=== PATIENT | female | born 1950 | race Caucasian/White ===

== ENCOUNTER → 2018-01-10 07:45 | Outpatient (CLI) | payer MEDICARE, SELFPAY ==
--- NOTE | 2018-01-10 07:11 | HPBI_ITS ---
MAMMOGRAPHY - BILATERAL SCREENING REASON FOR EXAM: Female, 67 years old. Routine annual screening examination. PERTINENT HISTORY: Aunt with breast cancer. Remote bilateral excisional breast biopsies. TECHNIQUE: Digital bilateral breast armando (3D mammographic acquisition) in the CC and MLO projections. 2-D mediolateral oblique (MLO) and craniocaudad (CC) views of both breasts were obtained. CAD: Full Field Digital Mammography with Computer Added Detection was performed. COMPARISON: Comparison is made with prior study dated October 11, 2016. FINDINGS: Breast Composition: There are scattered areas of fibroglandular density. There are no dominant masses or suspicious calcifications. No other significant abnormalities are identified. There has been no significant change since the prior study. HPBI/SCREENING MAMM (CAD), BILAT IMPRESSION: Stable bilateral screening mammogram. Yearly follow-up mammogram recommended. (A) ASSESSMENT CATEGORY: BIRADS Category 1: Negative. A letter regarding these results will be sent to the patient by the facility within 30 days. Approximately 10% of breast cancers are not detected by mammography. A normal mammogram should not delay biopsy of a clinically suspicious abnormality. [id number] Electronically Signed: Jatin Song MD at 8:24 EDT Tel [phone], Service support ,
== END ==
DX: Z12.31 Encounter for screening mammogram for malignant neoplasm of breast (principal)
CPT/HCPCS: 77063; 77067

== ENCOUNTER → 2018-04-11 14:07 | Outpatient (CLI) | payer MEDICARE, SELFPAY | DX: E83.52 Hypercalcemia (principal) | CPT/HCPCS: 36415; 82330 ==

== ENCOUNTER → 2019-02-04 | Outpatient (CLI) | payer MEDICARE, SELFPAY ==
--- NOTE | 2019-02-04 09:54 | BI_ITS ---
MAMMOGRAPHY - BILATERAL SCREENING REASON FOR EXAM: Female, 68 years old. Routine annual screening examination. PERTINENT HISTORY: Aunt with breast cancer. Remote bilateral excisional breast biopsies. TECHNIQUE: Digital bilateral breast vinnie (3D mammographic acquisition) in the CC and MLO projections. 2-D mediolateral oblique (MLO) and craniocaudad (CC) views of both breasts were obtained. CAD: Full Field Digital Mammography with Computer Added Detection was performed. COMPARISON: Comparison is made with prior study dated October 11, 2016 and January 11, 2008. FINDINGS: Breast Composition: There are scattered areas of fibroglandular density. There are no dominant masses or suspicious calcifications. Stable small bilateral axillary lymph nodes. No other significant abnormalities are identified. There has been no significant change since the prior study. BI/SCREEN MAMM (CAD) W/VINNIE BILAT IMPRESSION: Stable bilateral screening mammogram. Yearly follow-up mammogram recommended. (A) ASSESSMENT CATEGORY: BIRADS Category 2: Benign. A letter regarding these results will be sent to the patient by the facility within 30 days. Approximately 10% of breast cancers are not detected by mammography. A normal mammogram should not delay biopsy of a clinically suspicious abnormality. [id number] Electronically Signed: Jatin Song, at 13:27 EDT , Service support ,
--- NOTE | 2019-02-04 10:14 | BD_ITS ---
STUDY: DUAL ENERGY X-RAY ABSORPTIOMETRY / DXA REASON FOR EXAM: Female, 68 years old. The patient is postmenopausal. Loss of height. TECHNIQUE: Bone Mineral Density (BMD) measurements of lumbar spine and bilateral hips were obtained. COMPARISON: Comparison is made with prior examination dated October 11, 2016. FINDINGS: Lumbar Spine (L1-L4): g/cm2 (1.250) / T-score (0.6) / Z-score (2.2) Findings are suggestive of normal bone density with a low fracture risk. Left Femur Total: g/cm2 (0.916) / T-score (-0.7) / Z-score (0.6) Left Femoral Neck: g/cm2 (0.843) / T-score (-1.4) / Z-score (0.2) Right Femur Total: g/cm2 (0.860) / T-score (-1.2) / Z-score (0.2) Right Femoral Neck: g/cm2 (0.798) / T-score (-1.7) / Z-score (-0.2) The T-Scores on the most recent prior examination were: Lumbar Spine (L1-L4): There has been worsening of bone density since the previous examination. Left Femur Total: which represents an improvement of 2%. Right Femur Total: which represents a worsening of 1.1%. BD/Dexa Bone Density Study IMPRESSION: The patient is considered osteopenic as outlined below according to World Osei Organization (WHO) criteria with a moderate fracture risk. There has been worsening of bone density since the previous examination. Reference Information: The T-score is the number of standard deviations above or below the standard which is normal for young adults at their peak bone mineral density. The World Health Organization (WHO) interprets the T-scores as follows: Above -1 Normal bone density Between -1 and -2.5 Osteopenia Equal to / or below -2.5 Osteoporosis As a practical clinical guideline, osteopenia may be graded as follows: Mild -1 through -1.5 Moderate -1.6 through -2.0 Severe -2.1 through -2.4 The Z-score is the number of standard deviations above or below age-matched controls. A Z-score of less than -1.5 would be considered abnormal. References: 1. NIH Osteoporosis and Related Bone Diseases http://www.osteo.org 2. International Society for Clinical Densitometry http://www.iscd.org 3. National Osteoporosis Foundation http://www.nof.org Electronically Signed: Jatin Song, at 11:42 EDT , Service support ,
== END | disposition home or self-care (01) ==
LOC: OPBD 09:47
DX: Z78.0 Asymptomatic menopausal state (principal); Z12.31 Encounter for screening mammogram for malignant neoplasm of breast; Z13.820 Encounter for screening for osteoporosis
CPT/HCPCS: 77063; 77067; 77080

== ENCOUNTER → 2019-07-09 | Outpatient (CLI) | payer MEDICARE, SELFPAY ==
[2019-07-08 08:13] VITALS: BMI 28.8
[2019-07-09 12:36] LABS: Absolute Lymphocyte Count 1.64 X10^3/uL (0.83-4.51); Absolute Neutrophil Count 3.1 X10^3/uL (2.0-7.7); Basophil# 0.05 X10^3/uL; Basophil% 0.9 % (0-1); Eosinophil# 0.23 X10^3/uL; Eosinophils% 4.1 % (0-5); Hematocrit 45.2 % (37-47); Hemoglobin 14.3 g/dL (12.0-15.0); Lymphocyte # 1.64 X10^3/ul (4.0); Lymphocyte % 29.2 % (19-41); Mean Corp Hgb Conc 31.6 g/dL (32-36); Mean Corpuscular Hgb 28.2 pg (27.0-32.0); Mean Corpuscular Volume 89.2 fL (81-99); Mean Platelet Vol. 10.6 fl (6.2-12.0); Monocyte# 0.59 X10^3/uL; Monocyte% 10.5 % (0-10); NRBC Flagged by Analyzer 0 % (0-5); Neutrophil % 55.3 % (47-70); Platelet Count 252 K/mm3 (150-450); RBC Distribution Width CV 14.7 % (11.6-14.6); RBC Distribution Width SD 47.9 fl (35.1-43.9); Red Blood Count 5.07 M/mm3 (4.2-5.4); White Blood Count 5.6 K/mm3 (4.4-11.0)
[2019-07-09 13:05] LABS: AST(SGOT) 19 U/L (15-37); Alanine Aminotransfer ALT/SGPT 27 U/L (13-56); Albumin, Serum 3.6 g/dL (3.2-5.0); Alkaline Phosphatase 109 U/L (45-117); Anion Gap 8 (5-15); BUN 12 mg/dL (7-18); BUN/Creat Ratio 10.4 RATIO (10-20); Calcium,Total 9.4 mg/dL (8.5-10.1); Chloride 107 mmol/L (98-107); Cholesterol 143 mg/dL (200); Creatinine, Serum 1.15 mg/dL (0.55-1.02); EST Glomerular Filtration Rate 50 mL/min (>60); Est Glom Filt Rate - Afr Amer 60 mL/min (>60); Globulin 3.6 g/dL (2.2-4.2); Glucose 83 mg/dL (74-106); High Density Lipoprotein 48 mg/dL; Potassium 3.9 mmol/L (3.5-5.1); Protein, Total 7.2 g/dL (6.4-8.2); Sodium Level 142 mmol/L (136-145); T4 Free Direct 0.86 ng/dL (0.76-1.46); Thyroid Stim Hormone (TSH) 2.16 uIU/mL (0.358-3.74); Triglycerides 94 mg/dL; Very Low Density Lipoprotein 19 mg/dL (5-40)
== END | disposition home or self-care (01) ==
LOC: BIMLAB 08:31
PROVIDERS: PCP Internal Medicine; Visit Provider Internal Medicine
DX: E78.5 Hyperlipidemia, unspecified (principal)
CPT/HCPCS: 36415; 80053; 80061; 84439; 84443; 85025

== ENCOUNTER → 2019-09-10 08:28 | Outpatient (CLI) | payer MEDICARE, SELFPAY ==
[2019-08-25 13:22] VITALS: BMI 28.8
[2019-09-10 12:48] LABS: Anion Gap 6 (5-15); BUN 14 mg/dL (7-18); BUN/Creat Ratio 13.3 RATIO (10-20); Calcium,Total 9.4 mg/dL (8.5-10.1); Chloride 105 mmol/L (98-107); Creatinine, Serum 1.05 mg/dL (0.55-1.02); EST Glomerular Filtration Rate 55 mL/min (>60); Est Glom Filt Rate - Afr Amer 67 mL/min (>60); Glucose 85 mg/dL (74-106); Potassium 3.7 mmol/L (3.5-5.1); Sodium Level 140 mmol/L (136-145)
== END ==
PROVIDERS: Family Provider Internal Medicine; PCP Internal Medicine; Visit Provider Internal Medicine
DX: I10 Essential (primary) hypertension (principal); G57.02 Lesion of sciatic nerve, left lower limb
CPT/HCPCS: 36415; 80048; 97110; 97530

== ENCOUNTER 2019-09-10 14:00 | Outpatient (RCR) | payer MEDICARE, SELFPAY ==
[2019-08-25 13:22] VITALS: BMI 28.8
--- NOTE | 2019-09-01 09:55 | HP.PTEVAL_ITS ---
Patient's Visit Information RICHELLE PATEL is a 69 year old F referred to Physical Therapy by Vazquez Scott MD with a diagnosis of L sciatica. Date of Evaluation: 09/01/19 Physical Therapist: Josafat Dang DPT, OCS, CSCS - Visit Plan Frequency: 3x /Week Duration: 4-6 Weeks Plan: 3x/week for 2-4 weeks for. 1. US nonthermal to L trochanteric area. 2. STM adn rollout quad, HS, piriformis adn ITB and stretch the same. 3. show hip stab exercies once pain is down adn return to gym ex(TM, row, yoga class) when painfree. - Subjective Findings: i HAVE TIGHT piriformis. Has L lateral hip pain described as hot and painful. Been there 6-7 months ago. Walked alot on trails at that time in [place] adn lots of steps. Rower made it hurt. Walking is now OK. Steps can hurt at times. Is on antiinflammatory whcih is helping. Pain is intermittent and comfortable at rest. Prior to meds it hurt every other week. Sleep is interrupted as it wakes her if on L side. [place] pose helps, piriformis stretch helps. Last pain was yesterday sitting. Activities: hesitant to do yoga class. May do TM at some times. Basic ADLs: sitting >60 mintues hurts to stand. Dresses self adn basics no problem. - Pain L hip pain. Pain Intensity (Out of 10): 0 Pain Intensity Range: 0, 6 - Objective L hip max tender over trochanter and min over piriformis area. R trochanter slightly tender. Walks I and normal, trasnfers nromal bed adn chair. Steps are reciprocal without pain or railing today. ITB max tight B, quad min tight B, HS min tight, priformis min tight. Hip AROM WFL adn without asymmetries or pain today. Knee adn ankle show symmetrical ROM. Strength ankles and knees 4+ without pain, hip felxion 4- B, abd 4 B with slight L lateral hip pain, add 5/5 B, ext 4- and no pain B. reflexes 2/3 patella and achilles B. SensationWNL to gross light touch B LE. - FATIMAH, - FADDIR, - hip scouring, LB AROM WFL and without pain, PA pressure L/S without pain and near full. - Goals Goal 1:: Patient feel 90% decreased L hip pain at 1/10 at worst Goal Time Frame: 4-6 Weeks Goal 2:: Pateint I in appropriate HEP to minimze future problems Goal Time Frame: 4-6 Weeks Goal 3:: LEFS less than 8% disability. Goal Time Frame: 4-6 Weeks Goal 4:: Only min tenderness trochanter L and knee to table in sidelying to show less ITB tightness. Goal Time Frame: 4-6 Weeks - Rehabilitation Potential Physical Therapy Diagnosis: Likely L trochanteric bursitis vs priformis. Rehabilitation Potential: Good - Anticipated Interventions Patient/Client Instruction: Educate patient on: Condition, Plan of Care For the Purpose of:: To decrease pain, To increase ROM, To improve nutrient delivery to tissue, To improve muscle performance and motor function, To increase tolerance to activity/condition/position, To improve ability of physical actions for home/community/work/leisure Therapeutic Exercise to Include: Strength training, Flexibilty training, Gait and locomotor training, Passive ROM, Active ROM For the Purpose of:: To decrease pain, To increase ROM, To improve muscle performance and motor function, To increase tolerance to activity/condition/position, To improve ability of physical actions for home/community/work/leisure Manual Therapy Techniques to Include: Passive ROM, Soft tissue mobilization For the Purpose of:: To decrease pain, To improve nutrient delivery to tissue, To improve ability of physical actions for home/community/work/leisure, To improve gait and locomotor functions Ultrasound (thermal/non thermal): Yes - nonthermal L trochanter area For the Purpose of:: To decrease pain, To decrease swelling/inflammation, To improve muscle performance and motor function, To increase tolerance to activity/condition/position Thank you for the opportunity to evaluate your patient. For Medicare and Medicare HMO plans, please review the plan of care and approve it. It will need to be FAXED BACK to us at [phone] for Medicare purposes. For Medicare only, by signing this I certify the plan of care. Please let me know if there are questions or concerns regarding this plan of care. Physician Signature: Date:_
--- NOTE | 2019-09-16 11:19 | HP.PTDCSUM ---
HP - PT D/C Summary It has been my pleasure to treat RICHELLE PATEL under orders from Vazquez Scott MD, for the diagnosis of L sciatica for a total of 6 visit(s). Discharge Date: 09/16/19 Please see the following information for a summary of their discharge status. - Subjective Subjective: I feel really good. Exerrcises really help. If I don't stretch I still can hurt. F/u with doctor for med check coming up. Pain to 2/10 after sitting. Manageable. Ready to be done with PT. - Pain L hip pain. Pain Intensity (Out of 10): 0 - Overall Improvement % Improvement: 90 - Objective Objective/Function: knee to table today without pain, Min tenderness greater trochanter. Walks normal and steps normal. OVERALL DOING VERY WELLA ND WILLING TO CONTINUE ON OWN AT HOME. - Goals Goal 1:: Patient feel 90% decreased L hip pain at 1/10 at worst Goal Progress: Goal Met Goal 2:: Pateint I in appropriate HEP to minimze future problems Goal Progress: Goal Met Goal 3:: LEFS less than 8% disability. Goal Progress: Goal Met Goal 4:: Only min tenderness trochanter L and knee to table in sidelying to show less ITB tightness. Goal Progress: Goal Met - Plan Plan: d/c to hep - D/C Information Discharge Comments: Pt doing wella dn willing to cotninue stretches via HEP. Will see doctor in a couple weeks. If there are questions or concerns regarding this patient's physical therapy, please feel free to call me at [phone]. Thank you for the referral of this patient. Sincerely, Josafat Dang, DPT, OCS, CSCS
== END 2019-09-10 19:00 | disposition home or self-care (01) ==
LOC: PT 14:00
PROVIDERS: Family Provider Internal Medicine; PCP Internal Medicine; Referring Provider Internal Medicine; Visit Provider Internal Medicine
DX: G57.02 Lesion of sciatic nerve, left lower limb (principal)
CPT/HCPCS: 97110; 97162

== ENCOUNTER → 2019-10-28 08:58 | Outpatient (CLI) | payer MEDICARE, SELFPAY ==
[2019-09-30 13:27] VITALS: BMI 29.2
[2019-10-28 13:05] LABS: Anion Gap 4 (5-15); BUN 17 mg/dL (7-18); BUN/Creat Ratio 15.3 RATIO (10-20); Calcium,Total 9.8 mg/dL (8.5-10.1); Chloride 103 mmol/L (98-107); Creatinine, Serum 1.11 mg/dL (0.55-1.02); EST Glomerular Filtration Rate 52 mL/min (>60); Est Glom Filt Rate - Afr Amer 63 mL/min (>60); Glucose 91 mg/dL (74-106); Potassium 3.7 mmol/L (3.5-5.1); Sodium Level 137 mmol/L (136-145)
== END ==
PROVIDERS: Family Provider Internal Medicine; PCP Internal Medicine; Visit Provider Internal Medicine
DX: I10 Essential (primary) hypertension (principal)
CPT/HCPCS: 36415; 80048

== ENCOUNTER → 2020-03-02 08:30 | Outpatient (CLI) | payer MEDICARE, SELFPAY ==
[2019-12-01 16:33] VITALS: BMI 29.2
[2020-03-01 10:01] VITALS: BMI 29.2
--- NOTE | 2020-03-02 08:32 | BI_ITS ---
MAMMOGRAPHY - BILATERAL SCREENING REASON FOR EXAM: Female, 69 years old. Routine annual screening examination. PERTINENT HISTORY: Aunt with breast cancer. TECHNIQUE: Digital bilateral breast vinnie (3D mammographic acquisition) in the CC and MLO projections. 2-D mediolateral oblique (MLO) and craniocaudad (CC) views of both breasts were obtained. CAD: Full Field Digital Mammography with Computer Added Detection was performed. COMPARISON: Comparison is made with prior study dated February 04, 2019 and January 10, 2018. FINDINGS: Breast Composition: There are scattered areas of fibroglandular density. There are no dominant masses or suspicious calcifications. Stable small benign-appearing bilateral axillary lymph nodes. No other significant abnormalities are identified. There has been no significant change since the prior study. BI/SCREEN MAMM (CAD) W/VINNIE BILAT IMPRESSION: Stable bilateral screening mammogram. Yearly follow-up mammogram recommended. (A) ASSESSMENT CATEGORY: BIRADS Category 2: Benign. A letter regarding these results will be sent to the patient by the facility within 30 days. Approximately 10% of breast cancers are not detected by mammography. A normal mammogram should not delay biopsy of a clinically suspicious abnormality. [id number] Electronically Signed: Jatin Song, at 10:01 EDT , Service support ,
== END ==
PROVIDERS: PCP Internal Medicine; Referring Provider Internal Medicine; Visit Provider Internal Medicine
DX: Z12.31 Encounter for screening mammogram for malignant neoplasm of breast (principal)
CPT/HCPCS: 77063; 77067

== ENCOUNTER → 2020-05-03 09:49 | Outpatient (CLI) | payer MEDICARE, SELFPAY ==
[2020-05-03 09:25] VITALS: BMI 29.2
[2020-05-03 12:45] LABS: Absolute Lymphocyte Count 1.61 X10^3/uL (0.83-4.51); Absolute Neutrophil Count 3.6 X10^3/uL (2.0-7.7); Basophil# 0.04 X10^3/uL; Basophil% 0.7 % (0-1); Eosinophil# 0.17 X10^3/uL; Eosinophils% 2.9 % (0-5); Hematocrit 43.1 % (37-47); Hemoglobin 13.8 g/dL (12.0-15.0); Lymphocyte # 1.61 X10^3/ul (4.0); Lymphocyte % 27.2 % (19-41); Mean Corpuscular Hgb 29.2 pg (27.0-32.0); Mean Corpuscular Volume 91.3 fL (81-99); Mean Platelet Vol. 10.6 fl (6.2-12.0); Monocyte# 0.52 X10^3/uL; Monocyte% 8.8 % (0-10); NRBC Flagged by Analyzer 0 % (0-5); Neutrophil # 3.57 X10^3/uL (2.7-7.7); Neutrophil % 60.1 % (47-70); Platelet Count 276 K/mm3 (150-450); RBC Distribution Width CV 13.7 % (11.6-14.6); RBC Distribution Width SD 45.8 fl (35.1-43.9); Red Blood Count 4.72 M/mm3 (4.2-5.4); White Blood Count 5.9 K/mm3 (4.4-11.0)
[2020-05-03 13:28] LABS: ALB/GLOB Ratio 1.1 RATIO (0.9-2.4); AST(SGOT) 21 U/L (15-37); Alanine Aminotransfer ALT/SGPT 29 U/L (13-56); Albumin, Serum 4.1 g/dL (3.2-5.0); Alkaline Phosphatase 101 U/L (45-117); Anion Gap 8 (5-15); BUN 10 mg/dL (7-18); BUN/Creat Ratio 10.3 RATIO (10-20); Calcium,Total 9.6 mg/dL (8.5-10.1); Chloride 99 mmol/L (98-107); Creatinine, Serum 0.97 mg/dL (0.55-1.02); EST Glomerular Filtration Rate 60 mL/min (>60); Est Glom Filt Rate - Afr Amer 73 mL/min (>60); Globulin 3.7 g/dL (2.2-4.2); Glucose 90 mg/dL (74-106); Potassium 3.4 mmol/L (3.5-5.1); Protein, Total 7.8 g/dL (6.4-8.2); Sodium Level 136 mmol/L (136-145)
== END ==
PROVIDERS: PCP Internal Medicine; Referring Provider Internal Medicine; Visit Provider Internal Medicine
DX: I10 Essential (primary) hypertension (principal); F41.9 Anxiety disorder, unspecified; F32.9 Major depressive disorder, single episode, unspecified
CPT/HCPCS: 36415; 80053; 85025

== ENCOUNTER → 2020-09-20 10:12 | Outpatient (CLI) | payer MEDICARE, SELFPAY ==
[2020-09-20 13:12] LABS: Anion Gap 6 (5-15); BUN 12 mg/dL (7-18); BUN/Creat Ratio 9.8 RATIO (10-20); Calcium,Total 9.6 mg/dL (8.5-10.1); Chloride 106 mmol/L (98-107); Creatinine, Serum 1.22 mg/dL (0.55-1.02); EST Glomerular Filtration Rate 46 mL/min (>60); Est Glom Filt Rate - Afr Amer 56 mL/min (>60); Glucose 120 mg/dL (74-106); Potassium 3.5 mmol/L (3.5-5.1); Sodium Level 138 mmol/L (136-145)
== END ==
PROVIDERS: PCP Internal Medicine; Visit Provider Internal Medicine
DX: I10 Essential (primary) hypertension (principal)
CPT/HCPCS: 36415; 80048

== ENCOUNTER → 2020-12-15 09:35 | Outpatient (CLI) | payer MEDICARE, SELFPAY ==
[2020-12-15 09:04] VITALS: BMI 31.1
[2020-12-15 13:04] LABS: ALB/GLOB Ratio 1.1 RATIO (0.9-2.4); AST(SGOT) 19 U/L (15-37); Alanine Aminotransfer ALT/SGPT 34 U/L (13-56); Albumin, Serum 3.9 g/dL (3.2-5.0); Alkaline Phosphatase 92 U/L (45-117); Anion Gap 7 (5-15); BUN 14 mg/dL (7-18); BUN/Creat Ratio 13.9 RATIO (10-20); Calcium,Total 9.7 mg/dL (8.5-10.1); Chloride 103 mmol/L (98-107); Cholesterol 151 mg/dL (200); Creatinine, Serum 1.01 mg/dL (0.55-1.02); EST Glomerular Filtration Rate 58 mL/min (>60); Est Glom Filt Rate - Afr Amer 70 mL/min (>60); Globulin 3.4 g/dL (2.2-4.2); Glucose 85 mg/dL (74-106); High Density Lipoprotein 58 mg/dL; Potassium 3.8 mmol/L (3.5-5.1); Protein, Total 7.3 g/dL (6.4-8.2); Sodium Level 138 mmol/L (136-145); Triglycerides 106 mg/dL; Very Low Density Lipoprotein 21 mg/dL (5-40)
== END ==
PROVIDERS: PCP Internal Medicine; Referring Provider Internal Medicine; Visit Provider Internal Medicine
DX: I10 Essential (primary) hypertension (principal)
CPT/HCPCS: 36415; 80053; 80061

== ENCOUNTER → 2021-06-06 13:30 | Outpatient (CLI) | payer MEDICARE, SELFPAY ==
[2020-12-15 09:04] VITALS: BMI 31.1
[2021-03-23 10:54] VITALS: BMI 31.1
--- NOTE | 2021-06-06 13:31 | BI_ITS ---
MAMMOGRAPHY - BILATERAL SCREENING REASON FOR EXAM: Female, 70 years old. Routine annual screening examination. PERTINENT HISTORY: Aunt with breast cancer. TECHNIQUE: Digital bilateral breast vinnie (3D mammographic acquisition) in the CC and MLO projections. 2-D mediolateral oblique (MLO) and craniocaudad (CC) views of both breasts were obtained. CAD: Full Field Digital Mammography with Computer Added Detection was performed. COMPARISON: Comparison is made with prior study of 03/02/2020 and 02/04/2019. FINDINGS: Breast Composition: There are scattered areas of fibroglandular density. There are no dominant masses or suspicious calcifications. Small benign-appearing bilateral axillary lymph nodes. No other significant abnormalities are identified. There has been no significant change since the prior study. BI/SCRN MAMM (CAD)W/VINNIE BILAT IMPRESSION: Stable bilateral screening mammogram. Yearly follow-up mammogram recommended. (A) ASSESSMENT CATEGORY: BIRADS Category 2: Benign. A letter regarding these results will be sent to the patient by the facility within 30 days. Approximately 10% of breast cancers are not detected by mammography. A normal mammogram should not delay biopsy of a clinically suspicious abnormality. [id number] Electronically Signed: Jatin Song MD at 14:19 EDT , Service support ,
== END ==
PROVIDERS: PCP Internal Medicine; Referring Provider Internal Medicine; Visit Provider Internal Medicine
DX: Z12.31 Encounter for screening mammogram for malignant neoplasm of breast (principal)
CPT/HCPCS: 77063; 77067

== ENCOUNTER → 2021-06-29 11:53 | Outpatient (CLI) | payer MEDICARE, SELFPAY ==
[2021-06-29 15:33] LABS: Absolute Lymphocyte Count 1.97 X10^3/uL (0.83-4.51); Absolute Neutrophil Count 3.5 X10^3/uL (2.0-7.7); Basophil# 0.05 X10^3/uL; Basophil% 0.8 % (0-1); Eosinophils% 3.1 % (0-5); Hematocrit 43.1 % (37-47); Hemoglobin 13.9 g/dL (12.0-15.0); Lymphocyte # 1.97 X10^3/ul (0.83-4.51); Lymphocyte % 30.9 % (19-41); Mean Corp Hgb Conc 32.3 g/dL (32-36); Mean Corpuscular Hgb 28.6 pg (27.0-32.0); Mean Corpuscular Volume 88.7 fL (81-99); Mean Platelet Vol. 10.5 fl (6.2-12.0); Monocyte# 0.65 X10^3/uL; Monocyte% 10.2 % (0-10); NRBC Flagged by Analyzer 0 % (0-5); Neutrophil % 54.8 % (47-70); Platelet Count 306 K/mm3 (150-450); RBC Distribution Width CV 14.2 % (11.6-14.6); RBC Distribution Width SD 45.4 fl (35.1-43.9); Red Blood Count 4.86 M/mm3 (4.2-5.4); White Blood Count 6.4 K/mm3 (4.4-11.0)
[2021-06-29 15:48] LABS: Anion Gap 6 (5-15); BUN 14 mg/dL (7-18); Calcium,Total 9.4 mg/dL (8.5-10.1); Chloride 102 mmol/L (98-107); Creatinine, Serum 0.93 mg/dL (0.55-1.02); EST Glomerular Filtration Rate 63 mL/min (>60); Est Glom Filt Rate - Afr Amer 76 mL/min (>60); Glucose 91 mg/dL (74-106); Potassium 3.6 mmol/L (3.5-5.1); Sodium Level 136 mmol/L (136-145)
== END ==
PROVIDERS: PCP Internal Medicine; Referring Provider Internal Medicine; Visit Provider Internal Medicine
DX: I10 Essential (primary) hypertension (principal)
CPT/HCPCS: 36415; 80048; 85025

== ENCOUNTER → 2021-07-20 10:16 | Outpatient (CLI) | payer MEDICARE, SELFPAY | PROVIDERS: Visit Provider Physician Assistant | DX: Z20.822 Contact with and (suspected) exposure to COVID-19 (principal) | CPT/HCPCS: 87635; U0005; U0003 ==

== ENCOUNTER → 2021-08-16 11:00 | Outpatient (CLI) | payer MEDICARE, SELFPAY | PROVIDERS: PCP Internal Medicine; Referring Provider Internal Medicine; Visit Provider Internal Medicine | DX: G47.33 Obstructive sleep apnea (adult) (pediatric) (principal) | CPT/HCPCS: 95806 ==

== ENCOUNTER → 2021-09-01 11:00 | Outpatient (CLI) | payer MEDICARE, SELFPAY | PROVIDERS: PCP Internal Medicine; Referring Provider Internal Medicine; Visit Provider Internal Medicine | DX: Z46.89 Encounter for fitting and adjustment of other specified devices (principal) ==

== ENCOUNTER → 2021-09-28 08:24 | Outpatient (CLI) | payer MEDICARE, SELFPAY ==
--- NOTE | 2021-09-28 08:31 | BD_ITS ---
STUDY: DUAL ENERGY X-RAY ABSORPTIOMETRY / DXA REASON FOR EXAM: Female, 71 years old. Screening for Osteoporosis TECHNIQUE: Bone Mineral Density (BMD) measurements of lumbar spine and bilateral hips were obtained. COMPARISON: Comparison is made with prior examination 02/04/2019. FINDINGS: Lumbar Spine (L1-L4): g/cm2 (1.018) / T-score (-0.3) / Z-score (1.9) Findings are suggestive of normal bone density with a low fracture risk. Left Femur Total: g/cm2 (0.814) / T-score (-1.0) / Z-score (0.5) Left Femoral Neck: g/cm2 (0.718) / T-score (-1.2) / Z-score (0.6) Right Femur Total: g/cm2 (0.819) / T-score (-1.0) / Z-score (0.5) Right Femoral Neck: g/cm2 (0.719) / T-score (-1.2) / Z-score (0.6) The T-Scores on the most recent prior examination were: Lumbar Spine (L1-L4): There has been worsening of bone density since the previous examination. Left Femur Total: which represents a worsening of 4.4%. Right Femur Total: which represents an improvement of 2.6%. BD/Dexa Bone Density Study IMPRESSION: The patient is considered osteopenic as outlined below according to World Osei Organization (WHO) criteria with a low fracture risk. There has been worsening of bone density since the previous examination. Reference Information: The T-score is the number of standard deviations above or below the standard which is normal for young adults at their peak bone mineral density. The World Health Organization (WHO) interprets the T-scores as follows: Above -1 Normal bone density Between -1 and -2.5 Osteopenia Equal to / or below -2.5 Osteoporosis As a practical clinical guideline, osteopenia may be graded as follows: Mild -1 through -1.5 Moderate -1.6 through -2.0 Severe -2.1 through -2.4 The Z-score is the number of standard deviations above or below age-matched controls. A Z-score of less than -1.5 would be considered abnormal. References: 1. NIH Osteoporosis and Related Bone Diseases www osteo.org 2. International Society for Clinical Densitometry www iscd.org 3. National Osteoporosis Foundation www nof.org Electronically Signed: Jatin Song MD at 15:32 EST , Service support ,
== END ==
PROVIDERS: PCP Internal Medicine; Referring Provider Internal Medicine; Visit Provider Internal Medicine
DX: Z78.0 Asymptomatic menopausal state (principal)
CPT/HCPCS: 77080

== ENCOUNTER 2022-01-26 08:05 | Outpatient (CLI) | payer MEDICARE, SELFPAY ==
[2022-01-26 13:05] LABS: ALB/GLOB Ratio 1.1 RATIO (0.9-2.4); AST(SGOT) 18 U/L (15-37); Alanine Aminotransfer ALT/SGPT 30 U/L (13-56); Albumin, Serum 3.6 g/dL (3.2-5.0); Alkaline Phosphatase 86 U/L (45-117); Anion Gap 4 (5-15); BUN 16 mg/dL (7-18); BUN/Creat Ratio 15.5 RATIO (10-20); Calcium,Total 9.1 mg/dL (8.5-10.1); Chloride 104 mmol/L (98-107); Cholesterol 143 mg/dL (200); Creatinine, Serum 1.03 mg/dL (0.55-1.02); EST Glomerular Filtration Rate 56 mL/min (>60); Est Glom Filt Rate - Afr Amer 68 mL/min (>60); Globulin 3.4 g/dL (2.2-4.2); Glucose 92 mg/dL (74-106); High Density Lipoprotein 50 mg/dL; Sodium Level 137 mmol/L (136-145); Triglycerides 118 mg/dL; Very Low Density Lipoprotein 24 mg/dL (5-40)
== END 2022-01-26 23:59 | disposition home or self-care (01) ==
LOC: BIMLAB 08:06
PROVIDERS: PCP Internal Medicine; Referring Provider Internal Medicine; Visit Provider Internal Medicine
DX: I10 Essential (primary) hypertension (principal); E78.5 Hyperlipidemia, unspecified
CPT/HCPCS: 36415; 80053; 80061

== ENCOUNTER 2022-02-23 15:00 | Outpatient (RCR) | payer MEDICARE, SELFPAY ==
--- NOTE | 2022-02-13 09:02 | HP.PTEVAL ---
Patient's Visit Information RICHELLE PATEL is a 71 year old F referred to Physical Therapy by SOURAV Childress with a diagnosis of Right Shoulder Pain. Date of Evaluation: 02/13/22 Physical Therapist: Luciana Sherman DPT - Visit Plan Frequency: 2x /Week Duration: 4 Weeks Plan: Focus on scapular strength/stabilization - Subjective Patient reports that she has had right shoulder pain for about a year- mostly at night- insidious onset. Went to see Hayder and he did an injection Sunday- and she has seen a huge improvement. She had a big flare on Sunday and then it settled out. Sunday night was the best she has felt in a long time and is now sleeping again. Pain is located in the deltoid which is now gone but she has discomfort in the scapular region. Describes the pain as dull and achy. Worst: Before infection: 810 since injection: 10/31 Agg: night time, lifting overhead with weights. Best: 0/10 Eases: ice, injection, Tylenol. Did have some mild bumper and painter strength with opening jars- but now she is not having any issues. No N/T. No neck pain, blurred vision, dizziness or LUBIN. Does have some burning in the upper trap. Right hand dominate. Very active- works out 2x a week with a group- mostly weights and some cardio in between- stretching and balance. X-rays- severe OA PMhx/Meds: no changes since saw ortho Sunday. - Objective Posture: FH, RS- can correct with verbal cues but is unable to maintain. Gait: no deviation noted- good arm swing and trunk rotation. Palpation: tender along medial border of the scapula, upper trap, cervical paraspinals on the right, AC joint, bicipital groove. ROM: WFL in all planes, Elbow/Wrist/Hand: WFL Cervical: WFL tightness with SB bilateral. Strength: scap: poor, Shoulder: 4/5 throughout, Elbow: 4+/5, Wrist: 4+/5, Quality Director: WFL Sensation: WNL - Special Tests R Shoulder Empty Can - SS: Positive R Shoulder Belly Press - SupScap: Positive R Shoulder Neer - Impingement: Positive R Shoulder Atkins Ben - Impingement: Positive - Balance/Special Test Scores Quick DASH Score: 18.1800 - Goals Goal 1:: Patient will be I with HEP and progression Goal Time Frame: 4-6 Weeks Goal 2:: Patient will maintain proper posture t/o tx session to demo increased scapular s/s Goal Time Frame: 4-6 Weeks Goal 3:: Patient will report 80% improvement Goal Time Frame: 4-6 Weeks - Rehabilitation Potential Physical Therapy Diagnosis: Patient presents with hypomobility- she has decreased Rehabilitation Potential: Fair - Anticipated Interventions Patient/Client Instruction: Educate patient on: Benefits of Fitness Program Therapeutic Exercise to Include: Strength training, Endurance training, Agility training, Body mechanics, Postural training, Flexibilty training, Neuromotor development, Dynamic Lumbar Stabilization, Scapular Strength/Stabilization For the Purpose of:: To improve muscle performance and motor function TENS: Yes Cryotherapy (ice pack, ice massage): Yes Thermo therapy (hot pack): Yes Ultrasound (thermal/non thermal): Yes Thank you for the opportunity to evaluate your patient. For Medicare and Medicare HMO plans, please review the plan of care and approve it. It will need to be FAXED BACK to us at [phone] for Medicare purposes. For Medicare only, by signing this I certify the plan of care. Please let me know if there are questions or concerns regarding this plan of care. Physician Signature: Date:
--- NOTE | 2022-04-06 14:25 | HP.PT.NRP ---
RICHELLE PATEL was seen in my office for initial evaluation on 02/13/22. The following Plan of Care was established for this patient: Initial Frequency: 2x /Week Initial Duration: 4 Weeks Patient/Client Instruction: Educate patient on: Benefits of Fitness Program Therapeutic Exercise to Include: Strength training, Endurance training, Agility training, Body mechanics, Postural training, Flexibilty training, Neuromotor development, Dynamic Lumbar Stabilization, Scapular Strength/Stabilization For the Purpose of:: To improve muscle performance and motor function TENS: Yes Cryotherapy (ice pack, ice massage): Yes Thermo therapy (hot pack): Yes Ultrasound (thermal/non thermal): Yes This patient was last seen in our office . Pertinent comments regarding their Physical therapy will appear below: Patient has not attended PT in over 30 days- appropriate to be d/c and return to MD for further evaluation as needed. At this point I will be discontinuing this patient from physical therapy. I would be happy to see this patient again in the future if found appropriate by the physician. Thank you! Luciana Sherman, KVNGT Balance/Gait/Functional tests - Balance/Special Test Scores Quick DASH Score: 18.1800
== END 2022-02-23 19:00 | disposition home or self-care (01) ==
LOC: PT 15:00
PROVIDERS: PCP Internal Medicine; Referring Provider Physician Assistant; Visit Provider Physician Assistant
DX: M25.811 Other specified joint disorders, right shoulder (principal); M19.011 Primary osteoarthritis, right shoulder
CPT/HCPCS: 97110; 97162

== ENCOUNTER → 2022-06-05 | Outpatient (CLI) | payer MEDICARE, SELFPAY ==
[2022-06-05 12:03] LABS: Absolute Lymphocyte Count 2.23 X10^3/uL (0.83-4.51); Absolute Neutrophil Count 3.7 X10^3/uL (2.0-7.7); Basophil# 0.04 X10^3/uL; Basophil% 0.6 % (0-1); Eosinophil# 0.22 X10^3/uL; Eosinophils% 3.2 % (0-5); Hematocrit 43.1 % (37-47); Lymphocyte # 2.23 X10^3/ul (0.83-4.51); Lymphocyte % 32.3 % (19-41); Mean Corp Hgb Conc 32.5 g/dL (32-36); Mean Corpuscular Hgb 29.7 pg (27.0-32.0); Mean Corpuscular Volume 91.3 fL (81-99); Mean Platelet Vol. 10.2 fl (6.2-12.0); Monocyte# 0.73 X10^3/uL; Monocyte% 10.6 % (0-10); NRBC Flagged by Analyzer 0 % (0-5); Neutrophil # 3.67 X10^3/uL (2.7-7.7); Platelet Count 282 K/mm3 (150-450); RBC Distribution Width CV 13.7 % (11.6-14.6); Red Blood Count 4.72 M/mm3 (4.2-5.4); White Blood Count 6.9 K/mm3 (4.4-11.0)
[2022-06-05 12:17] LABS: ALB/GLOB Ratio 1.1 RATIO (0.9-2.4); AST(SGOT) 21 U/L (15-37); Alanine Aminotransfer ALT/SGPT 34 U/L (13-56); Albumin, Serum 3.8 g/dL (3.2-5.0); Alkaline Phosphatase 92 U/L (45-117); Anion Gap 5 (5-15); BUN 12 mg/dL (7-18); Calcium,Total 9.6 mg/dL (8.5-10.1); Chloride 101 mmol/L (98-107); EST Glomerular Filtration Rate 58 mL/min (>60); Est Glom Filt Rate - Afr Amer 71 mL/min (>60); Globulin 3.5 g/dL (2.2-4.2); Glucose 91 mg/dL (74-106); Potassium 4.5 mmol/L (3.5-5.1); Protein, Total 7.3 g/dL (6.4-8.2); Sodium Level 137 mmol/L (136-145)
== END | disposition home or self-care (01) ==
LOC: BIMLAB 10:46
PROVIDERS: PCP Internal Medicine; Referring Provider Internal Medicine; Visit Provider Internal Medicine
DX: I10 Essential (primary) hypertension (principal)
CPT/HCPCS: 36415; 80053; 85025

== ENCOUNTER → 2022-06-22 | Outpatient (CLI) | payer MEDICARE, SELFPAY | END | disposition home or self-care (01) | LOC: SL 10:51 | PROVIDERS: PCP Internal Medicine; Visit Provider Internal Medicine | DX: G47.33 Obstructive sleep apnea (adult) (pediatric) (principal) | CPT/HCPCS: 95806 ==

== ENCOUNTER → 2023-01-10 | Outpatient (CLI) | payer MEDICARE, SELFPAY ==
[2023-01-10 15:29] LABS: Absolute Lymphocyte Count 1.96 X10^3/uL (0.83-4.51); Absolute Neutrophil Count 3.5 X10^3/uL (2.0-7.7); Basophil# 0.05 X10^3/uL; Basophil% 0.8 % (0-1); Eosinophil# 0.17 X10^3/uL; Eosinophils% 2.6 % (0-5); Hematocrit 46.4 % (37-47); Hemoglobin 15.1 g/dL (12.0-15.0); Lymphocyte # 1.96 X10^3/ul (0.83-4.51); Lymphocyte % 30.3 % (19-41); Mean Corp Hgb Conc 32.5 g/dL (32-36); Mean Corpuscular Hgb 29.3 pg (27.0-32.0); Mean Corpuscular Volume 90.1 fL (81-99); Mean Platelet Vol. 10.2 fl (6.2-12.0); Monocyte# 0.78 X10^3/uL; Monocyte% 12.1 % (0-10); NRBC Flagged by Analyzer 0 % (0-5); Platelet Count 292 K/mm3 (150-450); RBC Distribution Width CV 13.6 % (11.6-14.6); RBC Distribution Width SD 45.1 fl (35.1-43.9); Red Blood Count 5.15 M/mm3 (4.2-5.4); White Blood Count 6.5 K/mm3 (4.4-11.0)
[2023-01-10 16:22] LABS: ALB/GLOB Ratio 1.2 RATIO (0.9-2.4); AST(SGOT) 25 U/L (15-37); Alanine Aminotransfer ALT/SGPT 36 U/L (13-56); Alkaline Phosphatase 108 U/L (45-117); Anion Gap 8 (5-15); BUN 17 mg/dL (7-18); BUN/Creat Ratio 17.3 RATIO (10-20); Calcium,Total 10.2 mg/dL (8.5-10.1); Chloride 98 mmol/L (98-107); Cholesterol 158 mg/dL (200); Creatinine, Serum 0.98 mg/dL (0.55-1.02); EST Glomerular Filtration Rate 59 mL/min (>60); Est Glom Filt Rate - Afr Amer 71 mL/min (>60); Globulin 3.3 g/dL (2.2-4.2); Glucose 86 mg/dL (74-106); High Density Lipoprotein 52 mg/dL; Protein, Total 7.3 g/dL (6.4-8.2); Sodium Level 134 mmol/L (136-145); Triglycerides 151 mg/dL; Very Low Density Lipoprotein 30 mg/dL (5-40)
== END | disposition home or self-care (01) ==
LOC: BIMLAB 13:43
PROVIDERS: PCP Internal Medicine; Visit Provider Internal Medicine
DX: E78.5 Hyperlipidemia, unspecified (principal); I10 Essential (primary) hypertension
CPT/HCPCS: 36415; 80053; 80061; 85025

== ENCOUNTER 2023-04-09 18:47 | Emergency (ER) | payer MEDICARE, SELFPAY ==
[2023-04-09 18:48] VITALS: BP 154/96; PULSE 86; RESP 17; TEMP 36.6; O2SAT 99
--- NOTE | 2023-04-09 18:58 | RAD_ITS ---
EXAM: XR CHEST, 1 VIEW CLINICAL INDICATION: chest pain TECHNIQUE: Frontal view of the chest. COMPARISON: No relevant prior studies available. FINDINGS: LUNGS AND PLEURAL SPACES: Unremarkable. No consolidation or edema. No pneumothorax. No effusion. HEART: Unremarkable. Cardiac silhouette not enlarged. MEDIASTINUM: Central airways and mediastinal contour are unremarkable. BONES/JOINTS: Unremarkable. SOFT TISSUES: Unremarkable. RAD/Chest 1 View (Portable) IMPRESSION: No radiographic evidence of acute cardiopulmonary disease. Electronically Signed: Seth Cartagena MD at 19:23 EDT ,
[2023-04-09 19:48] VITALS: BP 154/92; PULSE 73; RESP 16; O2SAT 99
[2023-04-09 20:15] LABS: Absolute Lymphocyte Count 2.07 X10^3/uL (0.83-4.51); Absolute Neutrophil Count 2.7 X10^3/uL (2.0-7.7); Basophil# 0.06 X10^3/uL; Eosinophil# 0.21 X10^3/uL; Eosinophils% 3.6 % (0-5); Hematocrit 40.2 % (37-47); Hemoglobin 13.1 g/dL (12.0-15.0); Lymphocyte # 2.07 X10^3/ul (0.83-4.51); Mean Corp Hgb Conc 32.6 g/dL (32-36); Mean Corpuscular Hgb 28.7 pg (27.0-32.0); Monocyte# 0.81 X10^3/uL; Monocyte% 13.7 % (0-10); NRBC Flagged by Analyzer 0 % (0-5); Neutrophil # 2.74 X10^3/uL (2.7-7.7); Neutrophil % 46.4 % (47-70); Platelet Count 256 K/mm3 (150-450); RBC Distribution Width CV 13.8 % (11.6-14.6); RBC Distribution Width SD 44.2 fl (35.1-43.9); Red Blood Count 4.57 M/mm3 (4.2-5.4); White Blood Count 5.9 K/mm3 (4.4-11.0)
[2023-04-09 20:35] LABS: Anion Gap 5 (5-15); BUN 15 mg/dL (7-18); Calcium,Total 9.9 mg/dL (8.5-10.1); Chloride 101 mmol/L (98-107); Creatinine, Serum 1.07 mg/dL (0.55-1.02); EST Glomerular Filtration Rate 54 mL/min (>60); Est Glom Filt Rate - Afr Amer 65 mL/min (>60); Estimated Creatinine Clearance 48.65 ml/min; Glucose 82 mg/dL (74-106); Potassium 3.2 mmol/L (3.5-5.1); Sodium Level 137 mmol/L (136-145); Troponin-I HS (w/2H Reflex) 4 pg/mL (3.0-54.0)
[2023-04-09 20:38] VITALS: BP 142/86; PULSE 74; RESP 17; O2SAT 98
[2023-04-09] MEDS: Aspirin 81 MG TAB.CHEW 324 MG PO (20:53)
[2023-04-09 21:10] VITALS: BP 133/83; PULSE 67; RESP 12; O2SAT 99
[2023-04-09 21:21] LABS: D-Dimer Quantitative (DVT/PE) < 0.27 FEU/ug/m (0.27-0.49)
[2023-04-09 22:00] VITALS: BP 130/89; PULSE 71; RESP 18; O2SAT 98
[2023-04-09 22:09] LABS: Reflex Troponin-HS? (from REC) Y
[2023-04-09] MEDS: Potassium Chloride Oral Tablet 20 MEQ 40 MEQ PO (22:18)
--- NOTE | 2023-04-09 22:18 | EDS_ITS ---
HPI History of Present Illness Chief Complaint: Chest Pain Informant: patient Onset/Context/Timing Onset: Today Timing: Intermittent Narrative Narrative: Patient presents secondary to episodes of chest pain today. Initial episode occurred earlier today and describes it felt like her bra was just too tight. She took it off did not have significant proved. She had some intermittent shortness of breath. That particular episode lasted about 45 minutes. This evening she had a more mild similar episode that was brief. Patient denies any personal history of cardiac disease. No family history. She does report a history of blood clot several years ago and was treated with a short course of blood thinners. [facility] Medical History Anxiety Breast lump Cat scratch fever CKD (chronic kidney disease), stage III Diverticulitis Flu vaccine need Gastrointestinal problem Giardia Health care maintenance History of back problems History of blood clots History of bursitis History of pneumonia Hyperlipidemia Impacted cerumen, bilateral Obesity YOEL (obstructive sleep apnea) Osteopenia Unsteady gait when walking Uterine prolapse Home Medications oral sleep apnea appliance #1 ea 11/15/21 [Rx Last Taken Unknown] hydralazine 25 mg tablet 25 mg PO TID 3 months #270 tabs 07/31/22 [Rx Last Taken Unknown] hydrochlorothiazide 25 mg tablet 25 mg PO DAILY #90 tabs 01/08/23 [Rx Last Taken Unknown] buspirone 7.5 mg tablet 7.5 mg PO BID #180 tabs 01/11/23 [Rx Last Taken Unknown] atorvastatin 10 mg tablet 10 mg PO DAILY #90 tabs 02/12/23 [Rx Last Taken Unknown] bupropion HCl 300 mg 24 hr tablet, extended release 300 mg PO QAM #60 tabs 03/13/23 [Rx Last Taken Unknown] alprazolam 0.5 mg tablet 0.25 mg PO DAILY PRN anxiety #14 tabs 04/06/23 [Rx Last Taken Unknown] Allergy/AdvReac Type Severity Reaction Status Date / Time clindamycin [From Cleocin] Allergy Unknown Rash Verified 04/09/23 18:50 amoxicillin AdvReac Intermediate Vomiting Verified 04/09/23 18:50 clavulanic acid AdvReac Intermediate Vomiting Verified 04/09/23 18:50 [From Augmentin] Family History Aunt Breast cancer Cervical cancer Brother Diabetes Father Parkinson disease Grandmother Uterine cancer Mother Leukemia Surgical History History of lumpectomy of both breasts Social History Smoking Status: Never smoker alcohol intake: current alcohol intake frequency: a few times a week substance use type: does not use what type of physical activity do you participate in: walking frequency: 3-4 times per week ROS ROS ED Constitutional Constitutional ED: Denies chills or fever(s) Eyes Eyes: Denies change in vision or discharge from eye(s) ENT ENT ED: Denies discharge from eye(s), rhinorrhea or sore throat Cardiovascular Cardiovascular: Reports chest pain; Denies palpitations Respiratory/Chest Respiratory/Chest: Reports dyspnea; Denies cough Gastrointestinal Gastrointestinal: Denies abdominal pain, nausea or vomiting Genitourinary Genitourinary ED: Denies dysuria Musculoskeletal Musculoskeletal: Denies back pain or extremity pain Integumentary Denies Abrasions or rash Neurologic Neurologic: Denies headache(s) or weakness Psychiatric Psychiatric: Denies anxiety or depression Allergic/Immunologic Allergic/Immunologic ED: Denies lip swelling or urticaria EXAM Physical Exam Const Vital Signs: 04/09/23 18:48 04/09/23 20:09 04/09/23 20:10 Temperature 97.8 F Temperature Source Temporal Pulse Rate 86 Respiratory Rate 17 Respiratory Effort Normal Non-Labored Blood Pressure 154/96 H Blood Pressure Mean 115 Pulse Ox 99 Oxygen Delivery Method Room Air Room Air 04/09/23 19:48 04/09/23 20:38 04/09/23 21:10 Temperature Temperature Source Pulse Rate 73 74 67 Respiratory Rate 16 17 12 Respiratory Effort Blood Pressure 154/92 H 142/86 H 133/83 H Blood Pressure Mean 112 104 99 Pulse Ox 99 98 99 Oxygen Delivery Method Room Air Room Air Room Air 04/09/23 22:00 Temperature Temperature Source Pulse Rate 71 Respiratory Rate 18 Respiratory Effort Blood Pressure 130/89 H Blood Pressure Mean 102 Pulse Ox 98 Oxygen Delivery Method Room Air Positive well nourished and well developed General Appearance ED: well developed HEENT Reports normocephalic and head/scalp atraumatic Eyes PERRL and EOMs intact bilaterally Neck supple Chest Wall inspection of chest normal and palpation of chest normal Resp normal respiratory effort and clear to auscultation bilaterally Cardio regular rate and regular rhythm GI normal to inspection, nondistended, normoactive bowel sounds Palpation: soft Extremity normal to inspection Neuro oriented x3 and no sensory deficits noted Sensorium / Orientation: alert Motor Exam: strength 5/5 throughout Psych mental status grossly normal Skin no rashes or lesions noted Heart Score History: Moderately Suspicious ECG: Normal Age: >/= 65 years Risk Factors: 1 or 2 Risk Factors Troponin: </= Normal Limit Score: 4 MDM MDM MDM Narrative Medical decision making narrative: Patient placed on monitor worker. Patient given aspirin. Labwork obtained to evaluate for leukocytosis, anemia, and electrolyte derangement. EKG obtained to evaluate for cardiac arrhythmia/ischemia. Chest x-ray obtained to evaluate for acute lung pathology, cardiac size, or mediastinal abnormality. Lab Data Attestation: I reviewed the patient's lab results. Labs: Laboratory Results - last 24 hr 04/09/23 04/09/23 04/09/23 20:05 20:05 20:05 WBC 5.9 RBC 4.57 Hgb 13.1 Hct 40.2 MCV 88.0 MCH 28.7 MCHC 32.6 RDW Std Deviation 44.2 H RDW Coeff of [place] 13.8 Plt Count 256 MPV 10.0 Immature Gran % (Auto) 0.300 Neut % (Auto) 46.4 L Lymph % (Auto) 35.0 [place] % (Auto) 13.7 H Eos % (Auto) 3.6 Baso % (Auto) 1.0 Absolute Neuts (auto) 2.7 Absolute Lymphs (auto) 2.07 Nucleated RBC % 0 D-Dimer Quant (PE/DVT) < 0.27 L Sodium 137 Potassium 3.2 L Chloride 101 Carbon Dioxide 31.0 Anion Gap 5 BUN 15 Creatinine 1.07 H Estim Creat Clear Calc 48.65 Est GFR (MDRD) Af Amer 65 Est GFR (MDRD) Non-Af 54 L BUN/Creatinine Ratio 14.0 Glucose 82 Calcium 9.9 Troponin I High Sens 4 04/09/23 22:16 WBC RBC Hgb Hct MCV MCH MCHC RDW Std Deviation RDW Coeff of [place] Plt Count MPV Immature Gran % (Auto) Neut % (Auto) Lymph % (Auto) [place] % (Auto) Eos % (Auto) Baso % (Auto) Absolute Neuts (auto) Absolute Lymphs (auto) Nucleated RBC % D-Dimer Quant (PE/DVT) Sodium Potassium Chloride Carbon Dioxide Anion Gap BUN Creatinine Estim Creat Clear Calc Est GFR (MDRD) Af Amer Est GFR (MDRD) Non-Af BUN/Creatinine Ratio Glucose Calcium Troponin I High Sens 5 Radiography Chest X-Ray - ED: 1 View, Read by ED Physician, Normal, Heart, Lungs and Mediastinum Diagnostic Testing: Clinical Impression(s) from Imaging Studies Chest X-Ray 04/09/23 18:58 IMPRESSION: No radiographic evidence of acute cardiopulmonary disease. Electronically Signed: Seth Cartagena MD at 19:23 EDT , EKG Initial EKG: Attestation: I personally reviewed and interpreted this EKG as follows: Interpretation: Sinus Rhythm (Sinus at 78 with first-degree AV block. NC interval is 230. No acute ST change.) Differential Diagnosis Chest pain/SOB: pulmonary embolism Reason(s) PE less likely: Positive for D- Dimer negative, not tachycardic and not hypoxic and ACS ACS: Positive for no evidence of ACS based on cardiac biomarkers and EKG without ischemia Treatment and Re-Evaluation :: No arrhythmias noted on monitor worker throughout her ED stay. CBC is unremarkable. Chemistry studies significant only for slightly low potassium at 3.2. This is replaced orally. D-dimer is less than 0.27. Initial troponin is 4. 2-hour troponin is 5. On repeat evaluation patient is resting comfortably and has not had any recurrent symptoms while here. She be discharged to home with close follow-up instructions. Return instructions were also given. She is comfortable with this plan. Discharge Plan Triage Chief Complaint: Chest Pain ED Provider: Ngozi Carr Dx/Rx/DC Orders Clinical Impression: Chest pain Instructions: ED Chest Pain, Uncertain Cause Prescriptions: No Action (DME) oral sleep apnea appliance See Rx Instructions .Route .MEDSUPPLY Qty: 1 0RF Rx Instructions: As directed alprazolam 0.5 mg tablet 0.25 mg PO DAILY PRN (Reason: anxiety) Qty: 14 0RF hydralazine 25 mg tablet 25 mg PO TID 90 Days Qty: 270 3RF hydrochlorothiazide 25 mg tablet 25 mg PO DAILY Qty: 90 3RF buspirone 7.5 mg tablet 7.5 mg PO BID Qty: 180 3RF atorvastatin 10 mg tablet 10 mg PO DAILY Qty: 90 3RF bupropion HCl 300 mg tablet extended release 24 hr 300 mg PO QAM Qty: 60 1RF Primary Care Provider: Vazquez Scott Referrals: Vazquez Scott MD [Primary Care Provider] - 5-7 Days Disposition Disposition: Home, Self Care
[2023-04-09 22:43] LABS: Troponin-I HS 5 pg/mL (3.0-54.0)
[2023-04-09 23:41] VITALS: BP 125/87; PULSE 70; RESP 16; O2SAT 99
== END 2023-04-09 23:41 | disposition home or self-care (01) ==
PROVIDERS: Emergency Provider Emergency Medicine; PCP Internal Medicine; Visit Provider Emergency Medicine
DX: R07.9 Chest pain, unspecified (principal); N18.30 Chronic kidney disease, stage 3 unspecified; G47.33 Obstructive sleep apnea (adult) (pediatric)
CPT/HCPCS: 71045; 80048; 84484; 85025; 85379; 93005; 99284; A4216

== ENCOUNTER 2023-05-15 09:06 | Emergency (ER) | payer MEDICARE, SELFPAY ==
[2023-05-15 09:07] VITALS: BP 170/82; PULSE 87; RESP 14; TEMP 36.2; O2SAT 99; BMI 29.2
--- NOTE | 2023-05-15 09:12 | EDS_ITS ---
HPI History of Present Illness Chief Complaint: Lower Extremity Injury [facility] Medical History Anxiety Breast lump Cat scratch fever CKD (chronic kidney disease), stage III Diverticulitis Flu vaccine need Gastrointestinal problem Giardia Health care maintenance History of back problems History of blood clots History of bursitis History of pneumonia Hyperlipidemia Impacted cerumen, bilateral Obesity YOEL (obstructive sleep apnea) Osteopenia Unsteady gait when walking Uterine prolapse Home Medications oral sleep apnea appliance #1 ea 11/15/21 [Rx Last Taken Unknown] hydralazine 25 mg tablet 25 mg PO TID 3 months #270 tabs 07/31/22 [Rx Last Taken Unknown] hydrochlorothiazide 25 mg tablet 25 mg PO DAILY #90 tabs 01/08/23 [Rx Last Taken Unknown] buspirone 7.5 mg tablet 7.5 mg PO BID #180 tabs 01/11/23 [Rx Last Taken Unknown] atorvastatin 10 mg tablet 10 mg PO DAILY #90 tabs 02/12/23 [Rx Last Taken Unknown] bupropion HCl 300 mg 24 hr tablet, extended release 300 mg PO QAM #60 tabs 03/13/23 [Rx Last Taken Unknown] alprazolam 0.5 mg tablet 0.25 mg (1/2 x 0.5 mg) PO DAILY PRN anxiety #14 tabs 04/06/23 [Rx Last Taken Unknown] Allergy/AdvReac Type Severity Reaction Status Date / Time clindamycin [From Cleocin] Allergy Unknown Rash Verified 05/15/23 09:07 amoxicillin AdvReac Intermediate Vomiting Verified 05/15/23 09:07 clavulanic acid AdvReac Intermediate Vomiting Verified 05/15/23 09:07 [From Augmentin] Family History Aunt Breast cancer Cervical cancer Brother Diabetes Father Parkinson disease Grandmother Uterine cancer Mother Leukemia Surgical History History of lumpectomy of both breasts Social History Smoking Status: Never smoker alcohol intake: current alcohol intake frequency: a few times a week substance use type: does not use what type of physical activity do you participate in: walking frequency: 3-4 times per week EXAM Physical Exam Const Vital Signs: 05/15/23 09:07 Temperature 97.2 F L Temperature Source Temporal Pulse Rate 87 Respiratory Rate 14 Blood Pressure 170/82 H Blood Pressure Mean 111 Pulse Ox 99 Oxygen Delivery Method Room Air [facility] [place] Narrative Medical decision making narrative: HISTORY OF PRESENT ILLNESS: 72-year-old female here with leg pain. The patient states she is concerned that she may have a blood clot. States has a history of a blood clot and was on blood thinners for 6 months. Patient denies active cancer, being bedridden for greater than 3 days, denies unilateral leg swelling, denies any varicose veins, denies any calf tenderness, denies tenderness along deep venous system. Denies major surgery within 12 weeks, recent paralysis. REVIEW OF SYSTEMS: Pertinent positives: leg pain Pertinent negatives: Chest pain or shortness of PHYSICAL EXAM: Nursing triage notes reviewed, Vital signs reviewed Constitutional: please see mdm HENT: MMM Eyes: Pupils equal round and reactive to light, Extraocular muscles intact Neck: No stridor, no JVD, full neck ROM Lungs: Clear to auscultation, No wheezing or rales. No increased work of breathing, no conversational dyspnea, no accessory muscle use, no nasal flaring. No respiratory distress noted Heart: Regular rate and rhythm, No murmurs, No rubs and No gallops, 2+ distal pulses (radial, femoral, posterior tibial) in all extremities Abdomen: Soft, there is no tenderness, rigidity, rebound or guarding, no obvious peritoneal signs, no palpable pulsatile abdominal masses, no auscultated abdominal bruit : No CVAT Extremities: No edema, there is superficial varicose veins noted in the right leg that are tender to palpation no obvious overlying erythema. Neuro: No focal neurological deficits, cranial nerves II through XII intact, 5/5 strength in all extremities. Intact sensation to light touch in all extremities, 2+ reflexes bilateral patella tendons. Normal gait. No ataxia. Skin: No rash or lesions noted MEDICAL DECISION MAKING: Chief Complaint: Leg pain External records reviewed: No recent duplex ultrasounds Factors affecting care: Hypertension ALL IMAGES (IF OBTAINED) HAVE BEEN PERSONALLY REVIEWED AND INTERPRETED BY MYSELF. [facility] Narrative: Patient was hemodynamically stable, afebrile, nontoxic-appearing. Exam with superficial varicose veins and TTP over varicosity. No calf tenderness, no unilateral leg swelling, well-perfused warm nonedematous right lower extremity. I considered the following differential diagnosis: [Superficial thrombophlebitis, superficial vein thrombosis, DVT Patient's clinical exam was consistent with superficial venous abnormality such as thrombophlebitis or SVT. I told the patient her risk for DVT is exceedingly low given her low risk DVT Wells score however she insisted that she receive an ultrasound of the leg. Ultrasound was obtained and showed evidence of superficial vein thrombosis. 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 There is no indication for anticoagulation at this time. Risk and benefits of anticoagulation were discussed patient and I agreed not to go through with anticoagulation at this time. Encourage regular surveillance with her PCP, NSAIDs and return if symptoms worsen specifically discussed symptoms of PE. The patient and/or family, caregivers express understanding. The patient and/or family, caregivers agrees with the plan. Shared decision making: I will have a discussion with the patient and or visitors regarding risk/benefits of further testing or admission. They will be made aware of of the risk/benefits inherent in this decision they will be given the opportunity to voice understanding. Total critical care time today provided was at least 0 minutes. This excludes separately billable procedures. Critical care time (if documented) is secondary to the patient having high probability of clinically significant/life threatening deterioration in the patient's condition which required my urgent intervention. Discharge Plan Triage Chief Complaint: Lower Extremity Injury ED Provider: Dain Hussein Dx/Rx/DC Orders Clinical Impression: Superficial vein thrombosis Prescriptions: No Action (DME) oral sleep apnea appliance See Rx Instructions .Route .MEDSUPPLY Qty: 1 0RF Rx Instructions: As directed alprazolam 0.5 mg tablet 0.25 mg PO DAILY PRN (Reason: anxiety) Qty: 14 0RF hydralazine 25 mg tablet 25 mg PO TID 90 Days Qty: 270 3RF hydrochlorothiazide 25 mg tablet 25 mg PO DAILY Qty: 90 3RF buspirone 7.5 mg tablet 7.5 mg PO BID Qty: 180 3RF atorvastatin 10 mg tablet 10 mg PO DAILY Qty: 90 3RF bupropion HCl 300 mg tablet extended release 24 hr 300 mg PO QAM Qty: 60 1RF Primary Care Provider: Vazquez Scott Referrals: Vazquez Scott MD [Primary Care Provider] - Activity Restrictions/Additional Instructions: Thank you for trusting us with your care today! Please take Tylenol (2 pills, 650 mg), ibuprofen (2 pills, 400 mg) every 6 hours as needed for pain and fever control. Please return to the emergency department if your symptoms change or worsen. Specifically develop unilateral leg swelling, chest pain, shortness of breath or if you lose consciousness. Please follow with your primary care physician for further outpatient evaluation and management specifically active surveillance of your superficial vein thrombo sis with repeat ultrasounds. Disposition Disposition: Home, Self Care
--- NOTE | 2023-05-15 09:29 | VDLE_ITS ---
Reason For Study: Right leg pain RIGHT CFV is compressible, spontaneous, phasic, competent and demonstrates normal augmentation. FV is compressible, spontaneous, phasic, competent and demonstrates normal augmentation. POP V is compressible, spontaneous, phasic, competent and demonstrates normal augmentation. T/P Trunk is compressible. PTV is compressible. RT PerV is compressible. Nonvascularized structure noted in the right popliteal fossa that measures 0.82 x 2.36 x 4.72 cm. Acute superficial vein thrombosis is noted in the mid GSV. Thrombus filled varicose veins noted in the right mid-distal calf. Procedure This is a venous duplex using B-mode, color flow and spectral Doppler. Exam performed portable in ED. A preliminary report was called and/or faxed to Dr. Hussein. VL/Venous Duplex US, Unilateral Interpretation Summary Popliteal fossa 0.82 x 2.36 x 4.72 cm nonvascular structure consistent with a B rangel's cyst. Clinical correlation would be appropriate. Superficial thrombophlebitis right mid great saphenous vein and varicosities in the right mid to distal calf No evidence for acute deep venous thrombosis right lower extremity Ordering Physician: Dain Hussein Performed By: Mery Coats RVT
[2023-05-15 10:09] VITALS: BP 146/97; O2SAT 100
== END 2023-05-15 10:12 | disposition home or self-care (01) ==
PROVIDERS: Emergency Provider Emergency Medicine; PCP Internal Medicine; Visit Provider Emergency Medicine
DX: I82.811 Embolism and thrombosis of superficial veins of right lower extremity (principal); N18.30 Chronic kidney disease, stage 3 unspecified; G47.33 Obstructive sleep apnea (adult) (pediatric)
CPT/HCPCS: 93971; 99282

== ENCOUNTER 2023-05-20 15:59 | Emergency (ER) | payer MEDICARE, SELFPAY ==
[2023-05-20 16:00] VITALS: BP 175/98; PULSE 92; RESP 16; TEMP 36.6; O2SAT 100; BMI 28.8
--- NOTE | 2023-05-20 16:30 | EX.ED.DYSGE1 ---
HPI History of Present Illness Chief Complaint: Cellulitis Informant: patient Onset/Context/Timing Onset: Days Context: Gradual Onset Timing: Continuous Quality: Redness, aching, burning Location: Right lower leg and right medial thigh Worsened by: Palpation Relieved by: Ice pack Narrative Narrative: Patient presents with redness and pain to her right lower leg that has been getting worse over the past several days. Patient was seen here and diagnosed with superficial phlebitis of the right lower leg. Patient has been using warm compresses. Patient states that now the redness is starting to streak up her medial thigh. Patient describes her pain as burning and aching. Patient states it is worse with palpation. Patient states it is better with ice pack. Patient admits to some slight tingling but denies any weakness. Patient denies any fevers or chills. [facility] Medical History Anxiety Breast lump Cat scratch fever CKD (chronic kidney disease), stage III Diverticulitis Flu vaccine need Gastrointestinal problem [facility] Health care maintenance History of back problems History of blood clots History of bursitis History of pneumonia Hyperlipidemia Impacted cerumen, bilateral Obesity YOEL (obstructive sleep apnea) Osteopenia Unsteady gait when walking Uterine prolapse Home Medications oral sleep apnea appliance #1 ea 11/15/21 [Rx Last Taken Unknown] hydralazine 25 mg tablet 25 mg PO TID 3 months #270 tabs 07/31/22 [Rx Last Taken Unknown] hydrochlorothiazide 25 mg tablet 25 mg PO DAILY #90 tabs 01/08/23 [Rx Last Taken Unknown] buspirone 7.5 mg tablet 7.5 mg PO BID #180 tabs 01/11/23 [Rx Last Taken Unknown] atorvastatin 10 mg tablet 10 mg PO DAILY #90 tabs 02/12/23 [Rx Last Taken Unknown] bupropion HCl 300 mg 24 hr tablet, extended release 300 mg PO QAM #60 tabs 03/13/23 [Rx Last Taken Unknown] alprazolam 0.5 mg tablet 0.25 mg (1/2 x 0.5 mg) PO DAILY PRN anxiety #14 tabs 04/06/23 [Rx Last Taken Unknown] cephalexin 500 mg capsule 500 mg PO Q6 #40 CAPSULES 05/20/23 [Rx Last Taken Unknown] sulfamethoxazole 800 mg-trimethoprim 160 mg tablet 1 tab PO BID #20 TABLETS 05/20/23 [Rx Last Taken Unknown] Allergy/AdvReac Type Severity Reaction Status Date / Time clindamycin [From Cleocin] Allergy Unknown Rash Verified 05/15/23 09:07 amoxicillin AdvReac Intermediate Vomiting Verified 05/15/23 09:07 clavulanic acid AdvReac Intermediate Vomiting Verified 05/15/23 09:07 [From Augmentin] Family History Aunt Breast cancer Cervical cancer Brother Diabetes Father Parkinson disease Grandmother Uterine cancer Mother Leukemia Surgical History History of lumpectomy of both breasts Social History Smoking Status: Never smoker alcohol intake: current alcohol intake frequency: a few times a week substance use type: does not use what type of physical activity do you participate in: walking frequency: 3-4 times per week ROS ROS ED Constitutional Constitutional ED: Denies chills or fever(s) Eyes Eyes: Denies blurry vision or change in vision ENT ENT ED: Denies rhinorrhea or sore throat Cardiovascular Cardiovascular: Denies chest pain or palpitations Respiratory/Chest Respiratory/Chest: Denies cough or dyspnea Gastrointestinal Gastrointestinal: Denies nausea or vomiting Genitourinary Genitourinary ED: Denies dysuria or hematuria Musculoskeletal Musculoskeletal: Denies back pain or neck pain Integumentary Denies abscess or rash Neurologic Neurologic: Denies headache(s) or weakness Allergic/Immunologic Allergic/Immunologic ED: Denies mouth swelling or urticaria EXAM Physical Exam Const Vital Signs: 05/20/23 16:00 05/20/23 16:29 Temperature 97.8 F Temperature Source Temporal Pulse Rate 92 Respiratory Rate 16 Respiratory Effort Normal Non-Labored Respiratory Pattern Normal Blood Pressure 175/98 H Blood Pressure Mean 123 Pulse Ox 100 Oxygen Delivery Method Room Air Positive well nourished and well developed General Appearance ED: well developed and NAD HEENT Reports moist mucous membranes Neck supple and no JVD Resp normal respiratory effort and clear to auscultation bilaterally Cardio regular rate and regular rhythm GI normal to inspection, nondistended, normoactive bowel sounds and non-tender Palpation: soft Extremity Extremity Narrative: There is some erythema and warmth over the medial aspect of the right lower leg. There is erythematous streaking to the mid thigh medially. There is no discharge or drainage. There is no fluctuance noted. There is tenderness to palpation over the reddened area. Pedal pulses are equal bilaterally. Sensation was intact to light touch in all digits. Capillary refill was less than 2 seconds in all digits. Strength is 5/5 bilaterally in the lower extremities. Neuro oriented x3, CN's II-XII intact bilaterally and no sensory deficits noted Sensorium / Orientation: alert Motor Exam: strength 5/5 throughout Psych mental status grossly normal MDM MDM MDM Narrative Medical decision making narrative: Differential diagnosis includes superficial phlebitis, cellulitis, lymphangitis, and DVT. CBC will be obtained to assess for leukocytosis and anemia. Basic metabolic profile will be obtained to assess for electrolyte abnormality and renal function. PT with INR and PTT will be obtained to assess for coagulopathy. D-dimer will be obtained to assess for DVT. Blood cultures will be obtained to assess for sepsis and bacteremia. Lab Data Attestation: I reviewed the patient's lab results. Lab results narrative: CBC was reviewed and was within normal limits. PT with INR and PTT were reviewed and were all within normal limits. D-dimer was reviewed and was elevated at 2.18. Basic metabolic profile was reviewed and was within normal limits. Labs: Laboratory Results - last 24 hr 05/20/23 17:15 WBC 9.1 RBC 4.99 Hgb 14.4 Hct 43.5 MCV 87.2 MCH 28.9 MCHC 33.1 RDW Std Deviation 46.5 H RDW Coeff of Citlalli 14.6 Plt Count 236 MPV 9.5 Immature Gran % (Auto) 0.200 Neut % (Auto) 66.8 Lymph % (Auto) 20.5 Frederick % (Auto) 9.4 Eos % (Auto) 2.6 Baso % (Auto) 0.5 Absolute Neuts (auto) 6.1 Absolute Lymphs (auto) 1.87 Nucleated RBC % 0 PT 12.6 INR 0.9 APTT 29.6 D-Dimer Quant (PE/DVT) 2.18 H* Sodium 134 L Potassium 3.3 L Chloride 98 Carbon Dioxide 32.0 Anion Gap 4 L BUN 14 Creatinine 0.95 Estim Creat Clear Calc 54.79 Est GFR (MDRD) Af Amer 75 Est GFR (MDRD) Non-Af 62 BUN/Creatinine Ratio 14.8 Glucose 81 Calcium 10.0 Treatment and Re-Evaluation :: Patient was given a dose of Ancef and Bactrim here. Patient was also given a dose of Lovenox due to the elevated D-dimer. Patient will be given a prescription for an outpatient venous duplex of the right lower extremity to be obtained tomorrow. Patient was also given prescriptions for Keflex and Bactrim. Patient was instructed to use warm compresses. Patient was instructed to follow-up with her primary care physician in 5 to 7 days. Patient was instructed return if worse in any way. Patient and daughter understood and were agreeable with the plan. All questions were answered. Discharge Plan Triage Chief Complaint: Cellulitis ED Provider: Josafat Marquez Dx/Rx/DC Orders Clinical Impression: Cellulitis of leg without foot, right, Superficial vein thrombosis, Acute lymphangitis of right lower extremity Instructions: ED Cellulitis, ED Lymphangitis, ED Thrombophlebitis, Superficial Prescriptions: New sulfamethoxazole-trimethoprim [sulfamethoxazole-trimethoprim] 800-160 mg tablet 1 tab PO BID Qty: 20 0RF cephalexin [cephalexin] 500 mg capsule 500 mg PO Q6 Qty: 40 0RF No Action (DME) oral sleep apnea appliance See Rx Instructions .Route .MEDSUPPLY Qty: 1 0RF Rx Instructions: As directed alprazolam 0.5 mg tablet 0.25 mg PO DAILY PRN (Reason: anxiety) Qty: 14 0RF hydralazine 25 mg tablet 25 mg PO TID 90 Days Qty: 270 3RF hydrochlorothiazide 25 mg tablet 25 mg PO DAILY Qty: 90 3RF buspirone 7.5 mg tablet 7.5 mg PO BID Qty: 180 3RF atorvastatin 10 mg tablet 10 mg PO DAILY Qty: 90 3RF bupropion HCl 300 mg tablet extended release 24 hr 300 mg PO QAM Qty: 60 1RF Other Ambulatory Orders: Venous Duplex US, Unilateral (Stat) Facility: [facility] - Location: [facility] Ordered By: Dr. Josafat Marquez Primary Care Provider: Vazquez Scott Referrals: Vazquez Scott MD [Primary Care Provider] - 3-5 Days Disposition Disposition: Home, Self Care
[2023-05-20] MEDS: Cefazolin 1 GM/50 ML BAG IV (17:10)
[2023-05-20] MEDS: Smz/Tmp Ds Tablet 1 TABLET PO (17:11)
[2023-05-20 17:29] LABS: Absolute Lymphocyte Count 1.87 X10^3/uL (0.83-4.51); Absolute Neutrophil Count 6.1 X10^3/uL (2.0-7.7); Basophil# 0.05 X10^3/uL; Basophil% 0.5 % (0-1); Eosinophil# 0.24 X10^3/uL; Eosinophils% 2.6 % (0-5); Hematocrit 43.5 % (37-47); Hemoglobin 14.4 g/dL (12.0-15.0); Lymphocyte # 1.87 X10^3/ul (0.83-4.51); Lymphocyte % 20.5 % (19-41); Mean Corp Hgb Conc 33.1 g/dL (32-36); Mean Corpuscular Hgb 28.9 pg (27.0-32.0); Mean Corpuscular Volume 87.2 fL (81-99); Mean Platelet Vol. 9.5 fl (6.2-12.0); Monocyte# 0.86 X10^3/uL; Monocyte% 9.4 % (0-10); NRBC Flagged by Analyzer 0 % (0-5); Neutrophil # 6.09 X10^3/uL (2.7-7.7); Neutrophil % 66.8 % (47-70); Platelet Count 236 K/mm3 (150-450); RBC Distribution Width CV 14.6 % (11.6-14.6); RBC Distribution Width SD 46.5 fl (35.1-43.9); Red Blood Count 4.99 M/mm3 (4.2-5.4); White Blood Count 9.1 K/mm3 (4.4-11.0)
[2023-05-20 17:38] LABS: International Normalized Ratio 0.9; Prothrombin Time (Protime)PT. 12.6 SECONDS (11.7-14.9)
[2023-05-20 17:39] LABS: Partial Thromboplast Time 29.6 Seconds (24.1-36.2)
[2023-05-20 17:44] LABS: Anion Gap 4 (5-15); BUN 14 mg/dL (7-18); BUN/Creat Ratio 14.8 RATIO (10-20); Chloride 98 mmol/L (98-107); Creatinine, Serum 0.95 mg/dL (0.55-1.02); EST Glomerular Filtration Rate 62 mL/min (>60); Est Glom Filt Rate - Afr Amer 75 mL/min (>60); Estimated Creatinine Clearance 54.79 ml/min; Glucose 81 mg/dL (74-106); Potassium 3.3 mmol/L (3.5-5.1); Sodium Level 134 mmol/L (136-145)
[2023-05-20 17:52] LABS: D-Dimer Quantitative (DVT/PE) 2.18 FEU/ug/m (0.27-0.49)
[2023-05-20 18:21] VITALS: BP 160/75; PULSE 68; RESP 16; TEMP -8.8; TEMP 16; O2SAT 97
[2023-05-20] MEDS: Enoxaparin 100 MG/ML Syringe 90 MG SC (18:37)
== END 2023-05-20 18:44 | disposition home or self-care (01) ==
PROVIDERS: Emergency Provider Emergency Medicine; PCP Internal Medicine; Visit Provider Emergency Medicine
DX: L03.115 Cellulitis of right lower limb (principal); N18.30 Chronic kidney disease, stage 3 unspecified; I82.811 Embolism and thrombosis of superficial veins of right lower extremity; L03.125 Acute lymphangitis of right lower limb
CPT/HCPCS: 80048; 85025; 85379; 85610; 85730; 87040; 96365; 99283; J7050; A4216

== ENCOUNTER → 2023-05-21 | Outpatient (CLI) | payer MEDICARE, SELFPAY ==
--- NOTE | 2023-05-21 10:42 | VDLE_ITS ---
Reason For Study: elevated D-Dimer RIGHT LEFT CFV is compressible, spontaneous, phasic, CFV is compressible, spontaneous, phasic, competent and demonstrates normal competent, and demonstrates normal augmentation. augmentation. FV is compressible, spontaneous, phasic, competent and demonstrates normal augmentation. POP V is compressible, spontaneous, phasic, competent and demonstrates normal augmentation. T/P Trunk is compressible. PTV is compressible. RT PerV is compressible. GSV is DILATED & NONCMPRESSIBLE from ORIGIN @ ANKLE to CFV @ groin. Occlusion is 2cm from entering CFV. Procedure This is a venous duplex using B-mode, color flow and spectral Doppler. Exam performed in department. PT had difficulty with CFV & SFJ compressions due to sensitivity/ticklish groin. A preliminary report was called and/or faxed to Susi @ Dr. Scott office @ 11:20 am. PT has a 1 pm appt today. VL/Venous Duplex US, Unilateral Interpretation Summary There is no evidence of right lower extremity deep vein thrombosis. Superficial thrombophlebitis right great saphenous vein from the ankle all the way to within 2 cm of the com mon femoral vein junction. Normal flow patterns left common femoral vein Ordering Physician: Josafat Marquez Referring Physician: Vazquez Scott Performed By: Kimberly Dennison, RDMIKE, RVT
== END | disposition home or self-care (01) ==
LOC: CVS 10:41
PROVIDERS: PCP Internal Medicine; Referring Provider Emergency Medicine; Visit Provider Emergency Medicine
DX: M79.661 Pain in right lower leg (principal)
CPT/HCPCS: 93971

== ENCOUNTER → 2023-06-18 | Outpatient (CLI) | payer MEDICARE, SELFPAY ==
--- NOTE | 2023-06-18 12:48 | VDLE_ITS ---
Reason For Study: BLE Pain / HX SVT RIGHT LEFT CFV is compressible, spontaneous, phasic, CFV is compressible, spontaneous, phasic, competent and demonstrates normal competent, and demonstrates normal augmentation. augmentation. FV is compressible, spontaneous, phasic, FV is compressible, spontaneous, phasic, competent and demonstrates normal competent and demonstrates normal augmentation. augmentation. POP V is compressible, spontaneous, phasic, POP V is compressible, spontaneous, phasic, competent and demonstrates normal competent and demonstrates normal augmentation. augmentation. T/P Trunk is compressible. T/P Trunk is compressible. PTV is compressible. PTV is compressible. RT PerV is compressible. LT PerV is compressible. SFJ is INCOMPETENT and measures 0.86 cm. SFJ is INCOMPETENT and measures 0.60 cm. GSV proximal thigh measures 0.50 x 0.56 cm. GSV proximal thigh measures 0.31 x 0.34 cm. GSV at knee measures 0.44 x 0.51 cm. GSV at knee measures 0.26 x 0.27 cm. GSV above knee is INCOMPETENT for greater GSV above knee is INCOMPETENT for greater than 0.5 seconds. than 0.5 seconds. Unable to evaluate for reflux in portions of GSV below knee is competent. GSV due to occlusive SVT. Rouleaux Flow and SSV proximal calf is competent and measures partially occlusive thrombus noted in prox 0.25 x 0.25 cm. thigh GSV. SVT also seen within ASV at mid calf fed by GSV. SSV proximal calf is competent and measures 0.31 x 0.34 cm. Procedure This is a venous duplex using B-mode, color flow and spectral Doppler. Exam performed in department. The exam was diagnostic. VL/Venous Duplex US - Stuart Extrem Interpretation Summary Acute superficial vein thrombosis is noted in the right great saphenous vein to within 2 cm of junction and accessory saphenous vein. Deep veins of the bilateral lower extremities are patent and compressible segme ntally. There is no evidence of bilateral lower extremity deep vein thrombosis. The left great saphenous vein appears patent and compressible segmentally. Positive for reflux in the right saphenofemoral junction, above knee great saph enous vein. Positive for reflux in the left saphenofemoral junction, above knee great saphe nous vein Ordering Physician: Effie Bhatia Referring Physician: Vazquez Scott Performed By: Sarthak Parson RVT
== END | disposition home or self-care (01) ==
LOC: CVS 12:47
PROVIDERS: PCP Internal Medicine; Referring Provider Physician Assistant; Visit Provider Physician Assistant
DX: I82.811 Embolism and thrombosis of superficial veins of right lower extremity (principal); Z86.718 Personal history of other venous thrombosis and embolism
CPT/HCPCS: 93970

== ENCOUNTER → 2023-08-06 | Outpatient (CLI) | payer MEDICARE, SELFPAY ==
--- NOTE | 2023-08-10 12:42 | STRESSREP ---
Stress Test Report Date: 08/06/2023 Procedure: Exercise tolerance test Indications: Abnormal EKG Consent: Per the patient Procedure: The patient exercised on a Kevin protocol for 5 minutes achieving a peak heart rate of 142 bpm (95% predicted maximal heart rate) with a peak blood pressure 186/80 mmHg and a peak MET capacity of approximately 7 MET's. The baseline ECG demonstrated normal sinus rhythm. The peak exercise ECG demonstrated no significant ischemic changes. [There were no cardiac dysrhythmias pretest, during exercise, or recovery]. The functional capacity was considered normal for age. The patient had no complaint of chest discomfort during exercise or recovery. The examination was discontinued secondary to achieving target heart rate. Impression: 1. Technically adequate (percent predicted maximal heart rate greater than 85%) exercise tolerance test 2. Stress test is negative for exercise-induced chest pain. 3. Stress test test is negative for exercise-induced EKG changes of ischemia. 4. Functional capacity is normal for age This note was generated with [employer] software. It may contain incorrect words, spelling, and punctuation that were not noted in checking the note before signing.
== END | disposition home or self-care (01) ==
LOC: CVS 10:52
PROVIDERS: PCP Internal Medicine; Referring Provider Internal Medicine; Visit Provider Internal Medicine
DX: R94.31 Abnormal electrocardiogram [ECG] [EKG] (principal)
CPT/HCPCS: 93017

== ENCOUNTER → 2024-01-02 | Outpatient (CLI) | payer MEDICARE, SELFPAY ==
[2024-01-02 13:23] LABS: ALB/GLOB Ratio 1.2 RATIO (0.9-2.4); AST(SGOT) 24 U/L (15-37); Alanine Aminotransfer ALT/SGPT 36 U/L (13-56); Albumin, Serum 3.8 g/dL (3.2-5.0); Alkaline Phosphatase 105 U/L (45-117); Anion Gap 9 (5-15); BUN 17 mg/dL (7-18); BUN/Creat Ratio 17.6 RATIO (10-20); Chloride 101 mmol/L (98-107); Cholesterol 162 mg/dL (200); Creatinine, Serum 0.97 mg/dL (0.55-1.02); EST Glomerular Filtration Rate 60 mL/min (>60); Est Glom Filt Rate - Afr Amer 73 mL/min (>60); Globulin 3.2 g/dL (2.2-4.2); Glucose 77 mg/dL (74-106); High Density Lipoprotein 56 mg/dL; Potassium 3.7 mmol/L (3.5-5.1); Sodium Level 138 mmol/L (136-145); Triglycerides 105 mg/dL; Very Low Density Lipoprotein 21 mg/dL (5-40)
[2024-01-02 13:37] LABS: Vitamin D,25 Hydroxy 27.9 ng/mL
--- OUTSIDE RECORDS SUMMARY | 2024-01-02 19:17 | XMS RPT_ITS | CCD ---
Author Name Unknown Address [address] [place] [address] [address] [place] [id number] Organization [facility] Care Team Providers Care Hide Worker Name Role Phone ARELI KIRK Primary Care Unavailable FLORENTINO PEDRAZA Attending Unavailable ARELI KIRK Primary Care Unavailable ISMA ARREOLA Attending Unavailable Allergies Allergy Classification Reported Allergen(s) Allergy Type Date of Onset Reaction(s) Facility (1 source) Amoxicillin; Translations: [AMOXICILLIN] Drug Allergy [facility] Repository (1 source) Clindamycin; Translations: [CLINDAMYCIN HCL] Drug Allergy [facility] Repository (1 source) AMOXICILLIN-POT CLAVULANATE; Translations: [AMOXICILLIN-POT CLAVULANATE] Propensity to adverse reactions to drug (disorder) [facility] Repository Problems Problem Classification Problem Date Documented Date Episodic/Chronic Complications of surgical procedures or medical care (1 source) Other postprocedural complications and disorders of the circulatory system, not elsewhere classified; Translations: [Postoperative surgical complication involving circulatory system associated with non-cardiac procedure, unspecified complication] Onset: 11-04-2023 Episodic Other connective tissue disease (1 source) Other specified soft tissue disorders; Translations: [Arm swelling] Onset: 11-04-2023 Episodic Results Test Name Value Interpretation Reference Range Facil ity Encounters Encounter Date Encounter Type Care Provider Facility Start: 11-04-2023 End: 11-04-2023 Emergency department patient visit ARELI LARRYBENJAMINJessica Facility:[facility] Start: 11-04-2023 End: 11-04-2023 Emergency department patient visit RACHELMARAHTONO LARRYBENJAMINJessica Facility:[facility] Payers Date Payer Category Payer Medicare [id number] Summary Purpose Family History No Family History Records Found Advance Directives No Advanced Directives Records Found Additional Source Comments INFORMATION SOURCE (unrecogn ized section and content) FOR RECORDS PERTAINING TO PATIENTS WHO ARE OR HAVE BEEN ENROLLED IN A CHEMICAL DEPENDENCY/SUBSTANCEABUSE PROGRAM, SOME INFORMATION MAY BE OMITTED. This clinical summary was aggregated from multiple sources. Caution should be exercised in using it in the provision of clinical care. This summary normalizes information from multiple sources, and as a consequence, information in this document may materially change the coding, format and clinical context of patient data. In addition, data may be omitted in some cases. CLINICAL DECISIONS SHOULD BE BASED ON THE PRIMARY CLINICAL RECORDS. [facility]. provides no warranty or guarantee of the accuracy or completeness of information in this document.
== END | disposition home or self-care (01) ==
LOC: BIMLAB 11:14
PROVIDERS: PCP Internal Medicine; Visit Provider Internal Medicine
DX: E78.5 Hyperlipidemia, unspecified (principal); N18.30 Chronic kidney disease, stage 3 unspecified
CPT/HCPCS: 36415; 80053; 80061; 82306

== ENCOUNTER → 2024-01-23 | Outpatient (CLI) | payer MEDICARE, SELFPAY ==
--- NOTE | 2024-01-23 14:40 | BI_ITS ---
MAMMOGRAPHY - BILATERAL SCREENING REASON FOR EXAM: Female, 73 years old. Routine annual screening examination. PERTINENT HISTORY: Aunt with breast cancer. Prior bilateral breast biopsies. TECHNIQUE: Digital bilateral breast vinnie (3D mammographic acquisition) in the CC and MLO projections. 2-D mediolateral oblique (MLO) and craniocaudad (CC) views of both breasts were obtained. CAD: Full Field Digital Mammography with Computer Added Detection was performed. COMPARISON: Comparison is made with prior study June 06, 2021 and March 02, 2020. FINDINGS: Breast Composition: The breasts are heterogeneously dense, which may obscure small masses. There are no dominant masses or suspicious calcifications. Stable small benign-appearing bilateral axillary lymph nodes. No other significant abnormalities are identified. There has been no significant change since the prior study. BI/SCRN MAMM (CAD)W/VINNIE BILAT IMPRESSION: Stable bilateral screening mammogram. Yearly follow-up mammogram recommended. (A) ASSESSMENT CATEGORY: BIRADS Category 2: Benign. A letter regarding these results will be sent to the patient by the facility within 30 days. Approximately 10% of breast cancers are not detected by mammography. A normal mammogram should not delay biopsy of a clinically suspicious abnormality. [id number] Electronically Signed: Jatin Song MD at 15:34 EDT ,
--- NOTE | 2024-01-23 14:47 | BD_ITS ---
STUDY: DUAL ENERGY X-RAY ABSORPTIOMETRY / DXA REASON FOR EXAM: Female, 73 years old. Post- Menopausal TECHNIQUE: Bone Mineral Density (BMD) measurements of lumbar spine and bilateral hips were obtained. COMPARISON: Comparison is made with prior study September 2021. FINDINGS: Lumbar Spine (L1-L4): g/cm2 (1.051) / T-score (0.0) / Z-score (2.3) Findings are suggestive of normal bone density with a low fracture risk. Left Femur Total: g/cm2 (0.831) / T-score (-0.9) / Z-score (0.7) Left Femoral Neck: g/cm2 (0.726) / T-score (-1.1) / Z-score (0.8) Right Femur Total: g/cm2 (0.807) / T-score (-1.1) / Z-score (0.5) Right Femoral Neck: g/cm2 (0.709) / T-score (-1.3) / Z-score (0.7) The T-Scores on the most recent prior examination were: Lumbar Spine (L1-L4): There has been improvement of bone density since the previous examination. Left Femur Total: which represents an improvement of 2%. Right Femur Total: which represents a worsening of 1.5%. BD/Dexa Bone Density Study IMPRESSION: The patient is considered osteopenic as outlined below according to World Osei Organization (WHO) criteria with a low fracture risk. There has been improvement of bone density since the previous examination. Reference Information: The T-score is the number of standard deviations above or below the standard which is normal for young adults at their peak bone mineral density. The World Health Organization (WHO) interprets the T-scores as follows: Above -1 Normal bone density Between -1 and -2.5 Osteopenia Equal to / or below -2.5 Osteoporosis As a practical clinical guideline, osteopenia may be graded as follows: Mild -1 through -1.5 Moderate -1.6 through -2.0 Severe -2.1 through -2.4 The Z-score is the number of standard deviations above or below age-matched controls. A Z-score of less than -1.5 would be considered abnormal. References: 1. NIH Osteoporosis and Related Bone Diseases www osteo.org 2. International Society for Clinical Densitometry www iscd.org 3. National Osteoporosis Foundation www nof.org Electronically Signed: Jatin Song MD at 19:22 EDT ,
== END | disposition home or self-care (01) ==
LOC: OPBD 14:39
PROVIDERS: PCP Internal Medicine; Referring Provider Internal Medicine; Visit Provider Internal Medicine
DX: Z12.31 Encounter for screening mammogram for malignant neoplasm of breast (principal); Z78.0 Asymptomatic menopausal state
CPT/HCPCS: 77063; 77067; 77080

== ENCOUNTER 2024-04-03 12:00 | Outpatient (RCR) | payer MEDICARE, SELFPAY ==
--- NOTE | 2023-11-05 12:27 | HP.PTEVAL_ITS ---
Patient's Visit Information Visit Information Visit Information: RICHELLE PATEL is a 73 year old F referred to Physical Therapy by Dr. 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 Date of Evaluation: 11/05/23 Physical Therapist: Luciana Sherman DPT Visit Plan Frequency: 2x /Week Duration: 4 Weeks Plan: Right Revision Reverse Total Shoulder 10/29/23 HEP Given IE: scapular retractions, gentle table walk aways, pendulums, elbow flexion/extension Subjective Subjective: Right reverse 10/29/23 and didn't quite line up so the next day they took it back out and did a revision and everything was okay the next day. She has had minimal pain and has been able to mange with Tylenol since she has been home. She had a lot of swelling yesterday so she had a Doppler which was negative. The pain is located in the armpit area- the pain is tightness and more dull and achy. Worst: 2/10 Agg: stretching it Best: 0/10 Eases: sling, ice machine. No N/T in the hand. She does have some neck discomfort from the sling. No LUBIN, blurred vision. She is sleeping in a recliner and its okay. She is doing her at home exercises- elbow flexion/extension, supination/pronation- her is helping. Right hand dominate. She goes back up Dec 04. Fully I prior to surgery- Goals: get back to doing all of those things. 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 Goal Time Frame: 6-8 Weeks Goal 2:: Patient will report an decrease 14 points on the Quick DASH to show minimal clinical significant difference on patients functional outcome measure. Goal Time Frame: 6-8 Weeks Goal 3:: Patient will demo full AROM of the right shoulder Goal Time Frame: 6-8 Weeks Goal 4:: Patient will maintain proper posture t/o tx session to demo increased scap s/s Goal Time Frame: 6-8 Weeks Goal 5:: Patient will report 80% improvement Goal Time Frame: 6-8 Weeks Rehabilitation Potential Physical Therapy Diagnosis: Patient presents with hypomobility- she has decreased UE ROM, scapular and UE strength/stabilization and muscular endurance s/p right reverse total shoulder leading to decreased participation in ADL's. Rehabilitation Potential: Good Anticipated Interventions Patient/Client Instruction: Educate patient on: Benefits of Fitness Program Therapeutic Exercise to Include: Strength training, Endurance training, Coordination, Agility training, Body mechanics, Postural training, Flexibilty training, Neuromotor development, Passive ROM, Active ROM and Scapular Strength/Stabilization For the Purpose of:: To improve muscle performance and motor function Manual Therapy Techniques to Include: Passive ROM and Soft tissue mobilization TENS: Yes Cryotherapy (ice pack, ice massage): Yes Thermo therapy (hot pack): Yes Ultrasound (thermal/non thermal): No Text: Thank you for the opportunity to evaluate your patient. For Medicare and Medicare HMO plans, please review the plan of care and approve it. It will need to be FAXED BACK to us at [phone] for Medicare purposes. For Medicare only, by signing this I certify the plan of care. Please let me know if there are questions or concerns regarding this plan of care. Physician Signature: Date:
--- NOTE | 2023-11-29 12:58 | HP.PTREVAL ---
Re-Evaluation Intro: Dr. 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 Please see the progress note below for an update on the physical therapy plan of care! Subjective Subjective: Pt reports feeling better and has an appointment with her surgeon next Tues. Pt also reports her scar feeling thick. Pt. reports being 80% better, but still has issues with lifting her arm and overall using it. Objective Objective/Function: ROM: PROM ABD 155, flex 140, IR 60, ER 30 deg AAROM: 88 deg ABD, 115 flex, 40 IR, ER 35 OBSERVATIONS: guarding, maintains holding arm in sling position when resting PALPATION: some scar tissue and scar adhesions, tightness in lats in shoulder flex Pt. continues to have hypomobility, but is progressing as expected, She is now able to be in phase II of her protocol. I would still like her to work on further PROM, but is able to progress AAROM as tolerated. Pt still nervous about full movement and shoulder popping out, but has no pain just stiffness in shoulder. Continue to improve ROM and address scar mobility. Plan Plan Plan: Right Revision Reverse Total Shoulder 10/29/23 1) PROM and AAROM to increase ROM (week 4-6 of protocol) 2) Scar mobilization and DFM to UT and axilla region Cont. to stress with patient progressing ROM as able. HEP: wand: supine and seated flexion, seated ER/IR wand Balance/Gait/Functional tests Balance/Special Test Scores Quick DASH Score: 68.1800 Goals Goals Goal 1:: Patient will report participation in home exercise program activities a minimum of 5 days per week, as adjunct to skilled physical therapy intervention in preparation for independent home management upon discharge. Goal Time Frame: 6-8 Weeks Goal Progress: Goal Met Goal 2:: Patient will report an decrease 14 points on the Quick DASH to show minimal clinical significant difference on patients functional outcome measure. Goal Time Frame: 6-8 Weeks Goal Progress: Progressing Goal 3:: Patient will demo full AROM of the right shoulder (Pt. still limited with flexion, ER, IR, and abd as noted in observation, but has progressed since IE) Goal Time Frame: 6-8 Weeks Goal Progress: Progressing Goal 4:: Patient will maintain proper posture t/o tx session to demo increased scap s/s (pt. still falls into forward flexed posture and rounded shoulders. She keeps RUE in guarded posture) Goal Time Frame: 6-8 Weeks Goal Progress: Progressing Goal 5:: Patient will report 80% improvement Goal Time Frame: 6-8 Weeks Goal Progress: Goal Met Goal 6:: Pt will report 90% better with little to no difficulty doing her hair Goal Time Frame: 6-8 Weeks Goal Progress: Progressing Anticipated Interventions Anticipated Interventions Patient/Client Instruction: Educate patient on: Benefits of Fitness Program Therapeutic Exercise to Include: Strength training, Endurance training, Coordination, Agility training, Body mechanics, Postural training, Flexibilty training, Neuromotor development, Passive ROM, Active ROM and Scapular Strength/Stabilization For the Purpose of:: To improve muscle performance and motor function Manual Therapy Techniques to Include: Passive ROM and Soft tissue mobilization TENS: Yes Cryotherapy (ice pack, ice massage): Yes Thermo therapy (hot pack): Yes Ultrasound (thermal/non thermal): No Re-Evaluation Ending Re-evaluation ending: Please do not hesitate to contact me at [phone] by phone or if you have questions or concerns regarding this new plan of care! Sincerely, Brandon Mata DPT
--- NOTE | 2023-12-31 10:01 | HP.PTREVAL ---
Re-Evaluation Intro: Dr. Carlin Cody MD, It has been my pleasure to treat RICHELLE PATEL over the last 16 visits for Right Revision Reverse Total Shoulder 10/29/23. Please see the progress note below for an update on the physical therapy plan of care! Subjective Subjective: Pt. reports overall doing well. She does not have much pain. Pt. is to see physician later this week. Pt. report no pain today. Pt. has been HEP compliant without issues. She is doing all of her activities, but does have some issues with reaching behind her back and with lifting dishes into her cabinets. Objective Objective/Function: PROM: R shoulder: flexion 170deg, abd 165deg, ER at 90deg 60deg, IR at 90deg 50deg. AROM: flexion 155deg, abd 150deg, functional ER C4 aberrant motion, functional IR Sacrum MMT: 4/5 throughout R shoulder. Overall she is doing well. I would like a little bit more IR functionally to allow for better completion of ADLs and IADLs, as well as to increase her strength in order to complete all household activities ie lifting dishes into cabinets. Plan Plan Plan: Pt. to continue with PT on land focus on end range of motion and progression of strengthening if allowed by physician. I am also going to have her do 1-2 visit in pool to get aquatic exercises as well. Balance/Gait/Functional tests Balance/Special Test Scores Quick DASH Score: 25.0000 Goals Goals Goal 1:: Patient will report participation in home exercise program activities a minimum of 5 days per week, as adjunct to skilled physical therapy intervention in preparation for independent home management upon discharge. Goal Time Frame: 6-8 Weeks Goal Progress: Goal Met Goal 2:: Patient will report an decrease 14 points on the Quick DASH to show minimal clinical significant difference on patients functional outcome measure. Goal Time Frame: 6-8 Weeks Goal Progress: Goal Met Goal 3:: Patient will demo full AROM of the right shoulder (Pt. still limited with flexion, ER, IR, and abd as noted in observation, but has progressed since IE) Goal Time Frame: 6-8 Weeks Goal Progress: Progressing Goal 4:: Patient will maintain proper posture t/o tx session to demo increased scap s/s (pt. still falls into forward flexed posture and rounded shoulders. She keeps RUE in guarded posture) Goal Time Frame: 6-8 Weeks Goal Progress: Progressing Goal 5:: Patient will report 80% improvement Goal Time Frame: 6-8 Weeks Goal Progress: Goal Met Goal 6:: Pt will report 90% better with little to no difficulty doing her hair Goal Time Frame: 6-8 Weeks Goal Progress: Progressing Anticipated Interventions Anticipated Interventions Patient/Client Instruction: Educate patient on: Benefits of Fitness Program Therapeutic Exercise to Include: Strength training, Endurance training, Coordination, Agility training, Body mechanics, Postural training, Flexibilty training, Neuromotor development, Passive ROM, Active ROM and Scapular Strength/Stabilization For the Purpose of:: To improve muscle performance and motor function Manual Therapy Techniques to Include: Passive ROM and Soft tissue mobilization TENS: Yes Cryotherapy (ice pack, ice massage): Yes Thermo therapy (hot pack): Yes Ultrasound (thermal/non thermal): No Re-Evaluation Ending Re-evaluation ending: Please do not hesitate to contact me at [phone] by phone or if you have questions or concerns regarding this new plan of care! Sincerely, Brandon Mata DPT
--- NOTE | 2024-01-24 08:36 | HP.PTREVAL ---
Re-Evaluation Intro: Dr. Carlin Cody MD, It has been my pleasure to treat RICHELLE PATEL over the last 23 visits for Right Revision Reverse Total Shoulder 10/29/23. Please see the progress note below for an update on the physical therapy plan of care! Subjective Subjective: Pt reports doing well, still has some ROM limitations, but has performing her ex consistently. Pt is able to lift a little more, but still not at her PLOF with IR and strength. Pt able to lift her arm to do her hair now. Objective Objective/Function: ROM: 145 abd, 150 flex, base of occiput ER, lateral portion of L iliac crest IR MMT: 5# weaker on RUE, ER 3+/5 no pain WALL SLIDES: good stretch, added to HEP Pt demo's improved ROM and strength, pt to continue stretching at home and will transition to indep gym program to increase strength. Plan Plan Plan: -stretching and strengthening of R shoulder (work on IR for ROM) -work on creating gym program for pt to transition to (mostly UE, but can include LE) Balance/Gait/Functional tests Balance/Special Test Scores Quick DASH Score: 25.0000 Goals Goals Goal 1:: Patient will report participation in home exercise program activities a minimum of 5 days per week, as adjunct to skilled physical therapy intervention in preparation for independent home management upon discharge. Goal Time Frame: 6-8 Weeks Goal Progress: Goal Met Goal 2:: Patient will report an decrease 14 points on the Quick DASH to show minimal clinical significant difference on patients functional outcome measure. Goal Time Frame: 6-8 Weeks Goal Progress: Goal Met Goal 3:: Patient will demo full AROM of the right shoulder (Pt. still limited with flexion, ER, IR, and abd as noted in observation, but has progressed since IE) Goal Time Frame: 6-8 Weeks Goal Progress: Progressing Goal 4:: Patient will maintain proper posture t/o tx session to demo increased scap s/s (pt. still falls into forward flexed posture and rounded shoulders. She keeps RUE in guarded posture) Goal Time Frame: 6-8 Weeks Goal Progress: Goal Met Goal 5:: Patient will report 80% improvement Goal Time Frame: 6-8 Weeks Goal Progress: Goal Met Goal 6:: Pt will report 90% better with little to no difficulty doing her hair Goal Time Frame: 6-8 Weeks Goal Progress: Goal Met Anticipated Interventions Anticipated Interventions Patient/Client Instruction: Educate patient on: Benefits of Fitness Program Therapeutic Exercise to Include: Strength training, Endurance training, Coordination, Agility training, Body mechanics, Postural training, Flexibilty training, Neuromotor development, Passive ROM, Active ROM and Scapular Strength/Stabilization For the Purpose of:: To improve muscle performance and motor function Manual Therapy Techniques to Include: Passive ROM and Soft tissue mobilization TENS: Yes Cryotherapy (ice pack, ice massage): Yes Thermo therapy (hot pack): Yes Ultrasound (thermal/non thermal): No Re-Evaluation Ending Re-evaluation ending: Please do not hesitate to contact me at [phone] by phone or if you have questions or concerns regarding this new plan of care! Sincerely, Brandon Mata DPT
--- NOTE | 2024-03-06 07:32 | HP.PTREVAL ---
Re-Evaluation Intro: Dr. Carlin Cody MD, It has been my pleasure to treat RICHELLE PATEL over the last 28 visits for Right Revision Reverse Total Shoulder 10/29/23. Please see the progress note below for an update on the physical therapy plan of care! Subjective Subjective: Pt. reports no pain in her R shoulder at this point in time. Sleeping well. Still has some trouble with getting her arm behind her back. No NT. Objective Objective/Function: AROM: R shoulder: flexion 145deg, abd 135deg, functional IR L5, functional ER T1 PROM: R shoulder: flexion 155deg, abd 150deg, ER at 90deg of abd 80deg, IR at 90deg of abd 50deg. MMT: R shoulder: flexion 18.9#, abd 24.6#, ER 8.5# L shoulder: flexion 21.9#, abd 21.1#, 15.8# Pt. would like to be able to lift more plates into her cabinets at home. Pt. also has questions about gym exercises and would like an appt or two to become I with these. Overall Chiqui is doing very well. I am pleased with her progress at this point. I want to her to contiune with ROM exercises and progress strengthening as tolerated. Plan Plan Plan: Pt. to come back 1-2 more visits to be established in gym exercises to progress I. Balance/Gait/Functional tests Balance/Special Test Scores Quick DASH Score: 15.9075 Goals Goals Goal 1:: Patient will report participation in home exercise program activities a minimum of 5 days per week, as adjunct to skilled physical therapy intervention in preparation for independent home management upon discharge. Goal Time Frame: 6-8 Weeks Goal Progress: Goal Met Goal 2:: Patient will report an decrease 14 points on the Quick DASH to show minimal clinical significant difference on patients functional outcome measure. Goal Time Frame: 6-8 Weeks Goal Progress: Goal Met Goal 3:: Patient will demo full AROM of the right shoulder (Pt. still limited with flexion, ER, IR, and abd as noted in observation, but has progressed since IE) Goal Time Frame: 6-8 Weeks Goal Progress: Progressing Goal 4:: Patient will maintain proper posture t/o tx session to demo increased scap s/s (pt. still falls into forward flexed posture and rounded shoulders. She keeps RUE in guarded posture) Goal Time Frame: 6-8 Weeks Goal Progress: Goal Met Goal 5:: Patient will report 80% improvement Goal Time Frame: 6-8 Weeks Goal Progress: Goal Met Goal 6:: Pt will report 90% better with little to no difficulty doing her hair Goal Time Frame: 6-8 Weeks Goal Progress: Goal Met Anticipated Interventions Anticipated Interventions Patient/Client Instruction: Educate patient on: Benefits of Fitness Program Therapeutic Exercise to Include: Strength training, Endurance training, Coordination, Agility training, Body mechanics, Postural training, Flexibilty training, Neuromotor development, Passive ROM, Active ROM and Scapular Strength/Stabilization For the Purpose of:: To improve muscle performance and motor function Manual Therapy Techniques to Include: Passive ROM and Soft tissue mobilization TENS: Yes Cryotherapy (ice pack, ice massage): Yes Thermo therapy (hot pack): Yes Ultrasound (thermal/non thermal): No Re-Evaluation Ending Re-evaluation ending: Please do not hesitate to contact me at [phone] by phone or if you have questions or concerns regarding this new plan of care! Sincerely, Brandon Mata DPT
== END 2024-04-03 19:00 | disposition home or self-care (01) ==
LOC: PT 12:00
PROVIDERS: PCP Internal Medicine; Referring Provider Orthopaedic Surgery; Visit Provider Orthopaedic Surgery
DX: Z96.611 Presence of right artificial shoulder joint (principal)
CPT/HCPCS: 97110; 97140; 97162; 97164; 97530

== ENCOUNTER → 2024-08-27 | Outpatient (CLI) | payer MEDICARE, SELFPAY ==
[2024-08-27 12:36] LABS: Anion Gap 5 (5-15); BUN 16 mg/dL (7-18); BUN/Creat Ratio 15.7 RATIO (10-20); Calcium,Total 9.9 mg/dL (8.5-10.1); Chloride 103 mmol/L (98-107); Creatinine, Serum 1.02 mg/dL (0.55-1.02); EST Glomerular Filtration Rate 56 mL/min (>60); Est Glom Filt Rate - Afr Amer 68 mL/min (>60); Glucose 83 mg/dL (74-106); Potassium 4.1 mmol/L (3.5-5.1); Sodium Level 138 mmol/L (136-145)
== END | disposition home or self-care (01) ==
LOC: BIMLAB 10:07
PROVIDERS: PCP Internal Medicine; Referring Provider Internal Medicine; Visit Provider Internal Medicine
DX: I10 Essential (primary) hypertension (principal)
CPT/HCPCS: 36415; 80048

== ENCOUNTER → 2024-11-27 | Outpatient (CLI) | payer MEDICARE, SELFPAY ==
[2024-11-27 12:20] LABS: Absolute Lymphocyte Count 1.46 X10^3/uL (0.83-4.51); Absolute Neutrophil Count 3.6 X10^3/uL (2.0-7.7); Basophil# 0.06 X10^3/uL; Eosinophil# 0.27 X10^3/uL; Eosinophils% 4.4 % (0-5); Hematocrit 42.8 % (37-47); Hemoglobin 13.9 g/dL (12.0-15.0); Lymphocyte # 1.46 X10^3/ul (0.83-4.51); Mean Corp Hgb Conc 32.5 g/dL (32-36); Mean Corpuscular Hgb 28.9 pg (27.0-32.0); Mean Platelet Vol. 10.4 fl (6.2-12.0); Monocyte# 0.69 X10^3/uL; Monocyte% 11.3 % (0-10); NRBC Flagged by Analyzer 0 % (0-5); Neutrophil # 3.58 X10^3/uL (2.7-7.7); Platelet Count 261 K/mm3 (150-450); RBC Distribution Width CV 14.2 % (11.6-14.6); RBC Distribution Width SD 45.9 fl (35.1-43.9); Red Blood Count 4.81 M/mm3 (4.2-5.4); White Blood Count 6.1 K/mm3 (4.4-11.0)
[2024-11-27 12:49] LABS: ALB/GLOB Ratio 1.2 RATIO (0.9-2.4); AST(SGOT) 15 U/L (15-37); Alanine Aminotransfer ALT/SGPT 29 U/L (13-56); Albumin, Serum 3.7 g/dL (3.2-5.0); Alkaline Phosphatase 106 U/L (45-117); Anion Gap 7 (5-15); BUN 22 mg/dL (7-18); BUN/Creat Ratio 22.5 RATIO (10-20); Calcium,Total 9.3 mg/dL (8.5-10.1); Chloride 102 mmol/L (98-107); Cholesterol 157 mg/dL (200); Creatinine, Serum 0.98 mg/dL (0.55-1.02); EST Glomerular Filtration Rate 59 mL/min (>60); Est Glom Filt Rate - Afr Amer 72 mL/min (>60); Globulin 3.1 g/dL (2.2-4.2); Glucose 86 mg/dL (74-106); High Density Lipoprotein 57 mg/dL; Potassium 3.5 mmol/L (3.5-5.1); Protein, Total 6.8 g/dL (6.4-8.2); Sodium Level 137 mmol/L (136-145); Triglycerides 108 mg/dL; Very Low Density Lipoprotein 22 mg/dL (5-40)
== END | disposition home or self-care (01) ==
LOC: BIMLAB 08:25
PROVIDERS: PCP Internal Medicine; Referring Provider Internal Medicine; Visit Provider Internal Medicine
DX: I10 Essential (primary) hypertension (principal); E78.5 Hyperlipidemia, unspecified
CPT/HCPCS: 36415; 80053; 80061; 85025

== ENCOUNTER → 2024-12-19 | Outpatient (CLI) | payer MEDICARE, SELFPAY ==
[2024-12-21 13:07] LABS: C-Peptide 3.1 ng/mL (1.1-4.4); Insulin Level 9.5 uIU/mL (2.6-24.9)
== END | disposition home or self-care (01) ==
PROVIDERS: Physician Assistant; PCP Internal Medicine; Referring Provider Internal Medicine; Visit Provider Internal Medicine
DX: I10 Essential (primary) hypertension (principal); E16.2 Hypoglycemia, unspecified
CPT/HCPCS: 36415; 83525; 84443; 84681

== ENCOUNTER → 2025-01-23 | Outpatient (CLI) | payer MEDICARE, SELFPAY ==
--- NOTE | 2025-01-23 09:56 | BI_ITS ---
EXAM: SCRN MAMM (CAD)W/VINNIE BILAT 01/23/2025 CLINICAL HISTORY: F, Age 74 y/o , BREAST CANCER SCREENING TECHNIQUE: Bilateral screening digital breast tomosynthesis with 2D and 3D images. Computer aided detection. COMPARISON: Prior exam(s) dated 01/23/2024. FINDINGS: TISSUE DENSITY: The breast tissue is composed of scattered area of fibroglandular density. Bilateral Breast Mammographic Findings: No significant masses, calcifications or other abnormalities are identified. BI/SCRN MAMM (CAD)W/VINNIE BILAT IMPRESSION: Right Breast: BIRADS 1 NEGATIVE. Left Breast: BIRADS 1 NEGATIVE. OVERALL FINAL ASSESSMENT: BIRADS 1 NEGATIVE. RECOMMENDATION: Routine annual follow-up in 1 Year A letter with findings and recommendations will be mailed to the patient. Reading Location: [facility]
== END | disposition home or self-care (01) ==
LOC: OPBI 09:54
PROVIDERS: PCP Internal Medicine; Referring Provider Internal Medicine; Visit Provider Internal Medicine
DX: Z12.31 Encounter for screening mammogram for malignant neoplasm of breast (principal)
CPT/HCPCS: 77063; 77067

== ENCOUNTER → 2025-01-29 | Outpatient (CLI) | payer MEDICARE, SELFPAY ==
[2025-01-30 07:08] LABS: Rubeola IgG Ab 97.1 AU/mL (Immune >16.4)
== END | disposition home or self-care (01) ==
LOC: BIMLAB 10:48
PROVIDERS: PCP Internal Medicine; Referring Provider Internal Medicine; Visit Provider Internal Medicine
DX: Z01.84 Encounter for antibody response examination (principal)
CPT/HCPCS: 36415; 86765

== ENCOUNTER → 2025-03-02 | Outpatient (CLI) | payer MEDICARE, SELFPAY ==
[2025-03-02 16:06] LABS: Anion Gap 12 (5-15); BUN 18 mg/dL (4-19); BUN/Creat Ratio 17.8 RATIO (10-20); Carbon Dioxide 24.5 mmol/L (21.0-32.0); Chloride 101 mmol/L (98-108); EST Glomerular Filtration Rate 60 (>60); Glucose 88 mg/dL (70-99); Sodium Level 137 mmol/L (133-145)
== END | disposition home or self-care (01) ==
LOC: BIMLAB 11:36
PROVIDERS: PCP Internal Medicine; Referring Provider Internal Medicine; Visit Provider Internal Medicine
DX: I10 Essential (primary) hypertension (principal)
CPT/HCPCS: 36415; 80048

== ENCOUNTER → 2025-06-03 | Outpatient (CLI) | payer MEDICARE, SELFPAY ==
[2025-06-03 10:23] LABS: Hematocrit 42.9 % (37-47); Hemoglobin 14.4 g/dL (12.0-15.0); Immature Granulocytes Count 0.020 X10^3/uL (0.0-0.0); Mean Corp Hgb Conc 33.6 g/dL (32-36); Mean Corpuscular Volume 87.6 fL (81-99); Mean Platelet Vol. 10.2 fl (6.2-12.0); NRBC Flagged by Analyzer 0 % (0-5); Platelet Count 276 K/mm3 (150-450); RBC Distribution Width CV 14.3 % (11.6-14.6); RBC Distribution Width SD 45.6 fl (35.1-43.9); Red Blood Count 4.90 M/mm3 (4.2-5.4); White Blood Count 7.0 K/mm3 (4.4-11.0)
[2025-06-03 11:11] LABS: AST(SGOT) 25 U/L (<=31); Alanine Aminotransfer ALT/SGPT 25 U/L (<=34); Albumin, Serum 4.4 g/dL (3.4-4.8); Alkaline Phosphatase 107 U/L (35-104); Anion Gap 13 (5-15); BUN 17 mg/dL (4-19); BUN/Creat Ratio 16.3 RATIO (10-20); Calcium,Total 9.9 mg/dL (7.6-11.0); Carbon Dioxide 23.9 mmol/L (21.0-32.0); Chloride 100 mmol/L (98-108); Globulin 2.3 g/dL (2.2-4.2); Glucose 90 mg/dL (70-99); Potassium 3.3 mmol/L (3.3-5.1)
== END | disposition home or self-care (01) ==
PROVIDERS: PCP Internal Medicine; Referring Provider Internal Medicine; Visit Provider Internal Medicine
DX: I10 Essential (primary) hypertension (principal)
CPT/HCPCS: 36415; 80053; 85025

== ENCOUNTER 2025-06-24 07:54 | Outpatient (RCR) | payer MEDICARE, SELFPAY | END 2025-07-21 23:59 | LOC: NS 07:54 | PROVIDERS: PCP Internal Medicine; Referring Provider Internal Medicine; Visit Provider Internal Medicine | DX: Z71.3 Dietary counseling and surveillance (principal); N18.31 Chronic kidney disease, stage 3a; E66.9 Obesity, unspecified; Z68.31 Body mass index [BMI] 31.0-31.9, adult | CPT/HCPCS: 97802 ==

== ENCOUNTER 2025-08-05 09:54 | Outpatient (RCR) | payer MEDICARE, SELFPAY | END 2025-08-21 23:59 | LOC: NS 09:54 | PROVIDERS: PCP Internal Medicine; Referring Provider Internal Medicine; Visit Provider Internal Medicine | DX: Z71.3 Dietary counseling and surveillance (principal); N18.31 Chronic kidney disease, stage 3a; E66.9 Obesity, unspecified; Z68.30 Body mass index [BMI] 30.0-30.9, adult | CPT/HCPCS: 97803 ==

== ENCOUNTER 2025-09-07 11:12 | Outpatient (RCR) | payer MEDICARE, SELFPAY | END 2025-09-20 23:59 | LOC: NS 11:12 | PROVIDERS: PCP Internal Medicine; Referring Provider Internal Medicine; Visit Provider Internal Medicine | DX: Z71.3 Dietary counseling and surveillance (principal); N18.31 Chronic kidney disease, stage 3a; E66.9 Obesity, unspecified; Z68.30 Body mass index [BMI] 30.0-30.9, adult | CPT/HCPCS: 97803 ==

== ENCOUNTER 2025-09-27 11:26 | Emergency (ER) | payer MEDICARE, SELFPAY ==
[2025-09-27] VITALS (7 sets, daily range): BP systolic 121–174; BP diastolic 76–112; PULSE 72–99; RESP 13–18; TEMP 36.6–36.8; O2SAT 96–100; BMI 31.2
--- NOTE | 2025-09-27 11:29 | ED.VIS.CHEST ---
HPI History of Present Illness Chief Complaint: Chest Pain Informant: patient Onset/Context/Timing Onset: Today Activity at onset: sudden Timing: Continuous Quality: Positive for Tightness Location: Substernal, Right Parasternal, Left Parasternal, Right Chest and Left Chest Worsened By: Nothing Relieved By: Nothing Associated Symptoms: Positive for Lightheadedness; Negative for Nausea, Vomiting, Diaphoresis, Dyspnea, Cough, Fever, Acid Reflux or Palpitations Narrative Narrative: Patient presents with chest pain that began approximately 20 minutes prior to arrival. Patient states she was walking in a store when it began. Patient describes it as tightness. Patient states nothing makes it better and nothing makes it worse. Patient states it feels like there is something tight around her lower chest bilaterally. Patient admits to some lightheadedness. Patient denies any nausea or vomiting. Patient denies any diaphoresis. Patient denies any shortness of breath or cough. Patient denies any palpitations. Prior Similar Symptoms: No CVD Risk Factors: Positive for Hypertension; Negative for Diabetes, Hypercholesterolemia, Family History 1' </=55 or Smoking PE Risk Factors: Positive for Prior DVT or PE; Negative for Recent Travel/Surgery, Recent Immobilization, Cancer or OCP + Smoking + >/=35 PFSH PFSH Medical History Insomnia Immunity status testing Preoperative evaluation to rule out surgical contraindication COVID-19 Abnormal EKG History of DVT (deep vein thrombosis) Unsteady gait when walking Impacted cerumen, bilateral CKD (chronic kidney disease), stage III History of bursitis Obesity YOEL (obstructive sleep apnea) Health care maintenance Flu vaccine need Anxiety Diverticulitis Uterine prolapse Cat scratch fever Giardia History of pneumonia Osteopenia Hyperlipidemia Gastrointestinal problem Breast lump History of blood clots History of back problems Home Medications ?Medication ?Instructions ?Recorded ?Last Taken ?Type oral sleep apnea appliance #1 ea 11/15/21 Unknown Rx aspirin 81 mg tablet,delayed 162 mg PO DAILY 04/04/24 09/27/25 History release (Adult Low Dose Aspirin) hydrochlorothiazide 25 mg tablet 25 mg PO DAILY #90 tabs 09/05/24 09/27/25 Rx sertraline 50 mg tablet (Zoloft) 50 mg PO DAILY #90 tabs 09/05/24 09/27/25 Rx atorvastatin 10 mg tablet 10 mg PO DAILY #90 tabs 01/23/25 09/26/25 Rx bupropion HCl 300 mg 24 hr tablet, 300 mg PO QAM #90 tabs 02/19/25 09/27/25 Rx extended release hydralazine 100 mg tablet 100 mg PO TID 3 months #270 TABLETS 08/17/25 09/27/25 Rx alprazolam 0.5 mg tablet 0.25 mg (1/2 x 0.5 mg) PO DAILY 09/01/25 Unknown Rx PRN anxiety #14 tabs magnesium 200 mg tablet 200 mg PO QHS PRN sleep 09/27/25 Unknown History Allergy/AdvReac Type Severity Reaction Status Date / Time clindamycin (From Cleocin) Allergy Unknown Rash Verified 09/27/25 11:29 amoxicillin AdvReac Intermediate Vomiting Verified 09/27/25 11:29 clavulanic acid (From AdvReac Intermediate Vomiting Verified 09/27/25 11:29 Augmentin) Family History Aunt Breast cancer Cervical cancer Brother Diabetes Father Parkinson disease Grandmother Uterine cancer Mother Leukemia Surgical History History of right shoulder replacement History of lumpectomy of both breasts Social History Smoking Status: Never smoker alcohol intake: current alcohol intake frequency: a few times a week substance use type: does not use what type of physical activity do you participate in: walking frequency: 3-4 times per week ROS ROS ED Constitutional Constitutional ED: Denies chills or fever(s) Eyes Eyes: Denies blurry vision or change in vision ENT ENT ED: Denies rhinorrhea or sore throat Cardiovascular Cardiovascular: Reports chest pain; Denies palpitations Respiratory/Chest Respiratory/Chest: Denies cough or dyspnea Gastrointestinal Gastrointestinal: Denies nausea or vomiting Genitourinary Genitourinary ED: Denies dysuria or hematuria Musculoskeletal Musculoskeletal: Denies back pain or neck pain Integumentary Denies abscess or rash Neurologic Neurologic: Denies headache(s) or weakness Allergic/Immunologic Allergic/Immunologic ED: Denies mouth swelling or urticaria EXAM Physical Exam Const Vital Signs: 09/27/25 11:27 09/27/25 11:32 09/27/25 11:48 Temperature 98.3 F Temperature Source Oral Pulse Rate 99 Respiratory Rate 18 Respiratory Effort Normal Non-Labored Blood Pressure 174/99 H Blood Pressure Mean 124 Pulse Ox 100 Oxygen Delivery Method Room Air Room Air 09/27/25 12:09 09/27/25 12:26 09/27/25 12:27 Temperature Temperature Source Pulse Rate 84 84 81 Respiratory Rate 16 Respiratory Effort Blood Pressure 144/112 H 135/86 H 135/86 H Blood Pressure Mean 102 Pulse Ox 96 Oxygen Delivery Method Room Air 09/27/25 13:00 09/27/25 14:00 Temperature Temperature Source Pulse Rate 74 72 Respiratory Rate 13 14 Respiratory Effort Blood Pressure 122/76 H 127/79 H Blood Pressure Mean 90 95 Pulse Ox 97 97 Oxygen Delivery Method Positive well nourished and well developed General Appearance ED: well developed and NAD HEENT Reports moist mucous membranes Neck supple and no JVD Resp normal respiratory effort and clear to auscultation bilaterally Cardio regular rate and regular rhythm GI soft to palpation, non-tender and non-distended Extremity normal to inspection General Extremety ED: Negative for edema or tenderness General Extremity: Negative for edema Neuro oriented x3, CN's II-XII intact bilaterally and no sensory deficits noted Sensorium / Orientation: awake and alert Motor Exam: strength 5/5 throughout Psych mental status grossly normal Heart Score History: Slightly/Non-Suspicious ECG: Normal Age: >/= 65 years Risk Factors: 1 or 2 Risk Factors Troponin: </= Normal Limit Score: 3 MDM MDM MDM Narrative Medical decision making narrative: Differential diagnosis includes cardiac dysrhythmia, cardiac ischemia, pneumonia, bronchitis, pulmonary embolism, electrolyte abnormality, dehydration, and anxiety. EKG will be obtained to assess for cardiac dysrhythmia and cardiac ischemia. Chest x-ray will be obtained to assess for pneumonia and bronchitis. CBC will be obtained to assess for leukocytosis and anemia. Basic metabolic profile will be obtained to assess for electrolyte abnormality and renal function. High-sensitivity troponin will be obtained to assess for cardiac ischemia. 2-hour repeat high-sensitivity troponin will be obtained to assess for ongoing cardiac ischemia. D-dimer will be obtained to assess for pulmonary embolism. History & Record Review Additional record(s) reviewed:: Prior outpatient record and Prior labs Lab Data Attestation: I reviewed the patient's lab results. Lab results narrative: CBC was reviewed and was within normal limits. Basic metabolic profile was reviewed and showed a BUN of 20 and creatinine of 1.22. These are similar to previous results. Initial high-sensitivity troponin was reviewed and was slightly elevated at 15. 2-hour repeat high-sensitivity troponin was reviewed and was normal at 14. Labs: Laboratory Results - last 24 hr 09/27/25 09/27/25 11:30 13:30 WBC 7.0 RBC 5.09 Hgb 14.6 Hct 44.6 MCV 87.6 MCH 28.7 MCHC 32.7 RDW Std Deviation 44.8 H RDW Coeff of Citlalli 13.8 Plt Count 308 MPV 10.0 Immature Gran % (Auto) 0.300 Neut % (Auto) 53.5 Lymph % (Auto) 27.6 Campbell % (Auto) 12.6 H Eos % (Auto) 5.3 H Baso % (Auto) 0.7 Absolute Neuts (auto) 3.8 Absolute Lymphs (auto) 1.93 Nucleated RBC % 0 Sodium 136 Potassium 3.5 Chloride 99 Carbon Dioxide 24.5 Anion Gap 13 BUN 20 H Creatinine 1.22 H Estim Creat Clear Calc 48.32 L Est GFR (MDRD) Non-Af 47 L BUN/Creatinine Ratio 16.5 Glucose 84 Calcium 10.1 Troponin T High Sens 15 H Troponin T Hi Sens 2 Hr 14 Radiography Chest X-Ray - ED: 2 View, Read by ED Physician, Read by Radiologist and No Acute Disease Diagnostic Testing: Clinical Impression(s) from Imaging Studies Chest X-Ray 09/27/25 11:43 IMPRESSION: NO ACUTE FINDINGS. Reading Location: [facility] PA and lateral chest x-ray was obtained. There are 2 views. On my independent interpretation, lung howard are clear. There is normal cardiac silhouette. Bony thorax is normal. There is no acute process noted. Radiologist also interpreted the x-ray and agrees. EKG Initial EKG: Attestation: I personally reviewed and interpreted this EKG as follows: Interpretation: Sinus Rhythm (With first-degree AV block with a rate of 96) and AV Block (First-degree) Comments: EKG was obtained. On my independent interpretation, it showed a sinus rhythm with a first-degree AV block with a rate of 96. PA interval was prolonged at 220 ms. QRS interval was normal at 82 ms. QTc interval was normal at 472 ms. Weare was normal. There are no acute ST or T wave changes. Prior EKG tracings: available for review Prior: Unchanged (10/01/2023) Treatment and Re-Evaluation :: Patient was given aspirin and nitroglycerin here. Patient felt better on reevaluation. Patient's blood pressure improved. Patient was advised that her pain could be related to her blood pressure. Patient has a HEART score of 3. Patient was advised that this is low risk for acute cardiac event. However, it has been 2 years since her last stress test. Because of this, we will order an outpatient stress test to be done. Patient was instructed to follow-up with her primary care physician in 5 to 7 days. Patient was instructed to return if worse in any way. Patient understood and was agreeable with the plan. All questions were answered. Discharge Plan Triage Chief Complaint: Chest Pain ED Provider: Josafat Marquez Dx/Rx/DC Orders Clinical Impression: Chest pain, Hypertension Instructions: ED Chest Pain, Uncertain Cause, ED High Blood Pressure Hypertension Prescriptions: No Action (DME) oral sleep apnea appliance See Rx Instructions .Route .MEDSUPPLY Qty: 1 0RF Rx Instructions: As directed aspirin [Adult Low Dose Aspirin] 81 mg tablet,delayed release (DR/EC) 162 mg PO DAILY magnesium 200 mg tablet 200 mg PO QHS PRN (Reason: sleep) sertraline [Zoloft] 50 mg tablet 50 mg PO DAILY Qty: 90 3RF hydrochlorothiazide 25 mg tablet 25 mg PO DAILY Qty: 90 3RF atorvastatin 10 mg tablet 10 mg PO DAILY Qty: 90 3RF bupropion HCl 300 mg tablet extended release 24 hr 300 mg PO QAM Qty: 90 2RF hydralazine 100 mg tablet 100 mg PO TID 90 Days Qty: 270 2RF alprazolam 0.5 mg tablet 0.25 mg PO DAILY PRN (Reason: anxiety) Qty: 14 0RF Other Ambulatory Orders: Stress Test Regular (Routine) Timeframe: 2 Days Location: None Selected Ordered By: Dr. Josafat Marquez Primary Care Provider: Vazquez Scott Referrals: Vazquez Scott MD [Primary Care Provider, Internal Medicine] Print Language: Tongan Disposition Disposition: Home, Self Care
--- NOTE | 2025-09-27 11:43 | EKG12_ITS ---
Test Reason : CP Blood Pressure : */* mmHG Vent. Rate : 96 BPM Atrial Rate : 96 BPM P-R Int : 220 ms QRS Dur : 82 ms QT Int : 374 ms P-R-T Axes : 37 5 28 degrees QTcB Int : 472 ms Sinus rhythm with 1st degree A-V block Artifact present Borderline ECG Confirmed by Julio Patterson ([id number]), visual effects editor MARIBEL LUJAN ([id number]) on 09/29/2025 8:51:14 AM Referred By: LOIDA Confirmed By: Julio Patterson
--- NOTE | 2025-09-27 11:43 | RAD_ITS ---
PROCEDURE: CHEST PA AND LATERAL 09/27/2025 REASON FOR EXAM: CHEST PAIN TECHNIQUE: Procedure Code: RADCXR Modality: DX Procedure: CHEST PA AND LATERAL COMPARISON: 04/09/2023 FINDINGS: LUNGS AND PLEURA: The lungs are clear. No pleural effusion or pneumothorax. HEART AND MEDIASTINUM: The heart size and mediastinal contours are normal. AORTA: Mildly calcified aortic arch. BONES: No acute osseous abnormality. Prior right reverse total shoulder arthroplasty. RAD/Chest PA and Lateral IMPRESSION: NO ACUTE FINDINGS. Reading Location: [id number]
[2025-09-27 11:54] LABS: Hematocrit 44.6 % (37-47); Hemoglobin 14.6 g/dL (12.0-15.0); Immature Granulocytes Count 0.020 X10^3/uL (0.0-0.0); Mean Corp Hgb Conc 32.7 g/dL (32-36); Mean Corpuscular Volume 87.6 fL (81-99); Mean Platelet Vol. 10.0 fl (6.2-12.0); NRBC Flagged by Analyzer 0 % (0-5); Platelet Count 308 K/mm3 (150-450); RBC Distribution Width CV 13.8 % (11.6-14.6); RBC Distribution Width SD 44.8 fl (35.1-43.9); Red Blood Count 5.09 M/mm3 (4.2-5.4); White Blood Count 7.0 K/mm3 (4.4-11.0)
[2025-09-27] MEDS: Nitroglycerin SL (ED/IMG/CATH) 0.4 MG TABLET SL ×2 (12:09→12:27)
[2025-09-27 12:15] LABS: Anion Gap 13 (5-15); BUN 20 mg/dL (4-19); BUN/Creat Ratio 16.5 RATIO (10-20); Calcium,Total 10.1 mg/dL (7.6-11.0); Carbon Dioxide 24.5 mmol/L (21.0-32.0); Chloride 99 mmol/L (98-108); Estimated Creatinine Clearance 48.32 ml/min (50-250); Glucose 84 mg/dL (70-99); Potassium 3.5 mmol/L (3.3-5.1); Troponin T High Sensitivity 15 ng/L (<=14)
--- OUTSIDE RECORDS SUMMARY | 2025-09-27 12:20 | XMS RPT_ITS | CCD ---
Author Organization [facility] Care Team Providers Care Utility Locate Technician Name Role Phone Dr. Areli Scott Primary Care Provider [phone]) Dr. Areli Scott Referring Provider [phone] Catalino RODRIGUEZ, JENNIFER-C Ozzie Attending Provider [phone] Dr. Areli Scott Attending Provider [phone])2 Dr. Areli Scott Primary Care Provider 1(33 0) Dr. Areli Scott Referring Provider [phone])2 SOURAV Adams Attending Provider [phone] Dr. Subhash Penaloza Attending Provider [phone])- Dr. Areli Scott Primary Care Provider 1(33 0) Dr. Areli Scott Referring Provider 1(330)2 Dr. Areli Scott Attending Provider 1(330)2 Dr. Areli Scott Primary Care Provider 1(33 0) Dr. Areli Scott Referring Provider 1(330)2 Dr. Areli Scott Primary Care Provider 1(33 0) Dr. Areli Scott Attending Provider 1(330)2 Dr. Areli Scott Referring Provider 1(330)2 Dr. Areli Scott Primary Care Provider 1(33 0) Dr. Areli Scott Attending Provider 1(330)2 Dr. Areli Scott Referring Provider 1(330)2 Dr. Areli Scott Primary Care Provider 1(33 0) Tyler, Dr. Shukla Attending Provider 1(330)2 Tyler, Dr. Shukla Referring Provider 1(330)2 SOURAV Adams Attending Provider Dr. Jarrod Thorne Attending Provider Dr. Dain Hussein Referring Provider [phone] Dr. Areli Scott Referring Provider 1(330)2 Tyler, Dr. Shukla Primary Care Provider 1(33 0) Dr. Josafat Marquez Referring Provider Tyler, Dr. Shukla Attending Provider 1(330)2 Je BENJAMIN PA Dylon Alexis Attending Provider SOURAV Hernandez Attending Provider Dr. Josafat Vieyra Attending Provider Dr. Josafat Vieyra Referring Provider Dr. Jeffrey Sherman Attending Provider ARELI SCOTT B Primary Care Unavailable FLORENTINO PEDRAZA Attending Unavailable ARELI SCOTT B Primary Care Unavailable ELIE GRIDER Attending Unavailable Dr. Areli Scott Primary Care Provider 1(33 0) Tyler, Dr. Shukla Attending Provider 1(330)2 Tyler, Dr. Shukla Referring Provider 1(330)2 Dr. Areli Scott Primary Care Provider 1(33 0) Tyler, Dr. Shukla Attending Provider 1(330)2 Tyler, Dr. Shukla Referring Provider 1(330)2 ARELI SCOTT B Primary Care Unavailable SELF Referring Unavailable HEATH FIERRO Attending Unavailable Oleghe, Efewongbe Primary Care Unavailable Oleghe, Efewongbe Referring Unavailable Oleghe, Efewongbe Attending Unavailable Susi Ely Attending Graciela ilable Oleghe, Efewongbe Primary Care Unavailable Oleghe, Efewongbe Primary Care Unavailable Oleghe, Efewongbe Referring Unavailable Yohan Adams Attending Unavailable Oleghe, Efewongbe Primary Care Unavailable Oleghe, Efewongbe Referring Unavailable Oleghe, Efewongbe Attending Unavailable Oleghe, Efewongbe Referring Unavailable Oleghe, Efewongbe Primary Care Unavailable Oleghe, Efewongbe Attending Unavailable Oleghe, Efewongbe Primary Care Unavailable Madelin Ortiz Attending Unavailable Oleghe, Efewongbe Attending Unavailable Oleghe, Efewongbe Referring Unavailable Oleghe, Efewongbe Primary Care Unavailable Oleghe, Efewongbe Referring Unavailable Oleghe, Efewongbe Attending Unavailable Oleghe, Efewongbe Primary Care Unavailable Oleghe, Efewongbe Primary Care Unavailable Oleghe, Efewongbe Referring Unavailable Oleghe, Efewongbe Attending Unavailable Oleghe, Efewongbe Referring Unavailable Oleghe, Efewongbe Primary Care Unavailable Oleghe, Efewongbe Attending Unavailable Oleghe, Efewongbe Referring Unavailable Oleghe, Efewongbe Attending Unavailable Oleghe, Efewongbe Primary Care Unavailable Oleghe, Efewongbe Attending Unavailable Oleghe, Efewongbe Primary Care Unavailable Oleghe, Efewongbe Attending Unavailable Oleghe, Efewongbe Primary Care Unavailable Oleghe, Efewongbe Referring Unavailable Oleghe, Efewongbe Attending Unavailable Oleghe, Efewongbe Primary Care Unavailable Oleghe, Efewongbe Referring Unavailable Oleghe, Efewongbe Primary Care Unavailable Oleghe, Efewongbe Referring Unavailable Oleghe, Efewongbe Attending Unavailable Oleghe, Efewongbe Primary Care Unavailable Oleghe, Efewongbe Referring Unavailable Oleghe, Efewongbe Attending Unavailable Oleghe, Efewongbe Attending Unavailable Oleghe, Efewongbe Primary Care Unavailable Oleghe, Efewongbe Referring Unavailable Oleghe, Efewongbe Referring Unavailable Oleghe, Efewongtono Attending Unavailable Antonioosito Areli Primary Care Unavailable Antonioosito Areli Primary Care Unavailable AntonioositoFelycarolann Referring Unavailable AntonioositoFelyryantono Attending Unavailable Allergies Allergy Classification Reported Allergen(s) Allergy Type Date of Onset Reaction(s) Facility (13 sources) Amoxicillin; Translations: [AMOXICILLIN] Drug Allergy 8 Vomiting [facility] (11 sources) Clavulanate Drug Allergy 2 Vomiting [facility] (11 sources) Clindamycin Drug Allergy 2 Rash [facility] (2 sources) Clindamycin; Translations: [CLINDAMYCIN HCL] Drug Allergy 1 [facility] (2 sources) AMOXICILLIN-POT CLAVULANATE; Translations: [AMOXICILLIN-POT CLAVULANATE] Propensity to adverse reactions to drug (disorder) 8 [facility] (1 source) Amoxicillin Drug Allergy 5 [facility] (1 source) Clavulanate Drug Allergy 5 [facility] (1 source) Clindamycin Drug Allergy 5 [facility] Medications Current Medications Medication Drug Class(es) Dates Sig (Normalized) Sig (Original) aspirin 81 mg delayed release oral tablet (2 sources) Platelet Aggregation Inhibitor, Nonsteroidal Anti-inflammatory Drug Start: 10-03-2023 Aspirin (Adult Low Dose Aspirin) 81 mg tablet,delayed release (DR/EC) Active 81 MG PO DAILY October 03, 2023 1:00am buPROPion (20 sources) Aminoketone Start: 12-25-2023 take 1 tablet by mouth once daily in the morning Bupropion Hcl Active 0 .ROUTE .COMPLEX 180 December 25, 2023 5:49pm take 1 tablet by mouth every morning Start: 07-17-2022 End: 12-25-2023 take 300 mg by mouth once daily in the morning Bupropion Hcl Discontinued 300 MG PO EVERY MORNING July 05, 2023 2:27pm December 25, 2023 5:49pm Start: 06-05-2022 End: 07-17-2022 take 1 tablet by mouth once daily in the morning Bupropion Hcl (Wellbutrin Xl) 150 mg tablet extended release 24 hr Discontinued 150 MG PO EVERY MORNING June 05, 2022 12:00am July 17, 2022 10:15am busPIRone hydrochloride 7.5 mg oral tablet (20 sources) Start: 01-11-2023 End: 01-21-2024 take 7.5 mg by mouth twice daily Buspirone Active 7.5 MG PO TWICE A DAY 180 January 21, 2024 12:55pm Start: 01-10-2023 End: 01-10-2023 Buspirone Discontinued 7.5 M G .ROUTE .COMPLEX January 10, 2023 1:20pm January 10, 2023 1:54pm 7.5 mg; Start: 11-24-2022 End: 01-11-2023 take 5 mg by mouth twice daily Buspirone Discontinued 5 MG PO TWICE A DAY 180 January 10, 2023 1:54pm January 11, 2023 1:01pm Start: 07-04-2021 End: 11-24-2022 take 1 tablet by mouth twice daily Buspirone Discontinued 0 .ROUTE .COMPLEX 180 June 05, 2022 12:16pm November 24, 2022 12:31pm take 1 tablet by mouth twice a day Start: 02-17-2021 End: 07-04-2021 take 5 mg by mouth twice daily Buspirone Discontinued 5 MG PO TWICE A DAY 60 May 18, 2021 10:06am July 04, 2021 8:30am Start: 05-03-2020 End: 02-17-2021 take 2.5 mg by mouth twice daily Buspirone Discontinued 2.5 MG PO TWICE A DAY 90 June 25, 2020 9:47am February 17, 2021 9:32am Start: 03-23-2020 End: 05-03-2020 take 5 mg by mouth twice daily Buspirone Discontinued 5 MG PO TWICE A DAY 60 March 23, 2020 12:00am May 03, 2020 9:25am hydrALAZINE hydrochloride 50 mg oral tablet (20 sources) Arteriolar Vasodilator Start: 10-03-2023 End: 01-28-2024 take 75 mg by mouth three times daily Hydralazine Active 75 MG PO THREE TIMES A DAY 135 January 28, 2024 1:04pm Start: 09-21-2023 End: 10-03-2023 take 75 mg by mouth three times daily Hydralazine Discontinued 75 MG PO THREE TIMES A DAY September 21, 2023 2:33pm October 03, 2023 11:45am Start: 05-18-2020 End: 09-21-2023 take 25 mg by mouth three times daily Hydralazine Discontinued 25 MG PO THREE TIMES A DAY 270 90 July 12, 2023 11:44am September 21, 2023 2:33pm ondansetron 4 mg oral tablet (3 sources) Serotonin-3 Receptor Antagonist Start: 05-30-2023 take 4 mg by mouth every six hours Ondansetron Hcl Active 4 MG PO EVERY 6 HOURS May 30, 2023 12:00am oral sleep apnea appliance (11 sources) Start: 11-15-2021 oral sleep filter tank tender helper head ea appliance Active 0 .Route .MEDSUPPLY November 15, 2021 2:42pm As directed Start: 11-15-2021 oral sleep filter tank tender helper head ea appliance Active 0 .Route .MEDSUPPLY November 15, 2021 1:00am As directed Completed/Discontinued Medications Medication Drug Class(es) Dates Sig (Normalized) Sig (Original) ALPRAZolam 0.5 mg oral tablet (20 sources) Benzodiazepine Start: 05-28-2019 End: 12-19-2023 take 0.25 mg by mouth once daily Alprazolam Discontinued 0.25 MG PO DAILY October 02, 2023 2:25pm December 19, 2023 7:44pm amLODIPine 10 mg oral tablet (20 sources) Dihydropyridine Calcium Channel Patrick Start: 03-23-2020 End: 06-17-2020 take 10 mg by mouth once daily Amlodipine Discontinued 10 MG PO DAILY March 23, 2020 3:22pm June 17, 2020 1:25pm On Hold: Starting Hydralazine. Possible side effect Start: 03-01-2020 End: 03-23-2020 take 5 mg by mouth once daily Amlodipine Discontinued 5 MG PO DAILY March 01, 2020 12:00am March 23, 2020 3:23pm atorvastatin 10 mg oral tablet (20 sources) HMG-CoA Reductase Inhibitor Start: 05-28-2019 End: 02-12-2023 take 10 mg by mouth once daily Atorvastatin Discontinued 10 MG PO DAILY February 16, 2022 1:06pm February 12, 2023 5:45pm benzonatate 200 mg oral capsule (11 sources) Non-narcotic Antitussive Start: 11-10-2019 End: 03-25-2020 Benzonatate Discontinued 200 MG PO 2 to 3 times per day November 10, 2019 1:00am March 25, 2020 3:50pm calcium carbonate 1500 mg oral tablet (20 sources) Start: 10-05-2021 End: 09-18-2022 take 1 tablet by mouth twice daily Calcium Carbonate (Calcium 600) 600 mg calcium (1,500 mg) tablet Discontinued 600 MG PO TWICE A DAY October 05, 2021 1:00am September 18, 2022 11:29am Start: 08-25-2019 End: 12-01-2019 take 1 tablet by mouth twice daily Calcium Carbonate (Antacid (Calcium Carbonate)) 200 mg calcium (500 mg) tablet,chewable Discontinued 200 MG PO TWICE A DAY August 25, 2019 1:00am December 01, 2019 2:35pm On Hold: while on doxycycline cephalexin 500 mg oral capsule (5 sources) Cephalosporin Antibacterial Start: 05-20-2023 End: 10-03-2023 take 500 mg by mouth every six hours Cephalexin Discontinued 500 MG PO EVERY 6 HOURS 40 May 20, 2023 12:00am October 03, 2023 11:37am dexamethasone 6 mg oral tablet (3 sources) Corticosteroid Start: 05-30-2023 End: 06-15-2023 take 6 mg by mouth once daily Dexamethasone Discontinued 6 MG PO DAILY May 30, 2023 12:00am June 15, 2023 9:11am doxycycline hyclate 100 mg oral tablet (11 sources) Tetracycline-class Drug Start: 11-10-2019 End: 12-01-2019 take 100 mg by mouth twice daily Doxycycline Hyclate Discontinued 100 MG PO TWICE A DAY November 10, 2019 1:00am December 01, 2019 2:33pm Fluad Quad (65yr up)(PF) 60 mcg (15 mcg x 4)/0.5mL IM syringe (flu vac (1 source) Start: 07-04-2021 End: 07-04-2021 Fluad Quad (65yr up)(PF) 60 mcg (15 mcg x 4)/0.5mL IM syringe (flu vac Discontinued 60 MCG IM ONCE 0.5 July 04, 2021 8:02am July 04, 2021 8:56am 0.5 ml fondaparinux sodium 5 mg/ml prefilled syringe (4 sources) Factor Xa Inhibitor Start: 05-21-2023 End: 05-21-2023 Fondaparinux Discontinued 2.5 MG SC DAILY 22.5 45 May 21, 2023 12:00am May 21, 2023 3:34pm hydroCHLOROthiazide 25 mg oral tablet (20 sources) Thiazide Diuretic Start: 09-30-2019 End: 12-18-2023 take 25 mg by mouth once daily Hydrochlorothiazide Discontinued 25 MG PO DAILY 90 January 08, 2023 12:11pm December 18, 2023 3:08pm Start: 08-25-2019 End: 09-30-2019 take 12.5 mg by mouth once daily Hydrochlorothiazide Discontinued 12.5 MG PO DAILY August 25, 2019 1:00am September 30, 2019 2:42pm meloxicam 15 mg oral tablet (11 sources) Nonsteroidal Anti-inflammatory Drug Start: 08-26-2019 End: 12-01-2019 take 15 mg by mouth once daily Meloxicam Discontinued 15 MG PO DAILY 60 August 26, 2019 1:00am December 01, 2019 2:35pm methylPREDNISolone 4 mg oral tablet (11 sources) Corticosteroid Start: 08-25-2019 End: 09-30-2019 take 1 tablet by mouth once Methylprednisolone (Medrol (Sujit)) 4 mg tablets,dose pack Discontinued 0 PO per package directions August 25, 2019 1:00am September 30, 2019 2:24pm PO PER PKG DIR rivaroxaban 20 mg oral tablet (11 sources) Factor Xa Inhibitor Start: 06-06-2023 End: 10-03-2023 take 1 tablet by mouth once daily at dinner Rivaroxaban (Xarelto) 20 mg tablet Discontinued 20 MG PO DAILY June 06, 2023 12:00am October 03, 2023 11:39am must administer with evening meal Start: 05-21-2023 End: 06-06-2023 take 1 tablet by mouth once daily Rivaroxaban (Xarelto) 10 mg tablet Discontinued 10 MG PO DAILY 60 May 21, 2023 12:00am June 06, 2023 9:49am for 35 days sulfamethoxazole 800 mg / trimethoprim 160 mg oral tablet (5 sources) Dihydrofolate Reductase Inhibitor Antibacterial, Sulfonamide Antimicrobial Start: 05-20-2023 End: 06-15-2023 take 1 tablet by mouth twice daily Sulfamethoxazole-Trimethoprim Discontinued 1 TABLET PO TWICE A DAY May 20, 2023 12:00am June 15, 2023 9:10am traZODone hydrochloride 50 mg oral tablet (11 sources) Serotonin Reuptake Inhibitor Start: 05-28-2019 End: 03-25-2020 take 25 mg by mouth once daily Trazodone Discontinued 25 MG PO DAILY May 28, 2019 12:00am March 25, 2020 3:50pm vilazodone hydrochloride 20 mg oral tablet (20 sources) Start: 02-17-2021 End: 07-17-2022 take 20 mg by mouth once daily Vilazodone Discontinued 20 MG PO DAILY February 27, 2022 8:35am July 17, 2022 9:58am Start: 05-28-2019 End: 02-17-2021 take 1 tablet by mouth once daily Vilazodone (Viibryd) 40 mg tablet Discontinued 40 MG PO DAILY February 02, 2020 12:53pm February 17, 2021 9:32am Problems Active Problems Problem Classification Problem Date Documented Da te Episodic/Chronic Anxiety disorders (20 sources) Mixed anxiety and depressive disorder; Translations: [Anxiety disorder, unspecified] Onset: 08-27-2024 Chronic Chronic kidney disease (16 sources) Chronic kidney disease stage 3; Translations: [Stage 3 chronic kidney disease] Chronic Complications of surgical procedures or medical care (1 source) Other postprocedural complications and disorders of the circulatory system, not elsewhere classified; Translations: [Postoperative surgical complication involving circulatory system associated with non-cardiac procedure, unspecified complication] Onset: 11-04-2023 Episodic Disorders of lipid metabolism (18 sources) Hyperlipidemia; Translations: [Hyperlipidemia, unspecified] Onset: 06-23-2025 Chronic Essential hypertension (20 sources) Hypertensive disorder; Translations: [Essential (primary) hypertension] Onset: 06-08-2025 Chronic Mood disorders (1 source) Major depressive disorder, recurrent, mild; Translations: [Major depressive disorder, recurrent, mild] Onset: 08-27-2024 Chronic Nonspecific chest pain (6 sources) Chest pain; Translations: [Chest pain, unspecified] 04-09-2023 Episodic Osteoarthritis (20 sources) Arthritis of right glenohumeral joint; Translations: [Primary osteoarthritis, right shoulder] Chronic Other bone disease and musculoskeletal deformities (11 sources) Osteopenia; Translations: [Other specified disorders of bone density and structure, unspecified site] 10-05-2021 Episodic Other bone disease and musculoskeletal deformities (2 sources) Other specified disorders of bone density and structure, unspecified site; Translations: [Disorder of bone and cartilage, unspecified] 01-02-2024 Episodic Other connective tissue disease (11 sources) H/O: musculoskeletal disease; Translations: [Personal history of other diseases of the musculoskeletal system and connective tissue] 01-31-2022 Episodic Other connective tissue disease (2 sources) Personal history of other diseases of the musculoskeletal system and connective tissue; Translations: [Personal history of other musculoskeletal disorders] Episodic Other connective tissue disease (10 sources) Impingement syndrome of shoulder region; Translations: [Impingement syndrome of right shoulder] 02-09-2022 Episodic Other connective tissue disease (6 sources) Impingement syndrome of right shoulder; Translations: [Other affections of shoulder region, not elsewhere classified] Episodic Other connective tissue disease (1 source) Other specified soft tissue disorders; Translations: [Arm swelling] Onset: 11-04-2023 Episodic Other ear and sense organ disorders (7 sources) Impacted cerumen; Translations: [Impacted cerumen, bilateral] 09-18-2022 Episodic Other ear and sense organ disorders (1 source) Impacted cerumen, bilateral; Translations: [Impacted cerumen] 09-18-2022 Episodic Other endocrine disorders (1 source) Hypoglycemia, unspecified; Translations: [Hypoglycemia, unspecified] Onset: 12-19-2024 Chronic Other nervous system disorders (11 sources) Piriformis syndrome; Translations: [Lesion of sciatic nerve, left lower limb] 08-25-2019 Chronic Other nervous system disorders (7 sources) Unsteady when walking; Translations: [Unsteadiness on feet] 09-18-2022 Episodic Other nervous system disorders (1 source) Unsteadiness on feet; Translations: [Abnormality of gait] 09-18-2022 Episodic Other non-traumatic joint disorders (4 sources) Shoulder pain; Translations: [Pain in right shoulder] 02-09-2022 Episodic Other non-traumatic joint disorders (11 sources) Pain in right shoulder; Translations: [Pain in joint, shoulder region] Episodic Other nutritional; endocrine; and metabolic disorders (11 sources) Obesity; Translations: [Obesity, unspecified] 01-31-2022 Chronic Other nutritional; endocrine; and metabolic disorders (2 sources) Obesity, unspecified; Translations: [Obesity, unspecified] Chronic Phlebitis; thrombophlebitis and thromboembolism (16 sources) Superficial vein thrombosis; Translations: [Acute embolism and thrombosis of other specified veins] 05-20-2023 Episodic Residual codes; unclassified (11 sources) Obstructive sleep apnea syndrome; Translations: [Obstructive sleep apnea (adult) (pediatric)] 10-05-2021 Chronic Residual codes; unclassified (7 sources) Obstructive sleep apnea (adult) (pediatric); Translations: [Obstructive sleep apnea (adult)(pediatric)] Chronic Skin and subcutaneous tissue infections (12 sources) Acute lymphangitis of right lower limb; Translations: [Acute lymphangitis of right lower extremity] 05-20-2023 Episodic Viral infection (4 sources) Disease caused by 2019-nCoV; Translations: [COVID-19] 05-30-2023 Episodic Past or Other Problems Problem Classification Problem Date Documented Date Episodic/Chronic Immunizations and screening for infectious disease (20 sources) Contact with or exposure to other viral diseases; Translations: [Exposure to COVID-19 virus] Onset: 09-26-2024 07-20-2021 Episodic Other screening for suspected conditions (not mental disorders or infectious disease) (5 sources) Electrocardiogram abnormal; Translations: [Abnormal electrocardiogram [ECG] [EKG]] Onset: 01-27-2025 05-22-2023 Episodic Results Test Name Value Interpretation Reference Range Facility [facility] 07-09-2025 CNOV Office Visit (PSYLWM ) RICHELLE MORALES ([id number]) 1950 F Date Time Provider Department 07/09/25 2:00 PM HEATH FIERRO PSYLWM During your visit today, we recorded the following information about you: Heath Fierro, PhD 07/09/2025 4:00 PM Signed [facility] Department Progress Note Richelle Morales 07/09/2025 [id number] PROVIDER: Heath Fierro, PhD CPT Code: Time: 50 minutes Setting: Patient seen in person Parties Present: Patient Treatment Modality/Interventions : Cognitive Behavioral Reassurance/Supportive Insight oriented Problem solving Processing of emotions Goal setting Psychoeducation MENTAL STATUS: Mood: variable, dysthymic Affect: mood-congruent Thoughts/Associations: goal directed Suicidal/Homicidal Ideation: None expressed or evidenced Other Prominent Symptoms: Therapy Focus/Content of Session: INITIAL VISIT Self-care, Stress management, Mood/affect regulation, and Marital/couple Richelle grew up in [place] w an 8yr older brother... 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 ask the PCP if that would be helpful MEDICATIONS: Per medical record: Current Outpatient Medications Medication Sig buPROPion XL (WELLBUTRIN XL) 300 mg 24 hr tablet Take 300 mg by mouth every morning. ASPIRIN ORAL Take 81 mg by mouth once daily. 2 tabs daily hydroCHLOROthiazide (HYDRODIURIL, ESIDRIX) 25 mg tablet Take 25 mg by mouth once daily. vilazodone (VIIBRYD) 10 mg Take 40 mg by mouth daily with breakfast. atorvastatin (LIPITOR) 10 mg tablet Take 10 mg by mouth once daily. TRAZODONE HCL (TRAZODONE ORAL) Take 0.5 mg by mouth daily at bedtime. ROSUVASTATIN CALCIUM (CRESTOR ORAL) Take by mouth. ALPRAZolam (XANAX) 0.5 mg ORAL tablet Take 0.5 mg by mouth at bedtime as needed. fluoxetine (PROZAC) 20 mg ORAL capsule Take 20 mg by mouth once daily. No current facility-administered medications for this visit. Psychiatric Medication Issues: see med record DIAGNOSIS: [place] I: Depression with Anxiety Self Esteem [place] II: deferred [place] III: see med record [place] IV: self esteem [place] V: 55-70 TREATMENT PROGRESS/ASSESSMENT: Progressing satisfactorily. TREATMENT PLAN/GOALS: Continue in therapy focusing on self-care, stress management, affect management, anxiety management, and self-esteem. Next appointment: as scheduled Heath Fierro, PhD Referring Provider: SELF [[id number]] Allergies As of Date: 07/09/2025 Noted Allergy Reaction AMOXICILLIN 12/17/2017 8 - GI Upset Comments: N/V AUGMENTIN (AMOXICILLIN-POT CLAVUL*12/17/2017 8 - GI Upset Comments: N/V CLEOCIN (CLINDAMYCIN HCL) 12/20/2010 5 - Intolerance Date Reviewed: 11/04/2023 Reviewed by: Chris Brown, BASSEM - Fully Assessed Primary Visit Diagnosis:Depression with anxiety [F41.8] Other Visit Diagnosis:Low self-esteem [R45.81] Prescriptions as of 07/09/2025 - buPROPion XL (WELLBUTRIN XL) 300 mg 24 hr tablet Take 300 mg by mouth every morning. - ASPIRIN ORAL Take 81 mg by mouth once daily. 2 tabs daily - hydroCHLOROthiazide (HYDRODIURIL, ESIDRIX) 25 mg tablet Take 25 mg by mouth once daily. - vilazodone (VIIBRYD) 10 mg Take 40 mg by mouth daily with breakfast. - atorvastatin (LIPITOR) 10 mg tablet Take 10 mg by mouth once daily. - TRAZODONE HCL (TRAZODONE ORAL) Take 0.5 mg by mouth daily at bedtime. - ROSUVASTATIN CALCIUM (CRESTOR ORAL) Take by mouth. - ALPRAZolam (XANAX) 0.5 mg ORAL tablet Take 0.5 mg by mouth at bedtime as needed. - fluoxetine (PROZAC) 20 mg ORAL capsule Take 20 mg by mouth once daily. Problem List As Of Date: 07/09/2025 (None) Encounter Status:Closed by HEATH FIERRO on 07/09/25 Normal [facility] Coronary Angiography CTon Coronary Angiography CT [facility] Imaging Services [address] [place] [address] 07/08/25 190 MR#: [id number] Acct: [id number] Name: RICHELLE MORALES Rep #: [id number] : 1950 75 From: Subhash Penaloza MD PCP: Dr. Areli Scott MD Status:REG REF Y Location: CT Calcium Scoring Date of Study:: 06/23/25 Indications Indications: Hyperlipidemia Coronary Calcium Scoring: High-resolution Computed Tomographic imaging of the chest was performed on [], with particular attention paid to the coronary arteries. Images from the examination were analyzed for the presence and extent of coronary artery calcification , using coronary calcium quantification software. The patient tolerated the procedure well and there were no complications. The results of the coronary calcification analysis are provided below. Findings Coronary Artery Left Anterior Descending (LAD): 0 Left Circumflex (LCX): 3.18 Right Coronary Artery (RCA): 0 Total Agatston Score: 0.8 Percentile Rankin% Calcium Scoring Interpretation: Different methods to categorize the overall amount of coronary plaque. Overall amount CAC SIS Visual of coronary plaque P1 Mild -100 <2 1-2 vessels with mild amount of plaque P2 Moderate 101-300 3-4 1-2 vessels with moderate amount, 3 vessels with mild amount of plaque P3 Severe 301-999 5-7 3 vessels with moderate amount, 1 vessel with severe amount of plaque P4 Extensive >1000 >8 2-3 vessels with severe amount of plaque Conclusion: Minimal atherosclerotic plaquing 07/08/251901 Date Subhash Penaloza MD Cosigner Signature (if applicable): Date CC: Dr. Subhash Penaloza MD; Dr. Areli Scott MD Signed Normal [facility] Limited Chest CT Cardiac Onl yon 06-23-[address] Cardiac Only [facility] Imaging Services [address] [place], [place] [address] Limited Chest CT Cardiac Only MR#: [id number] Acct: [id number] Name: RICHELLE MORALES Rep #: [id number] : 1950 F 75 From: Jatin rodney MD PCP: Dr. Areli Scott MD Status: REG REF Study: Limited Chest CT Cardiac Only Date of Exam: Exam# [id number] Ordering Dr: Areli Scott MD PROCEDURE: LIMITED CHEST CT CARDIAC ONLY N/A REASON FOR EXAM: HYPERLIPIDEMIA, UNSPECIFIED TECHNIQUE: Procedure Code: [id number] Modality: CT Procedure: LIMITED CHEST CT CARDIAC ONLY CONTRAST: None One or more dose reduction techniques were used (e.g., Automated exposure control, adjustment of the mA and/or kV according to patient size, use of iterative reconstruction technique). RADIATION DOSE SUMMARY: CTDlvol: 22.58 mGy DLP: 406.46 mGycm COMPARISON: None FINDINGS: The heart is nonenlarged. Coronary artery calcification. Small precarinal lymph node. Minimal linear scarring at the lung bases. CT/Limited Chest CT Cardiac Only IMPRESSION: Coronary artery calcification. Reading Location: [place] [address] CC: Dr. Areli Scott MD Senior Gis Analyst: Signed Normal [facility] CBC W/Diff, Automatedon 05-22 Absolute Lymph 1.47 X10 3/uL Normal 0.83-4.51 [facility] Comment on above: Performed By: #### L 500.2500 #### [facility] [address] [place], [place], [address] Absolute Neut 4.4 X10 3/uL Normal 2.0-7.7 [facility] Comment on above: Performed By: #### L 500.2500 #### [facility] [address] [place], [address] Basophils/100 WBC (Bld) 0.7 % Normal 0-1 [facility] Comment on above: Performed By: #### L 500.2500 #### [facility] [address] [place], [address] Eosinophils/100 WBC (Bld) 5.0 % Normal 0-5 [facility] Comment on above: Performed By: #### L 500.2500 #### [facility] [address] [place], [address] Erythrocyte distribution width (RBC) [Ratio] 14.3 % Normal 11.6-14.6 [facility] Comment on above: Performed By: #### L 500.2500 #### [facility] [address] [place], [address] Hematocrit (Bld) [Volume fraction] 42.9 % Normal 37-47 [facility] Comment on above: Performed By: #### L 500.2500 #### [facility] [address] [place], [address] Hemoglobin (Bld) [Mass/Vol] 14.4 g/dL Normal 12.0-15.0 [facility] Comment on above: Performed By: #### L 500.2500 #### [facility] [address] [place], [address] IG% 0.300 Normal 0.0-0.9 [facility] Comment on above: Result Comment: IG% - Immature Granulocytes (promyelocytes, myelocytes and metamyelocytes) > 1% indicates that a LEFT SHIFT is Present. Performed By: #### L 500.2500 #### [facility] [address] [place], [address] Lymphocytes/100 WBC (Bld) 21.0 % Normal 19-41 [facility] Comment on above: Performed By: #### L 500.2500 #### [facility] [address] [place], [address] MCH (RBC) [Entitic mass] 29.4 pg Normal 27.0-32.0 [facility] Comment on above: Performed By: #### L 500.2500 #### [facility] [address] [place], [address] MCHC (RBC) [Mass/Vol] 33.6 g/dL Normal 32-36 [facility] Comment on above: Performed By: #### L 500.2500 #### [facility] [address] [place], [address] MCV (RBC) [Entitic vol] 87.6 fL Normal 81-99 [facility] Comment on above: Performed By: #### L 500.2500 #### [facility] [address] [place], [address] Monocytes/100 WBC (Bld) 10.1 % High 0-10 [facility] Comment on above: Performed By: #### L 500.2500 #### [facility] [address] [place], [address] Neutrophils/100 WBC (Bld) 62.9 % Normal 47-70 [facility] Comment on above: Performed By: #### L 500.2500 #### [facility] [address] [place], [address] Nucleated RBC (Bld) [#/Vol] 0 10*3/uL Normal 0-5 [facility] Comment on above: Performed By: #### L 500.2500 #### [facility] [address] [place], [address] Platelet mean volume (Bld) [Entitic vol] 10.2 fL Normal 6.2-12.0 [facility] Comment on above: Performed By: #### L 500.2500 #### [facility] [address] [place], [address] Platelets (Bld) [#/Vol] 276 10*3/uL Normal 150-450 [facility] Comment on above: Performed By: #### L 500.2500 #### [facility] [address] [place], [address] RBC (Bld) [#/Vol] 4.90 10*6/uL Normal 4.2-5.4 [facility] Comment on above: Performed By: #### L 500.2500 #### [facility] [address] [place], [address] RDW SD 45.6 fl High 35.1-43.9 [facility] Comment on above: Performed By: #### L 500.2500 #### [facility] [address] [place], [address] WBC (Bld) [#/Vol] 7.0 10*3/uL Normal 4.4-11.0 [facility] Comment on above: Performed By: #### L 500.2500 #### [facility] [address] [place], [address] Comprehensive Metabolic Prof [facility] 06-03-2025 Albumin [Mass/Vol] 4.4 g/dL Normal 3.4-4.8 [facility] Comment on above: Performed By: #### L 500.2500 #### [facility] [address] [place], [address] Albumin/Globulin [Mass ratio] 1.9 {ratio} Normal 0.9-2.4 [facility] Comment on above: Performed By: #### L 500.2500 #### [facility] [address] [place], [address] ALK PHOS 107 U/L High 35-104 [facility] Comment on above: Performed By: #### L 500.2500 #### [facility] [address] [place], [address] ALT [Catalytic activity/Vol] 25 U/L Normal <=34 [facility] Comment on above: Performed By: #### L 500.2500 #### [facility] [address] [place], [address] AST [Catalytic activity/Vol] 25 U/L Normal <=31 [facility] Comment on above: Performed By: #### L 500.2500 #### [facility] [address] [place], [address] Bilirubin [Mass/Vol] 0.54 mg/dL Normal 0.00-1.30 [facility] Comment on above: Performed By: #### L 500.2500 #### [facility] [address] [place], [address] BUN/CRE 16.3 RATIO Normal 10-20 [facility] Comment on above: Performed By: #### L 500.2500 #### [facility] [address] [place], [address] Calcium [Mass/Vol] 9.9 mg/dL Normal 7.6-11.0 [facility] Comment on above: Performed By: #### L 500.2500 #### [facility] [address] [place], [address] Chloride [Moles/Vol] 100 mmol/L Normal 98-108 [facility] Comment on above: Performed By: #### L 500.2500 #### [facility] [address] [place], [address] CO2 [Moles/Vol] 23.9 mmol/L Normal 21.0-32.0 [facility] Comment on above: Performed By: #### L 500.2500 #### [facility] [address] [place], [address] Creatinine [Mass/Vol] 1.02 mg/dL Normal 0.70-1.20 [facility] Comment on above: Performed By: #### L 500.2500 #### [facility] [address] [place], [address] GAP 13 Normal 5-15 [facility] Comment on above: Performed By: #### L 500.2500 #### [facility] [address] [place], [address] GFR/1.73 sq M.predicted among non-blacks MDRD (S/P/Bld) [Vol rate/Area] 58 mL/min/{1.73_m2} Low >60 [facility] Comment on above: Result Comment: mL/m in/1.73m2 CKD-EPI Creatinine Equation (2020) Performed By: #### L 500.2500 #### [facility] [address] [place], [address] Globulin (S) [Mass/Vol] 2.3 g/dL Normal 2.2-4.2 [facility] Comment on above: Performed By: #### L 500.2500 #### [facility] [address] [place], [address] Glucose [Mass/Vol] 90 mg/dL Normal 70-99 [facility] Comment on above: Performed By: #### L 500.2500 #### [facility] [address] [place], [address] Potassium [Moles/Vol] 3.3 mmol/L Normal 3.3-5.1 [facility] Comment on above: Performed By: #### L 500.2500 #### [facility] [address] [place], [address] Sodium [Moles/Vol] 137 mmol/L Normal 133-145 [facility] Comment on above: Performed By: #### L 500.2500 #### [facility] [address] [place], [place], [address] T PROT 6.7 g/dL Normal 5.9-8.4 [facility] Comment on above: Performed By: #### L 500.2500 #### [facility] [address] [place], [address] Urea nitrogen [Mass/Vol] 17 mg/dL Normal 4-19 [facility] Comment on above: Performed By: #### L 500.2500 #### [facility] [address] [place], [place], [address] Internal Medicine Office Vis adam 06-03-2025 Internal Medicine Office Visit [facility] [address] [place] [address] OFFICE VISIT Date of Service: 06/03/25 MR#: [id number] Acct: [id number] Name: RICHELLE MORALES Rep #: [id number] : 1950 Provider: Dr. Areli carrillo MD Age/Sex: 74/F Location: [facility] Status: Signed Intake Vital Signs 03/02/25 11:12 06/03/25 07:35 Height 5 ft 8 in 5 ft 8 in Weight: 203 lb 202 lb 6 oz BMI 30.9 30.7 BP 132/70 H 146/82 H Blood Pressure Location Lt brachial Lt brachial Position Sitting Sitting Respiration 17 16 Pulse 85 77 Pulse Source Monitor Monitor Temp 97.8 F 98.1 F Temp Source Temporal Temporal Pulse Oximetry (%) 96 96 Oxygen Delivery Method room air room air Intake Visit Reasons: 3 M FU Chief Complaint: 3 M FU Sole Filler Required: No Accompanied by: Self Is patient in pain?: No Allergies clindamycin (From Cleocin) Allergy (Unknown, Verified 06/03/25 07:25) Rash amoxicillin Adverse Reaction (Intermediate, Verified 06/03/25 07:25) Vomiting clavulanic acid (From Augmentin) Adverse Reaction (Intermediate, Verified 06/03/25 07:25) Vomiting Medications ???Medication ???Instructions ???Recorded ???Confirmed ???Type oral sleep apnea appliance #1 ea 11/15/21 06/03/25 Rx aspirin 81 mg tablet,delayed 162 mg PO DAILY 04/04/24 06/03/25 History release (Adult Low Dose Aspirin) hydrochlorothiazide 25 mg tablet 25 mg PO DAILY #90 tabs 09/05/24 0 06/03/25 Rx sertraline 50 mg tablet (Zoloft) 50 mg PO DAILY #90 tabs 09/05/24 0 06/03/25 Rx atorvastatin 10 mg tablet 10 mg PO DAILY #90 tabs 01/23/25 0 06/03/25 Rx bupropion HCl 300 mg 24 hr tablet, 300 mg PO QAM #90 tabs 02/19/25 06/03/25 Rx extended release alprazolam 0.5 mg tablet 0.25 mg (1/2 x 0.5 mg) PO DAILY 06/03/25 Rx PRN anxiety #14 tabs hydralazine 50 mg tablet 75 mg (1.5 x 50 mg) PO TID #135 06/03/25 Rx TABLETS Have you fallen in the past year?: No Nurse's Note: bruising easily discuss the aspirin [facility] Medical History (Updated 06/03/25 @ 08:[address] Areli Scott MD) Insomnia Immunity status testing Preoperative evaluation to rule out surgical contraindication COVID-19 Abnormal EKG History of DVT (deep vein thrombosis) Unsteady gait when walking Impacted cerumen, bilateral CKD (chronic kidney disease), stage III History of bursitis Obesity YOEL (obstructive sleep apnea) Health care maintenance Flu vaccine need Anxiety Diverticulitis Uterine prolapse Cat scratch fever Giardia History of pneumonia Osteopenia Hyperlipidemia Gastrointestinal problem Breast lump History of blood clots History of back problems Surgical History History of right shoulder replacement History of lumpectomy of both breasts Family History Aunt Breast cancer Cervical cancer Brother Diabetes Father Parkinson disease Grandmother Uterine cancer Mother Leukemia Social History Smoking Status: Never smoker alcohol intake: current alcohol intake frequency: a few times a week substance use type: does not use what type of physical activity do you participate in: walking frequency: 3-4 times per week HPI HPI Chief Complaint: 3 M FU Details: RICHELLE MORALES, is a 74-year-old female presenting for follow-up of her chronic conditions. Currently at a BMI of 30.7. The patient reports interest in participating in the weight program at the hospital. Had done weight watchers in the past but she states that she did better with weight watchers when she had someone go with her. She states that on her own, she is not able to make these changes consistently and would like to try this program. History of hypertension, hyperlipidemia and sleep apnea. The patient has a history of depression and is currently taking Zoloft and Wellbutrin. She previously attempted to see a psychiatrist but faced scheduling and availability issues, leading her to see the nurse practitioner however, she states that she attempted to reschedule with the psychiatrist but was told she could not. She is scheduled to see another mental health provider at the [facility], but she is uncertain whether they are a psychologist or psychiatrist. Regarding sleep disturbances, she experiences difficulty in falling asleep if she retires to bed too early. She generally gets six hours of sleep, fitting her needs, but if she awakens at night, she struggles to return to sleep without distraction from the TV. She expresses interest in additional strategies for managing sleep. 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 This e (more content not included)... Normal [facility] Basic Metabolic Profile (BMP )on 03-02-2025 BUN/CRE 17.8 RATIO Normal 10-20 [facility] Comment on above: Performed By: #### L 500.2500 #### [facility] [address] [facility] [place], [address] Calcium [Mass/Vol] 10.0 mg/dL Normal 7.6-11.0 [facility] Comment on above: Performed By: #### L 500.2500 #### [facility] [address] [place], [address] Chloride [Moles/Vol] 101 mmol/L Normal 98-108 [facility] Comment on above: Performed By: #### L 500.2500 #### [facility] [address] [place], [address] CO2 [Moles/Vol] 24.5 mmol/L Normal 21.0-32.0 [facility] Comment on above: Performed By: #### L 500.2500 #### [facility] [address] [place], [address] Creatinine [Mass/Vol] 1.00 mg/dL Normal 0.70-1.20 [facility] Comment on above: Performed By: #### L 500.2500 #### [facility] [address] [place], [address] GAP 12 Normal 5-15 [facility] Comment on above: Performed By: #### L 500.2500 #### [facility] [address] [place], [address] GFR/1.73 sq M.predicted among non-blacks MDRD (S/P/Bld) [Vol rate/Area] 60 mL/min/{1.73_m2} Normal >60 [facility] Comment on above: Result Comment: mL/m in/1.73m2 CKD-EPI Creatinine Equation (2020) Performed By: #### L 500.2500 #### [facility] [address] [place], [address] Glucose [Mass/Vol] 88 mg/dL Normal 70-99 [facility] Comment on above: Performed By: #### L 500.2500 #### [facility] [address] [place], [address] Potassium [Moles/Vol] 4.0 mmol/L Normal 3.3-5.1 [facility] Comment on above: Performed By: #### L 500.2500 #### [facility] [address] [place], [address] Sodium [Moles/Vol] 137 mmol/L Normal 133-145 [facility] Comment on above: Performed By: #### L 500.2500 #### [facility] [address] [place], [address] Urea nitrogen [Mass/Vol] 18 mg/dL Normal 4-19 [facility] Comment on above: Performed By: #### L 500.2500 #### [facility] [address] [place], [address] Internal Medicine Office Vis iton 03-02-2025 Internal Medicine Office Visit [facility] [address] [place] [address] [place] [address] OFFICE VISIT Date of Service: 03/02/25 MR#: [id number] Acct: [id number] Name: RICHELLE MORALES Rep #: [id number] : 1950 Provider: Dr. Areli carrillo MD Age/Sex: 74/F Location: [facility] Status: Signed Intake Vital Signs 11/27/24 13:49 12/19/24 09:17 03/02/25 11:12 Height 5 ft 8 in 5 ft 8 in 5 ft 8 in Weight: 203 lb BMI 30.9 BP 132/70 H Blood Pressure Location Lt brachial Position Sitting Respiration 17 Pulse 85 Pulse Source Monitor Temp 97.8 F Temp Source Temporal Pulse Oximetry (%) 96 Oxygen Delivery Method room air Intake Visit Reasons: 3 M FU Chief Complaint: 3 M FU Is patient in pain?: No Allergies clindamycin (From Cleocin) Allergy (Unknown, Verified 03/02/25 11:11) Rash amoxicillin Adverse Reaction (Intermediate, Verified 03/02/25 11:11) Vomiting clavulanic acid (From Augmentin) Adverse Reaction (Intermediate, Verified 03/02/25 11:11) Vomiting Medications ???Medication ???Instructions ???Recorded ???Confirmed ???Type oral sleep apnea appliance #1 ea 11/15/21 03/02/25 Rx aspirin 81 mg tablet,delayed 162 mg PO DAILY 04/04/24 03/02/25 History release (Adult Low Dose Aspirin) hydrochlorothiazide 25 mg tablet 25 mg PO DAILY #90 tabs 09/05/24 0 03/02/25 Rx sertraline 50 mg tablet (Zoloft) 50 mg PO DAILY #90 tabs 09/05/24 0 03/02/25 Rx hydralazine 50 mg tablet 75 mg (1.5 x 50 mg) PO TID #135 03/02/25 Rx TABLETS atorvastatin 10 mg tablet 10 mg PO DAILY #90 tabs 01/23/25 0 03/02/25 Rx bupropion HCl 300 mg 24 hr tablet, 300 mg PO QAM #90 tabs 02/19/25 03/02/25 Rx extended release alprazolam 0.5 mg tablet 0.25 mg (1/2 x 0.5 mg) PO DAILY 03/02/25 Rx PRN anxiety #14 tabs Have you fallen in the past year?: No PFSH Medical History Immunity status testing Preoperative evaluation to rule out surgical contraindication COVID-19 Abnormal EKG History of DVT (deep vein thrombosis) Unsteady gait when walking Impacted cerumen, bilateral CKD (chronic kidney disease), stage III History of bursitis Obesity YOEL (obstructive sleep apnea) Health care maintenance Flu vaccine need Anxiety Diverticulitis Uterine prolapse Cat scratch fever Giardia History of pneumonia Osteopenia Hyperlipidemia Gastrointestinal problem Breast lump History of blood clots History of back problems Surgical History History of right shoulder replacement History of lumpectomy of both breasts Family History Aunt Breast cancer Cervical cancer Brother Diabetes Father Parkinson disease Grandmother Uterine cancer Mother Leukemia Social History Smoking Status: Never smoker alcohol intake: current alcohol intake frequency: a few times a week substance use type: does not use what type of physical activity do you participate in: walking frequency: 3-4 times per week HPI HPI Chief Complaint: 3 M FU Details: RICHELLE MORALES, is a 74 F who presents to the office today for follow-up of her chronic medical conditions. No acute concerns at this time. Since her last visit, has had 2 episodes of symptomatic hypoglycemia. Currently not on an oral or parenteral hypoglycemic. Had been on Wellbutrin however at her last visit, dose was increased from 300 mg to 450 mg. She however also states that she has been eating much less carbs and more protein. Feels well in between these episodes. History of anxiety and depression. No significant mood changes since cutting down on the dose of Wellbutrin. Cachorro has been a game changer for her and continues to do well on it. She would like a refill on Xanax which she only uses as absolutely needed. Last refill was in August. Other chronic medical conditions are stable. Blood pressure today at 132/70 mmHg. Did come in with a short log. ROS Const Constitutional: No body ache, chills, excessive sweating, fatigue, fever(s), frequent falls, headache(s), snoring, weight change, sleep problems, abnormal sleep pattern or change in appetite Eyes Eyes: No blurry vision, change in vision, bulging eyes, floaters, visual disturbances, eye pain or Light sensitivity ENT ENT: No abnormal hearing, ear or mastoid pain, tinnitus, balance problems, nosebleed/epistaxis, nasal congestion, headache(s), neck pain or sore throat Resp Respiratory: No cough, excessive phlegm production, pain on inspiration, shortness of breath, snoring or wheezing Cardio Cardiology: No chest pain at rest, chest pain with exertion, excessive sweating, shortness of breat (more content not included)... Normal [facility] Rubeola IgG Abon 01-30-2025 RUBEOLA Ab, IgG 97.1 AU/mL Normal Immune >16.4 [facility] Comment on above: Result Comment: Nega tive <13.5 Equivocal 13.5 - 16.4 Positive >16.4 Presence of antibodies to Rubeola is presumptive evidence of immunity except when acute infection is suspected. Performed at: - [facility] [id number] Plate Glass Installer Helper: Sid Butts PhD, Phone: [phone] Performed By: #### L 7045.7857 #### [facility] [address] [place], [address] SCRN MAMM (CAD)W/VINNIE Metzger n 01-23-2025 SCRN MAMM (CAD)W/VINNIE BILAT [facility] Imaging Services [address] [place], [place] [address] SCRN MAMM (CAD)W/VINNIE BILAT MR#: [id number] Acct: [id number] Name: RICHELLE MORALES Rep #: [id number] : 1950 F 74 From: Debbie Mulligan MD PCP: Dr. Areli Scott MD Status: REG CLI Study: SCRN MAMM (CAD)W/VINNIE BILAT Date of Exam: 02/13 Exam# [id number] Ordering Dr: Areli Scott MD EXAM: SCRN MAMM (CAD)W/VINNIE BILAT 01/23/2025 CLINICAL HISTORY: F, Age 74 y/o , BREAST CANCER SCREENING TECHNIQUE: Bilateral screening digital breast tomosynthesis with 2D and 3D images. Computer aided detection. COMPARISON: Prior exam(s) dated 01/23/2024. FINDINGS: TISSUE DENSITY: The breast tissue is composed of scattered area of fibroglandular density. Bilateral Breast Mammographic Findings: No significant masses, calcifications or other abnormalities are identified. BI/SCRN MAMM (CAD)W/VINNIE BILAT IMPRESSION: Right Breast: BIRADS 1 NEGATIVE. Left Breast: BIRADS 1 NEGATIVE. OVERALL FINAL ASSESSMENT: BIRADS 1 NEGATIVE. RECOMMENDATION: Routine annual follow-up in 1 Year A letter with findings and recommendations will be mailed to the patient. Reading Location: [id number] CC: Dr. Areli Scott MD Senior Gis Analyst: Signed Normal [facility] L3410.9998on 12-23-2024 [facility]. COMMENT Normal . [facility] Comment on above: Order Comment: MAURICIO Obando SERUM [id number] PROINSULIN Result Comment: Test Ordered: [id number] Proinsulin Proinsulin 4.9 pmol/L Reference Range: 0.0-10.0 Performed at: - [facility] [id number] Plate Glass Installer Helper: Guera Adames MD, Phone: [phone] Performed at: [address] [id number] Plate Glass Installer Helper: Sid Butts PhD, Phone: [phone] Performed By: #### L 3410.9998 #### [facility] [address] [address] [place], [place], [id number] C-Peptideon 12-21-2024 C PEPTIDE 3.1 ng/mL Normal 1.1-4.4 [facility] Comment on above: Result Comment: C-Pe ptide reference interval is for fasting patients. Performed By: #### L 4681.7755, L3300.0556, D352.3888 #### [facility] [address] [place], [place], [id number] Insulin Levelon 12-21-2024 INSULIN,FASTING 9.5 uIU/mL Normal 2.6-24.9 [facility] Comment on above: Result Comment: Perf ormed at: [address] [id number] Plate Glass Installer Helper: Sid Butts PhD, Phone: [phone] Performed By: #### L 0686.7752, L3590.3503, R340.1546 #### [facility] [address] [place], [place], [id number] Internal Medicine Office Vis ito 12-19-2024 Internal Medicine Office Visit [facility] [address] [place] [address] [address] [place], [place] [address] OFFICE VISIT Date of Service: 12/19/24 MR#: [id number] Acct: [id number] Name: RICHELLE MORALES Rep #: [id number] : 1950 Provider: SOURAV Childress Age/Sex: 74/F Location: [facility] Status: Signed Intake Vital Signs 11/27/24 13:49 12/19/24 09:17 Height 5 ft 8 in 5 ft 8 in Weight: 202 lb 6 oz 200 lb BMI 30.7 30.4 BP 128/72 H 134/76 H Blood Pressure Location Lt brachial Lt brachial Position Sitting Sitting Respiration 16 18 Pulse 76 88 Pulse Source Monitor Monitor Temp 98 F 97.0 F L Temp Source Temporal Temporal Pulse Oximetry (%) 99 97 Oxygen Delivery Method room air room air Intake Visit Reasons: ACUTE FU LOW BLOOD SUGAR Chief Complaint: ACUTE FU LOW BLOOD SUGAR Is patient in pain?: No Allergies clindamycin (From Cleocin) Allergy (Unknown, Verified 12/19/24 09:17) Rash amoxicillin Adverse Reaction (Intermediate, Verified 12/19/24 09:17) Vomiting clavulanic acid (From Augmentin) Adverse Reaction (Intermediate, Verified 12/19/24 09:17) Vomiting Medications ???Medication ???Instructions ???Recorded ???Confirmed ???Type oral sleep apnea appliance #1 ea 11/15/21 12/19/24 Rx atorvastatin 10 mg tablet 10 mg PO DAILY #90 tabs 02/04/24 0 12/19/24 Rx aspirin 81 mg tablet,delayed 162 mg PO DAILY 04/04/24 12/19/24 History release (Adult Low Dose Aspirin) hydrochlorothiazide 25 mg tablet 25 mg PO DAILY #90 tabs 09/05/24 0 12/19/24 Rx sertraline 50 mg tablet (Zoloft) 50 mg PO DAILY #90 tabs 09/05/24 0 12/19/24 Rx alprazolam 0.5 mg tablet 0.25 mg (1/2 x 0.5 mg) PO DAILY 12/19/24 Rx PRN anxiety #14 tabs bupropion HCl 150 mg 24 hr tablet, 150 mg PO QAM #90 tabs 12/01/24 12/19/24 Rx extended release bupropion HCl 300 mg 24 hr tablet, See Rx Instructions .Route 12/0112/19/24 Rx extended release .COMPLEX #90 tabs hydralazine 50 mg tablet 75 mg (1.5 x 50 mg) PO TID #135 12/19/24 Rx TABLETS Have you fallen in the past year?: No PFSH Medical History Preoperative evaluation to rule out surgical contraindication COVID-19 Abnormal EKG History of DVT (deep vein thrombosis) Unsteady gait when walking Impacted cerumen, bilateral CKD (chronic kidney disease), stage III History of bursitis Obesity YOEL (obstructive sleep apnea) Health care maintenance Flu vaccine need Anxiety Diverticulitis Uterine prolapse Cat scratch fever Giardia History of pneumonia Osteopenia Hyperlipidemia Gastrointestinal problem Breast lump History of blood clots History of back problems Surgical History History of right shoulder replacement History of lumpectomy of both breasts Family History Aunt Breast cancer Cervical cancer Brother Diabetes Father Parkinson disease Grandmother Uterine cancer Mother Leukemia Social History Smoking Status: Never smoker alcohol intake: current alcohol intake frequency: a few times a week substance use type: does not use what type of physical activity do you participate in: walking frequency: 3-4 times per week HPI HPI Chief Complaint: ACUTE FU LOW BLOOD SUGAR Details: RICHELLE MORALES, is a 74 F who presents to the office today to discuss some episodes where her blood sugars drop. She states that for several years now about 4-5 times a year she gets these where she can feel shaky and a little cold / clammy and she will check and her sugars are very low. She eats something and then she feels fine. This most recent episode she felt that way and her sugar had dropped to 40. They gave her some glucose tabs and after a little bit. They checked her glucose again and it had gone up to around 140 and she had felt fine at that point. She denies any symptoms associated with this. She denies chests pains/pressures, shortness of breath, swelling, ROS Const Constitutional: No body ache, chills, excessive sweating, fatigue, fever(s), frequent falls, headache(s), snoring, weight change, sleep problems, abnormal sleep pattern or change in appetite Eyes Eyes: No blurry vision, change in vision, eye pain or Light sensitivity ENT ENT: No abnormal hearing, ear or mastoid pain, tinnitus, nasal congestion, headache(s), neck pain or sore throat Resp Respiratory: No cough, shortness of breath, snoring or wheezing Cardio Cardiology: No chest pain at rest, chest pain with exertion, excessive sweating, shortness of breath, dyspnea on exertion, lightheadedness, orthopnea or palpitations Gastro GI: No abdominal pain, change in bowel habits, constipation (more content not included)... Normal [facility] Thyroid Stim Hormone (TSH)on 12-19-2024 TSH 2.650 uIU/mL Normal 0.300-4.200 [facility] Comment on above: Performed By: #### L 3100.7750, L3300.3500, L501.9520 #### [facility] [address] [place], [address] CBC W/Diff, Automatedon Absolute Lymph 1.46 X10 3/uL Normal 0.83-4.51 [facility] Comment on above: Performed By: #### L 500.4100, L500.4050, L100.0100 #### [facility] [address] [place], [address] Absolute Neut 3.6 X10 3/uL Normal 2.0-7.7 [facility] Comment on above: Performed By: #### L 500.4100, L500.4050, L100.0100 #### [facility] [address] [place], [address] Basophils/100 WBC (Bld) 1.0 % Normal 0-1 [facility] Comment on above: Performed By: #### L 500.4100, L500.4050, L100.0100 #### [facility] [address] [place], [address] Eosinophils/100 WBC (Bld) 4.4 % Normal 0-5 [facility] Comment on above: Performed By: #### L 500.4100, L500.4050, L100.0100 #### [facility] [address] [place], [address] Erythrocyte distribution width (RBC) [Ratio] 14.2 % Normal 11.6-14.6 [facility] Comment on above: Performed By: #### L 500.4100, L500.4050, L100.0100 #### [facility] [address] [place], [address] Hematocrit (Bld) [Volume fraction] 42.8 % Normal 37-47 [facility] Comment on above: Performed By: #### L 500.4100, L500.4050, L100.0100 #### [facility] [address] [place], [address] Hemoglobin (Bld) [Mass/Vol] 13.9 g/dL Normal 12.0-15.0 [facility] Comment on above: Performed By: #### L 500.4100, L500.4050, L100.0100 #### [facility] [address] [place], [address] IG% 0.300 Normal 0.0-0.9 [facility] Comment on above: Result Comment: IG% - Immature Granulocytes (promyelocytes, myelocytes and metamyelocytes) > 1% indicates that a LEFT SHIFT is Present. Performed By: #### L 500.4100, L500.4050, L100.0100 #### [facility] [address] [place], [address] Lymphocytes/100 WBC (Bld) 24.0 % Normal 19-41 [facility] Comment on above: Performed By: #### L 500.4100, L500.4050, L100.0100 #### [facility] [address] [place], [address] MCH (RBC) [Entitic mass] 28.9 pg Normal 27.0-32.0 [facility] Comment on above: Performed By: #### L 500.4100, L500.4050, L100.0100 #### [facility] [address] [place], [address] MCHC (RBC) [Mass/Vol] 32.5 g/dL Normal 32-36 [facility] Comment on above: Performed By: #### L 500.4100, L500.4050, L100.0100 #### [facility] [address] [place], [address] MCV (RBC) [Entitic vol] 89.0 fL Normal 81-99 [facility] Comment on above: Performed By: #### L 500.4100, L500.4050, L100.0100 #### [facility] [address] [place], [address] Monocytes/100 WBC (Bld) 11.3 % High 0-10 [facility] Comment on above: Performed By: #### L 500.4100, L500.4050, L100.0100 #### [facility] [address] [place], [address] Neutrophils/100 WBC (Bld) 59.0 % Normal 47-70 [facility] Comment on above: Performed By: #### L 500.4100, L500.4050, L100.0100 #### [facility] [address] [place], [address] Nucleated RBC (Bld) [#/Vol] 0 10*3/uL Normal 0-5 [facility] Comment on above: Performed By: #### L 500.4100, L500.4050, L100.0100 #### [facility] [address] [place], [address] Platelet mean volume (Bld) [Entitic vol] 10.4 fL Normal 6.2-12.0 [facility] Comment on above: Performed By: #### L 500.4100, L500.4050, L100.0100 #### [facility] [address] [place], [address] Platelets (Bld) [#/Vol] 261 10*3/uL Normal 150-450 [facility] Comment on above: Performed By: #### L 500.4100, L500.4050, L100.0100 #### [facility] [address] [place], [address] RBC (Bld) [#/Vol] 4.81 10*6/uL Normal 4.2-5.4 [facility] Comment on above: Performed By: #### L 500.4100, L500.4050, L100.0100 #### [facility] [address] [place], [address] RDW SD 45.9 fl High 35.1-43.9 [facility] Comment on above: Performed By: #### L 500.4100, L500.4050, L100.0100 #### [facility] [address] [place], [address] WBC (Bld) [#/Vol] 6.1 10*3/uL Normal 4.4-11.0 [facility] Comment on above: Performed By: #### L 500.4100, L500.4050, L100.0100 #### [facility] [address] [place], [address] Comprehensive Metabolic Prof uton 11-27-2024 Albumin [Mass/Vol] 3.7 g/dL Normal 3.2-5.0 [facility] Comment on above: Performed By: #### L 500.4100, L500.4050, L100.0100 #### [facility] [address] [place], [address] Albumin/Globulin [Mass ratio] 1.2 {ratio} Normal 0.9-2.4 [facility] Comment on above: Performed By: #### L 500.4100, L500.4050, L100.0100 #### [facility] [address] [place], [address] ALK P 106 U/L Normal 45-117 [facility] Comment on above: Performed By: #### L 500.4100, L500.4050, L100.0100 #### [facility] [address] [place], [address] ALT [Catalytic activity/Vol] 29 U/L Normal 13-56 [facility] Comment on above: Performed By: #### L 500.4100, L500.4050, L100.0100 #### [facility] [address] [place], [address] AST [Catalytic activity/Vol] 15 U/L Normal 15-37 [facility] Comment on above: Performed By: #### L 500.4100, L500.4050, L100.0100 #### [facility] [address] [place], [address] Bilirubin [Mass/Vol] 0.80 mg/dL Normal 0.20-1.00 [facility] Comment on above: Result Comment: For patients on eltrombopag therapy, use of Dimension [place] TBIL is not recommended. Performed By: #### L 500.4100, L500.4050, L100.0100 #### [facility] [address] [place], [address] BUN/CRE 22.5 RATIO High 10-20 [facility] Comment on above: Performed By: #### L 500.4100, L500.4050, L100.0100 #### [facility] [address] [place], [address] CA,Total 9.3 mg/dL Normal 8.5-10.1 [facility] Comment on above: Performed By: #### L 500.4100, L500.4050, L100.0100 #### [facility] [address] [place], [address] Chloride [Moles/Vol] 102 mmol/L Normal 98-107 [facility] Comment on above: Performed By: #### L 500.4100, L500.4050, L100.0100 #### [facility] [address] [place], [address] CO2 [Moles/Vol] 28.0 mmol/L Normal 21.0-32.0 [facility] Comment on above: Performed By: #### L 500.4100, L500.4050, L100.0100 #### [facility] [address] [place], [address] Creatinine [Mass/Vol] 0.98 mg/dL Normal 0.55-1.02 [facility] Comment on above: Result Comment: The validity of the calculated GFR GFRAA in patients over 70 years has not been determined. Clinical correlation is essential. Performed By: #### L 500.4100, L500.4050, L100.0100 #### [facility] [address] [place], [address] EST GFR - AA 72 mL/min Normal >60 [facility] Comment on above: Result Comment: Afri can [place] GFR Calc Performed By: #### L 500.4100, L500.4050, L100.0100 #### [facility] [address] [place], [address] GAP 7 Normal 5-15 [facility] Comment on above: Performed By: #### L 500.4100, L500.4050, L100.0100 #### [facility] [address] [place], [address] GFR/1.73 sq M.predicted among non-blacks MDRD (S/P/Bld) [Vol rate/Area] 59 mL/min/{1.73_m2} Low >60 [facility] Comment on above: Result Comment: Non- GFR Calc Performed By: #### L 500.4100, L500.4050, L100.0100 #### [facility] [address] [place], [address] Globulin (S) [Mass/Vol] 3.1 g/dL Normal 2.2-4.2 [facility] Comment on above: Performed By: #### L 500.4100, L500.4050, L100.0100 #### [facility] [address] [place], [address] Glucose [Mass/Vol] 86 mg/dL Normal 74-106 [facility] Comment on above: Performed By: #### L 500.4100, L500.4050, L100.0100 #### [facility] [address] [place], [address] Potassium [Moles/Vol] 3.5 mmol/L Normal 3.5-5.1 [facility] Comment on above: Performed By: #### L 500.4100, L500.4050, L100.0100 #### [facility] [address] [place], [address] Sodium [Moles/Vol] 137 mmol/L Normal 136-145 [facility] Comment on above: Performed By: #### L 500.4100, L500.4050, L100.0100 #### [facility] [address] [place], [address] T PROT 6.8 g/dL Normal 6.4-8.2 [facility] Comment on above: Performed By: #### L 500.4100, L500.4050, L100.0100 #### [facility] [address] [place], [address] Urea nitrogen [Mass/Vol] 22 mg/dL High 7-18 [facility] Comment on above: Performed By: #### L 500.4100, L500.4050, L100.0100 #### [facility] [address] [place], [address] Internal Medicine Office Vis adam 11-27-2024 Internal Medicine Office Visit [facility] [address] [place] [address] OFFICE VISIT Date of Service: 11/27/24 MR#: [id number] Acct: [id number] Name: RICHELLE MORALES Rep #: [id number] : 1950 Provider: Dr. Areli carrillo MD Age/Sex: 74/F Location: [facility] Status: Signed Intake Vital Signs 08/27/24 09:52 11/27/24 13:49 Height 5 ft 8 in 5 ft 8 in Weight: 197 lb 202 lb 6 oz BMI 29.9 30.7 BP 120/76 128/72 H Blood Pressure Location Lt brachial Lt brachial Position Sitting Sitting Respiration 16 16 Pulse 75 76 Pulse Source Monitor Monitor Temp 98.5 F 98 F Temp Source Temporal Temporal Pulse Oximetry (%) 98 99 Oxygen Delivery Method room air room air Intake Visit Reasons: 3 M FU Chief Complaint: 3M F/U Sole Filler Required: No Accompanied by: Self Is patient in pain?: No Allergies clindamycin (From Cleocin) Allergy (Unknown, Verified 11/27/24 13:45) Rash amoxicillin Adverse Reaction (Intermediate, Verified 11/27/24 13:45) Vomiting clavulanic acid (From Augmentin) Adverse Reaction (Intermediate, Verified 11/27/24 13:45) Vomiting Medications ???Medication ???Instructions ???Recorded ???Confirmed ???Type oral sleep apnea appliance #1 ea 11/15/21 11/27/24 Rx atorvastatin 10 mg tablet 10 mg PO DAILY #90 tabs 02/04/24 0 11/27/24 Rx aspirin 81 mg tablet,delayed 162 mg PO DAILY 04/04/24 11/27/24 History release (Adult Low Dose Aspirin) hydralazine 50 mg tablet 75 mg (1.5 x 50 mg) PO TID #135 11/27/24 Rx TABLETS hydrochlorothiazide 25 mg tablet 25 mg PO DAILY #90 tabs 09/05/24 0 11/27/24 Rx sertraline 50 mg tablet (Zoloft) 50 mg PO DAILY #90 tabs 09/05/24 0 11/27/24 Rx alprazolam 0.5 mg tablet 0.25 mg (1/2 x 0.5 mg) PO DAILY 11/27/24 Rx PRN anxiety #14 tabs bupropion HCl 450 mg 24 hr tablet, See Rx Instructions .Route 11/2711/27/24 Rx extended release .COMPLEX #90 tabs Have you fallen in the past year?: No PFSH Medical History Preoperative evaluation to rule out surgical contraindication COVID-19 Abnormal EKG History of DVT (deep vein thrombosis) Unsteady gait when walking Impacted cerumen, bilateral CKD (chronic kidney disease), stage III History of bursitis Obesity YOEL (obstructive sleep apnea) Health care maintenance Flu vaccine need Anxiety Diverticulitis Uterine prolapse Cat scratch fever Giardia History of pneumonia Osteopenia Hyperlipidemia Gastrointestinal problem Breast lump History of blood clots History of back problems Surgical History History of right shoulder replacement History of lumpectomy of both breasts Family History Aunt Breast cancer Cervical cancer Brother Diabetes Father Parkinson disease Grandmother Uterine cancer Mother Leukemia Social History Smoking Status: Never smoker alcohol intake: current alcohol intake frequency: a few times a week substance use type: does not use what type of physical activity do you participate in: walking frequency: 3-4 times per week HPI HPI Chief Complaint: 3M F/U Details: RICHELLE MORALES, is a 74 F who presents to the office today for follow-up of her chronic conditions. She is concerned about difficulty with weight loss. Up 5 pounds since her last visit. Started on Zoloft a few months ago and she questions if this might be playing a role as well however, her anxiety is very well-controlled and she is not looking to discontinue this medication. She is also on Wellbutrin which she has tolerated well. History of hypertension, blood pressure today is at 128/72 mmHg. No chest pain, palpitation or shortness of breath. Other chronic medical conditions are stable. ROS Const Constitutional: No body ache, excessive sweating, fatigue, fever(s), frequent falls, headache(s), snoring, weakness, weight change, sleep problems or change in appetite Eyes Eyes: No blurry vision, change in vision, floaters, visual disturbances, eye pain or Light sensitivity ENT ENT: No abnormal hearing, ear or mastoid pain, tinnitus, balance problems, nosebleed/epistaxis, nasal congestion, headache(s), neck pain or sore throat Resp Respiratory: No cough, excessive phlegm production, pain on inspiration, shortness of breath, snoring or wheezing Cardio Cardiology: No chest pain at rest, chest pain with exertion, excessive sweating, shortness of breath, dyspnea on exertion, lightheadedness, orthopnea or palpitations Gastro GI: No abdominal pain, change in bowel habits, constipation, cramping, diarrhea, nausea/dyspepsia or vomiting Genitourinary-Female: No burn (more content not included)... Normal [facility] Lipid Profileon 11-27-2024 Cholesterol [Mass/Vol] 157 mg/dL Normal 200 [facility] Comment on above: Result Comment: <200 mg/dL Desirable 200-240 mg/dL Borderline >240 mg/dL High Risk Performed By: #### L 500.4100, L500.4050, L100.0100 #### [facility] [address] [place], [address] Cholesterol in HDL [Mass/Vol] 57 mg/dL Normal [facility] Comment on above: Result Comment: The drugs N-Acetylcysteine and Metamizole may falsely depress this assay. Reference Range HDL <40 mg/dL Low HDL Cholesterol HDL >or= 60 mg/dL High HDL Cholesterol Performed By: #### L 500.4100, L500.4050, L100.0100 #### [facility] [address] [place], [address] Cholesterol in LDL [Mass/Vol] 78 mg/dL Normal 0-130 [facility] Comment on above: Performed By: #### L 500.4100, L500.4050, L100.0100 #### [facility] [address] [place], [address] Cholesterol in VLDL [Mass/Vol] 22 mg/dL Normal 5-40 [facility] Comment on above: Performed By: #### L 500.4100, L500.4050, L100.0100 #### [facility] [address] [place], [address] Triglyceride [Mass/Vol] 108 mg/dL Normal [facility] Comment on above: Result Comment: The drugs N-Acetylcysteine and Metamizole may falsely depress this assay. Serum Triglycerides Reference Interval Normal <150 mg/dL Borderline high 150 - 199 mg/dL High 200 - 499 mg/dL Very High > or = 500 mg/dL Performed By: #### L 500.4100, L500.4050, L100.0100 #### [facility] [address] [place], [address] Office Visit Reporton 2023 Office Visit Report [facility] [address] [place] [address] OFFICE VISIT Date of Service: 09/03/24 MR#: [id number] Acct: [id number] Patient: RICHELLE MORALES Rep #: [id number] : 1950 Provider: JOAN NURSE Age/Sex: 74/F Location: [facility] Status: Signed Intake Vital Signs 08/27/24 09:52 Height 5 ft 8 in Weight: 197 lb BMI 29.9 BP 120/76 Blood Pressure Location Lt brachial Position Sitting Respiration 16 Pulse 75 Pulse Source Monitor Temp 98.5 F Temp Source Temporal Pulse Oximetry (%) 98 Oxygen Delivery Method room air Intake Visit Reasons: FLU SHOT Chief Complaint: FU Chronic Conditions Allergies clindamycin (From Cleocin) Allergy (Unknown, Verified 08/27/24 09:49) Rash amoxicillin Adverse Reaction (Intermediate, Verified 08/27/24 09:49) Vomiting clavulanic acid (From Augmentin) Adverse Reaction (Intermediate, Verified 08/27/24 09:49) Vomiting Have you fallen in the past year?: No Immunizations Fluad Triv (65y up)(PF) 45 mcg (15 mcg x 3)/0.5 mL IM syringe Performing Provider: Areli Scott MD Performing Location: [facility] Administered by: Susi Ely MA on 09/03/24 11:10 Dose Route Admin Location Dispensed Lot Number Expiration Date ND Man ufacturer 45 mcg IM Left Deltoid 0.5 mL [id number] 02/20/25 36727-378-41 [employer], [employer]. VIS Given Date VIS Provided VIS Publication Date 09/03/24 Single Vaccine 24 Eligibility Eligibility Date Funding Source Not Applicable Assessment and Plan Assessment and Plan (1) Flu vaccine need: Status: Acute Orders: Orders Influenza Immunization 09/03/24 Z23 - Encounter for immunization Clinical Quality Measures Falls Risk Screening/Assistive Devices Have you fallen in the past year?: No 09/05/24 1650 Date Areli Scott MD Cosigner Signature: Date (if applicable) CC: Normal [facility] Basic Metabolic Profile (BMP )on 08-27-2024 BUN/CRE 15.7 RATIO Normal 10-20 [facility] Comment on above: Performed By: #### L 500.2500 #### [facility] [address] [place], [place], [id number] CA,Total 9.9 mg/dL Normal 8.5-10.1 [facility] Comment on above: Performed By: #### L 500.2500 #### [facility] [address] [place], [address] Chloride [Moles/Vol] 103 mmol/L Normal 98-107 [facility] Comment on above: Performed By: #### L 500.2500 #### [facility] [address] [place], [address] CO2 [Moles/Vol] 30.0 mmol/L Normal 21.0-32.0 [facility] Comment on above: Performed By: #### L 500.2500 #### [facility] [address] [place], [address] Creatinine [Mass/Vol] 1.02 mg/dL Normal 0.55-1.02 [facility] Comment on above: Result Comment: The validity of the calculated GFR GFRAA in patients over 70 years has not been determined. Clinical correlation is essential. Performed By: #### L 500.2500 #### [facility] [address] [place], [address] EST GFR - AA 68 mL/min Normal >60 [facility] Comment on above: Result Comment: Afri can [place] GFR Calc Performed By: #### L 500.2500 #### [facility] [address] [place], [address] GAP 5 Normal 5-15 [facility] Comment on above: Performed By: #### L 500.2500 #### [facility] [address] [place], [address] GFR/1.73 sq M.predicted among non-blacks MDRD (S/P/Bld) [Vol rate/Area] 56 mL/min/{1.73_m2} Low >60 [facility] Comment on above: Result Comment: Non- GFR Calc Performed By: #### L 500.2500 #### [facility] [address] [place], [address] Glucose [Mass/Vol] 83 mg/dL Normal 74-106 [facility] Comment on above: Performed By: #### L 500.2500 #### [facility] [address] [place], [address] Potassium [Moles/Vol] 4.1 mmol/L Normal 3.5-5.1 [facility] Comment on above: Performed By: #### L 500.2500 #### [facility] [address] [place], [place], [id number] Sodium [Moles/Vol] 138 mmol/L Normal 136-145 [facility] Comment on above: Performed By: #### L 500.2500 #### [facility] [address] [place], [place], [address] Urea nitrogen [Mass/Vol] 16 mg/dL Normal 7-18 [facility] Comment on above: Performed By: #### L 500.2500 #### [facility] [address] [place], [place], [id number] Internal Medicine Office Vis itosherri 08-27-2024 Internal Medicine Office Visit [facility] [address] [place], [place] [address] OFFICE VISIT Date of Service: 08/27/24 MR#: [id number] Acct: [id number] Name: RICHELLE MORALES Rep #: [id number] : 1950 Provider: Dr. Areli carrillo MD Age/Sex: 74/F Location: [facility] Status: Signed Intake Vital Signs 05/23/24 08:36 08/27/24 07:42 08/27/24 09:52 Height 5 ft 8 in 5 ft 8 in 5 ft 8 in Weight: 197 lb BMI 29.9 BP 120/76 Blood Pressure Location Lt brachial Position Sitting Respiration 16 Pulse 75 Pulse Source Monitor Temp 98.5 F Temp Source Temporal Pulse Oximetry (%) 98 Oxygen Delivery Method room air Intake Visit Reasons: 3 M FU Chief Complaint: FU Chronic Conditions Sole Filler Required: No Is patient in pain?: No Allergies clindamycin (From Cleocin) Allergy (Unknown, Verified 08/27/24 09:49) Rash amoxicillin Adverse Reaction (Intermediate, Verified 08/27/24 09:49) Vomiting clavulanic acid (From Augmentin) Adverse Reaction (Intermediate, Verified 08/27/24 09:49) Vomiting Medications ???Medication ???Instructions ???Recorded ???Confirmed ???Type oral sleep apnea appliance #1 ea 11/15/21 08/27/24 Rx hydrochlorothiazide 25 mg tablet 25 mg PO DAILY #90 tabs 12/18/23 08/27/24 Rx atorvastatin 10 mg tablet 10 mg PO DAILY #90 tabs 02/04/24 08/27/24 Rx alprazolam 0.5 mg tablet 0.25 mg (1/2 x 0.5 mg) PO DAILY 03/24/24 08/27/24 Rx PRN anxiety #14 tabs aspirin 81 mg tablet,delayed 162 mg PO DAILY 04/04/24 08/27/24 History release (Adult Low Dose Aspirin) sertraline 50 mg tablet (Zoloft) 50 mg PO DAILY #90 tabs 05/23/24 08/27/24 Rx bupropion HCl 300 mg 24 hr tablet, See Rx Instructions .Route 06/17/24 08/27/24 Rx extended release .COMPLEX #180 tabs hydralazine 50 mg tablet 75 mg (1.5 x 50 mg) PO TID #135 06/24/24 08/27/24 Rx TABLETS Have you fallen in the past year?: No PFSH Medical History Preoperative evaluation to rule out surgical contraindication COVID-19 Abnormal EKG History of DVT (deep vein thrombosis) Unsteady gait when walking Impacted cerumen, bilateral CKD (chronic kidney disease), stage III History of bursitis Obesity YOEL (obstructive sleep apnea) Health care maintenance Flu vaccine need Anxiety Diverticulitis Uterine prolapse Cat scratch fever Giardia History of pneumonia Osteopenia Hyperlipidemia Gastrointestinal problem Breast lump History of blood clots History of back problems Surgical History History of right shoulder replacement History of lumpectomy of both breasts Family History Aunt Breast cancer Cervical cancer Brother Diabetes Father Parkinson disease Grandmother Uterine cancer Mother Leukemia Social History Smoking Status: Never smoker alcohol intake: current alcohol intake frequency: a few times a week substance use type: does not use what type of physical activity do you participate in: walking frequency: 3-4 times per week HPI HPI Chief Complaint: FU Chronic Conditions Details: RICHELLE MORALES, is a 74 F who presents to the office today for follow-up of her chronic conditions. No acute concerns at this time. History of hypertension, blood pressure today is at 120/70 mmHg. She states that at other checks, her numbers have also been really good. Feels very well. No syncopal and near syncopal episodes. Taking medication as prescribed. Also chronic history of anxiety which has been a whole lot better on Zoloft. Continues to tolerate medication well. Also on Wellbutrin. Recently established with psychiatry and has another appoin tment in a couple. No medication changes were made. Other chronic conditions are stable. ROS Const Constitutional: No body ache, chills, excessive sweating, fatigue, fever(s), frequent falls, headache(s), snoring, weakness, sleep problems or change in appetite Eyes Eyes: No blurry vision, change in vision, floaters, visual disturbances, eye pain or Light sensitivity ENT ENT: No abnormal hearing, ear or mastoid pain, tinnitus, balance problems, nosebleed/epistaxis, nasal congestion, headache(s), neck pain or sore throat Resp Respiratory: No cough, excessive phlegm production, pain on inspiration, shortness of breath, snoring or wheezing Cardio Cardiology: No chest pain at rest, chest pain with exertion, excessive sweating, shortness of breath, dyspnea on exertion, lightheadedness, orthopnea or palpitations Gastro GI: No abdominal pain, change in bowel habits, constipation, cramping, diarrhea, nausea/dyspepsia or vomiting Genitourinar (more content not included)... Normal [facility] MR/BMS.BPon 08-27-2024 MR/BMS.BP [address], [address] [place] [id number] OFFICE VISIT Date of Service: 08/27/24 MR#: [id number] Acct: [id number] Name: RICHELLE MORALES Rep #: [id number] : 1950 Provider: YANELI saab Age/Sex: 74/F Location: [facility] Status: Signed Intake Vital Signs 06/18/24 10:59 08/27/24 07:42 Height 5 ft 8 in 5 ft 8 in Weight: 197 lb BMI 29.9 BP 156/82 H 133/81 H Blood Pressure Location Rt brachial Rt brachial Position Sitting Sitting Respiration 16 Pulse 80 76 Pulse Source NIBP Monitor Temp 97.8 F Pulse Oximetry (%) 98 Oxygen Delivery Method room air BP Intake Visit Reasons: Anxiety/Major depressive disorder Accompanied by: Self Is patient in pain?: No Allergies clindamycin (From Cleocin) Allergy (Unknown, Verified 06/18/24 11:15) Rash amoxicillin Adverse Reaction (Intermediate, Verified 06/18/24 11:15) Vomiting clavulanic acid (From Augmentin) Adverse Reaction (Intermediate, Verified 06/18/24 11:15) Vomiting Medications ???Medication ???Instructions ???Recorded ???Confirmed ???Type oral sleep apnea appliance #1 ea 11/15/21 05/23/24 Rx ondansetron HCl 4 mg tablet 4 mg PO Q6H PRN nausea and 05/30/23 08/27/24 Rx vomiting #10 tabs hydrochlorothiazide 25 mg tablet 25 mg PO DAILY #90 tabs 12/18/23 08/27/24 Rx atorvastatin 10 mg tablet 10 mg PO DAILY #90 tabs 02/04/24 08/27/24 Rx alprazolam 0.5 mg tablet 0.25 mg (1/2 x 0.5 mg) PO DAILY 03/24/24 08/27/24 Rx PRN anxiety #14 tabs aspirin 81 mg tablet,delayed 162 mg PO DAILY 04/04/24 08/27/24 History release (Adult Low Dose Aspirin) sertraline 50 mg tablet (Zoloft) 50 mg PO DAILY #90 tabs 05/23/24 08/27/24 Rx bupropion HCl 300 mg 24 hr tablet, See Rx Instructions .Route 06/17/24 08/27/24 Rx extended release .COMPLEX #180 tabs hydralazine 50 mg tablet 75 mg (1.5 x 50 mg) PO TID #135 06/24/24 08/27/24 Rx TABLETS Have you fallen in the past year?: No PFSH Medical History Preoperative evaluation to rule out surgical contraindication COVID-19 Abnormal EKG History of DVT (deep vein thrombosis) Unsteady gait when walking Impacted cerumen, bilateral CKD (chronic kidney disease), stage III History of bursitis Obesity YOEL (obstructive sleep apnea) Health care maintenance Flu vaccine need Anxiety Diverticulitis Uterine prolapse Cat scratch fever Giardia History of pneumonia Osteopenia Hyperlipidemia Gastrointestinal problem Breast lump History of blood clots History of back problems Surgical History History of right shoulder replacement History of lumpectomy of both breasts Family History Aunt Breast cancer Cervical cancer Brother Diabetes Father Parkinson disease Grandmother Uterine cancer Mother Leukemia Social History Smoking Status: Never smoker alcohol intake: current alcohol intake frequency: a few times a week substance use type: does not use what type of physical activity do you participate in: walking frequency: 3-4 times per week HPI History of Present Illness History provided by: patient Chief complaint: Anxiety HPI: Richelle Morales is a 74 year old female patient presenting today for an intake evaluation. Sleep: Admits to sometimes having difficulty falling asleep. [place] a lot of regret about wasting her time and another day passing but this has eased with use of sertraline. 6 hours per night. Interest: Does feel this has improved significantly with sertraline. [place] this was an issue for years and was faking her way through things. Admits to having low mood and feelings of depression at times. States prior to medication she was having a large amount of depression and anger. Now will feel depressed 1x per week but it is usually triggered by something situational. Energy: Wakes up feeling well rested in the morning. Reports having energy throughout the day. Denies a lack of motivation in day to day activities but does admit to an issue with getting motivated to exercise. Guilt: Admits to feelings of guilt frequently. Denies feelings of hopelessness or worthlessness. Struggles with feeling confident in choices she has made in life and not following the rules of life and feeling like she never reaches them. Concentration: Admits to having an issue with focus, concentration, and inattention. Feels she has been this way forever. Does feel it is worsened with anxiety. Does often lose interest in tasks. Appetite: States she will at times eat as a way to feel better but otherwise feels appetite is fine. Does state when she has been stressed or increasingly anxious she wo (more content not included)... Normal [facility] Basophil percentageOrdered B y: Kyreetono Tyler on 01-02-2024 Bilirubin [Mass/Vol] 0.50 mg/dL 0.20-1.00 [facility] Comment on above: For patients on eltr ombopag therapy, use of Dimension [place] TBIL is not recommended. Chloride [Moles/Vol] 101 mmol/L 98-107 [facility] Cholesterol [Mass/Vol] 162 mg/dL <200 [facility] Comment on above: <200 mg/dL Desirable 200-240 mg/dL Borderline >240 mg/dL High Risk Glucose [Mass/Vol] 77 mg/dL 74-106 [facility] Potassium [Moles/Vol] 3.7 mmol/L 3.5-5.1 [facility] Protein [Mass/Vol] 7.0 g/dL 6.4-8.2 [facility] Sodium [Moles/Vol] 138 mmol/L 136-145 [facility] Triglyceride [Mass/Vol] 105 mg/dL <199 [facility] Comment on above: The drugs N-Acetylcy steine and Metamizole may falsely depress this assay.Serum Triglycerides Reference Interval Normal <150 mg/dL Borderline high 150 - 199 mg/dL High 200 - 499 mg/dL Very High > or = 500 mg/dL Laboratory - Chemistry and C hemistry - challengeOrdered By: Areli Scott on 01-02-2024 Albumin/Globulin [Mass ratio] 1.2 {ratio} 0.9-2.4 [facility] ALP [Catalytic activity/Vol] 105 U/L 45-117 [facility] ALT [Catalytic activity/Vol] 36 U/L 13-56 [facility] Cholesterol in HDL [Mass/Vol] 56 mg/dL >40 [facility] Comment on above: The drugs N-Acetylcy steine and Metamizole may falsely depress this assay. Reference Range HDL <40 mg/dL Low HDL Cholesterol HDL >or= 60 mg/dL High HDL Cholesterol Cholesterol in LDL [Mass/Vol] 85 mg/dL 0-130 [facility] CO2 [Moles/Vol] 28.0 mmol/L 21.0-32.0 [facility] Globulin (S) [Mass/Vol] 3.2 g/dL 2.2-4.2 [facility] Urea nitrogen/Creatinine [Mass ratio] 17.6 mg/mg 10-20 [facility] No Panel InformationOrdered By: Areli Scott on 01-02-2024 Vitamin D 25-Hydroxy 27.9 ng/mL [facility] Comment on above: Vitamin D 25(OH) Sta tus Range Deficiency <20 ng/mL (50nmol/L) Insufficiency 20 - 30 ng/mL (50 - 75 nmol/L) Sufficiency 30 - 100 ng/mL (75 - 250 nmol/L) Toxicity >100 ng/mL (>250 nmol/L) Estimated GFR (MDRD) Amer 73 mL/min >60 [facility] Comment on above: GFR Calc Estimated GFR (MDRD) Non-Af Amer 60 mL/min >60 [facility] Comment on above: Non- GFR Calc VLDL Cholesterol 21 mg/dL 5-40 [facility] Serum or plasma calcium anselmo urement (mass/volume)Ordered By: Areli Scott on 01-02-2024 Calcium [Mass/Vol] 10.0 mg/dL 8.5-10.1 [facility] Serum or plasma creatinine m easurement (mass/volume)Ordered By: Areli Scott on 01-02-2024 Creatinine [Mass/Vol] 0.97 mg/dL 0.55-1.02 [facility] Comment on above: The validity of the calculated GFR & GFRAA in patients over 70 years has not been determined. Clinical correlation is essential. Serum or plasma urea nitroge n measurement (mass/volume)Ordered By: Areli Scott on 01-02-2024 Urea nitrogen [Mass/Vol] 17 mg/dL 7-18 [facility] Thin prep Papanicolaou smear with manual screeningOrdered By: Areli Scott on 01-02-2024 Thin prep Papanicolaou smear with manual screening 3.8 g/dL 3.2-5.0 [facility] Thin prep Papanicolaou smear with manual screening 24 U/L 15-37 [facility] Thin prep Papanicolaou smear with manual screening 9 5-15 [facility] ED PROV NOTEon 11-04-2023 ED PROV NOTE HNO ID: [id number] Author: FLORENTINO PEDRAZA MD Service: Emergency Medicine Author Type: Physician Type: ED Provider Notes Filed: 11/08/2023 09:13 Note Text: ED Provider Note Patient Name: Richelle Morales : 1950 SERVICE DATE: 11/04/23 History Patient presents with: need ultrasound: Pt here [place] ed see call in , here for ultrasound to r/o blood clot 73-year-old female with a past med history as listed below presenting to the ED as a transfer from [place] [facility] with right arm swelling. Patient reports that she had right shoulder replacement reversal on Sunday and that did redo the surgery on Sunday. Patient was evaluated in [place] ED, given history of previous DVT, and recent surgical procedure concerns for DVT and patient was transferred here for ultrasound. Patient reports that swelling initially started around the upper arm around shoulder yesterday and since then it has progressed down into her wrist. She denies any pain. Denies any numbness or tingling, is able to move her fingers. No other complaints at this time. PAST MEDICAL HISTORY Diagnosis Date Cat-scratch disease DVT (deep venous thrombosis) (HCC) right leg GERD (gastroesophageal reflux disease) Hypercholesteremia PAST SURGICAL HISTORY Procedure Laterality Date BUNIONECTOMY, LAPIDUS-TYPE EGD 2009 EXTRACTION, ERUPTED TOOTH OR EXPOSED ROOT (ELEVATION AND/OR FORCEPS REMOVAL) TOTAL ABDOM HYSTERECTOMY Hysterectomy, RENEE FAMILY HISTORY Problem Relation Age of Onset None Other Social History Tobacco Use Smoking status: Never Smokeless tobacco: Never Substance and Sexual Activity Alcohol use: Yes Drug use: Not on file Sexual activity: Not on file ALLERGIES Allergen Reactions Amoxicillin GI Upset N/V Augmentin [Amoxicil* GI Upset N/V Cleocin [Clindamyci* Intolerance Review of Systems Physical Exam Vitals [11/04/23 1149] BP Pulse Temp Temp src Resp SpO2 Weight Height 157/85 90 36.2 ?C (97.2 ?F) Oral 18 98 % 86.2 kg (190 lb) -- Physical Exam Vitals and nursing note reviewed. Constitutional: General: She is not in acute distress. HENT: Head: Normocephalic. Cardiovascular: Rate and Rhythm: Normal rate and regular rhythm. Pulses: Normal pulses. Pulmonary: Effort: Pulmonary effort is normal. No respiratory distress. Musculoskeletal: Comments: Right upper extremity: Surgical site without any evidence of surrounding erythema or crepitus, nontender to palpation. Right upper extremity swelling with no palpable cords or tenderness. 2+ radial pulses. Sensation intact. Full range of motion at the wrist and digits. Left upper extremity unremarkable. Neurological: General: No focal deficit present. Mental Status: She is alert and oriented to person, place, and time. Diagnostic Testing ED Labs Ordered and Reviewed - No data to display US DVT UPPER RIGHT Final Result IMPRESSION: Negative study for DVT in the right upper extremity. Negative study for superficial thrombophlebitis in the imaged segments of the right upper extremity. Senior Gis Analyst: PSCB Transcribe Date/Time: Nov 04 2023 1:43P Dictated by : VIMAL BOLANOS MD This examination was interpreted and the report reviewed and electronically signed by: VIMAL BOLANOS MD on Nov 04 2023 1:46PM EST Procedures ED Course / Clinical Impression Clinical Impressions as of 11/08/23 0909 Arm swelling - Post operative arm swelling MDM / Disposition / Plan 73-year-old female presents to the ED with right arm swelling. Patient had a surgical procedure earlier this week of the right shoulder. Differential diagnoses include but not limited to postoperative complications including swelling, DVT. Patient without chest pain, not shortness of breath, maintaining normal vital signs, no other concerning physical exam findings. Right upper extremity DVT study obtained which did not show any signs of venous thromboembolism. Patient's presentation likely due to postop swelling. Patient recommended to use ibuprofen and Tylenol for pain as needed. Patient recommended to follow-up with her orthopedic surgeon and primary care physician as within 1 week. Patient provided strict return precautions. Patient hemodynamically stable, discharged from the emergency department. I do not feel that the patient's evaluation reveals any acute reason for admission at this time. I instructed patient to either follow-up with her primary care and orthopedic surgeon or promptly return to the emergency department for reevaluation should symptoms worsen or new symptoms develop. I explained what symptoms would indicate the need to return to the emergency department. The patient voiced understanding of the treatment plan and agrees with it. SIGNATURE: Cas Coronado DO - CAS CORONADO 11/04/232041 Attending Note I personally saw the patient and performed a substantial portion of the visit including al (more content not included)... Normal [facility] ED PROV NOTE HNO ID: [id number] Author: ELIE GRIDER DO Service: Emergency Medicine Author Type: Nurse Practitioner Type: ED Provider Notes Filed: 11/04/2023 15:16 Note Text: Attestation signed by Elie Grider DO at 11/04/2023 3:16 PM Attending Note: I evaluated the patient and personally performed a substantive portion of the visit. I performed a history and physical examination of the patient and discussed the management with the DRILLING MANAGER/PA. I reviewed the DRILLING MANAGER/PA's note and agree with the documented findings and plan of care. Please see seperate attending note for further details. Signature: Elie Grider DO Date: November 04, 2023 Time: 3:16 PM ED Provider Note Patient Name: Richelle Morales : 1950 SERVICE DATE: 11/04/23 History Patient presents with: Post op complications: Right shoulder surgery Sunday - pt noted redness and swelling starting last night- pt denies pain or fevers. Pt recommended to be seen for concerns of blood clot. Hx of dvt 7 years ago and superficial clot April 2023 73-year-old female presents the ED today for complaints of swelling redness warmth to her right arm. Patient states that she had right shoulder replacement reversal on Sunday they had to redo surgery on Sunday. Patient was sent home in a sling advised to monitor for redness warmth or swelling. She states starting yesterday she began developing swelling to the right upper arm. After waking this morning swelling has extended down to left lower arm along with redness and warmth to the medial aspect of the right arm. When patient called her surgeon's office they are concerned for possibility of a DVT. Sent her to the emergency room for evaluation. Patient denies any shortness of breath no chest pain. No fever no chills. History provided by: Patient PAST MEDICAL HISTORY Diagnosis Date Cat-scratch disease DVT (deep venous thrombosis) (HCC) right leg GERD (gastroesophageal reflux disease) Hypercholesteremia PAST SURGICAL HISTORY Procedure Laterality Date BUNIONECTOMY, LAPIDUS-TYPE EGD 2009 EXTRACTION, ERUPTED TOOTH OR EXPOSED ROOT (ELEVATION AND/OR FORCEPS REMOVAL) TOTAL ABDOM HYSTERECTOMY Hysterectomy, RENEE FAMILY HISTORY Problem Relation Age of Onset None Other Social History Tobacco Use Smoking status: Never Smokeless tobacco: Never Substance and Sexual Activity Alcohol use: Yes Drug use: Not on file Sexual activity: Not on file ALLERGIES Allergen Reactions Amoxicillin GI Upset N/V Augmentin [Amoxicil* GI Upset N/V Cleocin [Clindamyci* Intolerance Review of Systems Constitutional: Negative. HENT: Negative. Respiratory: Negative. Cardiovascular: Negative. Gastrointestinal: Negative. Genitourinary: Negative. Musculoskeletal: Right arm swelling, right arm warmth and redness Skin: Positive for wound. Neurological: Negative. Psychiatric/Behavioral : Negative. Physical Exam Vitals BP Pulse Temp Temp src Resp SpO2 Weight Height 11/04/23 1033 11/04/23 1033 11/04/23 1033 11/04/23 1033 11/04/23 1033 11/04/23 1033 11/04/23 1029 -- 160/96 62 36 ?C (96.8 ?F) Temporal 16 98 % 86.2 kg (190 lb) Physical Exam Constitutional: Appearance: Normal appearance. HENT: Head: Normocephalic. Eyes: Extraocular Movements: Extraocular movements intact. Cardiovascular: Rate and Rhythm: Normal rate and regular rhythm. Pulses: Normal pulses. Heart sounds: Normal heart sounds. Pulmonary: Effort: Pulmonary effort is normal. Breath sounds: Normal breath sounds. Abdominal: General: Abdomen is flat. Musculoskeletal: General: Swelling and tenderness present. Normal range of motion. Right upper arm: Swelling, edema and tenderness present. Right forearm: Swelling, edema and tenderness present. Cervical back: Normal range of motion. Skin: General: Skin is warm. Findings: Laceration present. Comments: Surgical incision in the left chest and no drainage swelling surrounding Neurological: General: No focal deficit present. Mental Status: She is alert and oriented to person, place, and time. Psychiatric: Mood and Affect: Mood normal. Behavior: Behavior normal. Diagnostic Testing ED Labs Ordered and Reviewed - No data to display Procedures ED Course / Clinical Impression ED Course as of 11/04/23 1412 Others' Documentation Sun Nov 04, 2023 1101 Attending Note: 68-year-old female presents with right arm swelling. 6 days ago she had a reverse shoulder surgery performed at [facility]. She then had to have it revised the next day. Was admitted in the hospital over 2 nights. Saw her surgeon 2 days ago. She states that yesterday she had sudden worsening swelling to her right upper extremity. No chest pain or dyspnea. Does have a history of DVT in the (more content not included)... Normal [facility] US DVT UPPER RTon 11-04-2023 US DVT UPPER RT * * *Final Report* * * DATE OF EXAM: Nov 04 2023 1:13PM [facility] 1004 - US DVT UPPER RT / PROCEDURE REASON: Arm deep vein thrombosis (DVT), new symptoms * * * * Physician Interpretation * * * * EXAMINATION: RIGHT UPPER EXTREMITY DEEP VENOUS ULTRASOUND WITH DOPPLER IMAGING CLINICAL HISTORY: Surveillance before or after surgery or other high-risk event. Recent shoulder repair. Upper extremity swelling. History of right lower extremity DVT. TECHNIQUE: Grayscale with compression maneuvers where accessible, color and spectral Doppler of the right internal jugular, subclavian, and axillary veins was performed. Grayscale with compression maneuvers of the right brachial, basilic and cephalic veins was also performed. The contralateral internal jugular and distal subclavian veins were imaged for comparison. Images were obtained and stored in a permanent archive. MQ: [id number] COMPARISON: None RESULT: RIGHT UPPER EXTREMITY DEEP VEINS Internal Jugular vein: Normal compression, normal spontaneous flow. Subclavian vein: Normal, spontaneous flow. Axillary vein: Normal compression, normal spontaneous flow. Brachial vein: Normal compression SUPERFICIAL VEINS Basilic vein: Normal compression. Cephalic vein: Normal compression. LEFT UPPER EXTREMITY (FOR COMPARISON) DEEP VEINS Internal Jugular and Distal Subclavian veins: Normal compression, normal spontaneous flow. IMPRESSION: Negative study for DVT in the right upper extremity. Negative study for superficial thrombophlebitis in the imaged segments of the right upper extremity. Senior Gis Analyst: PSCB Transcribe Date/Time: Nov 04 2023 1:43P Dictated by : VIMAL BOLANOS MD This examination was interpreted and the report reviewed and electronically signed by: VIMAL BOLANOS MD on Nov 04 2023 1:46PM EST [id number] [facility] - Microbiology an d Antimicrobial susceptibilityon 05-30-2023 SARS-CoV-2 (COVID-19) RNA GUIDO+probe Ql (Unsp spec) Detected [facility] Absolute lymphocyte countOrd ered By: Josafat Marquez on 05-20-2023 Lymphocytes Auto (Unsp spec) [#/Vol] 1.87 10*3/uL 0.83-4.51 [facility] Basophil percentageOrdered B y: Josafat Marquez on 05-20-2023 Basophils/100 WBC (Bld) 0.5 % 0-1 [facility] Chloride [Moles/Vol] 98 mmol/L 98-107 [facility] Eosinophils/100 WBC (Bld) 2.6 % 0-5 [facility] Glucose [Mass/Vol] 81 mg/dL 74-106 [facility] Neutrophils (Bld) [#/Vol] 6.1 10*3/uL 2.0-7.7 [facility] Neutrophils/100 WBC (Bld) 66.8 % 47-70 [facility] Potassium [Moles/Vol] 3.3 mmol/L 3.5-5.1 [facility] Sodium [Moles/Vol] 134 mmol/L 136-145 [facility] WBC (Bld) [#/Vol] 9.1 10*3/uL 4.4-11.0 [facility] Blood erythrocytes count (nu mber/volume)Ordered By: Josafat Marquez on 05-20-2023 RBC (Bld) [#/Vol] 4.99 10*6/uL 4.2-5.4 [facility] Blood hemoglobin measurement (mass/volume)Ordered By: Josafat Marquez on 05-20-2023 Hemoglobin (Bld) [Mass/Vol] 14.4 g/dL 12.0-15.0 [facility] Blood lymphocytes/100 leukoc ytesOrdered By: Josafat Marquez on 05-20-2023 Lymphocytes/100 WBC (Bld) 20.5 % 19-41 [facility] Blood monocytes/100 leukocyt esOrdered By: Josafat Marquez on 05-20-2023 Monocytes/100 WBC (Bld) 9.4 % 0-10 [facility] Blood platelet mean volumeOr dered By: Josafat Marquez on 05-20-2023 Platelet mean volume (Bld) [Entitic vol] 9.5 fL 6.2-12.0 [facility] Determination of erythrocyte mean corpuscular volume (MCV)Ordered By: Josafat Marquez on 05-20-2023 MCV (RBC) [Entitic vol] 87.2 fL 81-99 [facility] Hematocrit Auto (Bld) [Volum e fraction]Ordered By: Josafat Marquez on 05-20-2023 Hematocrit (Bld) [Volume fraction] 43.5 % 37-47 [facility] INR in Blood by Coagulation assayOrdered By: Josafat Marquez on 05-20-2023 INR Coag (Bld) [Relative time] 0.9 {INR} [facility] Laboratory - Chemistry and C hemistry - challengeOrdered By: Josafat Marquez on 05-20-2023 CO2 [Moles/Vol] 32.0 mmol/L 21.0-32.0 [facility] Urea nitrogen/Creatinine [Mass ratio] 14.8 mg/mg 10-20 [facility] Laboratory - CoagulationOrde red By: Josafat Marquez on 05-20-2023 aPTT Coag (Bld) [Time] 29.6 s 24.1-36.2 [facility] PT Coag (PPP) [Time] 12.6 s 11.7-14.9 [facility] Laboratory - Hematology and Cell countsOrdered By: Josafat Marquez on 05-20-2023 Erythrocyte distribution width (RBC) [Entitic vol] 46.5 fL 35.1-43.9 [facility] Erythrocyte distribution width (RBC) [Ratio] 14.6 % 11.6-14.6 [facility] Immature granulocytes/100 WBC (Bld) 0.200 % 0.0-0.9 [facility] Comment on above: IG% - Immature Granu locytes (promyelocytes, myelocytes and metamyelocytes) > 1% indicates that a LEFT SHIFT is Present. MCH (RBC) [Entitic mass] 28.9 pg 27.0-32.0 [facility] Nucleated RBC/100 WBC (Bld) [Ratio] 0 % 0-5 [facility] Laboratory - Microbiology an d Antimicrobial susceptibilityOrdered By: Josafat Marquez on 05-20-2023 Bacteria identified Cx Nom (Bld) No growth in 5 days. [facility] MCHC Auto (RBC) [Mass/Vol]Or dered By: Josafat Marquez on 05-20-2023 MCHC (RBC) [Mass/Vol] 33.1 g/dL 32-36 [facility] No Panel InformationOrdered By: Josafat Marquez on 05-20-2023 D-Dimer Quantitative (PE/DVT) 2.18 FEU/ug/m 0.27-0.49 [facility] Comment on above: D-Dimer ELEVATED (>0 .49): Additional studies and clinicalassessments are indicated to conclude diagnosis of:Deep Vein Thrombosis (DVT) or Pulmonary Embolism (PE)CRITICAL VALUE VERIFIED. CALL[facility] TO [facility]05/20/23 1752 Lorene Mcdonnell.RESULTS READ BACK BY SAME . Estimated Creatinine Clearance Calc 54.79 ml/min [facility] Estimated GFR (MDRD) Amer 75 mL/min >60 [facility] Comment on above: GFR Calc Estimated GFR (MDRD) Non-Af Amer 62 mL/min >60 [facility] Comment on above: Non- GFR Calc Platelets bldOrdered By: Sherry Marquez on 05-20-2023 Platelets (Bld) [#/Vol] 236 10*3/uL 150-450 [facility] Serum or plasma calcium anselmo urement (mass/volume)Ordered By: Josafat Marquez on 05-20-2023 Calcium [Mass/Vol] 10.0 mg/dL 8.5-10.1 [facility] Serum or plasma creatinine m easurement (mass/volume)Ordered By: Josafat Marquez on 05-20-2023 Creatinine [Mass/Vol] 0.95 mg/dL 0.55-1.02 [facility] Comment on above: The validity of the calculated GFR & GFRAA in patients over 70 years has not been determined. Clinical correlation is essential. Serum or plasma urea nitroge n measurement (mass/volume)Ordered By: Josafat Marquez on 05-20-2023 Urea nitrogen [Mass/Vol] 14 mg/dL 7-18 [facility] Thin prep Papanicolaou smear with manual screeningOrdered By: Josafat Marquez on 05-20-2023 Thin prep Papanicolaou smear with manual screening 4 5-15 [facility] Absolute lymphocyte countOrd ered By: ED PROVIDER on 04-09-2023 Lymphocytes Auto (Unsp spec) [#/Vol] 2.07 10*3/uL 0.83-4.51 [facility] Basophil percentageOrdered B y: ED PROVIDER on 04-09-2023 Basophils/100 WBC (Bld) 1.0 % 0-1 [facility] Eosinophils/100 WBC (Bld) 3.6 % 0-5 [facility] Neutrophils (Bld) [#/Vol] 2.7 10*3/uL 2.0-7.7 [facility] Neutrophils/100 WBC (Bld) 46.4 % 47-70 [facility] WBC (Bld) [#/Vol] 5.9 10*3/uL 4.4-11.0 [facility] Basophil percentageOrdered B y: Dr. Carr on 04-09-2023 Chloride [Moles/Vol] 101 mmol/L 98-107 [facility] Glucose [Mass/Vol] 82 mg/dL 74-106 [facility] Potassium [Moles/Vol] 3.2 mmol/L 3.5-5.1 [facility] Sodium [Moles/Vol] 137 mmol/L 136-145 [facility] Blood erythrocytes count (nu mber/volume)Ordered By: ED PROVIDER on 04-09-2023 RBC (Bld) [#/Vol] 4.57 10*6/uL 4.2-5.4 [facility] Blood hemoglobin measurement (mass/volume)Ordered By: ED PROVIDER on 04-09-2023 Hemoglobin (Bld) [Mass/Vol] 13.1 g/dL 12.0-15.0 [facility] Blood lymphocytes/100 leukoc ytesOrdered By: ED PROVIDER on 04-09-2023 Lymphocytes/100 WBC (Bld) 35.0 % 19-41 [facility] Blood monocytes/100 leukocyt esOrdered By: ED PROVIDER on 04-09-2023 Monocytes/100 WBC (Bld) 13.7 % 0-10 [facility] Blood platelet mean volumeOr dered By: ED PROVIDER on 04-09-2023 Platelet mean volume (Bld) [Entitic vol] 10.0 fL 6.2-12.0 [facility] Determination of erythrocyte mean corpuscular volume (MCV)Ordered By: ED PROVIDER on 04-09-2023 MCV (RBC) [Entitic vol] 88.0 fL 81-99 [facility] Hematocrit Auto (Bld) [Volum e fraction]Ordered By: ED PROVIDER on 04-09-2023 Hematocrit (Bld) [Volume fraction] 40.2 % 37-47 [facility] Laboratory - Chemistry and C hemistry - challengeOrdered By: Dr. Carr on 04-09-2023 CO2 [Moles/Vol] 31.0 mmol/L 21.0-32.0 [facility] Urea nitrogen/Creatinine [Mass ratio] 14.0 mg/mg 10-20 [facility] Laboratory - Hematology and Cell countsOrdered By: ED PROVIDER on 04-09-2023 Erythrocyte distribution width (RBC) [Entitic vol] 44.2 fL 35.1-43.9 [facility] Erythrocyte distribution width (RBC) [Ratio] 13.8 % 11.6-14.6 [facility] Immature granulocytes/100 WBC (Bld) 0.300 % 0.0-0.9 [facility] Comment on above: IG% - Immature Granu locytes (promyelocytes, myelocytes and metamyelocytes) > 1% indicates that a LEFT SHIFT is Present. MCH (RBC) [Entitic mass] 28.7 pg 27.0-32.0 [facility] Nucleated RBC/100 WBC (Bld) [Ratio] 0 % 0-5 [facility] MCHC Auto (RBC) [Mass/Vol]Or dered By: ED PROVIDER on 04-09-2023 MCHC (RBC) [Mass/Vol] 32.6 g/dL 32-36 [facility] No Panel InformationOrdered By: Dr. Carr on 04-09-2023 Troponin I High Sensitivity 5 pg/mL 3.0-54.0 [facility] Comment on above: Please Note: New Tamiko t Units and Gender Specific Reference Ranges. For more information see Policy Stat Procedure [place] High Sensitivity Troponin (TNIH) and attachments. D-Dimer Quantitative (PE/DVT) < 0.27 FEU/ug/m 0.27-0.49 [facility] Comment on above: NORMAL D-Dimer level (<0.50) indicates no DVT or PE. Estimated Creatinine Clearance Calc 48.65 ml/min [facility] Estimated GFR (MDRD) Amer 65 mL/min >60 [facility] Comment on above: GFR Calc Estimated GFR (MDRD) Non-Af Amer 54 mL/min >60 [facility] Comment on above: Non- GFR Calc Platelets bldOrdered By: ED PROVIDER on 04-09-2023 Platelets (Bld) [#/Vol] 256 10*3/uL 150-450 [facility] Serum or plasma calcium anselmo urement (mass/volume)Ordered By: Dr. Carr on 04-09-2023 Calcium [Mass/Vol] 9.9 mg/dL 8.5-10.1 [facility] Serum or plasma creatinine m easurement (mass/volume)Ordered By: Dr. Carr on 04-09-2023 Creatinine [Mass/Vol] 1.07 mg/dL 0.55-1.02 [facility] Comment on above: The validity of the calculated GFR & GFRAA in patients over 70 years has not been determined. Clinical correlation is essential. Serum or plasma urea nitroge n measurement (mass/volume)Ordered By: Dr. Carr on 04-09-2023 Urea nitrogen [Mass/Vol] 15 mg/dL 7-18 [facility] Thin prep Papanicolaou smear with manual screeningOrdered By: Dr. Carr on 04-09-2023 Thin prep Papanicolaou smear with manual screening 5 5-15 [facility] Absolute lymphocyte countOrd ered By: Dr. Scott on 01-10-2023 Lymphocytes Auto (Unsp spec) [#/Vol] 1.96 10*3/uL 0.83-4.51 [facility] Basophil percentageOrdered B y: Dr. Scott on 01-10-2023 Basophils/100 WBC (Bld) 0.8 % 0-1 [facility] Bilirubin [Mass/Vol] 0.60 mg/dL 0.20-1.00 [facility] Comment on above: For patients on eltr ombopag therapy, use of Dimension [place] TBIL is not recommended. Chloride [Moles/Vol] 98 mmol/L 98-107 [facility] Cholesterol [Mass/Vol] 158 mg/dL <200 [facility] Comment on above: <200 mg/dL Desirable 200-240 mg/dL Borderline >240 mg/dL High Risk Eosinophils/100 WBC (Bld) 2.6 % 0-5 [facility] Glucose [Mass/Vol] 86 mg/dL 74-106 [facility] Neutrophils (Bld) [#/Vol] 3.5 10*3/uL 2.0-7.7 [facility] Neutrophils/100 WBC (Bld) 54.0 % 47-70 [facility] Potassium [Moles/Vol] 4.0 mmol/L 3.5-5.1 [facility] Protein [Mass/Vol] 7.3 g/dL 6.4-8.2 [facility] Sodium [Moles/Vol] 134 mmol/L 136-145 [facility] Triglyceride [Mass/Vol] 151 mg/dL <199 [facility] Comment on above: The drugs N-Acetylcy steine and Metamizole may falsely depress this assay.Serum Triglycerides Reference Interval Normal <150 mg/dL Borderline high 150 - 199 mg/dL High 200 - 499 mg/dL Very High > or = 500 mg/dL WBC (Bld) [#/Vol] 6.5 10*3/uL 4.4-11.0 [facility] Blood erythrocytes count (nu mber/volume)Ordered By: Dr. Scott on 01-10-2023 RBC (Bld) [#/Vol] 5.15 10*6/uL 4.2-5.4 [facility] Blood hemoglobin measurement (mass/volume)Ordered By: Dr. Scott on 01-10-2023 Hemoglobin (Bld) [Mass/Vol] 15.1 g/dL 12.0-15.0 [facility] Blood lymphocytes/100 leukoc ytesOrdered By: Dr. Scott on 01-10-2023 Lymphocytes/100 WBC (Bld) 30.3 % 19-41 [facility] Blood monocytes/100 leukocyt esOrdered By: Dr. Scott on 01-10-2023 Monocytes/100 WBC (Bld) 12.1 % 0-10 [facility] Blood platelet mean volumeOr dered By: Dr. Scott on 01-10-2023 Platelet mean volume (Bld) [Entitic vol] 10.2 fL 6.2-12.0 [facility] Determination of erythrocyte mean corpuscular volume (MCV)Ordered By: Dr. Scott on 01-10-2023 MCV (RBC) [Entitic vol] 90.1 fL 81-99 [facility] Hematocrit Auto (Bld) [Volum e fraction]Ordered By: Dr. Scott on 01-10-2023 Hematocrit (Bld) [Volume fraction] 46.4 % 37-47 [facility] Laboratory - Chemistry and C hemistry - challengeOrdered By: Dr. Scott on 01-10-2023 ALP [Catalytic activity/Vol] 108 U/L 45-117 [facility] ALT [Catalytic activity/Vol] 36 U/L 13-56 [facility] CO2 [Moles/Vol] 28.0 mmol/L 21.0-32.0 [facility] Globulin (S) [Mass/Vol] 3.3 g/dL 2.2-4.2 [facility] Urea nitrogen/Creatinine [Mass ratio] 17.3 mg/mg 10-20 [facility] Laboratory - Hematology and Cell countsOrdered By: Dr. Scott on 01-10-2023 Erythrocyte distribution width (RBC) [Entitic vol] 45.1 fL 35.1-43.9 [facility] Erythrocyte distribution width (RBC) [Ratio] 13.6 % 11.6-14.6 [facility] Immature granulocytes/100 WBC (Bld) 0.200 % 0.0-0.9 [facility] Comment on above: IG% - Immature Granu locytes (promyelocytes, myelocytes and metamyelocytes) > 1% indicates that a LEFT SHIFT is Present. MCH (RBC) [Entitic mass] 29.3 pg 27.0-32.0 [facility] Nucleated RBC/100 WBC (Bld) [Ratio] 0 % 0-5 [facility] MCHC Auto (RBC) [Mass/Vol]Or dered By: Dr. Scott on 01-10-2023 MCHC (RBC) [Mass/Vol] 32.5 g/dL 32-36 [facility] No Panel InformationOrdered By: Dr. Scott on 01-10-2023 Estimated GFR (MDRD) Amer 71 mL/min >60 [facility] Comment on above: GFR Calc Estimated GFR (MDRD) Non-Af Amer 59 mL/min >60 [facility] Comment on above: Non- GFR Calc Platelets bldOrdered By: Dr. Scott on 01-10-2023 Platelets (Bld) [#/Vol] 292 10*3/uL 150-450 [facility] Serum or plasma albumin anselmo urement (mass/volume)Ordered By: Dr. Scott on 01-10-2023 Albumin [Mass/Vol] 4.0 g/dL 3.2-5.0 [facility] Serum or plasma albumin/glob ulin mass ratioOrdered By: Dr. Scott on 01-10-2023 Albumin/Globulin [Mass ratio] 1.2 {ratio} 0.9-2.4 [facility] Serum or plasma calcium anselmo urement (mass/volume)Ordered By: Dr. Scott on 01-10-2023 Calcium [Mass/Vol] 10.2 mg/dL 8.5-10.1 [facility] Serum or plasma cholesterol in HDL measurement (mass/volume)Ordered By: Dr. Scott on 01-10-2023 Cholesterol in HDL [Mass/Vol] 52 mg/dL >40 [facility] Comment on above: The drugs N-Acetylcy steine and Metamizole may falsely depress this assay. Reference Range HDL <40 mg/dL Low HDL Cholesterol HDL >or= 60 mg/dL High HDL Cholesterol Serum or plasma cholesterol in VLDL measurement (mass/volume)Ordered By: Dr. Scott on 01-10-2023 Cholesterol in VLDL [Mass/Vol] 30 mg/dL 5-40 [facility] Serum or plasma creatinine m easurement (mass/volume)Ordered By: Dr. Scott on 01-10-2023 Creatinine [Mass/Vol] 0.98 mg/dL 0.55-1.02 [facility] Comment on above: The validity of the calculated GFR & GFRAA in patients over 70 years has not been determined. Clinical correlation is essential. Serum or plasma low density lipoprotein (LDL) cholesterol measurement (mass/volume)Ordered By: Dr. Scott on 01-10-2023 Cholesterol in LDL [Mass/Vol] 76 mg/dL 0-130 [facility] Serum or plasma urea nitroge n measurement (mass/volume)Ordered By: Dr. Scott on 01-10-2023 Urea nitrogen [Mass/Vol] 17 mg/dL 7-18 [facility] Thin prep Papanicolaou smear with manual screeningOrdered By: Dr. Scott on 01-10-2023 Thin prep Papanicolaou smear with manual screening 25 U/L 15-37 [facility] Thin prep Papanicolaou smear with manual screening 8 5-15 [facility] Absolute lymphocyte counton 06-05-2022 Lymphocytes Auto (Unsp spec) [#/Vol] 2.23 10*3/uL 0.83-4.51 [facility] Work Phone: Basophil percentageon 2021 Basophils/100 WBC (Bld) 0.6 % 0-1 [facility] Work Phone: Bilirubin [Mass/Vol] 0.60 mg/dL 0.20-1.00 [facility] Work Phone: Comment on above: For patients on eltr ombopag therapy, use of Dimension [place] TBIL is not recommended. Chloride [Moles/Vol] 101 mmol/L 98-107 [facility]: Eosinophils/100 WBC (Bld) 3.2 % 0-5 [facility] Work Phone: Glucose [Mass/Vol] 91 mg/dL 74-106 [facility] Work Phone: Neutrophils (Bld) [#/Vol] 3.7 10*3/uL 2.0-7.7 [facility] Work Phone: Neutrophils/100 WBC (Bld) 53.0 % 47-70 [facility] Work Phone: Potassium [Moles/Vol] 4.5 mmol/L 3.5-5.1 [facility] Work Phone: Protein [Mass/Vol] 7.3 g/dL 6.4-8.2 [facility] Work Phone: Sodium [Moles/Vol] 137 mmol/L 136-145 [facility] Work Phone: WBC (Bld) [#/Vol] 6.9 10*3/uL 4.4-11.0 [facility] Work Phone: Blood erythrocytes count (nu mber/volume)on 06-05-2022 RBC (Bld) [#/Vol] 4.72 10*6/uL 4.2-5.4 [facility]: Blood hemoglobin measurement (mass/volume)on 06-05-2022 Hemoglobin (Bld) [Mass/Vol] 14.0 g/dL 12.0-15.0 [facility] Work Phone: Blood lymphocytes/100 leukoc yteson 06-05-2022 Lymphocytes/100 WBC (Bld) 32.3 % 19-41 [facility] Work Phone: Blood monocytes/100 leukocyt eson 06-05-2022 Monocytes/100 WBC (Bld) 10.6 % 0-10 [facility] Work Phone: Blood platelet mean volumeon 06-05-2022 Platelet mean volume (Bld) [Entitic vol] 10.2 fL 6.2-12.0 [facility] Work Phone: [phone] Determination of erythrocyte mean corpuscular volume (MCV)on 06-05-2022 MCV (RBC) [Entitic vol] 91.3 fL 81-99 [facility] Work Phone: [phone] Hematocrit Auto (Bld) [Volum e fraction]on 06-05-2022 Hematocrit (Bld) [Volume fraction] 43.1 % 37-47 [facility] Work Phone: [phone] Laboratory - Chemistry and C hemistry - challengeon 06-05-2022 ALP [Catalytic activity/Vol] 92 U/L 45-117 [facility] Work Phone: [phone] ALT [Catalytic activity/Vol] 34 U/L 13-56 [facility] Work Phone: [phone] CO2 [Moles/Vol] 31.0 mmol/L 21.0-32.0 [facility] Work Phone: [phone] Globulin (S) [Mass/Vol] 3.5 g/dL 2.2-4.2 [facility] Work Phone: [phone] Urea nitrogen/Creatinine [Mass ratio] 12.0 mg/mg 10-20 [facility] Work Phone: [phone] Laboratory - Hematology and Cell countson 06-05-2022 Erythrocyte distribution width (RBC) [Entitic vol] 46.0 fL 35.1-43.9 [facility] Work Phone: [phone] Erythrocyte distribution width (RBC) [Ratio] 13.7 % 11.6-14.6 [facility] Work Phone: [phone] Immature granulocytes/100 WBC (Bld) 0.300 % 0.0-0.9 [facility] Work Phone: [phone] Comment on above: IG% - Immature Granu locytes (promyelocytes, myelocytes and metamyelocytes) > 1% indicates that a LEFT SHIFT is Present. MCH (RBC) [Entitic mass] 29.7 pg 27.0-32.0 [facility] Work Phone: Nucleated RBC/100 WBC (Bld) [Ratio] 0 % 0-5 [facility] Work Phone: [phone] MCHC Auto (RBC) [Mass/Vol]on 06-05-2022 MCHC (RBC) [Mass/Vol] 32.5 g/dL 32-36 [facility] Work Phone: No Panel Informationon 06-05 Estimated GFR (MDRD) Amer 71 mL/min >60 [facility] Work Phone: Comment on above: GFR Calc Estimated GFR (MDRD) Non-Af Amer 58 mL/min >60 [facility] Work Phone: Comment on above: Non- GFR Calc Platelets bldon 06-05-2022 Platelets (Bld) [#/Vol] 282 10*3/uL 150-450 [facility] Work Phone: [phone] Serum or plasma albumin anselmo urement (mass/volume)on 06-05-2022 Albumin [Mass/Vol] 3.8 g/dL 3.2-5.0 [facility] Work Phone: [phone] Serum or plasma albumin/glob ulin mass ratioon 06-05-2022 Albumin/Globulin [Mass ratio] 1.1 {ratio} 0.9-2.4 [facility] Work Phone: [phone] Serum or plasma calcium anselmo urement (mass/volume)on 06-05-2022 Calcium [Mass/Vol] 9.6 mg/dL 8.5-10.1 [facility] Work Phone: [phone] Serum or plasma creatinine m easurement (mass/volume)on 06-05-2022 Creatinine [Mass/Vol] 1.00 mg/dL 0.55-1.02 [facility] Work Phone: Comment on above: The validity of the calculated GFR & GFRAA in patients over 70 years has not been determined. Clinical correlation is essential. Serum or plasma urea nitroge n measurement (mass/volume)on 06-05-2022 Urea nitrogen [Mass/Vol] 12 mg/dL 7-18 [facility] Work Phone: Thin prep Papanicolaou smear with manual screeningon 06-05-2022 Thin prep Papanicolaou smear with manual screening 21 U/L 15-37 [facility] Work Phone: Thin prep Papanicolaou smear with manual screening 5 5-15 [facility] Work Phone: Basophil percentageon 2021 Bilirubin [Mass/Vol] 0.80 mg/dL 0.20-1.00 [facility] Work Phone: Comment on above: For patients on eltr ombopag therapy, use of Dimension [place] TBIL is not recommended. Chloride [Moles/Vol] 104 mmol/L 98-107 [facility] Work Phone: Cholesterol [Mass/Vol] 143 mg/dL <200 [facility] Work Phone: Comment on above: <200 mg/dL Desirable 200-240 mg/dL Borderline >240 mg/dL High Risk Glucose [Mass/Vol] 92 mg/dL 74-106 [facility] Work Phone: Potassium [Moles/Vol] 4.0 mmol/L 3.5-5.1 [facility] Work Phone: Protein [Mass/Vol] 7.0 g/dL 6.4-8.2 [facility] Work Phone: Sodium [Moles/Vol] 137 mmol/L 136-145 [facility] Work Phone: Triglyceride [Mass/Vol] 118 mg/dL <199 [facility] Work Phone: Comment on above: The drugs N-Acetylcy steine and Metamizole may falsely depress this assay.Serum Triglycerides Reference Interval Normal <150 mg/dL Borderline high 150 - 199 mg/dL High 200 - 499 mg/dL Very High > or = 500 mg/dL Laboratory - Chemistry and C hemistry - challengeon 01-26-2022 ALP [Catalytic activity/Vol] 86 U/L 45-117 [facility] Work Phone: ALT [Catalytic activity/Vol] 30 U/L 13-56 [facility] Work Phone: [phone] CO2 [Moles/Vol] 29.0 mmol/L 21.0-32.0 [facility] Work Phone: [phone] Globulin (S) [Mass/Vol] 3.4 g/dL 2.2-4.2 [facility] Work Phone: [phone] Urea nitrogen/Creatinine [Mass ratio] 15.5 mg/mg 10-20 [facility] Work Phone: [phone] No Panel Informationon 01-26 Estimated GFR (MDRD) Amer 68 mL/min >60 [facility] Work Phone: Comment on above: GFR Calc Estimated GFR (MDRD) Non-Af Amer 56 mL/min >60 [facility] Work Phone: [phone] Comment on above: Non- GFR Calc Serum or plasma albumin anselmo urement (mass/volume)on 01-26-2022 Albumin [Mass/Vol] 3.6 g/dL 3.2-5.0 [facility] Work Phone: [phone] Serum or plasma albumin/glob ulin mass ratioon 01-26-2022 Albumin/Globulin [Mass ratio] 1.1 {ratio} 0.9-2.4 [facility] Work Phone: [phone] Serum or plasma calcium anselmo urement (mass/volume)on 01-26-2022 Calcium [Mass/Vol] 9.1 mg/dL 8.5-10.1 [facility] Work Phone: [phone] Serum or plasma cholesterol in HDL measurement (mass/volume)on 01-26-2022 Cholesterol in HDL [Mass/Vol] 50 mg/dL >40 [facility] Work Phone: [phone] Comment on above: The drugs N-Acetylcy steine and Metamizole may falsely depress this assay. Reference Range HDL <40 mg/dL Low HDL Cholesterol HDL >or= 60 mg/dL High HDL Cholesterol Serum or plasma cholesterol in VLDL measurement (mass/volume)on 01-26-2022 Cholesterol in VLDL [Mass/Vol] 24 mg/dL 5-40 [facility] Work Phone: Serum or plasma creatinine m easurement (mass/volume)on 01-26-2022 Creatinine [Mass/Vol] 1.03 mg/dL 0.55-1.02 [facility] Work Phone: Comment on above: The validity of the calculated GFR & GFRAA in patients over 70 years has not been determined. Clinical correlation is essential. Serum or plasma low density lipoprotein (LDL) cholesterol measurement (mass/volume)on 01-26-2022 Cholesterol in LDL [Mass/Vol] 69 mg/dL 0-130 [facility] Work Phone: Serum or plasma urea nitroge n measurement (mass/volume)on 01-26-2022 Urea nitrogen [Mass/Vol] 16 mg/dL 7-18 [facility] Work Phone: Thin prep Papanicolaou smear with manual screeningon 01-26-2022 Thin prep Papanicolaou smear with manual screening 18 U/L 15-37 [facility] Work Phone: Thin prep Papanicolaou smear with manual screening 4 5-15 [facility] Work Phone: Vital Signs Date Time Vital Sign Value Performing Clinician Faci jennifery 01-02-2024 10:48-0400 Body height 172.[address] Areli Scott Work Phone: [facility] 01-02-2024 10:48-0400 Body mass index (BMI) [Ratio] 29.2 kg/m2 Dr. Areli Scott Work Phone: [facility] 01-02-2024 10:48-0400 Body temperature 97.6 [degF] Dr. Areli Scott Work Phone: [facility] 01-02-2024 10:48-0400 Body weight 87.[address] Areli Scott Work Phone: [facility] 01-02-2024 10:48-0400 Diastolic blood pressure 74 mm[Hg] Dr. Areli Scott Work Phone: [facility] 01-02-2024 10:48-0400 Heart rate 83 /min Dr. Areli Scott Work Phone: [facility] 01-02-2024 10:48-0400 Respiratory rate 16 /min Dr. Areli Scott Work Phone: [facility] 01-02-2024 10:48-0400 SaO2% (BldA) [Mass fraction] 99 % Dr. Areli Scott Work Phone: [facility] 01-02-2024 10:48-0400 Systolic blood pressure 120 mm[Hg] Dr. Areli Scott Work Phone: [facility] 10-03-2023 10:39-0500 Body mass index (BMI) [Ratio] 29.3 kg/m2 Dr. Areli Scott Work Phone: [facility] 10-03-2023 10:39-0500 Body temperature 99.3 [degF] Dr. Areli Scott Work Phone: [facility] 10-03-2023 10:39-0500 Body weight 87.[address] Areli Scott Work Phone: [facility] 10-03-2023 10:39-0500 Diastolic blood pressure 86 mm[Hg] Dr. Areli Scott Work Phone: [facility] 10-03-2023 10:39-0500 Heart rate 82 /min Dr. Areli Scott Work Phone: [facility] 10-03-2023 10:39-0500 Respiratory rate 16 /min Dr. Areli Scott Work Phone: [facility] 10-03-2023 10:39-0500 SaO2% (BldA) [Mass fraction] 99 % Dr. Areli Scott Work Phone: [facility] 10-03-2023 10:39-0500 Systolic blood pressure 130 mm[Hg] Dr. Areli Scott Work Phone: [facility] 09-21-2023 13:22-0500 Body temperature 98.2 [degF] Dr. Areli Scott Work Phone: [facility] 09-21-2023 13:22-0500 Diastolic blood pressure 88 mm[Hg] Dr. Areli Scott Work Phone: [facility] 09-21-2023 13:22-0500 Heart rate 81 /min Dr. Areli Scott Work Phone: [facility] 09-21-2023 13:22-0500 Respiratory rate 16 /min Dr. Areli Scott Work Phone: [facility] 09-21-2023 13:22-0500 SaO2% (BldA) [Mass fraction] 99 % Dr. Areli Scott Work Phone: [facility] 09-21-2023 13:22-0500 Systolic blood pressure 148 mm[Hg] Dr. Areli Scott Work Phone: [facility] 09-19-2023 11:18-0500 Diastolic blood pressure 86 mm[Hg] Dr. Areli Scott Work Phone: [facility] 09-19-2023 11:18-0500 Systolic blood pressure 142 mm[Hg] Dr. Areli Scott Work Phone: [facility] 08-08-2023 15:22-0400 Body height 172.[address] Areli Scott Work Phone: [facility] 08-08-2023 15:22-0400 Body mass index (BMI) [Ratio] 29.2 kg/m2 Dr. Areli Scott Work Phone: [facility] 08-08-2023 15:22-0400 Body temperature 97.6 [degF] Dr. Areli Scott Work Phone: [facility] 08-08-2023 15:22-0400 Body weight 87.[address] Areli Scott Work Phone: [facility] 08-08-2023 15:22-0400 Diastolic blood pressure 90 mm[Hg] Dr. Areli Scott Work Phone: [facility] 08-08-2023 15:22-0400 Heart rate 85 /min Dr. Areli Scott Work Phone: [facility] 08-08-2023 15:22-0400 Respiratory rate 16 /min Dr. Areli Scott Work Phone: [facility] 08-08-2023 15:22-0400 SaO2% (BldA) [Mass fraction] 100 % Dr. Areli Scott Work Phone: [facility] 08-08-2023 15:22-0400 Systolic blood pressure 153 mm[Hg] Dr. Areli Scott Work Phone: [facility] 08-07-2023 09:55-0400 Body temperature 98 [degF] Dr. Areli Scott Work Phone: [facility] 08-07-2023 09:55-0400 Body weight 86.[address] Areli Scott Work Phone: [facility] 08-07-2023 09:55-0400 Diastolic blood pressure 99 mm[Hg] Dr. Areli Scott Work Phone: [facility] 08-07-2023 09:55-0400 Heart rate 78 /min Dr. Areli Scott Work Phone: [facility] 08-07-2023 09:55-0400 Respiratory rate 16 /min Dr. Areli Scott Work Phone: [facility] 08-07-2023 09:55-0400 SaO2% (BldA) [Mass fraction] 99 % Dr. Areli Scott Work Phone: [facility] 08-07-2023 09:55-0400 Systolic blood pressure 153 mm[Hg] Dr. Areli Scott Work Phone: [facility] 06-15-2023 09:12-0400 Body mass index (BMI) [Ratio] 28.9 kg/m2 Dr. Areli Scott Work Phone: [facility] 06-15-2023 09:12-0400 Body temperature 96.7 [degF] Dr. Areli Scott Work Phone: [facility] 06-15-2023 09:12-0400 Body weight 86.[address] Areli Scott Work Phone: [facility] 06-15-2023 09:12-0400 Diastolic blood pressure 88 mm[Hg] Dr. Areli Scott Work Phone: [facility] 06-15-2023 09:12-0400 Heart rate 83 /min Dr. Areli Scott Work Phone: [facility] 06-15-2023 09:12-0400 Respiratory rate 18 /min Dr. Areli Scott Work Phone: [facility] 06-15-2023 09:12-0400 SaO2% (BldA) [Mass fraction] 98 % Dr. Areli Scott Work Phone: [facility] 06-15-2023 09:12-0400 Systolic blood pressure 138 mm[Hg] Dr. Areli Scott Work Phone: [facility] 06-06-2023 08:58-0400 Body temperature 98 [degF] Dr. Areli Scott Work Phone: [facility] 06-06-2023 08:58-0400 Body weight 86.[address] Areli Sctot Work Phone: [facility] 06-06-2023 08:58-0400 Diastolic blood pressure 87 mm[Hg] Dr. Areli Scott Work Phone: [facility] 06-06-2023 08:58-0400 Heart rate 79 /min Dr. Areli Scott Work Phone: [facility] 06-06-2023 08:58-0400 Respiratory rate 16 /min Dr. Areli Scott Work Phone: [facility] 06-06-2023 08:58-0400 SaO2% (BldA) [Mass fraction] 99 % Dr. Areli Scott Work Phone: [facility] 06-06-2023 08:58-0400 Systolic blood pressure 131 mm[Hg] Dr. Areli Scott Work Phone: [facility] 05-30-2023 11:01-0400 Body mass index (BMI) [Ratio] 28.8 kg/m2 Dr. Areli Scott Work Phone: [facility] 05-30-2023 11:01-0400 Body temperature 98.6 [degF] Dr. Areli Scott Work Phone: [facility] 05-30-2023 11:01-0400 Body weight 86.[address] Areli Scott Work Phone: [facility] 05-30-2023 11:01-0400 Diastolic blood pressure 89 mm[Hg] Dr. Areli Scott Work Phone: [facility] 05-30-2023 11:01-0400 Heart rate 75 /min Dr. Areli Scott Work Phone: [facility] 05-30-2023 11:01-0400 Respiratory rate 16 /min Dr. Areil Scott Work Phone: [facility] 05-30-2023 11:01-0400 SaO2% (BldA) [Mass fraction] 96 % Dr. Areli Scott Work Phone: [facility] 05-30-2023 11:01-0400 Systolic blood pressure 139 mm[Hg] Dr. Areli Scott Work Phone: [facility] 05-21-2023 13:27-0400 Body height 172.[address] Areli Scott Work Phone: [facility] 05-21-2023 13:27-0400 Body mass index (BMI) [Ratio] 29.2 kg/m2 Dr. Areli Scott Work Phone: [facility] 05-21-2023 13:27-0400 Body temperature 97.5 [degF] Dr. Areli Scott Work Phone: [facility] 05-21-2023 13:27-0400 Body weight 87.[address] Areli Scott Work Phone: [facility] 05-21-2023 13:27-0400 Diastolic blood pressure 82 mm[Hg] Dr. Areli Scott Work Phone: [facility] 05-21-2023 13:27-0400 Heart rate 100 /min Dr. Areli Scott Work Phone: [facility] 05-21-2023 13:27-0400 Respiratory rate 18 /min Dr. Areli Scott Work Phone: [facility] 05-21-2023 13:27-0400 SaO2% (BldA) [Mass fraction] 95 % Dr. Areli Scott Work Phone: [facility] 05-21-2023 13:27-0400 Systolic blood pressure 140 mm[Hg] Dr. Areli Scott Work Phone: [facility] 05-20-2023 18:21-0400 Body temperature 16 [degF] Dr. Areli Scott Work Phone: [facility] 05-20-2023 18:21-0400 Diastolic blood pressure 75 mm[Hg] Dr. Areli Scott Work Phone: [facility] 05-20-2023 18:21-0400 Heart rate 68 /min Dr. Areli Scott Work Phone: [facility] 05-20-2023 18:21-0400 Respiratory rate 16 /min Dr. Areli Scott Work Phone: [facility] 05-20-2023 18:21-0400 SaO2% (BldA) [Mass fraction] 97 % Dr. Areli Scott Work Phone: [facility] 05-20-2023 18:21-0400 Systolic blood pressure 160 mm[Hg] Dr. Areli Scott Work Phone: [facility] 05-20-2023 16:00-0400 Body height 172.[address] Areli Scott Work Phone: [facility] 05-20-2023 16:00-0400 Body mass index (BMI) [Ratio] 28.8 kg/m2 Dr. Areli Scott Work Phone: [facility] 05-20-2023 16:00-0400 Body weight 86.[address] Areli Scott Work Phone: [facility] 05-15-2023 10:09-0400 Diastolic blood pressure 97 mm[Hg] Dr. Areli Scott Work Phone: [facility] 05-15-2023 10:09-0400 SaO2% (BldA) [Mass fraction] 100 % Dr. Areli Scott Work Phone: [facility] 05-15-2023 10:09-0400 Systolic blood pressure 146 mm[Hg] Dr. Areli Scott Work Phone: [facility] 05-15-2023 09:07-0400 Body mass index (BMI) [Ratio] 29.2 kg/m2 Dr. Areli Scott Work Phone: [facility] 05-15-2023 09:07-0400 Body temperature 97.2 [degF] Dr. Areli Scott Work Phone: [facility] 05-15-2023 09:07-0400 Body weight 87.[address] Areli Scott Work Phone: [facility] 05-15-2023 09:07-0400 Heart rate 87 /min Dr. Areli Scott Work Phone: [facility] 05-15-2023 09:07-0400 Respiratory rate 14 /min Dr. Areli Scott Work Phone: [facility] 04-09-2023 23:41-0400 Diastolic blood pressure 87 mm[Hg] Dr. Areli Scott Work Phone: [facility] 04-09-2023 23:41-0400 Heart rate 70 /min Dr. Areli Scott Work Phone: [facility] 04-09-2023 23:41-0400 Respiratory rate 16 /min Dr. Areli Scott Work Phone: [facility] 04-09-2023 23:41-0400 SaO2% (BldA) [Mass fraction] 99 % Dr. Areli Scott Work Phone: [facility] 04-09-2023 23:41-0400 Systolic blood pressure 125 mm[Hg] Dr. Areli Scott Work Phone: [facility] 04-09-2023 18:48-0400 Body height 172.[address] Areli Scott Work Phone: [facility] 04-09-2023 18:48-0400 Body mass index (BMI) [Ratio] 30 kg/m2 Dr. Areli Scott Work Phone: [facility] 04-09-2023 18:48-0400 Body temperature 97.8 [degF] Dr. Areli Scott Work Phone: [facility] 04-09-2023 18:48-0400 Body weight 89.[address] Areli Scott Work Phone: [facility] 04-06-2023 10:25-0400 Body mass index (BMI) [Ratio] 30.2 kg/m2 Dr. Areli Soctt Work Phone: [facility] 04-06-2023 10:25-0400 Body temperature 97.2 [degF] Dr. Areli Scott Work Phone: [facility] 04-06-2023 10:25-0400 Body weight 87.[address] Areli Scott Work Phone: [facility] 04-06-2023 10:25-0400 Diastolic blood pressure 84 mm[Hg] Dr. Areli Scott Work Phone: [facility] 04-06-2023 10:25-0400 Heart rate 78 /min Dr. Areli Scott Work Phone: [facility] 04-06-2023 10:25-0400 Respiratory rate 16 /min Dr. Areli Scott Work Phone: [facility] 04-06-2023 10:25-0400 SaO2% (BldA) [Mass fraction] 98 % Dr. Areli Scott Work Phone: [facility] 04-06-2023 10:25-0400 Systolic blood pressure 132 mm[Hg] Dr. Areli Scott Work Phone: [facility] 01-10-2023 13:20-0400 Body height 170.[address] Areli Scott Work Phone: [facility] 01-10-2023 13:20-0400 Body mass index (BMI) [Ratio] 29.7 kg/m2 Dr. Areli Scott Work Phone: [facility] 01-10-2023 13:20-0400 Body temperature 96.2 [degF] Dr. Areli Scott Work Phone: [facility] 01-10-2023 13:20-0400 Body weight 86.[address] Areli Scott Work Phone: [facility] 01-10-2023 13:20-0400 Diastolic blood pressure 94 mm[Hg] Dr. Areli Scott Work Phone: [facility] 01-10-2023 13:20-0400 Heart rate 78 /min Dr. Areli Scott Work Phone: [facility] 01-10-2023 13:20-0400 Respiratory rate 18 /min Dr. Areli Scott Work Phone: [facility] 01-10-2023 13:20-0400 SaO2% (BldA) [Mass fraction] 99 % Dr. Areli Scott Work Phone: [facility] 01-10-2023 13:20-0400 Systolic blood pressure 132 mm[Hg] Dr. Areli Scott Work Phone: [facility] 09-18-2022 10:33-0500 Body temperature 97.3 [degF] Dr. Areli Scott Work Phone: [facility] 09-18-2022 10:33-0500 Body weight 86.[address] Areli Scott Work Phone: [facility] 09-18-2022 10:33-0500 Diastolic blood pressure 86 mm[Hg] Dr. Areli Scott Work Phone: [facility] 09-18-2022 10:33-0500 Heart rate 77 /min Dr. Areli Scott Work Phone: [facility] 09-18-2022 10:33-0500 Respiratory rate 18 /min Dr. Areli Scott Work Phone: [facility] 09-18-2022 10:33-0500 SaO2% (BldA) [Mass fraction] 99 % Dr. Areli Scott Work Phone: [facility] 09-18-2022 10:33-0500 Systolic blood pressure 128 mm[Hg] Dr. Areli Scott Work Phone: [facility] 06-05-2022 09:53-0400 Body height 170.[address] Areli Scott Work Phone: [facility] Work Phone: 06-05-2022 09:53-0400 Body mass index (BMI) [Ratio] 32.4 kg/m2 Dr. Areli Scott Work Phone: [facility] Work Phone: 06-05-2022 09:53-0400 Body temperature 97.9 [degF] Dr. Areli Scott Work Phone: [facility] Work Phone: 06-05-2022 09:53-0400 Body weight 93.[address] Areli Scott Work Phone: [facility] Work Phone: 06-05-2022 09:53-0400 Diastolic blood pressure 94 mm[Hg] Dr. Areli Scott Work Phone: [facility] Work Phone: 06-05-2022 09:53-0400 Heart rate 70 /min Dr. Areli Scott Work Phone: [facility] Work Phone: 06-05-2022 09:53-0400 Respiratory rate 16 /min Dr. Areli Scott Work Phone: [facility] Work Phone: 06-05-2022 09:53-0400 SaO2% (BldA) [Mass fraction] 98 % Dr. Areli Scott Work Phone: [facility] Work Phone: 06-05-2022 09:53-0400 Systolic blood pressure 136 mm[Hg] Dr. Areli Scott Work Phone: [facility] Work Phone: 01-31-2022 08:07-0400 Body height 170.[address] Areli Scott Work Phone: [facility] Work Phone: 01-31-2022 08:07-0400 Body mass index (BMI) [Ratio] 31.4 kg/m2 Dr. Areli Scott Work Phone: [facility] Work Phone: 01-31-2022 08:07-0400 Body temperature 97.2 [degF] Dr. Areli Scott Work Phone: [facility] Work Phone: 01-31-2022 08:07-0400 Body weight 90.[address] Areli Scott Work Phone: [facility] Work Phone: 01-31-2022 08:07-0400 Diastolic blood pressure 92 mm[Hg] Dr. Areli Scott Work Phone: [facility] Work Phone: 01-31-2022 08:07-0400 Heart rate 72 /min Dr. Areli Scott Work Phone: [facility] Work Phone: 01-31-2022 08:07-0400 Respiratory rate 14 /min Dr. Areli Scott Work Phone: [facility] Work Phone: 01-31-2022 08:07-0400 SaO2% (BldA) [Mass fraction] 97 % Dr. Areli Scott Work Phone: [facility] Work Phone: 01-31-2022 08:07-0400 Systolic blood pressure 124 mm[Hg] Dr. Areli Scott Work Phone: [facility] Work Phone: 01-31-2022 08:07-0400 Body height 170.[address] Areli Scott Work Phone: [facility] Work Phone: 01-31-2022 08:07-0400 Body mass index (BMI) [Ratio] 31.4 kg/m2 Dr. Areli Scott Work Phone: [facility] Work Phone: 01-31-2022 08:07-0400 Body temperature 97.2 [degF] Dr. Areli Scott Work Phone: [facility] Work Phone: 01-31-2022 08:07-0400 Body weight 90.[address] Areli Scott Work Phone: [facility] Work Phone: 01-31-2022 08:07-0400 Diastolic blood pressure 92 mm[Hg] Dr. Areli Scott Work Phone: [facility] Work Phone: 01-31-2022 08:07-0400 Heart rate 72 /min Dr. Areli Scott Work Phone: [facility] Work Phone: 01-31-2022 08:07-0400 Respiratory rate 14 /min Dr. Areli Scott Work Phone: [facility] Work Phone: 01-31-2022 08:07-0400 SaO2% (BldA) [Mass fraction] 97 % Dr. Areli Scott Work Phone: [facility] Work Phone: 01-31-2022 08:07-0400 Systolic blood pressure 124 mm[Hg] Dr. Areli Scott Work Phone: [facility] Work Phone: 11-15-2021 12:13-0500 Body mass index (BMI) [Ratio] 31.9 kg/m2 Dr. Areli Scott Work Phone: [facility] Work Phone: 11-15-2021 12:13-0500 Body temperature 98.6 [degF] Dr. Areli Scott Work Phone: [facility] Work Phone: 11-15-2021 12:13-0500 Body weight 92.[address] Areli Scott Work Phone: [facility] Work Phone: 11-15-2021 12:13-0500 Diastolic blood pressure 76 mm[Hg] Dr. Areli Scott Work Phone: [facility] Work Phone: 11-15-2021 12:13-0500 Heart rate 77 /min Dr. Areli Scott Work Phone: [facility] Work Phone: 11-15-2021 12:13-0500 Respiratory rate 14 /min Dr. Areli Scott Work Phone: [facility] Work Phone: 11-15-2021 12:13-0500 SaO2% (BldA) [Mass fraction] 97 % Dr. Areli Scott Work Phone: [facility] Work Phone: 11-15-2021 12:13-0500 Systolic blood pressure 130 mm[Hg] Dr. Areli Scott Work Phone: [facility] Work Phone: Encounters Encounter Date Encounter Type Care Provider Facility Start: 09-07-2025 ambulatory Efdhavallindenbe Antonioe Facili ty:[facility] Start: [facility] Start: 08-05-2025 End: 08-21-2025 ambulatory [facility] Facility:[facility] Start: 07-09-2025 End: 07-09-2025 ambulatory [facility] OLEE Facility:[facility] Start: 06-24-2025 End: 07-21-[address] [facility] [facility] Start: 06-23-2025 ambulatory Efewlindenbe Olee Facili ty:[facility] Start: 06-03-2025 End: 06-03-2025 ambulatory Efewongbe Oleghe Facility:[facility] Start: 06-03-2025 End: 06-03-[address] [facility] [facility] Start: 03-02-2025 End: 03-02-2025 [facility] Start: 03-02-2025 End: 03-02-[address] [facility] [facility] Start: 02-02-2025 Encounter for antibo dy response examination Royceongbe Olejasone [facility] Start: 01-29-2025 End: 01-29-2025 ambulatory Efewlindenbe Oleghe Facility:[facility] Start: 01-23-2025 End: 01-23-2025 ambulatory Efewongbe Oleghe Facility:[facility] Start: 12-19-2024 End: 12-19-2024 ambulatory Efewongbe Oleghe Facility:[facility] Start: 12-19-2024 End: 12-19-2024 ambulatory Efewongbe Oleghe Facility:[facility] Start: 11-27-2024 End: 11-27-2024 ambulatory Efewongbe Oleghe Facility:[facility] Start: 11-27-2024 End: 11-27-2024 ambulatory Efewlindenbe Oleghe Facility:[facility] Start: 09-03-2024 End: 09-03-2024 ambulatory Efewongbe Oleghe Facility:[facility] Start: 08-27-2024 End: 08-27-2024 ambulatory Efewongbe Oleghe Facility:[facility] Start: 08-27-2024 End: 08-27-2024 ambulatory Efewongbe Oleghe Facility:[facility] Start: 08-27-2024 End: 08-27-2024 [facility] Start: 01-24-[address] Kalri Scott Work Phone: [facility] Work Phone: Start: 01-23-2024 End: 01-23-[address] Areli Scott Work Phone: [facility] Work Phone: Start: 01-23-2024 End: 01-23-[address] Areli Scott Work Phone: [facility] Work Phone: Start: 01-04-[address] Karli Scott Work Phone: [facility] Work Phone: Start: 01-02-2024 End: 01-02-[address] Areli Scott Work Phone: [facility] Work Phone: Start: 01-02-2024 End: 01-02-2024 Encounter for general adult medical examination without abnormal findings Dr. Areli Scott Work Phone: [facility] Start: 01-02-2024 End: 01-02-[address] Areli Scott Work Phone: [facility] Work Phone: Start: 11-04-2023 End: 11-04-2023 Emergency [facility] Start: 11-04-2023 End: 11-04-2023 Emergency department patient visit CAROLANN SCOTT Facility:[facility] Start: 10-03-[address] Areli Scott Work Phone: [facility] Start: 10-03-2023 End: 10-03-2023 Emergency department patient visit Dr. Areli Scott Work Phone: [facility] Start: 10-03-2023 End: 10-03-[address] Areli Scott Work Phone: [facility] Work Phone: Start: 09-21-2023 End: 09-21-[address] Areli Scott Work Phone: [facility] Work Phone: Start: 09-19-2023 End: 09-19-[address] Areli Scott Work Phone: [facility] Work Phone: Start: 08-08-2023 End: 08-08-[address] Areli Scott Work Phone: [facility] Work Phone: Start: 08-07-2023 End: 08-07-[address] Areli Scott Work Phone: [facility] Vascular Surgery Work Phone: Start: 08-06-2023 End: 08-06-[address] Areli Scott Work Phone: [facility] Work Phone: Start: 08-06-2023 End: 08-06-[address] [facility] Start: 08-02-2023 End: 08-02-[address] Areli Scott Work Phone: [facility] Orthopaedic [facility] Work Phone: Start: 06-18-2023 Non-patient / Non-visit Dr. Fely Scott Work Phone: [facility] Start: 06-18-2023 End: 06-18-[address] [facility]li [facility] Start: 06-15-2023 End: 06-15-[address] Areli Scott Work Phone: [facility] Internal Medicine Work Phone: Start: 06-06-2023 End: 06-06-[address] Areli Scott Work Phone: [facility] Vascular Surgery Work Phone: Start: 05-30-2023 End: 05-30-[address] Areli Scott Work Phone: [facility] Work Phone: Start: 05-21-2023 End: 05-21-[address] Areli Scott Work Phone: [facility] Internal Medicine Work Phone: Start: 05-21-2023 Non-patient / Non-visit Dr. Fely Scott Work Phone: [facility] Start: 05-21-2023 End: 05-21-[address] Areli Scott Work Phone: [facility] Work Phone: Start: 05-21-2023 End: 05-21-[address] [facility]li [facility] Start: 05-20-2023 End: 05-20-2023 Emergency department patient visit [facility]li [facility] Start: 05-15-2023 Non-patient / Non-visit Dr. Fely Scott Work Phone: [facility] Start: 05-15-2023 End: 05-15-2023 Emergency department patient visit [facility]li [facility] Start: 04-30-2023 End: 04-30-[address] Areli Scott Work Phone: [facility] Work Phone: Start: 04-09-2023 End: 04-09-2023 Emergency department patient visit Dr. Areli Scott Work Phone: [facility]-Emergency Department Start: 04-06-2023 End: 04-06-[address] Areli Scott Work Phone: [facility] Internal Medicine Start: 01-10-2023 End: 01-10-[address] Areli Scott Work Phone: [facility] Work Phone: Start: 01-10-2023 End: 01-10-[address] Areli Scott Work Phone: [facility] Internal [facility] Start: 09-18-2022 End: 09-18-[address] Areli Scott Work Phone: [facility] Internal Medicine Start: 06-22-2022 End: 06-22-[address] Areli Scott Work Phone: [facility] Work Phone: Start: 06-22-2022 End: 06-22-[address] Areli Scott Work Phone: [facility]-Sleep Lab Start: 06-05-2022 End: 06-05-[address] Areli Scott Work Phone: [facility]-Laboratory, [facility] Start: 06-05-2022 End: 06-05-[address] Areli Scott Work Phone: [facility] Internal Medicine Start: 02-23-2022 End: 02-23-[address] Areli Scott Work Phone: [facility]-Physical Therapy Start: 02-09-2022 End: 02-09-[address] Areli Scott Work Phone: [facility] Start: 01-31-2022 End: 01-31-[address] Areli Scott Work Phone: [facility] Internal Medicine Start: 01-26-2022 End: 01-26-[address] Areli Scott Work Phone: [facility]Laboratory, [facility] Start: 11-15-2021 End: 11-15-[address] Areli Scott Work Phone: [facility] Internal Medicine Start: 07-04-[address] Areli Scott Work Phone: [facility] Procedures Date Procedure Procedure Detail Performing Clinician Start: 01-23-2024 Dual energy X-ray absorptiometry Dr. Areli Scott Work Phone: Start: 01-23-2024 Screening mammography Ishmael Scott Work Phone: Start: 05-20-2023 Bacteria identified in Blood by Culture Dr. Areli Scott Work Phone: Start: 04-09-2023 Plain chest X-ray Dr. Jessica Scott Work Phone: Start: 02-09-2022 Plain X-ray of shoulder Dr. Areli Scott Work Phone: Plan of Treatment Date Care Activity Detail Author Start: 05-21-2023 Patient referral [facility] Work Phone: Start: 05-20-2023 US.doppler Lower ext remity vein [facility] Start: 05-20-[address] [facility] Start: 05-20-2023 Bacteria identified in Blood by Culture Blood Culture [facility] Start: 04-09-2023 End: 04-09-2023 [facility] DXA Bone [Mass/Area] Bone density [facility] MG Breast - bilatera l Screening [facility] Patient Education [facility] Work Phone: Patient referral [facility] Work Phone: Polysomnography [facility] Work Phone: [facility] Immunizations Immunization Date Immunization Notes Care Provider Fa eric 08-05-2021 influenza, injectabl e, quadrivalent, preservative free Dr. Areli Scott Work Phone: [facility] 08-05-2021 influenza, seasonal, injectable Dr. Areli Scott Work Phone: [facility] Payers Date Payer Category Payer Self-pay [id number] 2019 Private Health Insurance 101 [id number] Unknown [id number] 2.16.8 [id number] Unknown [id number] 2.16.8 [id number] Unknown [id number] 2.16.8 [id number] Unknown [id number] 2.16.8 [id number] Unknown [id number] 2.16.8 [id number] Unknown [id number] 2.16.8 [id number] Unknown [id number] 2.16.8 [id number] Unknown [id number] 2.16.8 [id number] Unknown [id number] 2.16.8 [id number] Unknown [id number] 2.16.8 [id number] Unknown [id number] 2.16.8 [id number] Unknown [id number] 2.16.8 [id number] Unknown [id number] 2.16.8 [id number] Unknown [id number] 2.16.8 [id number] Unknown [id number] 2.16.8 [id number] Unknown [id number] 2.16.8 40.1.208639.3.579.2.462 Unknown [id number] 2.16.8 [id number] Unknown [id number] 2.16.8 [id number] Unknown [id number] 2.16.8 [id number] Social History Date Type Detail Facility Start: 01-31-2022 End: 01-02-2024 Tobacco smoking status NHIS Unknown if ever smoked [facility] Start: 1950 Sex Assigned At Female [facility] Mental Status Date Assessment Result Facility 05-20-2023 Cognitive function Level Of Cons ciousness Awake;Alert;Appropriate;Follow s Commands [facility] Work Phone: 04-09-2023 Cognitive function Voice/Name [facility] Work Phone: Clinical Notes 07-09-2025 Note Date & Type Note Facility 07-09-2025 Note HNO ID: [id number] Author: HEATH FIERRO, PhD Service: ? Author Type: Psychologist Type: Progress Notes Filed: 07/09/2025 16:00 Note Text: [facility] Behavioral Health Department Progress Note Richelle Morales 07/09/2025 [id number] PROVIDER: Heath Fierro, PhD CPT Code: Time: 50 minutes Setting: Patient seen in person Parties Present: Patient Treatment Modality/Interventions: Cognitive Behavioral Reassurance/Supportive Insight oriented Problem solving Processing of emotions Goal setting Psychoeducation MENTAL STATUS: Mood: variable, dysthymic Affect: mood-congruent Thoughts/Associations:goal directed Suicidal/Homicidal Ideation: None expressed or evidenced Other Prominent Symptoms: Therapy Focus/Content of Session: INITIAL VISIT Self-care, Stress management, Mood/affect regulation, and Marital/couple Richelle grew up in [place] w an 8yr older brother... 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 ask the PCP if that would be helpful MEDICATIONS: Per medical record: Current Outpatient Medications Medication Sig buPROPion XL (WELLBUTRIN XL) 300 mg 24 hr tablet Take 300 mg by mouth every morning. ASPIRIN ORAL Take 81 mg by mouth once daily. 2 tabs daily hydroCHLOROthiazide (HYDRODIURIL, ESIDRIX) 25 mg tablet Take 25 mg by mouth once daily. vilazodone (VIIBRYD) 10 mg Take 40 mg by mouth daily with breakfast. atorvastatin (LIPITOR) 10 mg tablet Take 10 mg by mouth once daily. TRAZODONE HCL (TRAZODONE ORAL) Take 0.5 mg by mouth daily at bedtime. ROSUVASTATIN CALCIUM (CRESTOR ORAL) Take by mouth. ALPRAZolam (XANAX) 0.5 mg ORAL tablet Take 0.5 mg by mouth at bedtime as needed. fluoxetine (PROZAC) 20 mg ORAL capsule Take 20 mg by mouth once daily. No current facility-administered medications for this visit. Psychiatric Medication Issues: see med record DIAGNOSIS: [place] I: Depression with Anxiety Self Esteem [place] II: deferred [place] III: see med record [place] IV: self esteem [place] V: 55-70 TREATMENT PROGRESS/ASSESSMENT: Progressing satisfactorily. TREATMENT PLAN/GOALS: Continue in therapy focusing on self-care, stress management, affect management, anxiety management, and self-esteem. Next appointment: as scheduled Heath Fierro PhD [facility] Chief complaint+Reason for visit Narrative Reason for Visit Anxiety and depressi on YOEL (obstructive sleep apnea) CKD (chronic kidney disease), stage III History of bursitis Hyperlipidemia Hypertension Obesity YOEL (obstructive sleep apnea) [facility] Work Phone: Evaluation note* Diagnosis Onset Date Resolution Status Anxiety and depression chron ic YOEL (obstructive sleep apnea) chronic CKD (chronic kidney disease), stage III chronic History of bursitis chronic Hyperlipidemia chronic Hypertension chronic Obesity chronic YOEL (obstructive sleep apnea) [facility] Work Phone: Evaluation note* Diagnosis Onset Date Resolution Status CKD (chronic kidney disease), stage III chronic History of bursitis chronic Hyperlipidemia chronic Hypertension chronic Obesity chronic YOEL (obstructive sleep apnea) chronic Arthritis of right glenohumeral joint acute Impingement syndrome of right shoulder acute Right shoulder pain acute [facility] Work Phone: Evaluation note* Diagnosis Onset Date Resolution Status Impingement syndrome of right shoulder acute Right shoulder pain acute Arthritis of right glenohumeral joint chronic Anxiety and depression chron ic Arthritis of right glenohumeral joint chronic Hypertension chronic YOEL (obstructive sleep apnea) [facility] Work Phone: Evaluation note* Diagnosis Onset Date Resolution Status Anxiety and depression chron ic Arthritis of right glenohumeral joint chronic Hypertension chronic YOEL (obstructive sleep apnea) [facility] Work Phone: Evaluation note* Diagnosis Onset Date Resolution Status Impacted cerumen, bilateral acute Unsteady gait when walking a cute Anxiety and depression chron ic Hypertension chronic Anxiety and depression chron ic Hyperlipidemia chronic Hypertension [facility] Work Phone: Evaluation note* Diagnosis Onset Date Resolution Status Anxiety and depression chron ic Hyperlipidemia chronic Hypertension chronic Anxiety and depression chron ic CKD (chronic kidney disease), stage III chronic Hypertension [facility] Work Phone: Evaluation note* Diagnosis Onset Date Resolution Status Anxiety and depression chron ic CKD (chronic kidney disease), stage III chronic Hypertension chronic Impingement syndrome of right shoulder acute Right shoulder pain acute Arthritis of right glenohumeral joint chronic [facility] Work Phone: Evaluation note* Diagnosis Onset Date Resolution Status Anxiety and depression chron ic CKD (chronic kidney disease), stage III chronic Hypertension chronic Impingement syndrome of right shoulder acute Right shoulder pain acute Arthritis of right glenohumeral joint chronic Acute lymphangitis of right lower extremity acute Cellulitis of leg without foot, right acute [facility] Work Phone: Evaluation note* Diagnosis Onset Date Resolution Status Impingement syndrome of right shoulder acute Right shoulder pain acute Arthritis of right glenohumeral joint chronic COVID-19 acute Acute superficial venous thr ombosis of right lower extremity acute Acute superficial venous thr ombosis of right lower extremity acute Anxiety and depression chron ic Hypertension chronic Impingement syndrome of right shoulder acute Arthritis of right glenohumeral joint chronic Acute superficial venous thr ombosis of right lower extremity acute Acute superficial venous thr ombosis of right lower extremity acute [facility] Work Phone: Evaluation note* Diagnosis Onset Date Resolution Status Hypertension chronic Preoperative evaluation to r ule out surgical contraindication acute Anxiety and depression chron ic Hypertension chronic YOEL (obstructive sleep apnea) chronic Health care maintenance acut e Anxiety and depression chron ic Hyperlipidemia chronic Hypertension chronic Osteopenia chronic [facility] Work Phone: Evaluation note* Diagnosis Onset Date Resolution Status Preoperative evaluation to r ule out surgical contraindication acute Anxiety and depression chron ic Hypertension chronic YOEL (obstructive sleep apnea) chronic Health care maintenance acut e Anxiety and depression chron ic Hyperlipidemia chronic Hypertension chronic Osteopenia chronic [facility] Work Phone: Hospital Discharge instructionsAmbulatory Orders* Vascular Location: None Selected [facility] Work Phone: Family History No Family History Records Found Relationship Condition Age at Onset Recorded Date/T alva aunt Malignant neoplasm of breast Unknown Malignant neoplasm of cervix Unknown brother Diabetes mellitus Unknown father Parkinson's disease Unknown grandmother Malignant neoplasm of uterus Unknown mother Leukemia Unknown Chief Complaint and Reason for Visit Chief Complaint 3 M FU Right shoulder xray R SUBACROMIAL/RC IMPINGEMENT. RX HERE Reason for Visit CKD (chronic kidney disease), stage III History of bursitis Hyperlipidemia Hypertension Obesity YOEL (obstructive sleep apnea) Arthritis of right glenohumeral joint Impingement syndrome of right shoulder Right shoulder pain Chief Complaint Right shoulder xray R SUBACROMIAL/RC IMPINGEMENT. RX HERE 4 M FU Reason for Visit Impingement syndrome of right shoulder Right shoulder pain Arthritis of right glenohumeral joint Anxiety and depression Arthritis of right glenohumeral joint Hypertension YOEL (obstructive sleep apnea) Chief Complaint 4 M FU YOEL Reason for Visit Anxiety and depressi on Arthritis of right glenohumeral joint Hypertension YOEL (obstructive sleep apnea) Chief Complaint 2 M FU 3 M FU Reason for Visit Impacted cerumen, bi lateral Unsteady gait when walking Anxiety and depression Hypertension Anxiety and depression Hyperlipidemia Hypertension Chief Complaint 3 M FU 3 m fu chest pain Reason for Visit Anxiety and depressi on Hyperlipidemia Hypertension Anxiety and depression CKD (chronic kidney disease), stage III Hypertension Chief Complaint 3 m fu chest pain RIGHT SHOULDER BLOOD CLOT RIGHT LEG REDDNESS AND PAIN Reason for Visit Anxiety and depressi on CKD (chronic kidney disease), stage III Hypertension Impingement syndrome of right shoulder Right shoulder pain Arthritis of right glenohumeral joint Chief Complaint 3 m fu chest pain RIGHT SHOULDER BLOOD CLOT RIGHT LEG REDDNESS AND PAIN RT LEG, ELEVATED D-DIMER [facility] FOLLOW UP - DV THROM Reason for Visit Anxiety and depressi on CKD (chronic kidney disease), stage III Hypertension Impingement syndrome of right shoulder Right shoulder pain Arthritis of right glenohumeral joint Acute lymphangitis of right lower extremity Cellulitis of leg without foot, right Chief Complaint RIGHT SHOULDER BLOOD CLOT RIGHT LEG REDDNESS AND PAIN RT LEG, ELEVATED D-DIMER [facility] FOLLOW UP - DV THROM POS HOME COVID Consult 4WK FU RE-EVAL FOR REFLUX RIGHT SHOULDER ABNORMAL EKG F/U RESULTS NEW PT - SVT Reason for Visit Impingement syndrome of right shoulder Right shoulder pain Arthritis of right glenohumeral joint COVID-19 Acute superficial venous thrombosis of right lower extremity Acute superficial venous thrombosis of right lower extremity Anxiety and depression Hypertension Impingement syndrome of right shoulder Arthritis of right glenohumeral joint Acute superficial venous thrombosis of right lower extremity Acute superficial venous thrombosis of right lower extremity Chief Complaint BP CHECK BP CHECK 3 M FU/SURGICAL CLEARANCE 3 M FU REVERSE SHOULDER REPLACEMENT. PT HAS RX/DR TO FAX Reason for Visit Hypertension Preoperative evaluation to rule out surgical contraindication Anxiety and depression Hypertension YOEL (obstructive sleep apnea) Health care maintenance Anxiety and depression Hyperlipidemia Hypertension Osteopenia Chief Complaint 3 M FU/SURGICAL BRIAN HENLEY 3 M FU SCREENING POST JENNIFER REVERSE SHOULDER REPLACEMENT. PT HAS RX/DR TO FAX Reason for Visit Preoperative evaluat ion to rule out surgical contraindication Anxiety and depression Hypertension YOEL (obstructive sleep apnea) Health care maintenance Anxiety and depression Hyperlipidemia Hypertension Osteopenia Advance Directives No Advanced Directives Records Found Advance Directive Response Recorded Date/ Time Living Will No April 09, 2023 8:10pm Power of Site Safety Manager No April 09 8:10pm Advance Directive Response Recorded Date/ Time Name of Medical Power of Site Safety Manager eddie ramos May 20, 2023 4:29pm Living Will Yes May 20, 2023 4:29pm Power of Site Safety Manager Yes May 20 4:29pm Advance Directive Response Recorded Date/ Time Living Will Yes September 19, 023 12:18pm Power of Site Safety Manager Yes September 19, 2023 12:18pm Summary Purpose Additional Source Comments Goals (unrecognized section and content) Goals may be documented in a n alternate sectionGoals may be documented in an alternate sectionGoals may be documented in an alternate sectionGoals may be documented in an alternate sectionGoals may be documented in an alternate sectionGoals may be documented in an alternate sectionGoals may be documented in an alternate sectionGoals may be documented in an alternate sectionGoals may be documented in an alternate sectionGoals may be documented in an alternate sectionGoals may be documented in an alternate section Care Teams (unrecognized sec tion and content) Team Status: Active Member Role Status Dates Dr. Areli Scott MD Family Provider Active Team Status: Inactive Member Role Status Dates Dr. Areli Scott MD Referring Provider Active Yohan BENJAMIN, PA Attending Provider Active Team Status: Active Member Role Status Dates Dr. Areli Scott MD Primary Care Provider Active Dr. Jarrod Thorne MD Attending Provider Active Dr. Dain Hussein DO Referring Provider Active Team Status: Inactive Member Role Status Dates Dr. Areli Scott MD Primary Care Bill marinelli, Attending Provider, Referring Provider Active Team Status: Active Member Role Status Dates Dr. Areli Scott MD Primary Care Provider Active Dr. Jarrod Thorne MD Attending Provider Active Dr. Josafat Marquez DO Referring Provider Active Team Status: Inactive Member Role Status Dates Dr. Areli Scott MD Primary Care Provider, Refer ring Provider Active SOURAV Brownlee Attending Provider Active Team Status: Inactive Member Role Status Dates Dr. Jeffrey Sherman MD Attending Provider Active Team Status: Inactive Member Role Status Dates Dr. Areli Scott MD Primary Care Provider, Refer ring Provider Active Dylon BENJAMIN, PA Attending Provider Active Team Status: Active Member Role Status Dates Dr. Areli Scott MD Primary Care Provider Active Dr. Josafat Vieyra MD Attending Provider, Referring Pro vider Active Team Status: Inactive Member Role Status Dates Dr. Areli Scott MD Referring Provider Active SOURAV Brownlee Attending Provider Active Team Status: Inactive Member Role Status Dates Dr. Areli Scott MD Primary Care Provider Active Dr. Josafat Marquez DO Attending Provider, Emergency P rovider Active Team Status: Inactive Member Role Status Dates Dr. Areli Scott MD Primary Care Provider Active Dr. Josafat Marquez DO Attending Provider, Referring P rovider Active Team Status: Inactive Member Role Status Dates Dr. Areli Scott MD Primary Care Provider Active SOURAV Brownlee Attending Provider, Referring Provid er Active Team Status: Inactive Member Role Status Dates Dr. Dain Hussein DO Attending Provider, Emergency P rovider Active Dr. Areli Scott MD Primary Care Provider Active Team Status: Active Member Role Status Dates Dr. Areli Scott MD Family Provider Active Dr. Areli Scott MD Primary Care Provider Active Team Status: Inactive Member Role Status Dates Dr. Areli Scott MD Primary Care Provider, Atten ding Provider Active Team Status: Inactive Member Role Status Dates Dr. Areli Scott MD Primary Care Provider Active Dr. Ngozi Carr MD Emergency Provider Active Team Status: Active Member Role Status Dates Dr. Areli Scott MD Primary Care Provider Active Dr. Jarrod Thorne MD Attending Provider Active Team Status: Inactive Member Role Status Dates Dr. Areli Scott MD Primary Care Provider Active Dr. Ngozi Carr MD Attending Provider, Emergency Provider Active Team Status: Inactive Member Role Status Dates Dr. Areli Scott MD Primary Care Provider Active Dr. Josafat Marquez , DO Emergency Provider Active Team Status: Inactive Member Role Status Dates Dr. Dain Hussein , DO Emergency Provider Active Dr. Areli Scott MD Primary Care Provider Active Team Status: Active Member Role Status Dates Dr. Areli Scott MD Primary Care Provider Active Dr. Carlin Cody MD Attending Provider, Toribio marinelli Active INFORMATION SOURCE (unrecogn ized section and content) DATE CREATED AUTHOR 11/09/2023 [facility] DATE CREATED AUTHOR AUTHOR'S ORGANIZ ATION 07/13/2025 [facility] DATE CREATED AUTHOR AUTHOR'S ORGANIZ ATION 08/23/2025 [facility] FOR RECORDS PERTAINING TO PATIENTS WHO ARE [...] BE BASED ON THE PRIMARY CLINICAL RECORDS. [employer] provides no warranty or guarantee of the accuracy or completeness of information in this document.
[2025-09-27 13:54] LABS: Troponin T High Sens 2 HR 14 ng/L (<=14)
== END 2025-09-27 15:08 | disposition home or self-care (01) ==
PROVIDERS: Emergency Provider Emergency Medicine; PCP Internal Medicine; Visit Provider Emergency Medicine
DX: R07.9 Chest pain, unspecified (principal); N18.30 Chronic kidney disease, stage 3 unspecified; Z86.718 Personal history of other venous thrombosis and embolism; E78.5 Hyperlipidemia, unspecified; I12.9 Hypertensive chronic kidney disease with stage 1 through stage 4 chronic kidney disease, or unspecified chronic kidney disease; Z79.82 Long term (current) use of aspirin; Z79.899 Other long term (current) drug therapy
CPT/HCPCS: 71046; 80048; 84484; 85025; 93005; 99285; A4216

== ENCOUNTER → 2025-09-30 | Outpatient (CLI) | payer MEDICARE, SELFPAY ==
--- NOTE | 2025-09-30 18:04 | STRESSREP ---
Stress Test Report Exercise stress test. [75]-year-old [female] with a history of [chest pain]. Stress protocol: Resting EKG demonstrates [normal sinus] rhythm with a rate of [70] bpm resting blood pressure is [124/82] mmHg. No evidence of ongoing ischemia or prior infarction on resting EKG, normal intervals. The patient exercised according to the regular Kevin protocol for a total duration of [4 minutes and 36 seconds] attaining a maximum heart rate of [133] bpm which was [91]% of maximum predicted heart rate; the maximum workload was [7] metabolic equivalents. At rest there were no ST or T wave changes noted to suggest ischemia and at peak exercise upsloping ST changes only were noted which did not meet the criteria for ischemia. No clinical angina was noted the test was terminated due to the target heart rate being achieved/fatigue. The peak blood pressure was [198/70] mmHg. Rate-pressure product was [[id number]]. Conclusion: No electrocardiographic evidence of myocardial ischemia on exercise stress test.
== END | disposition home or self-care (01) ==
LOC: CVS 09:27
PROVIDERS: PCP Internal Medicine; Referring Provider Emergency Medicine; Visit Provider Emergency Medicine
DX: R07.9 Chest pain, unspecified (principal)
CPT/HCPCS: 93017

== ENCOUNTER → 2025-10-13 | Outpatient (CLI) | payer MEDICARE, SELFPAY ==
--- OUTSIDE RECORDS SUMMARY | 2025-10-13 09:45 | XMS RPT_ITS | CCD ---
Author Organization [facility] Care Team Providers Care Guard Driver Name Role Phone Dr. Areli Scott Primary [...] Attending Provider Dr. Dain Hussein Referring Provider Dr. Areli Scott Referring Provider [phone] [place], [...] Amoxicillin; Translations: [AMOXICILLIN] Drug Allergy 8 Vomiting [facility] (11 sources) Clavulanate Drug Allergy 2 Vomiting [facility] (11 sources) Clindamycin Drug Allergy 2 Rash [facility] (2 sources) Clindamycin; Translations: [CLINDAMYCIN HCL] Drug Allergy 1 [facility] Repository (2 sources) AMOXICILLIN-POT CLAVULANATE; Translations: [AMOXICILLIN-POT CLAVULANATE] Propensity to adverse reactions to drug (disorder) 8 [facility] Repository (1 source) Amoxicillin Drug Allergy 5 [facility] Repository (1 source) Clavulanate Drug Allergy 5 [facility] Repository (1 source) Clindamycin Drug Allergy 5 [facility] Repository Medications Current Medications Medication Drug [...] appliance (11 sources) 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 .Route .MEDSUPPLY November 15, 2021 2:42pm As directed 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 .Route .MEDSUPPLY November [...] Test Name Value Interpretation Reference Range Facility [facility] 07-09-2025 CNOV Office Visit (PSYLWM ) RICHELLE MORALES ([id number]) 1950 F Date Time Provider Department 07/09/25 2:00 PM HEATH FIERRO PSYLWM During your visit today, we recorded the following information about you: Heath Fierro, PhD 07/09/2025 4:00 PM Signed [facility] Department Progress Note Richelle Morales 07/09/2025 [id number] PROVIDER: Heath Fierro, PhD CPT Code: Time: [...] regulation, and Marital/couple Richelle grew up in [place] w an 8yr older brother... 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 TREATMENT [...] Status:Closed by HEATH FIERRO on 07/09/25 Normal [facility] Coronary Angiography CTon Coronary Angiography CT [facility] Imaging Services [address] [place] [address] 07/08/25 190 MR#: [id number] Acct: [id number] Name: RICHELLE MORALES Rep #: [id number] : 1950 75 From: Subhash Penaloza MD [...] MD; Dr. Areli Scott MD Signed Normal [facility] Limited Chest CT Cardiac Onl yon 06-23-[address] Cardiac Only [facility] Imaging Services [address] [place], [place] [address] Limited Chest CT Cardiac Only MR#: [id number] Acct: [id number] Name: RICHELLE MORALES Rep #: [id number] : 1950 F 75 From: Jatin rodney MD PCP: Dr. Areli Scott MD Status: REG REF Study: Limited Chest CT Cardiac Only Date of Exam: Exam# [id number] Ordering Dr: Areli Scott MD PROCEDURE: LIMITED [...] Only IMPRESSION: Coronary artery calcification. Reading Location: [place] [address] CC: Dr. Areli Scott MD Instructional Design Consultant: Signed Normal [facility] CBC W/Diff, Automatedon 05-22 Absolute Lymph 1.47 X10 3/uL Normal 0.83-4.51 [facility] Comment on above: Performed By: #### L 500.2500 #### [facility] [address] [place], [place], [address] Absolute Neut 4.4 X10 3/uL Normal 2.0-7.7 [facility] Comment on above: Performed By: #### L 500.2500 #### [facility] [address] [place], [address] Basophils/100 WBC (Bld) 0.7 % Normal 0-1 [facility] Comment on above: Performed By: #### L 500.2500 #### [facility] [address] [place], [address] Eosinophils/100 WBC (Bld) 5.0 % Normal 0-5 [facility] Comment on above: Performed By: #### L 500.2500 #### [facility] [address] [place], [address] Erythrocyte distribution width (RBC) [Ratio] 14.3 % Normal 11.6-14.6 [facility] Comment on above: Performed By: #### L 500.2500 #### [facility] [address] [place], [address] Hematocrit (Bld) [Volume fraction] 42.9 % Normal 37-47 [facility] Comment on above: Performed By: #### L 500.2500 #### [facility] [address] [place], [address] Hemoglobin (Bld) [Mass/Vol] 14.4 g/dL Normal 12.0-15.0 [facility] Comment on above: Performed By: #### L 500.2500 #### [facility] [address] [place], [address] IG% 0.300 Normal 0.0-0.9 [facility] Comment on above: Result Comment: IG% - Immature Granulocytes (promyelocytes, myelocytes and metamyelocytes) > 1% indicates that a LEFT SHIFT is Present. Performed By: #### L 500.2500 #### [facility] [address] [place], [address] Lymphocytes/100 WBC (Bld) 21.0 % Normal 19-41 [facility] Comment on above: Performed By: #### L 500.2500 #### [facility] [address] [place], [address] MCH (RBC) [Entitic mass] 29.4 pg Normal 27.0-32.0 [facility] Comment on above: Performed By: #### L 500.2500 #### [facility] [address] [place], [address] MCHC (RBC) [Mass/Vol] 33.6 g/dL Normal 32-36 [facility] Comment on above: Performed By: #### L 500.2500 #### [facility] [address] [place], [address] MCV (RBC) [Entitic vol] 87.6 fL Normal 81-99 [facility] Comment on above: Performed By: #### L 500.2500 #### [facility] [address] [place], [address] Monocytes/100 WBC (Bld) 10.1 % High 0-10 [facility] Comment on above: Performed By: #### L 500.2500 #### [facility] [address] [place], [address] Neutrophils/100 WBC (Bld) 62.9 % Normal 47-70 [facility] Comment on above: Performed By: #### L 500.2500 #### [facility] [address] [place], [address] Nucleated RBC (Bld) [#/Vol] 0 10*3/uL Normal 0-5 [facility] Comment on above: Performed By: #### L 500.2500 #### [facility] [address] [place], [address] Platelet mean volume (Bld) [Entitic vol] 10.2 fL Normal 6.2-12.0 [facility] Comment on above: Performed By: #### L 500.2500 #### [facility] [address] [place], [address] Platelets (Bld) [#/Vol] 276 10*3/uL Normal 150-450 [facility] Comment on above: Performed By: #### L 500.2500 #### [facility] [address] [place], [address] RBC (Bld) [#/Vol] 4.90 10*6/uL Normal 4.2-5.4 [facility] Comment on above: Performed By: #### L 500.2500 #### [facility] [address] [place], [address] RDW SD 45.6 fl High 35.1-43.9 [facility] Comment on above: Performed By: #### L 500.2500 #### [facility] [address] [place], [address] WBC (Bld) [#/Vol] 7.0 10*3/uL Normal 4.4-11.0 [facility] Comment on above: Performed By: #### L 500.2500 #### [facility] [address] [place], [address] Comprehensive Metabolic Prof [facility] 06-03-2025 Albumin [Mass/Vol] 4.4 g/dL Normal 3.4-4.8 [facility] Comment on above: Performed By: #### L 500.2500 #### [facility] [address] [place], [address] Albumin/Globulin [Mass ratio] 1.9 {ratio} Normal 0.9-2.4 [facility] Comment on above: Performed By: #### L 500.2500 #### [facility] [address] [place], [address] ALK PHOS 107 U/L High 35-104 [facility] Comment on above: Performed By: #### L 500.2500 #### [facility] [address] [place], [address] ALT [Catalytic activity/Vol] 25 U/L Normal <=34 [facility] Comment on above: Performed By: #### L 500.2500 #### [facility] [address] [place], [address] AST [Catalytic activity/Vol] 25 U/L Normal <=31 [facility] Comment on above: Performed By: #### L 500.2500 #### [facility] [address] [place], [address] Bilirubin [Mass/Vol] 0.54 mg/dL Normal 0.00-1.30 [facility] Comment on above: Performed By: #### L 500.2500 #### [facility] [address] [place], [address] BUN/CRE 16.3 RATIO Normal 10-20 [facility] Comment on above: Performed By: #### L 500.2500 #### [facility] [address] [place], [address] Calcium [Mass/Vol] 9.9 mg/dL Normal 7.6-11.0 [facility] Comment on above: Performed By: #### L 500.2500 #### [facility] [address] [place], [address] Chloride [Moles/Vol] 100 mmol/L Normal 98-108 [facility] Comment on above: Performed By: #### L 500.2500 #### [facility] [address] [place], [address] CO2 [Moles/Vol] 23.9 mmol/L Normal 21.0-32.0 [facility] Comment on above: Performed By: #### L 500.2500 #### [facility] [address] [place], [address] Creatinine [Mass/Vol] 1.02 mg/dL Normal 0.70-1.20 [facility] Comment on above: Performed By: #### L 500.2500 #### [facility] [address] [place], [address] GAP 13 Normal 5-15 [facility] Comment on above: Performed By: #### L 500.2500 #### [facility] [address] [place], [address] GFR/1.73 sq M.predicted among non-blacks MDRD (S/P/Bld) [Vol rate/Area] 58 mL/min/{1.73_m2} Low >60 [facility] Comment on above: Result Comment: mL/m in/1.73m2 CKD-EPI Creatinine Equation (2020) Performed By: #### L 500.2500 #### [facility] [address] [place], [address] Globulin (S) [Mass/Vol] 2.3 g/dL Normal 2.2-4.2 [facility] Comment on above: Performed By: #### L 500.2500 #### [facility] [address] [place], [address] Glucose [Mass/Vol] 90 mg/dL Normal 70-99 [facility] Comment on above: Performed By: #### L 500.2500 #### [facility] [address] [place], [address] Potassium [Moles/Vol] 3.3 mmol/L Normal 3.3-5.1 [facility] Comment on above: Performed By: #### L 500.2500 #### [facility] [address] [place], [address] Sodium [Moles/Vol] 137 mmol/L Normal 133-145 [facility] Comment on above: Performed By: #### L 500.2500 #### [facility] [address] [place], [place], [address] T PROT 6.7 g/dL Normal 5.9-8.4 [facility] Comment on above: Performed By: #### L 500.2500 #### [facility] [address] [place], [address] Urea nitrogen [Mass/Vol] 17 mg/dL Normal 4-19 [facility] Comment on above: Performed By: #### L 500.2500 #### [facility] [address] [place], [place], [address] Internal Medicine Office Vis adam 06-03-2025 Internal Medicine Office Visit [facility] [address] [place] [address] OFFICE VISIT Date of Service: 06/03/25 MR#: [id number] Acct: [id number] Name: RICHELLE MORALES Rep #: [id number] : 1950 Provider: Dr. 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 Normal [facility] Basic Metabolic Profile (BMP )on 03-02-2025 BUN/CRE 17.8 RATIO Normal 10-20 [facility] Comment on above: Performed By: #### L 500.2500 #### [facility] [address] [facility] [place], [address] Calcium [Mass/Vol] 10.0 mg/dL Normal 7.6-11.0 [facility] Comment on above: Performed By: #### L 500.2500 #### [facility] [address] [place], [address] Chloride [Moles/Vol] 101 mmol/L Normal 98-108 [facility] Comment on above: Performed By: #### L 500.2500 #### [facility] [address] [place], [address] CO2 [Moles/Vol] 24.5 mmol/L Normal 21.0-32.0 [facility] Comment on above: Performed By: #### L 500.2500 #### [facility] [address] [place], [address] Creatinine [Mass/Vol] 1.00 mg/dL Normal 0.70-1.20 [facility] Comment on above: Performed By: #### L 500.2500 #### [facility] [address] [place], [address] GAP 12 Normal 5-15 [facility] Comment on above: Performed By: #### L 500.2500 #### [facility] [address] [place], [address] GFR/1.73 sq M.predicted among non-blacks MDRD (S/P/Bld) [Vol rate/Area] 60 mL/min/{1.73_m2} Normal >60 [facility] Comment on above: Result Comment: mL/m in/1.73m2 CKD-EPI Creatinine Equation (2020) Performed By: #### L 500.2500 #### [facility] [address] [place], [address] Glucose [Mass/Vol] 88 mg/dL Normal 70-99 [facility] Comment on above: Performed By: #### L 500.2500 #### [facility] [address] [place], [address] Potassium [Moles/Vol] 4.0 mmol/L Normal 3.3-5.1 [facility] Comment on above: Performed By: #### L 500.2500 #### [facility] [address] [place], [address] Sodium [Moles/Vol] 137 mmol/L Normal 133-145 [facility] Comment on above: Performed By: #### L 500.2500 #### [facility] [address] [place], [address] Urea nitrogen [Mass/Vol] 18 mg/dL Normal 4-19 [facility] Comment on above: Performed By: #### L 500.2500 #### [facility] [address] [place], [address] Internal Medicine Office Vis iton 03-02-2025 Internal Medicine Office Visit [facility] [address] [place] [address] OFFICE VISIT Date of Service: 03/02/25 MR#: [id number] Acct: [id number] Name: RICHELLE MORALES Rep #: [id number] : 1950 Provider: Dr. Areli carrillo MD Age/Sex: 74/F Location: [facility] Status: Signed Intake Vital Signs 11/27/24 13:49 [...] of breat (more content not included)... Normal [facility] Rubeola IgG Abon 01-30-2025 RUBEOLA Ab, IgG 97.1 AU/mL Normal Immune >16.4 [facility] Comment on above: Result Comment: Nega tive <13.5 Equivocal 13.5 - 16.4 Positive >16.4 Presence of antibodies to Rubeola is presumptive evidence of immunity except when acute infection is suspected. Performed at: - [facility] [id number] Casing Crew: Sid Butts PhD, Phone: [phone] Performed By: #### L 3669.3944 #### [facility] [address] [place], [address] SCRN MAMM (CAD)W/VINNIE Metzger n 01-23-2025 SCRN MAMM (CAD)W/VINNIE BILAT [facility] Imaging Services [address] [place], [place] [address] SCRN MAMM (CAD)W/VINNIE BILAT MR#: [id number] Acct: [id number] Name: RICHELLE MORALES Rep #: [id number] : 1950 F 74 From: Debbie Mulligan MD PCP: Dr. Areli Scott MD Status: REG CLI Study: SCRN MAMM (CAD)W/VINNIE BILAT Date of Exam: 02/13 Exam# [id number] Ordering Dr: Areli Scott MD EXAM: SCRN [...] be mailed to the patient. Reading Location: [id number] CC: Dr. Areli Scott MD Instructional Design Consultant: Signed Normal [facility] L3410.9998on 12-23-2024 [facility]. COMMENT Normal . [facility] Comment on above: Order Comment: MAURICIO Obando SERUM [id number] PROINSULIN Result Comment: Test Ordered: [id number] Proinsulin Proinsulin 4.9 pmol/L Reference Range: 0.0-10.0 Performed at: - [facility] [id number] Casing Crew: Guera Adames MD, Phone: [phone] Performed at: [address] [id number] Casing Crew: Sid Butts PhD, Phone: [phone] Performed By: #### L 3410.9998 #### [facility] [address] [place], [place], [address] C-Peptideon 12-21-2024 C PEPTIDE 3.1 ng/mL Normal 1.1-4.4 [facility] Comment on above: Result Comment: C-Pe ptide reference interval is for fasting patients. Performed By: #### L 7045.7704, L3300.1852, X368.4529 #### [facility] [address] [place], [place], [address] Insulin Levelon 12-21-2024 INSULIN,FASTING 9.5 uIU/mL Normal 2.6-24.9 [facility] Comment on above: Result Comment: Perf ormed at: [address] [id number] Casing Crew: Sid Butts PhD, Phone: [phone] Performed By: #### L 1385.7773, L3525.3506, O457.8102 #### [facility] [address] [place], [place], [address] Internal Medicine Office Vis ito 12-19-2024 Internal Medicine Office Visit [facility] [address] [place] [address] [address] [place], [place] [address] OFFICE VISIT Date of Service: 12/19/24 MR#: [id number] Acct: [id number] Name: RICHELLE MORALES Rep #: [id number] : 1950 Provider: SOURAV Childress Age/Sex: 74/F Location: [facility] Status: Signed Intake Vital Signs 11/27/24 13:49 [...] habits, constipation (more content not included)... Normal [facility] Thyroid Stim Hormone (TSH)on 12-19-2024 TSH 2.650 uIU/mL Normal 0.300-4.200 [facility] Comment on above: Performed By: #### L 3100.7750, L3300.3500, L501.9520 #### [facility] [address] [place], [address] CBC W/Diff, Automatedon Absolute Lymph 1.46 X10 3/uL Normal 0.83-4.51 [facility] Comment on above: Performed By: #### L 500.4100, L500.4050, L100.0100 #### [facility] [address] [place], [address] Absolute Neut 3.6 X10 3/uL Normal 2.0-7.7 [facility] Comment on above: Performed By: #### L 500.4100, L500.4050, L100.0100 #### [facility] [address] [place], [address] Basophils/100 WBC (Bld) 1.0 % Normal 0-1 [facility] Comment on above: Performed By: #### L 500.4100, L500.4050, L100.0100 #### [facility] [address] [place], [address] Eosinophils/100 WBC (Bld) 4.4 % Normal 0-5 [facility] Comment on above: Performed By: #### L 500.4100, L500.4050, L100.0100 #### [facility] [address] [place], [address] Erythrocyte distribution width (RBC) [Ratio] 14.2 % Normal 11.6-14.6 [facility] Comment on above: Performed By: #### L 500.4100, L500.4050, L100.0100 #### [facility] [address] [place], [address] Hematocrit (Bld) [Volume fraction] 42.8 % Normal 37-47 [facility] Comment on above: Performed By: #### L 500.4100, L500.4050, L100.0100 #### [facility] [address] [place], [address] Hemoglobin (Bld) [Mass/Vol] 13.9 g/dL Normal 12.0-15.0 [facility] Comment on above: Performed By: #### L 500.4100, L500.4050, L100.0100 #### [facility] [address] [place], [address] IG% 0.300 Normal 0.0-0.9 [facility] Comment on above: Result Comment: IG% - Immature Granulocytes (promyelocytes, myelocytes and metamyelocytes) > 1% indicates that a LEFT SHIFT is Present. Performed By: #### L 500.4100, L500.4050, L100.0100 #### [facility] [address] [place], [address] Lymphocytes/100 WBC (Bld) 24.0 % Normal 19-41 [facility] Comment on above: Performed By: #### L 500.4100, L500.4050, L100.0100 #### [facility] [address] [place], [address] MCH (RBC) [Entitic mass] 28.9 pg Normal 27.0-32.0 [facility] Comment on above: Performed By: #### L 500.4100, L500.4050, L100.0100 #### [facility] [address] [place], [address] MCHC (RBC) [Mass/Vol] 32.5 g/dL Normal 32-36 [facility] Comment on above: Performed By: #### L 500.4100, L500.4050, L100.0100 #### [facility] [address] [place], [address] MCV (RBC) [Entitic vol] 89.0 fL Normal 81-99 [facility] Comment on above: Performed By: #### L 500.4100, L500.4050, L100.0100 #### [facility] [address] [place], [address] Monocytes/100 WBC (Bld) 11.3 % High 0-10 [facility] Comment on above: Performed By: #### L 500.4100, L500.4050, L100.0100 #### [facility] [address] [place], [address] Neutrophils/100 WBC (Bld) 59.0 % Normal 47-70 [facility] Comment on above: Performed By: #### L 500.4100, L500.4050, L100.0100 #### [facility] [address] [place], [address] Nucleated RBC (Bld) [#/Vol] 0 10*3/uL Normal 0-5 [facility] Comment on above: Performed By: #### L 500.4100, L500.4050, L100.0100 #### [facility] [address] [place], [address] Platelet mean volume (Bld) [Entitic vol] 10.4 fL Normal 6.2-12.0 [facility] Comment on above: Performed By: #### L 500.4100, L500.4050, L100.0100 #### [facility] [address] [place], [address] Platelets (Bld) [#/Vol] 261 10*3/uL Normal 150-450 [facility] Comment on above: Performed By: #### L 500.4100, L500.4050, L100.0100 #### [facility] [address] [place], [address] RBC (Bld) [#/Vol] 4.81 10*6/uL Normal 4.2-5.4 [facility] Comment on above: Performed By: #### L 500.4100, L500.4050, L100.0100 #### [facility] [address] [place], [address] RDW SD 45.9 fl High 35.1-43.9 [facility] Comment on above: Performed By: #### L 500.4100, L500.4050, L100.0100 #### [facility] [address] [place], [address] WBC (Bld) [#/Vol] 6.1 10*3/uL Normal 4.4-11.0 [facility] Comment on above: Performed By: #### L 500.4100, L500.4050, L100.0100 #### [facility] [address] [place], [address] Comprehensive Metabolic Prof txon 11-27-2024 Albumin [Mass/Vol] 3.7 g/dL Normal 3.2-5.0 [facility] Comment on above: Performed By: #### L 500.4100, L500.4050, L100.0100 #### [facility] [address] [place], [address] Albumin/Globulin [Mass ratio] 1.2 {ratio} Normal 0.9-2.4 [facility] Comment on above: Performed By: #### L 500.4100, L500.4050, L100.0100 #### [facility] [address] [place], [address] ALK P 106 U/L Normal 45-117 [facility] Comment on above: Performed By: #### L 500.4100, L500.4050, L100.0100 #### [facility] [address] [place], [address] ALT [Catalytic activity/Vol] 29 U/L Normal 13-56 [facility] Comment on above: Performed By: #### L 500.4100, L500.4050, L100.0100 #### [facility] [address] [place], [address] AST [Catalytic activity/Vol] 15 U/L Normal 15-37 [facility] Comment on above: Performed By: #### L 500.4100, L500.4050, L100.0100 #### [facility] [address] [place], [address] Bilirubin [Mass/Vol] 0.80 mg/dL Normal 0.20-1.00 [facility] Comment on above: Result Comment: For patients on eltrombopag therapy, use of Dimension [place] TBIL is not recommended. Performed By: #### L 500.4100, L500.4050, L100.0100 #### [facility] [address] [place], [address] BUN/CRE 22.5 RATIO High 10-20 [facility] Comment on above: Performed By: #### L 500.4100, L500.4050, L100.0100 #### [facility] [address] [place], [address] CA,Total 9.3 mg/dL Normal 8.5-10.1 [facility] Comment on above: Performed By: #### L 500.4100, L500.4050, L100.0100 #### [facility] [address] [place], [address] Chloride [Moles/Vol] 102 mmol/L Normal 98-107 [facility] Comment on above: Performed By: #### L 500.4100, L500.4050, L100.0100 #### [facility] [address] [place], [address] CO2 [Moles/Vol] 28.0 mmol/L Normal 21.0-32.0 [facility] Comment on above: Performed By: #### L 500.4100, L500.4050, L100.0100 #### [facility] [address] [place], [address] Creatinine [Mass/Vol] 0.98 mg/dL Normal 0.55-1.02 [facility] Comment on above: Result Comment: The validity of the calculated GFR GFRAA in patients over 70 years has not been determined. Clinical correlation is essential. Performed By: #### L 500.4100, L500.4050, L100.0100 #### [facility] [address] [place], [address] EST GFR - AA 72 mL/min Normal >60 [facility] Comment on above: Result Comment: Afri can [place] GFR Calc Performed By: #### L 500.4100, L500.4050, L100.0100 #### [facility] [address] [place], [address] GAP 7 Normal 5-15 [facility] Comment on above: Performed By: #### L 500.4100, L500.4050, L100.0100 #### [facility] [address] [place], [address] GFR/1.73 sq M.predicted among non-blacks MDRD (S/P/Bld) [Vol rate/Area] 59 mL/min/{1.73_m2} Low >60 [facility] Comment on above: Result Comment: Non- GFR Calc Performed By: #### L 500.4100, L500.4050, L100.0100 #### [facility] [address] [place], [address] Globulin (S) [Mass/Vol] 3.1 g/dL Normal 2.2-4.2 [facility] Comment on above: Performed By: #### L 500.4100, L500.4050, L100.0100 #### [facility] [address] [place], [address] Glucose [Mass/Vol] 86 mg/dL Normal 74-106 [facility] Comment on above: Performed By: #### L 500.4100, L500.4050, L100.0100 #### [facility] [address] [place], [address] Potassium [Moles/Vol] 3.5 mmol/L Normal 3.5-5.1 [facility] Comment on above: Performed By: #### L 500.4100, L500.4050, L100.0100 #### [facility] [address] [place], [address] Sodium [Moles/Vol] 137 mmol/L Normal 136-145 [facility] Comment on above: Performed By: #### L 500.4100, L500.4050, L100.0100 #### [facility] [address] [place], [address] T PROT 6.8 g/dL Normal 6.4-8.2 [facility] Comment on above: Performed By: #### L 500.4100, L500.4050, L100.0100 #### [facility] [address] [place], [address] Urea nitrogen [Mass/Vol] 22 mg/dL High 7-18 [facility] Comment on above: Performed By: #### L 500.4100, L500.4050, L100.0100 #### [facility] [address] [place], [address] Internal Medicine Office Vis adam 11-27-2024 Internal Medicine Office Visit [facility] [address] [place] [address] OFFICE VISIT Date of Service: 11/27/24 MR#: [id number] Acct: [id number] Name: RICHELLE MORALES Rep #: [id number] : 1950 Provider: Dr. Areli carrillo MD Age/Sex: 74/F Location: [facility] [place] [facility] Status: Signed Intake Vital Signs 08/27/24 09:52 [...] 3 M FU Chief Complaint: 3M F/U Coating Engineer Required: No Accompanied by: Self Is patient [...] No burn (more content not included)... Normal [facility] Lipid Profileon 11-27-2024 Cholesterol [Mass/Vol] 157 mg/dL Normal 200 [facility] Comment on above: Result Comment: <200 mg/dL Desirable 200-240 mg/dL Borderline >240 mg/dL High Risk Performed By: #### L 500.4100, L500.4050, L100.0100 #### [facility] [address] [facility] [place], [address] Cholesterol in HDL [Mass/Vol] 57 mg/dL Normal [facility] Comment on above: Result Comment: The drugs N-Acetylcysteine and Metamizole may falsely depress this assay. Reference Range HDL <40 mg/dL Low HDL Cholesterol HDL >or= 60 mg/dL High HDL Cholesterol Performed By: #### L 500.4100, L500.4050, L100.0100 #### [facility] [address] [place], [address] Cholesterol in LDL [Mass/Vol] 78 mg/dL Normal 0-130 [facility] Comment on above: Performed By: #### L 500.4100, L500.4050, L100.0100 #### [facility] [address] [place], [address] Cholesterol in VLDL [Mass/Vol] 22 mg/dL Normal 5-40 [facility] Comment on above: Performed By: #### L 500.4100, L500.4050, L100.0100 #### [facility] [address] [place], [address] Triglyceride [Mass/Vol] 108 mg/dL Normal [facility] Comment on above: Result Comment: The drugs N-Acetylcysteine and Metamizole may falsely depress this assay. Serum Triglycerides Reference Interval Normal <150 mg/dL Borderline high 150 - 199 mg/dL High 200 - 499 mg/dL Very High > or = 500 mg/dL Performed By: #### L 500.4100, L500.4050, L100.0100 #### [facility] [address] [place], [address] Office Visit Reporton 2023 Office Visit Report [facility] [address] [place] [address] OFFICE VISIT Date of Service: 09/03/24 MR#: [id number] Acct: [id number] Patient: RICHELLE MORALES Rep #: [id number] : 1950 Provider: JOAN NURSE Age/Sex: 74/F Location: [facility] [place] [facility] Status: Signed Intake Vital Signs 08/27/24 09:52 [...] Performing Provider: Areli Scott MD Performing Location: [facility] Administered by: Susi Ely MA on 09/03/24 11:10 Dose Route Admin Location Dispensed Lot Number Expiration Date ND Man ufacturer 45 mcg IM Left Deltoid 0.5 mL [id number] 02/20/25 00448-029-17 [employer], [employer]. VIS Given Date VIS Provided VIS Publication [...] Cosigner Signature: Date (if applicable) CC: Normal [facility] Basic Metabolic Profile (BMP )on 08-27-2024 BUN/CRE 15.7 RATIO Normal 10-20 [facility] Comment on above: Performed By: #### L 500.2500 #### [facility] [address] [place], [place], [id number] CA,Total 9.9 mg/dL Normal 8.5-10.1 [facility] Comment on above: Performed By: #### L 500.2500 #### [facility] [address] [place], [address] Chloride [Moles/Vol] 103 mmol/L Normal 98-107 [facility] Comment on above: Performed By: #### L 500.2500 #### [facility] [address] [place], [address] CO2 [Moles/Vol] 30.0 mmol/L Normal 21.0-32.0 [facility] Comment on above: Performed By: #### L 500.2500 #### [facility] [address] [place], [address] Creatinine [Mass/Vol] 1.02 mg/dL Normal 0.55-1.02 [facility] Comment on above: Result Comment: The validity of the calculated GFR GFRAA in patients over 70 years has not been determined. Clinical correlation is essential. Performed By: #### L 500.2500 #### [facility] [address] [place], [address] EST GFR - AA 68 mL/min Normal >60 [facility] Comment on above: Result Comment: Afri can [place] GFR Calc Performed By: #### L 500.2500 #### [facility] [address] [place], [address] GAP 5 Normal 5-15 [facility] Comment on above: Performed By: #### L 500.2500 #### [facility] [address] [place], [address] GFR/1.73 sq M.predicted among non-blacks MDRD (S/P/Bld) [Vol rate/Area] 56 mL/min/{1.73_m2} Low >60 [facility] Comment on above: Result Comment: Non- GFR Calc Performed By: #### L 500.2500 #### [facility] [address] [place], [address] Glucose [Mass/Vol] 83 mg/dL Normal 74-106 [facility] Comment on above: Performed By: #### L 500.2500 #### [facility] [address] [place], [address] Potassium [Moles/Vol] 4.1 mmol/L Normal 3.5-5.1 [facility] Comment on above: Performed By: #### L 500.2500 #### [facility] [address] [place], [place], [address] Sodium [Moles/Vol] 138 mmol/L Normal 136-145 [facility] Comment on above: Performed By: #### L 500.2500 #### [facility] [address] [place], [place], [address] Urea nitrogen [Mass/Vol] 16 mg/dL Normal 7-18 [facility] Comment on above: Performed By: #### L 500.2500 #### [facility] [address] [place], [place], [address] Internal Medicine Office Vis itosherri 08-27-2024 Internal Medicine Office Visit [facility] [address] [place], [place] [address] OFFICE VISIT Date of Service: 08/27/24 MR#: [id number] Acct: [id number] Name: RICHELLE MORALES Rep #: [id number] : 1950 Provider: Dr. Areli carrillo MD Age/Sex: 74/F Location: [facility] [place] Status: Signed Intake Vital Signs 05/23/24 08:36 [...] M FU Chief Complaint: FU Chronic Conditions Coating Engineer Required: No Is patient in pain?: No [...] vomiting Genitourinar (more content not included)... Normal [facility] MR/BMS.BPon 08-27-2024 MR/BMS.BP [address], [address] [place] [id number] OFFICE VISIT Date of Service: 08/27/24 MR#: [id number] Acct: [id number] Name: RICHELLE MORALES Rep #: [id number] : 1950 Provider: YANELI saab Age/Sex: 74/F Location: [facility] [place] [facility] Status: Signed Intake Vital Signs 06/18/24 10:59 [...] Admits to sometimes having difficulty falling asleep. [place] a lot of regret about wasting her time and another day passing but this has eased with use of sertraline. 6 hours per night. Interest: Does feel this has improved significantly with sertraline. [place] this was an issue for years and [...] she wo (more content not included)... Normal [facility] Basophil percentageOrdered B y: Kyreetono Tyler on 01-02-2024 Bilirubin [Mass/Vol] 0.50 mg/dL 0.20-1.00 [facility] Comment on above: For patients on eltr ombopag therapy, use of Dimension [place] TBIL is not recommended. Chloride [Moles/Vol] 101 mmol/L 98-107 [facility] Cholesterol [Mass/Vol] 162 mg/dL <200 [facility] Comment on above: <200 mg/dL Desirable 200-240 mg/dL Borderline >240 mg/dL High Risk Glucose [Mass/Vol] 77 mg/dL 74-106 [facility] Potassium [Moles/Vol] 3.7 mmol/L 3.5-5.1 [facility] Protein [Mass/Vol] 7.0 g/dL 6.4-8.2 [facility] Sodium [Moles/Vol] 138 mmol/L 136-145 [facility] Triglyceride [Mass/Vol] 105 mg/dL <199 [facility] Comment on above: The drugs N-Acetylcy steine and Metamizole may falsely depress this assay.Serum Triglycerides Reference Interval Normal <150 mg/dL Borderline high 150 - 199 mg/dL High 200 - 499 mg/dL Very High > or = 500 mg/dL Laboratory - Chemistry and C hemistry - challengeOrdered By: Areli Scott on 01-02-2024 Albumin/Globulin [Mass ratio] 1.2 {ratio} 0.9-2.4 [facility] ALP [Catalytic activity/Vol] 105 U/L 45-117 [facility] ALT [Catalytic activity/Vol] 36 U/L 13-56 [facility] Cholesterol in HDL [Mass/Vol] 56 mg/dL >40 [facility] Comment on above: The drugs N-Acetylcy steine and Metamizole may falsely depress this assay. Reference Range HDL <40 mg/dL Low HDL Cholesterol HDL >or= 60 mg/dL High HDL Cholesterol Cholesterol in LDL [Mass/Vol] 85 mg/dL 0-130 [facility] CO2 [Moles/Vol] 28.0 mmol/L 21.0-32.0 [facility] Globulin (S) [Mass/Vol] 3.2 g/dL 2.2-4.2 [facility] Urea nitrogen/Creatinine [Mass ratio] 17.6 mg/mg 10-20 [facility] No Panel InformationOrdered By: Areli Scott on 01-02-2024 Vitamin D 25-Hydroxy 27.9 ng/mL [facility] Comment on above: Vitamin D 25(OH) Sta tus Range Deficiency <20 ng/mL (50nmol/L) Insufficiency 20 - 30 ng/mL (50 - 75 nmol/L) Sufficiency 30 - 100 ng/mL (75 - 250 nmol/L) Toxicity >100 ng/mL (>250 nmol/L) Estimated GFR (MDRD) Amer 73 mL/min >60 [facility] Comment on above: GFR Calc Estimated GFR (MDRD) Non-Af Amer 60 mL/min >60 [facility] Comment on above: Non- GFR Calc VLDL Cholesterol 21 mg/dL 5-40 [facility] Serum or plasma calcium anselmo urement (mass/volume)Ordered By: Areli Scott on 01-02-2024 Calcium [Mass/Vol] 10.0 mg/dL 8.5-10.1 [facility] Serum or plasma creatinine m easurement (mass/volume)Ordered By: Areli Scott on 01-02-2024 Creatinine [Mass/Vol] 0.97 mg/dL 0.55-1.02 [facility] Comment on above: The validity of the calculated GFR & GFRAA in patients over 70 years has not been determined. Clinical correlation is essential. Serum or plasma urea nitroge n measurement (mass/volume)Ordered By: Areli Scott on 01-02-2024 Urea nitrogen [Mass/Vol] 17 mg/dL 7-18 [facility] Thin prep Papanicolaou smear with manual screeningOrdered By: Areli Scott on 01-02-2024 Thin prep Papanicolaou smear with manual screening 3.8 g/dL 3.2-5.0 [facility] Thin prep Papanicolaou smear with manual screening 24 U/L 15-37 [facility] Thin prep Papanicolaou smear with manual screening 9 5-15 [facility] ED PROV NOTEon 11-04-2023 ED PROV NOTE HNO ID: [id number] Author: FLORENTINO PEDRAZA MD Service: Emergency Medicine Author Type: Physician Type: ED Provider Notes Filed: 11/08/2023 09:13 Note Text: ED Provider Note Patient Name: Richelle Morales : 1950 SERVICE DATE: 11/04/23 History Patient presents with: need ultrasound: Pt here [place] see call in , here for ultrasound to r/o blood clot 73-year-old female with a past med history as listed below presenting to the ED as a transfer from [place] with right arm swelling. Patient reports that she had right shoulder replacement reversal on Sunday and that did redo the surgery on Sunday. Patient was evaluated in [place] ED, given history of previous DVT, and [...] imaged segments of the right upper extremity. Instructional Design Consultant: PSCB Transcribe Date/Time: Nov 04 2023 1:43P [...] including al (more content not included)... Normal [facility] ED PROV NOTE HNO ID: [id number] Author: ELIE GRIDER DO Service: Emergency Medicine Author Type: Nurse Practitioner Type: ED Provider Notes Filed: 11/04/2023 15:16 Note Text: Attestation signed by Elie Grider DO at 11/04/2023 3:16 PM Attending Note: I evaluated the patient and personally performed a substantive portion of the visit. I performed a history and physical examination of the patient and discussed the management with the TURF MANAGER/PA. I reviewed the TURF MANAGER/PA's note and agree with the documented [...] had a reverse shoulder surgery performed at [facility]. She then had to have it revised the next day. Was admitted in the hospital over 2 nights. Saw her surgeon 2 days ago. She states that yesterday she had sudden worsening swelling to her right upper extremity. No chest pain or dyspnea. Does have a history of DVT in the (more content not included)... Normal [facility] US DVT UPPER RTon 11-04-2023 US DVT UPPER RT * * *Final Report* * * DATE OF EXAM: Nov 04 2023 1:13PM [facility] 1004 - US DVT UPPER RT / [...] imaged segments of the right upper extremity. Instructional Design Consultant: PSCB Transcribe Date/Time: Nov 04 2023 1:43P Dictated by : VIMAL BOLANOS MD This examination was interpreted and the report reviewed and electronically signed by: VIMAL BOLANOS MD on Nov 04 2023 1:46PM EST [id number] Normal [facility] - Microbiology an d Antimicrobial susceptibilityon 05-30-2023 SARS-CoV-2 (COVID-19) RNA GUIDO+probe Ql (Unsp spec) Detected [facility] Absolute lymphocyte countOrd ered By: Josafat Marquez on 05-20-2023 Lymphocytes Auto (Unsp spec) [#/Vol] 1.87 10*3/uL 0.83-4.51 [facility] Basophil percentageOrdered B y: Josafat Marquez on 05-20-2023 Basophils/100 WBC (Bld) 0.5 % 0-1 [facility] Chloride [Moles/Vol] 98 mmol/L 98-107 [facility] Eosinophils/100 WBC (Bld) 2.6 % 0-5 [facility] Glucose [Mass/Vol] 81 mg/dL 74-106 [facility] Neutrophils (Bld) [#/Vol] 6.1 10*3/uL 2.0-7.7 [facility] Neutrophils/100 WBC (Bld) 66.8 % 47-70 [facility] Potassium [Moles/Vol] 3.3 mmol/L 3.5-5.1 [facility] Sodium [Moles/Vol] 134 mmol/L 136-145 [facility] WBC (Bld) [#/Vol] 9.1 10*3/uL 4.4-11.0 [facility] Blood erythrocytes count (nu mber/volume)Ordered By: Josafat Marquez on 05-20-2023 RBC (Bld) [#/Vol] 4.99 10*6/uL 4.2-5.4 [facility] Blood hemoglobin measurement (mass/volume)Ordered By: Josafat Marquez on 05-20-2023 Hemoglobin (Bld) [Mass/Vol] 14.4 g/dL 12.0-15.0 [facility] Blood lymphocytes/100 leukoc ytesOrdered By: Josafat Marquez on 05-20-2023 Lymphocytes/100 WBC (Bld) 20.5 % 19-41 [facility] Blood monocytes/100 leukocyt esOrdered By: Josafat Marquez on 05-20-2023 Monocytes/100 WBC (Bld) 9.4 % 0-10 [facility] Blood platelet mean volumeOr dered By: Josafat Marquez on 05-20-2023 Platelet mean volume (Bld) [Entitic vol] 9.5 fL 6.2-12.0 [facility] Determination of erythrocyte mean corpuscular volume (MCV)Ordered By: Josafat Marquez on 05-20-2023 MCV (RBC) [Entitic vol] 87.2 fL 81-99 [facility] Hematocrit Auto (Bld) [Volum e fraction]Ordered By: Josafat Marquez on 05-20-2023 Hematocrit (Bld) [Volume fraction] 43.5 % 37-47 [facility] INR in Blood by Coagulation assayOrdered By: Josafat Marquez on 05-20-2023 INR Coag (Bld) [Relative time] 0.9 {INR} [facility] - Chemistry and C hemistry - challengeOrdered By: Josafat Marquez on 05-20-2023 CO2 [Moles/Vol] 32.0 mmol/L 21.0-32.0 [facility] Urea nitrogen/Creatinine [Mass ratio] 14.8 mg/mg 10-20 [facility] - CoagulationOrde red By: Josafat Marquez on 05-20-2023 aPTT Coag (Bld) [Time] 29.6 s 24.1-36.2 [facility] PT Coag (PPP) [Time] 12.6 s 11.7-14.9 [facility] - Hematology and Cell countsOrdered By: Josafat Marquez on 05-20-2023 Erythrocyte distribution width (RBC) [Entitic vol] 46.5 fL 35.1-43.9 [facility] Erythrocyte distribution width (RBC) [Ratio] 14.6 % 11.6-14.6 [facility] Immature granulocytes/100 WBC (Bld) 0.200 % 0.0-0.9 [facility] Comment on above: IG% - Immature Granu locytes (promyelocytes, myelocytes and metamyelocytes) > 1% indicates that a LEFT SHIFT is Present. MCH (RBC) [Entitic mass] 28.9 pg 27.0-32.0 [facility] Nucleated RBC/100 WBC (Bld) [Ratio] 0 % 0-5 [facility] - Microbiology an d Antimicrobial susceptibilityOrdered By: Josafat Marquez on 05-20-2023 Bacteria identified Cx Nom (Bld) No growth in 5 days. [facility] MCHC Auto (RBC) [Mass/Vol]Or dered By: Josafat Marquez on 05-20-2023 MCHC (RBC) [Mass/Vol] 33.1 g/dL 32-36 [facility] No Panel InformationOrdered By: Josafat Marquez on 05-20-2023 D-Dimer Quantitative (PE/DVT) 2.18 FEU/ug/m 0.27-0.49 [facility] Comment on above: D-Dimer ELEVATED (>0 .49): Additional studies and clinicalassessments are indicated to conclude diagnosis of:Deep Vein Thrombosis (DVT) or Pulmonary Embolism (PE)CRITICAL VALUE VERIFIED. CALLED TO [facility]05/20/23 1752 Lorene Mcdonnell.RESULTS READ BACK BY SAME . Estimated Creatinine Clearance Calc 54.79 ml/min [facility] Estimated GFR (MDRD) Amer 75 mL/min >60 [facility] Comment on above: GFR Calc Estimated GFR (MDRD) Non-Af Amer 62 mL/min >60 [facility] Comment on above: Non- GFR Calc Platelets bldOrdered By: Sherry Marquez on 05-20-2023 Platelets (Bld) [#/Vol] 236 10*3/uL 150-450 [facility] Serum or plasma calcium anselmo urement (mass/volume)Ordered By: Josafat Marquez on 05-20-2023 Calcium [Mass/Vol] 10.0 mg/dL 8.5-10.1 [facility] Serum or plasma creatinine m easurement (mass/volume)Ordered By: Josafat Marquez on 05-20-2023 Creatinine [Mass/Vol] 0.95 mg/dL 0.55-1.02 [facility] Comment on above: The validity of the calculated GFR & GFRAA in patients over 70 years has not been determined. Clinical correlation is essential. Serum or plasma urea nitroge n measurement (mass/volume)Ordered By: Josafat Marquez on 05-20-2023 Urea nitrogen [Mass/Vol] 14 mg/dL 7-18 [facility] Thin prep Papanicolaou smear with manual screeningOrdered By: Josafat Marquez on 05-20-2023 Thin prep Papanicolaou smear with manual screening 4 5-15 [facility] Absolute lymphocyte countOrd ered By: ED PROVIDER on 04-09-2023 Lymphocytes Auto (Unsp spec) [#/Vol] 2.07 10*3/uL 0.83-4.51 [facility] Basophil percentageOrdered B y: ED PROVIDER on 04-09-2023 Basophils/100 WBC (Bld) 1.0 % 0-1 [facility] Eosinophils/100 WBC (Bld) 3.6 % 0-5 [facility] Neutrophils (Bld) [#/Vol] 2.7 10*3/uL 2.0-7.7 [facility] Neutrophils/100 WBC (Bld) 46.4 % 47-70 [facility] WBC (Bld) [#/Vol] 5.9 10*3/uL 4.4-11.0 [facility] Basophil percentageOrdered B y: Dr. Carr on 04-09-2023 Chloride [Moles/Vol] 101 mmol/L 98-107 [facility] Glucose [Mass/Vol] 82 mg/dL 74-106 [facility] Potassium [Moles/Vol] 3.2 mmol/L 3.5-5.1 [facility] Sodium [Moles/Vol] 137 mmol/L 136-145 [facility] Blood erythrocytes count (nu mber/volume)Ordered By: ED PROVIDER on 04-09-2023 RBC (Bld) [#/Vol] 4.57 10*6/uL 4.2-5.4 [facility] Blood hemoglobin measurement (mass/volume)Ordered By: ED PROVIDER on 04-09-2023 Hemoglobin (Bld) [Mass/Vol] 13.1 g/dL 12.0-15.0 [facility] Blood lymphocytes/100 leukoc ytesOrdered By: ED PROVIDER on 04-09-2023 Lymphocytes/100 WBC (Bld) 35.0 % 19-41 [facility] Blood monocytes/100 leukocyt esOrdered By: ED PROVIDER on 04-09-2023 Monocytes/100 WBC (Bld) 13.7 % 0-10 [facility] Blood platelet mean volumeOr dered By: ED PROVIDER on 04-09-2023 Platelet mean volume (Bld) [Entitic vol] 10.0 fL 6.2-12.0 [facility] Determination of erythrocyte mean corpuscular volume (MCV)Ordered By: ED PROVIDER on 04-09-2023 MCV (RBC) [Entitic vol] 88.0 fL 81-99 [facility] Hematocrit Auto (Bld) [Volum e fraction]Ordered By: ED PROVIDER on 04-09-2023 Hematocrit (Bld) [Volume fraction] 40.2 % 37-47 [facility] - Chemistry and C hemistry - challengeOrdered By: Dr. Carr on 04-09-2023 CO2 [Moles/Vol] 31.0 mmol/L 21.0-32.0 [facility] Urea nitrogen/Creatinine [Mass ratio] 14.0 mg/mg 10-20 [facility] - Hematology and Cell countsOrdered By: ED PROVIDER on 04-09-2023 Erythrocyte distribution width (RBC) [Entitic vol] 44.2 fL 35.1-43.9 [facility] Erythrocyte distribution width (RBC) [Ratio] 13.8 % 11.6-14.6 [facility] Immature granulocytes/100 WBC (Bld) 0.300 % 0.0-0.9 [facility] Comment on above: IG% - Immature Granu locytes (promyelocytes, myelocytes and metamyelocytes) > 1% indicates that a LEFT SHIFT is Present. MCH (RBC) [Entitic mass] 28.7 pg 27.0-32.0 [facility] Nucleated RBC/100 WBC (Bld) [Ratio] 0 % 0-5 [facility] MCHC Auto (RBC) [Mass/Vol]Or dered By: ED PROVIDER on 04-09-2023 MCHC (RBC) [Mass/Vol] 32.6 g/dL 32-36 [facility] No Panel InformationOrdered By: Dr. Carr on 04-09-2023 Troponin I High Sensitivity 5 pg/mL 3.0-54.0 [facility] Comment on above: Please Note: New Tamiko t Units and Gender Specific Reference Ranges. For more information see Policy Stat Procedure [place] High Sensitivity Troponin (TNIH) and attachments. D-Dimer Quantitative (PE/DVT) < 0.27 FEU/ug/m 0.27-0.49 [facility] Comment on above: NORMAL D-Dimer level (<0.50) indicates no DVT or PE. Estimated Creatinine Clearance Calc 48.65 ml/min [facility] Estimated GFR (MDRD) Amer 65 mL/min >60 [facility] Comment on above: GFR Calc Estimated GFR (MDRD) Non-Af Amer 54 mL/min >60 [facility] Comment on above: Non- GFR Calc Platelets bldOrdered By: ED PROVIDER on 04-09-2023 Platelets (Bld) [#/Vol] 256 10*3/uL 150-450 [facility] Serum or plasma calcium anselmo urement (mass/volume)Ordered By: Dr. Carr on 04-09-2023 Calcium [Mass/Vol] 9.9 mg/dL 8.5-10.1 [facility] Serum or plasma creatinine m easurement (mass/volume)Ordered By: Dr. Carr on 04-09-2023 Creatinine [Mass/Vol] 1.07 mg/dL 0.55-1.02 [facility] Comment on above: The validity of the calculated GFR & GFRAA in patients over 70 years has not been determined. Clinical correlation is essential. Serum or plasma urea nitroge n measurement (mass/volume)Ordered By: Dr. Carr on 04-09-2023 Urea nitrogen [Mass/Vol] 15 mg/dL 7-18 [facility] Thin prep Papanicolaou smear with manual screeningOrdered By: Dr. Carr on 04-09-2023 Thin prep Papanicolaou smear with manual screening 5 5-15 [facility] Absolute lymphocyte countOrd ered By: Dr. Scott on 01-10-2023 Lymphocytes Auto (Unsp spec) [#/Vol] 1.96 10*3/uL 0.83-4.51 [facility] Basophil percentageOrdered B y: Dr. Scott on 01-10-2023 Basophils/100 WBC (Bld) 0.8 % 0-1 [facility] Bilirubin [Mass/Vol] 0.60 mg/dL 0.20-1.00 [facility] Comment on above: For patients on eltr ombopag therapy, use of Dimension [place] TBIL is not recommended. Chloride [Moles/Vol] 98 mmol/L 98-107 [facility] Cholesterol [Mass/Vol] 158 mg/dL <200 [facility] Comment on above: <200 mg/dL Desirable 200-240 mg/dL Borderline >240 mg/dL High Risk Eosinophils/100 WBC (Bld) 2.6 % 0-5 [facility] Glucose [Mass/Vol] 86 mg/dL 74-106 [facility] Neutrophils (Bld) [#/Vol] 3.5 10*3/uL 2.0-7.7 [facility] Neutrophils/100 WBC (Bld) 54.0 % 47-70 [facility] Potassium [Moles/Vol] 4.0 mmol/L 3.5-5.1 [facility] Protein [Mass/Vol] 7.3 g/dL 6.4-8.2 [facility] Sodium [Moles/Vol] 134 mmol/L 136-145 [facility] Triglyceride [Mass/Vol] 151 mg/dL <199 [facility] Comment on above: The drugs N-Acetylcy steine and Metamizole may falsely depress this assay.Serum Triglycerides Reference Interval Normal <150 mg/dL Borderline high 150 - 199 mg/dL High 200 - 499 mg/dL Very High > or = 500 mg/dL WBC (Bld) [#/Vol] 6.5 10*3/uL 4.4-11.0 [facility] Blood erythrocytes count (nu mber/volume)Ordered By: Dr. Scott on 01-10-2023 RBC (Bld) [#/Vol] 5.15 10*6/uL 4.2-5.4 [facility] Blood hemoglobin measurement (mass/volume)Ordered By: Dr. Scott on 01-10-2023 Hemoglobin (Bld) [Mass/Vol] 15.1 g/dL 12.0-15.0 [facility] Blood lymphocytes/100 leukoc ytesOrdered By: Dr. Scott on 01-10-2023 Lymphocytes/100 WBC (Bld) 30.3 % 19-41 [facility] Blood monocytes/100 leukocyt esOrdered By: Dr. Scott on 01-10-2023 Monocytes/100 WBC (Bld) 12.1 % 0-10 [facility] Blood platelet mean volumeOr dered By: Dr. Scott on 01-10-2023 Platelet mean volume (Bld) [Entitic vol] 10.2 fL 6.2-12.0 [facility] Determination of erythrocyte mean corpuscular volume (MCV)Ordered By: Dr. Scott on 01-10-2023 MCV (RBC) [Entitic vol] 90.1 fL 81-99 [facility] Hematocrit Auto (Bld) [Volum e fraction]Ordered By: Dr. Scott on 01-10-2023 Hematocrit (Bld) [Volume fraction] 46.4 % 37-47 [facility] Laboratory - Chemistry and C hemistry - challengeOrdered By: Dr. Scott on 01-10-2023 ALP [Catalytic activity/Vol] 108 U/L 45-117 [facility] ALT [Catalytic activity/Vol] 36 U/L 13-56 [facility] CO2 [Moles/Vol] 28.0 mmol/L 21.0-32.0 [facility] Globulin (S) [Mass/Vol] 3.3 g/dL 2.2-4.2 [facility] Urea nitrogen/Creatinine [Mass ratio] 17.3 mg/mg 10-20 [facility] Laboratory - Hematology and Cell countsOrdered By: Dr. Scott on 01-10-2023 Erythrocyte distribution width (RBC) [Entitic vol] 45.1 fL 35.1-43.9 [facility] Erythrocyte distribution width (RBC) [Ratio] 13.6 % 11.6-14.6 [facility] Immature granulocytes/100 WBC (Bld) 0.200 % 0.0-0.9 [facility] Comment on above: IG% - Immature Granu locytes (promyelocytes, myelocytes and metamyelocytes) > 1% indicates that a LEFT SHIFT is Present. MCH (RBC) [Entitic mass] 29.3 pg 27.0-32.0 [facility] Nucleated RBC/100 WBC (Bld) [Ratio] 0 % 0-5 [facility] MCHC Auto (RBC) [Mass/Vol]Or dered By: Dr. Scott on 01-10-2023 MCHC (RBC) [Mass/Vol] 32.5 g/dL 32-36 [facility] No Panel InformationOrdered By: Dr. Scott on 01-10-2023 Estimated GFR (MDRD) Amer 71 mL/min >60 [facility] Comment on above: GFR Calc Estimated GFR (MDRD) Non-Af Amer 59 mL/min >60 [facility] Comment on above: Non- GFR Calc Platelets bldOrdered By: Dr. Scott on 01-10-2023 Platelets (Bld) [#/Vol] 292 10*3/uL 150-450 [facility] Serum or plasma albumin anselmo urement (mass/volume)Ordered By: Dr. Scott on 01-10-2023 Albumin [Mass/Vol] 4.0 g/dL 3.2-5.0 [facility] Serum or plasma albumin/glob ulin mass ratioOrdered By: Dr. Scott on 01-10-2023 Albumin/Globulin [Mass ratio] 1.2 {ratio} 0.9-2.4 [facility] Serum or plasma calcium anselmo urement (mass/volume)Ordered By: Dr. Scott on 01-10-2023 Calcium [Mass/Vol] 10.2 mg/dL 8.5-10.1 [facility] Serum or plasma cholesterol in HDL measurement (mass/volume)Ordered By: Dr. Scott on 01-10-2023 Cholesterol in HDL [Mass/Vol] 52 mg/dL >40 [facility] Comment on above: The drugs N-Acetylcy steine and Metamizole may falsely depress this assay. Reference Range HDL <40 mg/dL Low HDL Cholesterol HDL >or= 60 mg/dL High HDL Cholesterol Serum or plasma cholesterol in VLDL measurement (mass/volume)Ordered By: Dr. Scott on 01-10-2023 Cholesterol in VLDL [Mass/Vol] 30 mg/dL 5-40 [facility] Serum or plasma creatinine m easurement (mass/volume)Ordered By: Dr. Scott on 01-10-2023 Creatinine [Mass/Vol] 0.98 mg/dL 0.55-1.02 [facility] Comment on above: The validity of the calculated GFR & GFRAA in patients over 70 years has not been determined. Clinical correlation is essential. Serum or plasma low density lipoprotein (LDL) cholesterol measurement (mass/volume)Ordered By: Dr. Scott on 01-10-2023 Cholesterol in LDL [Mass/Vol] 76 mg/dL 0-130 [facility] Serum or plasma urea nitroge n measurement (mass/volume)Ordered By: Dr. Scott on 01-10-2023 Urea nitrogen [Mass/Vol] 17 mg/dL 7-18 [facility] Thin prep Papanicolaou smear with manual screeningOrdered By: Dr. Scott on 01-10-2023 Thin prep Papanicolaou smear with manual screening 25 U/L 15-37 [facility] Thin prep Papanicolaou smear with manual screening 8 5-15 [facility] Absolute lymphocyte counton 06-05-2022 Lymphocytes Auto (Unsp spec) [#/Vol] 2.23 10*3/uL 0.83-4.51 [facility] Work Phone: Basophil percentageon 2021 Basophils/100 WBC (Bld) 0.6 % 0-1 [facility] Work Phone: Bilirubin [Mass/Vol] 0.60 mg/dL 0.20-1.00 [facility] Work Phone: Comment on above: For patients on eltr ombopag therapy, use of Dimension [place] TBIL is not recommended. Chloride [Moles/Vol] 101 mmol/L 98-107 [facility] Work Phone: Eosinophils/100 WBC (Bld) 3.2 % 0-5 [facility] Work Phone: Glucose [Mass/Vol] 91 mg/dL 74-106 [facility] Work Phone: Neutrophils (Bld) [#/Vol] 3.7 10*3/uL 2.0-7.7 [facility] Work Phone: Neutrophils/100 WBC (Bld) 53.0 % 47-70 [facility] Work Phone: Potassium [Moles/Vol] 4.5 mmol/L 3.5-5.1 [facility] Work Phone: Protein [Mass/Vol] 7.3 g/dL 6.4-8.2 [facility] Work Phone: Sodium [Moles/Vol] 137 mmol/L 136-145 [facility] Work Phone: WBC (Bld) [#/Vol] 6.9 10*3/uL 4.4-11.0 [facility] Work Phone: Blood erythrocytes count (nu mber/volume)on 06-05-2022 RBC (Bld) [#/Vol] 4.72 10*6/uL 4.2-5.4 [facility] Work [facility]: Blood hemoglobin measurement (mass/volume)on 06-05-2022 Hemoglobin (Bld) [Mass/Vol] 14.0 g/dL 12.0-15.0 [facility] Work Phone: Blood lymphocytes/100 leukoc yteson 06-05-2022 Lymphocytes/100 WBC (Bld) 32.3 % 19-41 [facility] Work Phone: Blood monocytes/100 leukocyt eson 06-05-2022 Monocytes/100 WBC (Bld) 10.6 % 0-10 [facility] Work Phone: Blood platelet mean volumeon 06-05-2022 Platelet mean volume (Bld) [Entitic vol] 10.2 fL 6.2-12.0 [facility] Work Phone: [phone] Determination of erythrocyte mean corpuscular volume (MCV)on 06-05-2022 MCV (RBC) [Entitic vol] 91.3 fL 81-99 [facility] Work Phone: [phone] Hematocrit Auto (Bld) [Volum e fraction]on 06-05-2022 Hematocrit (Bld) [Volume fraction] 43.1 % 37-47 [facility] Work Phone: [phone] Laboratory - Chemistry and C hemistry - challengeon 06-05-2022 ALP [Catalytic activity/Vol] 92 U/L 45-117 [facility] Work Phone: [phone] ALT [Catalytic activity/Vol] 34 U/L 13-56 [facility] Work Phone: [phone] CO2 [Moles/Vol] 31.0 mmol/L 21.0-32.0 [facility] Work Phone: [phone] Globulin (S) [Mass/Vol] 3.5 g/dL 2.2-4.2 [facility] Work Phone: [phone] Urea nitrogen/Creatinine [Mass ratio] 12.0 mg/mg 10-20 [facility] Work Phone: [phone] Laboratory - Hematology and Cell countson 06-05-2022 Erythrocyte distribution width (RBC) [Entitic vol] 46.0 fL 35.1-43.9 [facility] Work Phone: [phone] Erythrocyte distribution width (RBC) [Ratio] 13.7 % 11.6-14.6 [facility] Work Phone: [phone] Immature granulocytes/100 WBC (Bld) 0.300 % 0.0-0.9 [facility] Work Phone: [phone] Comment on above: IG% - Immature Granu locytes (promyelocytes, myelocytes and metamyelocytes) > 1% indicates that a LEFT SHIFT is Present. MCH (RBC) [Entitic mass] 29.7 pg 27.0-32.0 [facility] Work Phone: Nucleated RBC/100 WBC (Bld) [Ratio] 0 % 0-5 [facility] Work Phone: [phone] MCHC Auto (RBC) [Mass/Vol]on 06-05-2022 MCHC (RBC) [Mass/Vol] 32.5 g/dL 32-36 [facility] Work Phone: No Panel Informationon 06-05 Estimated GFR (MDRD) Amer 71 mL/min >60 [facility] Work Phone: Comment on above: GFR Calc Estimated GFR (MDRD) Non-Af Amer 58 mL/min >60 [facility] Work Phone: Comment on above: Non- GFR Calc Platelets bldon 06-05-2022 Platelets (Bld) [#/Vol] 282 10*3/uL 150-450 [facility] Work Phone: [phone] Serum or plasma albumin anselmo urement (mass/volume)on 06-05-2022 Albumin [Mass/Vol] 3.8 g/dL 3.2-5.0 [facility] Work Phone: [phone] Serum or plasma albumin/glob ulin mass ratioon 06-05-2022 Albumin/Globulin [Mass ratio] 1.1 {ratio} 0.9-2.4 [facility] Work Phone: [phone] Serum or plasma calcium anselmo urement (mass/volume)on 06-05-2022 Calcium [Mass/Vol] 9.6 mg/dL 8.5-10.1 [facility] Work Phone: [phone] Serum or plasma creatinine m easurement (mass/volume)on 06-05-2022 Creatinine [Mass/Vol] 1.00 mg/dL 0.55-1.02 [facility] Work Phone: Comment on above: The validity of the calculated GFR & GFRAA in patients over 70 years has not been determined. Clinical correlation is essential. Serum or plasma urea nitroge n measurement (mass/volume)on 06-05-2022 Urea nitrogen [Mass/Vol] 12 mg/dL 7-18 [facility] Work Phone: Thin prep Papanicolaou smear with manual screeningon 06-05-2022 Thin prep Papanicolaou smear with manual screening 21 U/L 15-37 [facility] Work Phone: Thin prep Papanicolaou smear with manual screening 5 5-15 [facility] Work Phone: Basophil percentageon 2021 Bilirubin [Mass/Vol] 0.80 mg/dL 0.20-1.00 [facility] Work Phone: Comment on above: For patients on eltr ombopag therapy, use of Dimension [place] TBIL is not recommended. Chloride [Moles/Vol] 104 mmol/L 98-107 [facility] Work Phone: Cholesterol [Mass/Vol] 143 mg/dL <200 [facility] Work Phone: Comment on above: <200 mg/dL Desirable 200-240 mg/dL Borderline >240 mg/dL High Risk Glucose [Mass/Vol] 92 mg/dL 74-106 [facility] Work Phone: Potassium [Moles/Vol] 4.0 mmol/L 3.5-5.1 [facility] Work Phone: Protein [Mass/Vol] 7.0 g/dL 6.4-8.2 [facility] Work Phone: Sodium [Moles/Vol] 137 mmol/L 136-145 [facility] Work Phone: Triglyceride [Mass/Vol] 118 mg/dL <199 [facility] Work Phone: Comment on above: The drugs N-Acetylcy steine and Metamizole may falsely depress this assay.Serum Triglycerides Reference Interval Normal <150 mg/dL Borderline high 150 - 199 mg/dL High 200 - 499 mg/dL Very High > or = 500 mg/dL Laboratory - Chemistry and C hemistry - challengeon 01-26-2022 ALP [Catalytic activity/Vol] 86 U/L 45-117 [facility] Work Phone: ALT [Catalytic activity/Vol] 30 U/L 13-56 [facility] Work Phone: [phone] CO2 [Moles/Vol] 29.0 mmol/L 21.0-32.0 [facility] Work Phone: [phone] Globulin (S) [Mass/Vol] 3.4 g/dL 2.2-4.2 [facility] Work Phone: [phone] Urea nitrogen/Creatinine [Mass ratio] 15.5 mg/mg 10-20 [facility] Work Phone: [phone] No Panel Informationon 01-26 Estimated GFR (MDRD) Amer 68 mL/min >60 [facility] Work Phone: Comment on above: GFR Calc Estimated GFR (MDRD) Non-Af Amer 56 mL/min >60 [facility] Work Phone: [phone] Comment on above: Non- GFR Calc Serum or plasma albumin anselmo urement (mass/volume)on 01-26-2022 Albumin [Mass/Vol] 3.6 g/dL 3.2-5.0 [facility] Work Phone: [phone] Serum or plasma albumin/glob ulin mass ratioon 01-26-2022 Albumin/Globulin [Mass ratio] 1.1 {ratio} 0.9-2.4 [facility] Work Phone: [phone] Serum or plasma calcium anselmo urement (mass/volume)on 01-26-2022 Calcium [Mass/Vol] 9.1 mg/dL 8.5-10.1 [facility] Work Phone: [phone] Serum or plasma cholesterol in HDL measurement (mass/volume)on 01-26-2022 Cholesterol in HDL [Mass/Vol] 50 mg/dL >40 [facility] Work Phone: [phone] Comment on above: The drugs N-Acetylcy steine and Metamizole may falsely depress this assay. Reference Range HDL <40 mg/dL Low HDL Cholesterol HDL >or= 60 mg/dL High HDL Cholesterol Serum or plasma cholesterol in VLDL measurement (mass/volume)on 01-26-2022 Cholesterol in VLDL [Mass/Vol] 24 mg/dL 5-40 [facility] Work Phone: Serum or plasma creatinine m easurement (mass/volume)on 01-26-2022 Creatinine [Mass/Vol] 1.03 mg/dL 0.55-1.02 [facility] Work Phone: Comment on above: The validity of the calculated GFR & GFRAA in patients over 70 years has not been determined. Clinical correlation is essential. Serum or plasma low density lipoprotein (LDL) cholesterol measurement (mass/volume)on 01-26-2022 Cholesterol in LDL [Mass/Vol] 69 mg/dL 0-130 [facility] Work Phone: Serum or plasma urea nitroge n measurement (mass/volume)on 01-26-2022 Urea nitrogen [Mass/Vol] 16 mg/dL 7-18 [facility] Work Phone: Thin prep Papanicolaou smear with manual screeningon 01-26-2022 Thin prep Papanicolaou smear with manual screening 18 U/L 15-37 [facility] Work Phone: Thin prep Papanicolaou smear with manual screening 4 5-15 [facility] Work Phone: Vital Signs Date Time Vital Sign Value Performing Clinician Faci jennifery 01-02-2024 10:48-0400 Body height 172.[address] Areil Scott Work Phone: [facility] 01-02-2024 10:48-0400 Body mass index (BMI) [Ratio] 29.2 kg/m2 Dr. Areli Scott Work Phone: [facility] 01-02-2024 10:48-0400 Body temperature 97.6 [degF] Dr. Areli Scott Work Phone: [facility] 01-02-2024 10:48-0400 Body weight 87.[address] Areli Scott Work Phone: [facility] 01-02-2024 10:48-0400 Diastolic blood pressure 74 mm[Hg] Dr. Areli Scott Work Phone: [facility] 01-02-2024 10:48-0400 Heart rate 83 /min Dr. Areli Scott Work Phone: [facility] 01-02-2024 10:48-0400 Respiratory rate 16 /min Dr. Areli Scott Work Phone: [facility] 01-02-2024 10:48-0400 SaO2% (BldA) [Mass fraction] 99 % Dr. Areli Scott Work Phone: [facility] 01-02-2024 10:48-0400 Systolic blood pressure 120 mm[Hg] Dr. Areli Scott Work Phone: [facility] 10-03-2023 10:39-0500 Body mass index (BMI) [Ratio] 29.3 kg/m2 Dr. Areli Scott Work Phone: [facility] 10-03-2023 10:39-0500 Body temperature 99.3 [degF] Dr. Areli Scott Work Phone: [facility] 10-03-2023 10:39-0500 Body weight 87.[address] Areli Scott Work Phone: [facility] 10-03-2023 10:39-0500 Diastolic blood pressure 86 mm[Hg] Dr. Areli Scott Work Phone: [facility] 10-03-2023 10:39-0500 Heart rate 82 /min Dr. Areli Scott Work Phone: [facility] 10-03-2023 10:39-0500 Respiratory rate 16 /min Dr. Areli Scott Work Phone: [facility] 10-03-2023 10:39-0500 SaO2% (BldA) [Mass fraction] 99 % Dr. Areli Scott Work Phone: [facility] 10-03-2023 10:39-0500 Systolic blood pressure 130 mm[Hg] Dr. Areli Scott Work Phone: [facility] 09-21-2023 13:22-0500 Body temperature 98.2 [degF] Dr. Areli Scott Work Phone: [facility] 09-21-2023 13:22-0500 Diastolic blood pressure 88 mm[Hg] Dr. Areli Scott Work Phone: [facility] 09-21-2023 13:22-0500 Heart rate 81 /min Dr. Areli Scott Work Phone: [facility] 09-21-2023 13:22-0500 Respiratory rate 16 /min Dr. Areli Scott Work Phone: [facility] 09-21-2023 13:22-0500 SaO2% (BldA) [Mass fraction] 99 % Dr. Areli Scott Work Phone: [facility] 09-21-2023 13:22-0500 Systolic blood pressure 148 mm[Hg] Dr. Areli Scott Work Phone: [facility] 09-19-2023 11:18-0500 Diastolic blood pressure 86 mm[Hg] Dr. Areli Scott Work Phone: [facility] 09-19-2023 11:18-0500 Systolic blood pressure 142 mm[Hg] Dr. Areli Scott Work Phone: [facility] 08-08-2023 15:22-0400 Body height 172.[address] Areli Scott Work Phone: [facility] 08-08-2023 15:22-0400 Body mass index (BMI) [Ratio] 29.2 kg/m2 Dr. Areli Scott Work Phone: [facility] 08-08-2023 15:22-0400 Body temperature 97.6 [degF] Dr. Areli Scott Work Phone: [facility] 08-08-2023 15:22-0400 Body weight 87.[address] Areli Scott Work Phone: [facility] 08-08-2023 15:22-0400 Diastolic blood pressure 90 mm[Hg] Dr. Areli Scott Work Phone: [facility] 08-08-2023 15:22-0400 Heart rate 85 /min Dr. Areli Scott Work Phone: [facility] 08-08-2023 15:22-0400 Respiratory rate 16 /min Dr. Areli Scott Work Phone: [facility] 08-08-2023 15:22-0400 SaO2% (BldA) [Mass fraction] 100 % Dr. Areli Scott Work Phone: [facility] 08-08-2023 15:22-0400 Systolic blood pressure 153 mm[Hg] Dr. Areli Scott Work Phone: [facility] 08-07-2023 09:55-0400 Body temperature 98 [degF] Dr. Areli Scott Work Phone: [facility] 08-07-2023 09:55-0400 Body weight 86.[address] Areli Scott Work Phone: [facility] 08-07-2023 09:55-0400 Diastolic blood pressure 99 mm[Hg] Dr. Areli Scott Work Phone: [facility] 08-07-2023 09:55-0400 Heart rate 78 /min Dr. Areli Scott Work Phone: [facility] 08-07-2023 09:55-0400 Respiratory rate 16 /min Dr. Areli Scott Work Phone: [facility] 08-07-2023 09:55-0400 SaO2% (BldA) [Mass fraction] 99 % Dr. Areli Scott Work Phone: [facility] 08-07-2023 09:55-0400 Systolic blood pressure 153 mm[Hg] Dr. Areli Scott Work Phone: [facility] 06-15-2023 09:12-0400 Body mass index (BMI) [Ratio] 28.9 kg/m2 Dr. Areli Scott Work Phone: [facility] 06-15-2023 09:12-0400 Body temperature 96.7 [degF] Dr. Areli Scott Work Phone: [facility] 06-15-2023 09:12-0400 Body weight 86.[address] Areli Scott Work Phone: [facility] 06-15-2023 09:12-0400 Diastolic blood pressure 88 mm[Hg] Dr. Areli Scott Work Phone: [facility] 06-15-2023 09:12-0400 Heart rate 83 /min Dr. Areli Scott Work Phone: [facility] 06-15-2023 09:12-0400 Respiratory rate 18 /min Dr. Areli Scott Work Phone: [facility] 06-15-2023 09:12-0400 SaO2% (BldA) [Mass fraction] 98 % Dr. Areli Scott Work Phone: [facility] 06-15-2023 09:12-0400 Systolic blood pressure 138 mm[Hg] Dr. Areli Scott Work Phone: [facility] 06-06-2023 08:58-0400 Body temperature 98 [degF] Dr. Areli Scott Work Phone: [facility] 06-06-2023 08:58-0400 Body weight 86.[address] Areli Scott Work Phone: [facility] 06-06-2023 08:58-0400 Diastolic blood pressure 87 mm[Hg] Dr. Areli Scott Work Phone: [facility] 06-06-2023 08:58-0400 Heart rate 79 /min Dr. Areli Scott Work Phone: [facility] 06-06-2023 08:58-0400 Respiratory rate 16 /min Dr. Areli Scott Work Phone: [facility] 06-06-2023 08:58-0400 SaO2% (BldA) [Mass fraction] 99 % Dr. Areli Scott Work Phone: [facility] 06-06-2023 08:58-0400 Systolic blood pressure 131 mm[Hg] Dr. Areli Scott Work Phone: [facility] 05-30-2023 11:01-0400 Body mass index (BMI) [Ratio] 28.8 kg/m2 Dr. Areli Scott Work Phone: [facility] 05-30-2023 11:01-0400 Body temperature 98.6 [degF] Dr. Areli Scott Work Phone: [facility] 05-30-2023 11:01-0400 Body weight 86.[address] Areli Scott Work Phone: [facility] 05-30-2023 11:01-0400 Diastolic blood pressure 89 mm[Hg] Dr. Areli Scott Work Phone: [facility] 05-30-2023 11:01-0400 Heart rate 75 /min Dr. Areli Scott Work Phone: [facility] 05-30-2023 11:01-0400 Respiratory rate 16 /min Dr. Areli Scott Work Phone: [facility] 05-30-2023 11:01-0400 SaO2% (BldA) [Mass fraction] 96 % Dr. Areli Scott Work Phone: [facility] 05-30-2023 11:01-0400 Systolic blood pressure 139 mm[Hg] Dr. Areli Scott Work Phone: [facility] 05-21-2023 13:27-0400 Body height 172.[address] Areli Scott Work Phone: [facility] 05-21-2023 13:27-0400 Body mass index (BMI) [Ratio] 29.2 kg/m2 Dr. Areli Scott Work Phone: [facility] 05-21-2023 13:27-0400 Body temperature 97.5 [degF] Dr. Areli Scott Work Phone: [facility] 05-21-2023 13:27-0400 Body weight 87.[address] Areli Scott Work Phone: [facility] 05-21-2023 13:27-0400 Diastolic blood pressure 82 mm[Hg] Dr. Areli Scott Work Phone: [facility] 05-21-2023 13:27-0400 Heart rate 100 /min Dr. Areli Scott Work Phone: [facility] 05-21-2023 13:27-0400 Respiratory rate 18 /min Dr. Areli Scott Work Phone: [facility] 05-21-2023 13:27-0400 SaO2% (BldA) [Mass fraction] 95 % Dr. Areli Scott Work Phone: [facility] 05-21-2023 13:27-0400 Systolic blood pressure 140 mm[Hg] Dr. Areli Scott Work Phone: [facility] 05-20-2023 18:21-0400 Body temperature 16 [degF] Dr. Areli Scott Work Phone: [facility] 05-20-2023 18:21-0400 Diastolic blood pressure 75 mm[Hg] Dr. Areli Scott Work Phone: [facility] 05-20-2023 18:21-0400 Heart rate 68 /min Dr. Areli Scott Work Phone: [facility] 05-20-2023 18:21-0400 Respiratory rate 16 /min Dr. Areli Scott Work Phone: [facility] 05-20-2023 18:21-0400 SaO2% (BldA) [Mass fraction] 97 % Dr. Areli Scott Work Phone: [facility] 05-20-2023 18:21-0400 Systolic blood pressure 160 mm[Hg] Dr. Areli Scott Work Phone: [facility] 05-20-2023 16:00-0400 Body height 172.[address] Areli Scott Work Phone: [facility] 05-20-2023 16:00-0400 Body mass index (BMI) [Ratio] 28.8 kg/m2 Dr. Areli Scott Work Phone: [facility] 05-20-2023 16:00-0400 Body weight 86.[address] Areli Scott Work Phone: [facility] 05-15-2023 10:09-0400 Diastolic blood pressure 97 mm[Hg] Dr. Areli Scott Work Phone: [facility] 05-15-2023 10:09-0400 SaO2% (BldA) [Mass fraction] 100 % Dr. Areli Scott Work Phone: [facility] 05-15-2023 10:09-0400 Systolic blood pressure 146 mm[Hg] Dr. Areli Scott Work Phone: [facility] 05-15-2023 09:07-0400 Body mass index (BMI) [Ratio] 29.2 kg/m2 Dr. Areli Scott Work Phone: [facility] 05-15-2023 09:07-0400 Body temperature 97.2 [degF] Dr. Areli Scott Work Phone: [facility] 05-15-2023 09:07-0400 Body weight 87.[address] Areli Scott Work Phone: [facility] 05-15-2023 09:07-0400 Heart rate 87 /min Dr. Areli Scott Work Phone: [facility] 05-15-2023 09:07-0400 Respiratory rate 14 /min Dr. Areli Scott Work Phone: [facility] 04-09-2023 23:41-0400 Diastolic blood pressure 87 mm[Hg] Dr. Areli Scott Work Phone: [facility] [facility] 04-09-2023 23:41-0400 Heart rate 70 /min Dr. Areli Scott Work Phone: [facility] 04-09-2023 23:41-0400 Respiratory rate 16 /min Dr. Areli Scott Work Phone: [facility] 04-09-2023 23:41-0400 SaO2% (BldA) [Mass fraction] 99 % Dr. Areli Scott Work Phone: [facility] 04-09-2023 23:41-0400 Systolic blood pressure 125 mm[Hg] Dr. Areli Scott Work Phone: [facility] 04-09-2023 18:48-0400 Body height 172.[address] Areli Scott Work Phone: [facility] 04-09-2023 18:48-0400 Body mass index (BMI) [Ratio] 30 kg/m2 Dr. Areli Scott Work Phone: [facility] 04-09-2023 18:48-0400 Body temperature 97.8 [degF] Dr. Areli Scott Work Phone: [facility] 04-09-2023 18:48-0400 Body weight 89.[address] Areli Scott Work Phone: [facility] 04-06-2023 10:25-0400 Body mass index (BMI) [Ratio] 30.2 kg/m2 Dr. Areli Scott Work Phone: [facility] 04-06-2023 10:25-0400 Body temperature 97.2 [degF] Dr. Areli Scott Work Phone: [facility] 04-06-2023 10:25-0400 Body weight 87.[address] Areli Scott Work Phone: [facility] 04-06-2023 10:25-0400 Diastolic blood pressure 84 mm[Hg] Dr. Areli Scott Work Phone: [facility] 04-06-2023 10:25-0400 Heart rate 78 /min Dr. Areli Scott Work Phone: [facility] 04-06-2023 10:25-0400 Respiratory rate 16 /min Dr. Areli Scott Work Phone: [facility] 04-06-2023 10:25-0400 SaO2% (BldA) [Mass fraction] 98 % Dr. Areli Scott Work Phone: [facility] 04-06-2023 10:25-0400 Systolic blood pressure 132 mm[Hg] Dr. Areli Scott Work Phone: [facility] 01-10-2023 13:20-0400 Body height 170.[address] Areli Scott Work Phone: [facility] 01-10-2023 13:20-0400 Body mass index (BMI) [Ratio] 29.7 kg/m2 Dr. Areli Scott Work Phone: [facility] 01-10-2023 13:20-0400 Body temperature 96.2 [degF] Dr. Areli Scott Work Phone: [facility] 01-10-2023 13:20-0400 Body weight 86.[address] Areli Scott Work Phone: [facility] 01-10-2023 13:20-0400 Diastolic blood pressure 94 mm[Hg] Dr. Areli Scott Work Phone: [facility] 01-10-2023 13:20-0400 Heart rate 78 /min Dr. Areli Scott Work Phone: [facility] 01-10-2023 13:20-0400 Respiratory rate 18 /min Dr. Areli Scott Work Phone: [facility] 01-10-2023 13:20-0400 SaO2% (BldA) [Mass fraction] 99 % Dr. Areli Scott Work Phone: [facility] 01-10-2023 13:20-0400 Systolic blood pressure 132 mm[Hg] Dr. Areli Scott Work Phone: [facility] 09-18-2022 10:33-0500 Body temperature 97.3 [degF] Dr. Areli Scott Work Phone: [facility] 09-18-2022 10:33-0500 Body weight 86.[address] Areli Scott Work Phone: [facility] 09-18-2022 10:33-0500 Diastolic blood pressure 86 mm[Hg] Dr. Areli Scott Work Phone: [facility] 09-18-2022 10:33-0500 Heart rate 77 /min Dr. Areli Scott Work Phone: [facility] 09-18-2022 10:33-0500 Respiratory rate 18 /min Dr. Areli Scott Work Phone: [facility] 09-18-2022 10:33-0500 SaO2% (BldA) [Mass fraction] 99 % Dr. Areli Scott Work Phone: [facility] 09-18-2022 10:33-0500 Systolic blood pressure 128 mm[Hg] Dr. Areli Scott Work Phone: [facility] 06-05-2022 09:53-0400 Body height 170.[address] Areli Scott Work Phone: [facility] Work Phone: 06-05-2022 09:53-0400 Body mass index (BMI) [Ratio] 32.4 kg/m2 Dr. Areli Scott Work Phone: [facility] Work Phone: 06-05-2022 09:53-0400 Body temperature 97.9 [degF] Dr. Areli Scott Work Phone: [facility] Work Phone: 06-05-2022 09:53-0400 Body weight 93.[address] Areli Scott Work Phone: [facility] Work Phone: 06-05-2022 09:53-0400 Diastolic blood pressure 94 mm[Hg] Dr. Areli Scott Work Phone: [facility] Work Phone: 06-05-2022 09:53-0400 Heart rate 70 /min Dr. Areli Scott Work Phone: [facility] Work Phone: 06-05-2022 09:53-0400 Respiratory rate 16 /min Dr. Areli Scott Work Phone: [facility] Work Phone: 06-05-2022 09:53-0400 SaO2% (BldA) [Mass fraction] 98 % Dr. Areli Scott Work Phone: [facility] Work Phone: 06-05-2022 09:53-0400 Systolic blood pressure 136 mm[Hg] Dr. Areli Scott Work Phone: [facility] Work Phone: 01-31-2022 08:07-0400 Body height 170.[address] Areli Scott Work Phone: [facility] Work Phone: 01-31-2022 08:07-0400 Body mass index (BMI) [Ratio] 31.4 kg/m2 Dr. Areli Scott Work Phone: [facility] Work Phone: 01-31-2022 08:07-0400 Body temperature 97.2 [degF] Dr. Areli Scott Work Phone: [facility] Work Phone: 01-31-2022 08:07-0400 Body weight 90.[address] Areli Scott Work Phone: [facility] Work Phone: 01-31-2022 08:07-0400 Diastolic blood pressure 92 mm[Hg] Dr. Areli Scott Work Phone: [facility] Work Phone: 01-31-2022 08:07-0400 Heart rate 72 /min Dr. Areli Scott Work Phone: [facility] Work Phone: 01-31-2022 08:07-0400 Respiratory rate 14 /min Dr. Areli Scott Work Phone: [facility] Work Phone: 01-31-2022 08:07-0400 SaO2% (BldA) [Mass fraction] 97 % Dr. Areli Scott Work Phone: [facility] Work Phone: 01-31-2022 08:07-0400 Systolic blood pressure 124 mm[Hg] Dr. Areli Scott Work Phone: [facility] Work Phone: 01-31-2022 08:07-0400 Body height 170.[address] Areli Scott Work Phone: [facility] Work Phone: 01-31-2022 08:07-0400 Body mass index (BMI) [Ratio] 31.4 kg/m2 Dr. Areli Scott Work Phone: [facility] Work Phone: 01-31-2022 08:07-0400 Body temperature 97.2 [degF] Dr. Areli Scott Work Phone: [facility] Work Phone: 01-31-2022 08:07-0400 Body weight 90.[address] Areli Scott Work Phone: [facility] Work Phone: 01-31-2022 08:07-0400 Diastolic blood pressure 92 mm[Hg] Dr. Areli Scott Work Phone: [facility] Work Phone: 01-31-2022 08:07-0400 Heart rate 72 /min Dr. Areli Scott Work Phone: [facility] Work Phone: 01-31-2022 08:07-0400 Respiratory rate 14 /min Dr. Areli Scott Work Phone: [facility] Work Phone: 01-31-2022 08:07-0400 SaO2% (BldA) [Mass fraction] 97 % Dr. Areli Scott Work Phone: [facility] Work Phone: 01-31-2022 08:07-0400 Systolic blood pressure 124 mm[Hg] Dr. Areli Scott Work Phone: [facility] Work Phone: 11-15-2021 12:13-0500 Body mass index (BMI) [Ratio] 31.9 kg/m2 Dr. Areli Scott Work Phone: [facility] Work Phone: 11-15-2021 12:13-0500 Body temperature 98.6 [degF] Dr. Areli Scott Work Phone: [facility] Work Phone: 11-15-2021 12:13-0500 Body weight 92.[address] Areli Scott Work Phone: [facility] Work Phone: 11-15-2021 12:13-0500 Diastolic blood pressure 76 mm[Hg] Dr. Areli Scott Work Phone: [facility] Work Phone: 11-15-2021 12:13-0500 Heart rate 77 /min Dr. Areli Scott Work Phone: [facility] Work Phone: 11-15-2021 12:13-0500 Respiratory rate 14 /min Dr. Areli Scott Work Phone: [facility] Work Phone: 11-15-2021 12:13-0500 SaO2% (BldA) [Mass fraction] 97 % Dr. Areli Scott Work Phone: [facility] Work Phone: 11-15-2021 12:13-0500 Systolic blood pressure 130 mm[Hg] Dr. Areli Scott Work Phone: [facility] Work Phone: Encounters Encounter Date Encounter Type Care Provider Facility Start: 09-07-2025 ambulatory Efdhavalgoldsborobe Antonioe Facili ty:[facility] Start: 08-17-2025 [facility] Start: 08-05-2025 End: 08-21-2025 [facility] Start: 07-09-2025 End: 07-09-2025 [facility] Start: 06-24-2025 End: 07-21-[address] [facility] Start: 06-23-2025 ambulatory Efewgoldsborobe Olee Facili ty:[facility] Start: 06-03-2025 End: 06-03-2025 ambulatory Efewongbe Oleghe Facility:[facility] Start: 06-03-2025 End: 06-03-[address] [facility] Start: 03-02-2025 End: 03-02-[facility] Start: 03-02-2025 End: 03-02-[address] [facility] Start: 02-02-2025 Encounter for antibo dy response examination Royceongbe Olejasone [facility] Start: 01-29-2025 End: 01-29-2025 ambulatory Efewgoldsborobe Oleghe Facility:[facility] Start: 01-23-2025 End: 01-23-2025 ambulatory Efewongbe Oleghe Facility:[facility] Start: 12-19-2024 End: 12-19-2024 ambulatory Efewongbe Oleghe Facility:[facility] Start: 12-19-2024 End: 12-19-2024 ambulatory Efewongbe Oleghe Facility:[facility] Start: 11-27-2024 End: 11-27-2024 ambulatory Efewongbe Oleghe Facility:[facility] Start: 11-27-2024 End: 11-27-2024 ambulatory Efewgoldsborobe Oleghe Facility:[facility] Start: 09-03-2024 End: 09-03-2024 ambulatory Efewongbe Oleghe Facility:[facility] Start: 08-27-2024 End: 08-27-2024 ambulatory Efewongbe Oleghe Facility:[facility] Start: 08-27-2024 End: 08-27-2024 ambulatory Efewongbe Oleghe Facility:[facility] Start: 08-27-2024 End: 08-27-2024 [facility] Start: 01-24-[address] Karli Scott Work Phone: [facility]-Physical Therapy Work Phone: Start: 01-23-2024 End: 01-23-[address] Areli Scott Work Phone: [facility] Work Phone: Start: 01-23-2024 End: 01-23-[address] Areli Scott Work Phone: [facility]-Outpatient Bone Densitometry Work Phone: Start: 01-04-[address] Karli Scott Work Phone: [facility] Work Phone: Start: 01-02-2024 End: 01-02-[address] Areli Scott Work Phone: [facility] Work Phone: Start: 01-02-2024 End: 01-02-2024 Encounter for general adult medical examination without abnormal findings Dr. Areli Scott Work Phone: [facility] Start: 01-02-2024 End: 01-02-[address] Areli Scott Work Phone: [facility] Work Phone: Start: 11-04-2023 End: 11-04-2023 [facility] Start: 11-04-2023 End: 11-04-2023 Emergency department patient visit CAROLANN SCOTT Facility:[facility] Start: 10-03-[address] Areli Scott Work Phone: [facility] Start: 10-03-2023 End: 10-03-2023 Emergency department patient visit Dr. Areli Scott Work Phone: [facility] Start: 10-03-2023 End: 10-03-[address] Areli Scott Work Phone: [facility] Work Phone: Start: 09-21-2023 End: 09-21-[address] Areli Scott Work Phone: [facility] Work Phone: Start: 09-19-2023 End: 09-19-[address] Areli Scott Work Phone: [facility] Work Phone: Start: 08-08-2023 End: 08-08-[address] Areli Scott Work Phone: [facility] Emergency Department Work Phone: Start: 08-07-2023 End: 08-07-[address] Areli Scott Work Phone: [facility] Vascular Surgery Work Phone: Start: 08-06-2023 End: 08-06-[address] Areli Scott Work Phone: [facility] Work Phone: Start: 08-06-2023 End: 08-06-[address] [facility] Start: 08-02-2023 End: 08-02-[address] Areli Scott Work Phone: [facility] Orthopaedic Specia Work Phone: Start: 06-18-2023 Non-patient / Non-visit Dr. Fely Scott Work Phone: [facility] Start: 06-18-2023 End: 06-18-[address] Areli [facility] Start: 06-15-2023 End: 06-15-[address] Areli Scott Work Phone: [facility] Internal Medicine Work Phone: Start: 06-06-2023 End: 06-06-[address] Areli Scott Work Phone: [facility] Vascular Surgery Work Phone: Start: 05-30-2023 End: 05-30-[address] Areli Scott Work Phone: [facility] Work Phone: Start: 05-21-2023 End: 05-21-[address] Areli Scott Work Phone: [facility] Internal Medicine Work Phone: Start: 05-21-2023 Non-patient / Non-visit Dr. Fely Scott Work Phone: [facility] Start: 05-21-2023 End: 05-21-[address] Areli Scott Work Phone: [facility] Work Phone: Start: 05-21-2023 End: 05-21-[address] [facility]li [facility] Start: 05-20-2023 End: 05-20-2023 Emergency department patient visit Dr[facility] Areli Scott [facility] Start: 05-15-2023 Non-patient / Non-visit Dr. Fely Scott Work Phone: [facility] Start: 05-15-2023 End: 05-15-2023 Emergency department patient visit Dr[facility] Areli Scott [facility] Start: 04-30-2023 End: 04-30-[address] Areli Scott Work Phone: [facility] Orth[facility] Work Phone: Start: 04-09-2023 End: 04-09-2023 Emergency department patient visit Dr. Areli Scott Work Phone: [facility]Emergency Department Start: 04-06-2023 End: 04-06-[address] Areli Scott Work Phone: [facility] Internal Medicine Start: 01-10-2023 End: 01-10-[address] Areli Scott Work Phone: [facility] Work Phone: Start: 01-10-2023 End: 01-10-[address] Areli Scott Work Phone: [facility] Start: 09-18-2022 End: 09-18-[address] Areli Scott Work Phone: [facility] Internal Medicine Start: 06-22-2022 End: 06-22-[address] Areli Scott Work Phone: [facility] Work Phone: Start: 06-22-2022 End: 06-22-[address] Areli Scott Work Phone: [facility]-Sleep Lab Start: 06-05-2022 End: 06-05-[address] Areli Scott Work Phone: [facility]atory, [facility] Start: 06-05-2022 End: 06-05-[address] Areli Scott Work Phone: [facility] Internal Medicine Start: 02-23-2022 End: 02-23-[address] Areli Scott Work Phone: [facility]-Physical Therapy Start: 02-09-2022 End: 02-09-[address] Areli Scott Work Phone: [facility] Orthopaedic Spec[facility] Start: 01-31-2022 End: 01-31-[address] Areli Scott Work Phone: [facility] Internal Medicine Start: 01-26-2022 End: 01-26-[address] Areli Scott Work Phone: [facility] Start: 11-15-2021 End: 11-15-[address] Areli Scott Work Phone: [facility] Internal Medicine Start: 07-04-[address] Areli Scott Work Phone: [facility] Procedures Date Procedure Procedure Detail Performing [...] Activity Detail Author Start: 05-21-2023 Patient referral [facility] Work Phone: Start: 05-20-2023 US.doppler Lower ext remity vein [facility] Start: 05-20-2023 Blood culture [facility] Start: 05-20-2023 Bacteria identified in Blood by Culture Blood Culture [facility] Start: 04-09-2023 End: 04-09-2023 [facility] DXA Bone [Mass/Area] Bone density [facility] MG Breast - bilatera l Screening [facility] Patient Education [facility] Work Phone: Patient referral [facility] Work Phone: Polysomnography [facility] Work Phone: [facility] Immunizations Immunization Date Immunization Notes Care Provider Fa eric 08-05-2021 influenza, injectabl e, quadrivalent, preservative free Dr. Areli Scott Work Phone: [facility] 08-05-2021 influenza, seasonal, injectable Dr. Areli Scott Work Phone: [facility] Payers Date Payer Category Payer Self-pay [id number] 2019 Private Health Insurance 101 [id number] Unknown [id number] 2.16.8 [id number] Unknown [id number] 2.16.8 [id number] Unknown [id number] 2.16.8 [id number] Unknown [id number] 2.16.8 [id number] Unknown [id number] 2.16.8 [id number] Unknown [id number] 2.16.8 [id number] Unknown [id number] 2.16.8 [id number] Unknown [id number] 2.16.8 [id number] Unknown [id number] 2.16.8 [id number] Unknown [id number] 2.16.8 [id number] Unknown [id number] 2.16.8 [id number] Unknown [id number] 2.16.8 [id number] Unknown [id number] 2.16.8 [id number] Unknown [id number] 2.16.8 [id number] Unknown [id number] 2.16.8 [id number] Unknown [id number] 2.16.8 [id number] Unknown [id number] 2.16.8 [id number] Unknown [id number] 2.16.8 [id number] Unknown [id number] 2.16.8 [id number] Social History Date Type Detail Facility Start: 01-31-2022 End: 01-02-2024 Tobacco smoking status NHIS Unknown if ever smoked [facility] Start: 1950 Sex Assigned At Female [facility] Mental Status Date Assessment Result Facility 05-20-2023 Cognitive function Level Of Cons ciousness Awake;Alert;Appropriate;Follow s Commands [facility] Work Phone: 04-09-2023 Cognitive function Voice/Name [facility] Work Phone: Clinical Notes 07-09-2025 Note Date & Type Note Facility 07-09-2025 Note HNO ID: [id number] Author: HEATH FIERRO, PhD Service: ? Author Type: Psychologist Type: Progress Notes Filed: 07/09/2025 16:00 Note Text: [facility] Behavioral Health Department Progress Note Richelle Morales 07/09/2025 [id number] PROVIDER: Heath Fierro, PhD CPT Code: Time: [...] regulation, and Marital/couple Richelle grew up in [place] w an 8yr older brother... 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 TREATMENT PLAN/GOALS: Continue in therapy focusing on self-care, stress management, affect management, anxiety management, and self-esteem. Next appointment: as scheduled Heath Fierro PhD [facility] Chief complaint+Reason for visit Narrative Reason for Visit Anxiety and depressi on YOEL (obstructive sleep apnea) CKD (chronic kidney disease), stage III History of bursitis Hyperlipidemia Hypertension Obesity YOEL (obstructive sleep apnea) [facility] Work Phone: Evaluation note* Diagnosis Onset Date Resolution Status Anxiety and depression chron ic YOEL (obstructive sleep apnea) chronic CKD (chronic kidney disease), stage III chronic History of bursitis chronic Hyperlipidemia chronic Hypertension chronic Obesity chronic YOEL (obstructive sleep apnea) [facility] Work Phone: Evaluation note* Diagnosis Onset Date Resolution Status CKD (chronic kidney disease), stage III chronic History of bursitis chronic Hyperlipidemia chronic Hypertension chronic Obesity chronic YOEL (obstructive sleep apnea) chronic Arthritis of right glenohumeral joint acute Impingement syndrome of right shoulder acute Right shoulder pain acute [facility] Work Phone: Evaluation note* Diagnosis Onset Date Resolution Status Impingement syndrome of right shoulder acute Right shoulder pain acute Arthritis of right glenohumeral joint chronic Anxiety and depression chron ic Arthritis of right glenohumeral joint chronic Hypertension chronic YOEL (obstructive sleep apnea) [facility] Work Phone: Evaluation note* Diagnosis Onset Date Resolution Status Anxiety and depression chron ic Arthritis of right glenohumeral joint chronic Hypertension chronic YOEL (obstructive sleep apnea) [facility] Work Phone: Evaluation note* Diagnosis Onset Date Resolution Status Impacted cerumen, bilateral acute Unsteady gait when walking a cute Anxiety and depression chron ic Hypertension chronic Anxiety and depression chron ic Hyperlipidemia chronic Hypertension [facility] Work Phone: Evaluation note* Diagnosis Onset Date Resolution Status Anxiety and depression chron ic Hyperlipidemia chronic Hypertension chronic Anxiety and depression chron ic CKD (chronic kidney disease), stage III chronic Hypertension [facility] Work Phone: Evaluation note* Diagnosis Onset Date Resolution Status Anxiety and depression chron ic CKD (chronic kidney disease), stage III chronic Hypertension chronic Impingement syndrome of right shoulder acute Right shoulder pain acute Arthritis of right glenohumeral joint chronic [facility] Work Phone: Evaluation note* Diagnosis Onset Date Resolution Status Anxiety and depression chron ic CKD (chronic kidney disease), stage III chronic Hypertension chronic Impingement syndrome of right shoulder acute Right shoulder pain acute Arthritis of right glenohumeral joint chronic Acute lymphangitis of right lower extremity acute Cellulitis of leg without foot, right acute [facility] Work Phone: Evaluation note* Diagnosis Onset [...] thr ombosis of right lower extremity acute [facility] Work Phone: Evaluation note* Diagnosis Onset Date Resolution Status Hypertension chronic Preoperative evaluation to r ule out surgical contraindication acute Anxiety and depression chron ic Hypertension chronic YOEL (obstructive sleep apnea) chronic Health care maintenance acut e Anxiety and depression chron ic Hyperlipidemia chronic Hypertension chronic Osteopenia chronic [facility] Work Phone: Evaluation note* Diagnosis Onset Date Resolution Status Preoperative evaluation to r ule out surgical contraindication acute Anxiety and depression chron ic Hypertension chronic YOEL (obstructive sleep apnea) chronic Health care maintenance acut e Anxiety and depression chron ic Hyperlipidemia chronic Hypertension chronic Osteopenia chronic [facility] Work Phone: Hospital Discharge instructionsAmbulatory Orders* Vascular Location: None Selected [facility] Work Phone: Family History No Family [...] REDDNESS AND PAIN RT LEG, ELEVATED D-DIMER [facility] FOLLOW UP - DV THROM Reason for Visit Anxiety and depressi on CKD (chronic kidney disease), stage III Hypertension Impingement syndrome of right shoulder Right shoulder pain Arthritis of right glenohumeral joint Acute lymphangitis of right lower extremity Cellulitis of leg without foot, right Chief Complaint RIGHT SHOULDER BLOOD CLOT RIGHT LEG REDDNESS AND PAIN RT LEG, ELEVATED D-DIMER [facility] FOLLOW UP - DV THROM POS HOME [...] No April 09, 2023 8:10pm Power of Athletic Trainer No April 09 8:10pm Advance Directive Response Recorded Date/ Time Name of Medical Power of Athletic Trainer eddie ramos May 20, 2023 4:29pm Living Will Yes May 20, 2023 4:29pm Power of Athletic Trainer Yes May 20 4:29pm Advance Directive Response Recorded Date/ Time Living Will Yes September 19, 023 12:18pm Power of Athletic Trainer Yes September 19, 2023 12:18pm Summary Purpose [...] Inactive Member Role Status Dates Dr. Areli Soctt MD Primary Care Provider Active Dr. Josafat [...] section and content) DATE CREATED AUTHOR 11/09/2023 [facility] DATE CREATED AUTHOR AUTHOR'S ORGANIZ ATION 07/13/2025 [facility] DATE CREATED AUTHOR AUTHOR'S ORGANIZ ATION 08/23/2025 [facility] FOR RECORDS PERTAINING TO PATIENTS WHO [...] BE BASED ON THE PRIMARY CLINICAL RECORDS. [employer] provides no warranty or guarantee of the accuracy or completeness of information in this document.
[2025-10-13 10:15] LABS: Anion Gap 10 (7-18); BUN 18 mg/dL (4-19); BUN/Creat Ratio 17.2 RATIO (10-20); Calcium,Total 10.0 mg/dL (7.6-11.0); Carbon Dioxide 27.8 mmol/L (20.0-29.0); Chloride 101 mmol/L (96-106); Glucose 64 mg/dL (70-99); Potassium 3.7 mmol/L (3.5-5.1)
== END | disposition home or self-care (01) ==
LOC: LAB 09:21
PROVIDERS: PCP Internal Medicine; Referring Provider Internal Medicine; Visit Provider Internal Medicine
DX: I10 Essential (primary) hypertension (principal)
CPT/HCPCS: 36415; 80048